=== PATIENT | male | born 1950 | race Caucasian/White ===

== ENCOUNTER 2023-12-04 10:11 | Outpatient (RCR) | payer MEDICARE, SELFPAY | END 2023-12-15 16:46 | disposition home or self-care (01) | LOC: PT 10:11 | DX: M54.9 Dorsalgia, unspecified (principal) | CPT/HCPCS: 97110; 97112; 97163; 97530 ==

== ENCOUNTER 2023-12-08 10:47 | Outpatient (OUT) | payer MEDICARE, SELFPAY ==
--- NOTE | 2023-12-08 11:19 | XR_ITS ---
The [address] [address] Patient Name: LYNN LANE MRN: [id number] date: 1950 Sex: M Assigned Patient Location: RAD Current Patient Location: Accession/Order Number: [id number] Exam Date: 12/08/2023 11:06 Report Date: 12/09/2023 07:10 At the request of: JOZEF EUCEDA Procedure: XR lumbar spine min 4V EXAMINATION: XR lumbar spine min 4V HISTORY: Dorsalgia COMPARISON: No relevant comparison available. FINDINGS: BONES: Mild dextrocurvature centered at L2. Moderate degenerative spondylosis and facet osteoarthropathy DISC SPACES: Multilevel disc space narrowing most significant at L5-S1 PARASPINOUS: Negative. No paraspinous abnormality is seen. OTHER: Negative. XR/XR lumbar spine min 4V IMPRESSION: Moderate degenerative changes Electronically authenticated by: VON NUNEZ Date: 12/09/2023 07:10
== END 2023-12-08 10:48 | disposition home or self-care (01) ==
LOC: RAD 10:52
PROVIDERS: PCP Family Medicine; Visit Provider Family Medicine
DX: M54.9 Dorsalgia, unspecified (principal)
CPT/HCPCS: 72110

== ENCOUNTER 2024-12-12 13:20 | Emergency (ER) | payer MEDICARE, SELFPAY ==
[2024-12-12 13:27] VITALS: BP 179/98; PULSE 85; TEMP 36.8; O2SAT 95; BMI 22.4
[2024-12-12] MEDS: ADACEL DIPH,PERTUSS(ACELL),TET VAC/PF 0.5 ML ADULT SYRINGE IM (14:19)
[2024-12-12] MEDS: LIDOCAINE/EPINEPHRINE/TETRACAINE 3 ML GEL.PF.APP TOPICAL (14:20)
--- NOTE | 2024-12-12 15:38 | ED.GENADUL1 ---
HPI HPI - General Adult General Chief complaint: Trauma Stated complaint: FALL KNEE PAIN Time Seen by Provider: 12/12/24 13:29 Source: patient Mode of arrival: walk-in Limitations: no limitations History of Present Illness HPI narrative: 74-year-old male to the emergency department chief complaint of accidental fall. He reports that he was walking tripped over his foot and fell forwards. He reports he struck his head on the ground. He reports small laceration. He denies any blood thinners. He reports some pain in his left knee however he is able to walk on it. He has no other complaints at this time. He denies any neck or back pain. He is otherwise been at his baseline health. Related Data Allergies Allergy/AdvReac Type Severity Reaction Status Date / Time No Known Drug Allergies Allergy Verified 12/12/24 13:26 Opioid HPI Opioid Management Most Recent Opioid Data: No Data to Display Review of Systems ROS Status of ROS 10 or more systems reviewed and unremarkable except as noted in history and below PFSH PFSH Social History Little interest or pleasure in doing things: not at all Feeling down, depressed, or hopeless: not at all Exam Narrative Exam Narrative: Primary Survey Airway Intact Lung sounds clear and equal bilaterally Pulses full and equal to femoral, radial, and dorsalis pedis bilaterally Heart regular rate and rhythm Skin warm, dry, pink GCS 15 Movement and sensation intact to all extremities Patient Fully Exposed. Nonspecific tenderness about the left knee. 1.7 cm left temporal facial laceration. Secondary Survey General: GCS 15; Alert HEENT: Left temporal facial laceration; Facial bones stable; Eyes normal inspection, Pupils round, 4-2mm blt; No evidence of oropharyngeal trauma; No blood in the nares or septal hematoma; Tympanic Membranes intact, no hemotympanum or drainage Neck: Normal inspection; no midline cervical tenderness; No tracheal deviation; No JVD Resp: Normal breath sounds, no wheeze or crackles; No chest wall tenderness, crepitus, or subcutaneous emphysema; No visible evidence of chest wall trauma; Chest rise symmetric; No respiratory distress Heart: Heart rate and rhythm regular; Carotid, radial, femoral, dorsalis pedis pulses +2 and equal bilaterally; No Murmurs Abdomen: Soft; Non-tender No ecchymosis or visible wounds to abdominal wall; No distention, guarding, rigidity, or rebound; Pelvis stable, no pain on compression MSK: All major joints with normal ROM. No deformities. No bony tenderness. No tenderness or step-offs to palpation of thoracic or lumbar spine; No ecchymosis or wounds to upper or lower back Neuro: Alert and oriented; Sensation intact and symmetric bilaterally; muscle strengths symmetric bilaterally in the upper and lower extremities. Skin: Color normal; No rash; Warm; Dry Constitutional Vital Signs, click to edit/add: Last Vital Signs Temp 98.2 F 12/12/24 13:27 Pulse 85 12/12/24 13:27 Resp 18 12/12/24 13:27 BP 179/98 H 12/12/24 13:27 Pulse Ox 95 12/12/24 13:27 Course Vital Signs Vital signs: Vital Signs Temperature 98.2 F 12/12/24 13:27 Pulse Rate 85 12/12/24 13:27 Respiratory Rate 18 12/12/24 13:27 Blood Pressure 179/98 H 12/12/24 13:27 Pulse Oximetry 95 12/12/24 13:27 Temperature 98.2 F 12/12/24 13:27 Pulse Rate 85 12/12/24 13:27 Respiratory Rate 18 12/12/24 13:27 Blood Pressure 179/98 H 12/12/24 13:27 Pulse Oximetry 95 12/12/24 13:27 Medical Decision Making MDM Narrative Medical decision making narrative: 74-year-old male to the emergency department chief complaint of fall. Vital stable, the patient is afebrile. CT head, cervical spine and maxillofacial ordered. X-ray of the knee ordered as well CT head: No acute findings CT cervical spine: No acute findings CT maxillofacial: No acute findings X-ray L knee: No acute Laceration repaired uneventfully. Patient able to ambulate. He is appropriate for discharge home. Return precautions were discussed. All questions were answered. Suture removal in 5 to 7 days. Patient was discharged home. Laceration Repair Verbal consent was obtained for laceration repair. Lidocaine infiltration for local anesthesia. Wound was cleansed and then irrigated with normal saline under pressure. Wound explored. No foreign bodies were identified. 3x simple interrupted 4-O sutures were used to repair the laceration. Adequate wound approximation was obtained. The patient tolerated the procedure well and there were no complications. Obi Melton DO Medical Records Medical records reviewed: Yes I reviewed the patient's medical records Imaging Data CT scan - head: Attestation: I have reviewed the pertinent imaging results. Radiologist's impression: See separate PACS document Discharge Plan Discharge Chief Complaint: Trauma Clinical Impression: Accidental fall, Closed head injury, Facial laceration, Contusion of knee Patient Disposition: Home, Self-Care Time of Disposition Decision: 15:22 Condition: Good Mode of Transportation: Private Vehicle Print Language: Ukrainian Instructions: Laceration (ED), Head Injury (ED), Contusion in Adults (ED), Fall Prevention (ED) Additional Instructions: Keep original bandage on for 24 hours after which the wound may be open to the air. You may gently clean the site with soap and water twice daily after 24 hours. You can apply anti-bacterial ointment to the wound twice daily after cleaning. Do not go swimming until sutures are removed and wound has healed completely. 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 Seek medical care if your wound develops increasing redness, warmth, swelling, or purulent discharge. Your sutures will need to be removed in 7 days by a healthcare provider so the wound can be re- examined. Referrals: Calvin Oshea DO [Primary Care Provider] - 1 week
== END 2024-12-12 15:43 | disposition home or self-care (01) ==
PROVIDERS: Emergency Provider Student in an Organized Health Care Education/Training Program; PCP Family Medicine
DX: S01.81XA Laceration without foreign body of other part of head, initial encounter (principal); S09.8XXA Other specified injuries of head, initial encounter; S80.02XA Contusion of left knee, initial encounter; W01.0XXA Fall on same level from slipping, tripping and stumbling without subsequent striking against object, initial encounter; Z23 Encounter for immunization
CPT/HCPCS: 12011; 70450; 70486; 72125; 73564; 90471; 90715; 99284

== ENCOUNTER 2024-12-20 10:13 | Emergency (ER) | payer MEDICARE, SELFPAY ==
[2024-12-20] VITALS (11 sets, daily range): BP systolic 141–163; BP diastolic 89–111; PULSE 83–99; TEMP 36.6; O2SAT 89–96; BMI 23.7
--- OUTSIDE RECORDS SUMMARY | 2024-12-20 10:32 | XMS_ITS | CCD ---
Author Organization [facility] Care Team Providers Care Purchasing Department Clerk Name Role Phone VIVI SWATHIOFELIAJohn Unavailable Unavailable RUSSELL TREJO Unavailable Unavailable MARCELLA, DR WELLS Attending Unavailable MARCELLA, DR WELLS Consulting Unavailable MARCELLA, DR WELLS Admitting Unavailable DO Russell Trejo Primary Care Provider DO Kaylyn Dumont Emergency Provider [phone] Russell Trejo Primary Care Unavailable Kaylyn Dumont Attending Unavailable Kaylyn Dumont Admitting Unavailable Russell Trejo DO Unavailable Russell Trejo DO Primary Care Provider [phone] Russell Guerrero Primary Care Physician Unavail able Link, Calvin Cotto Primary Care Physician [phone] Unavailable Primary Care Provider UnavailEUGENIO Wing Attending Unavailable EUGENIO RIVERO Attending Unavailable Link, Calvin Cotto Attending Unavailable Link, Calvin Cotto Attending Unavailable Link, Calvin Cotto Attending Unavailable Link, Calvin Cotto Attending Unavailable Link, Calvin Cotto Attending Unavailable Link, Calvin Cotto Attending Unavailable Unavailable Unavailable Unavailable Allergies Allergy Classification Reported Allergen(s) Allergy Type Date of Onset Reaction(s) Facility (1 source) No Known Medication Allergies; Translations: [No Known Medication Allergies] Propensity to adverse reactions (disorder) [facility] Repository Medications Current Medications Medication Drug Class(es) Dates Sig (Normalized) Sig (Original) acetaminophen 500 mg oral tablet (6 sources) take 1 tablet by mouth every four hours as needed acetaminophen (Tylenol Extra Strength) 500 MG tablet Take 500 mg by mouth every 4 (four) hours if needed. Active aspirin 81 mg delayed release oral tablet (3 sources) Platelet Aggregation Inhibitor, Nonsteroidal Anti-inflammatory Drug Start: 03-18-2020 End: 04-29-2021 take 81 mg by mouth once daily Aspirin Active 81 MG PO Daily April 28, 2021 11:00pm Start: 02-12-2018 End: 10-05-2018 Aspirin (John Low Dose Aspi rin) 81 mg Tablet,Delayed Release (Dr/Ec) Discontinued 81 MG PO Daily February 11, 2018 11:00pm October 05, 2018 7:23am atorvastatin 10 mg oral tablet (16 sources) HMG-CoA Reductase Inhibitor Start: 05-19-2023 take 1 tablet by mouth once daily atorvastatin (Lipitor) 10 MG tablet Indications: Mixed hyperlipidemia (CMS/HCC) TAKE 1 TABLET BY MOUTH EVERY DAY FOR 90 DAYS 90 tablet 3 05/19/2023 Active Start: 02-16-2020 atorvastatin 1 0 mg, Refills(s) 0 Start Date: 02/16/20 Status: Ordered Start: 02-12-2018 take 10 mg by mouth once daily in the morning Atorvastatin Active 10 MG Oral Every morning February 12, 2018 10:22pm citalopram 20 mg oral tablet (5 sources) Serotonin Reuptake Inhibitor Start: 02-12-2018 End: 04-29-2021 take 20 mg by mouth once daily Citalopram Active 20 MG Oral Daily February 12, 2018 10:22pm donepezil hydrochloride 5 mg oral tablet (8 sources) Start: 03-31-2024 take 1 tablet by mouth once daily at bedtime donepezil (Aricept) 5 MG tablet Indications: Other amnesia TAKE 1 TABLET BY MOUTH EVERY DAY AT BEDTIME FOR 90 DAYS 90 tablet 2 03/31/2024 Active Start: 07-28-2020 take 1 tablet by althea th once daily at bedtime donepezil 10 mg Tab 10 mg = 1 tab(s), Oral, Once a day (at bedtime), # 30 tab(s), Refills(s) 0 Start Date: 07/28/20 Status: Ordered ibuprofen 800 mg oral tablet (10 sources) Nonsteroidal Anti-inflammatory Drug Start: 11-09-2023 take 1 tablet by mouth every six hours ibuprofen 800 mg Tab 800 mg = 1 tab(s), Oral, q6hr, # 40 tab(s), Refills(s) 0 Start Date: 11/09/23 Status: Ordered Start: 11-09-2023 take 1 tablet by althea th once daily ibuprofen 800 mg Tab 800 mg = 1 tab(s), Oral, Daily, Refills(s) 0 Start Date: 11/09/23 Status: Ordered Lisinopril (19 sources) Angiotensin Converting Enzyme Inhibitor Start: 02-16-2020 lisinopril 20 mg, Refills(s) 0 Start Date: 02/16/20 Status: Ordered Start: 02-14-2018 End: 11-05-2018 take 40 mg by mouth once daily Lisinopril Active 40 MG PO Daily November 05, 2018 2:27pm Start: 02-12-2018 End: 02-14-2018 take 20 mg by mouth once daily Lisinopril Discontinued 20 MG PO Daily February 11, 2018 11:00pm February 14, 2018 12:55pm Start: 02-12-2018 End: 02-12-2018 Lisinopril Discontinued TABL ET February 11, 2018 11:00pm February 12, 2018 9:27pm loperamide hydrochloride 2 mg oral capsule (1 source) Opioid Agonist Start: 04-29-2021 take 2 mg by mouth every six hours Loperamide Active 2 MG PO Q6H 90 April 28, 2021 11:00pm 24 hr metoprolol succinate 25 mg extended release oral tablet (16 sources) beta-Adrenergic Magda Start: 05-24-2024 take 1 tablet by mouth once daily metoprolol succinate XL (Toprol-XL) 25 MG 24 hr tablet Indications: Benign essential hypertension (CMS/HCC) TAKE 1 TABLET BY MOUTH EVERY DAY 90 tablet 05/24/2024 Active Start: 10-05-2018 End: 04-29-2021 take 1 tablet by mouth once daily metoprolol 25 mg ER Tab 25 mg = 1 tab(s), Oral, Daily, Refills(s) 0 Start Date: 07/28/20 Status: Ordered mirtazapine 7.5 mg oral tablet (8 sources) Start: 08-27-2023 take 1 tablet by mouth at bedtime mirtazapine (Remeron) 7.5 MG tablet Indications: Recurrent major depressive disorder, in partial remission (HCC) (CMS/HCC) Take 1 tablet (7.5 mg) by mouth at bedtime 90 tablet 3 08/27/2023 Active nitroglycerin 0.4 mg sublingual tablet (7 sources) Nitrate Vasodilator Start: 04-29-2021 Nitroglycerin Active 0.4 MG SUBLINGUAL every 5 to 15 minutes April 28, 2021 11:00pm Semaglutide,0.25 or 0.5MG/DOS, (Ozempic, 0.25 or 0.5 MG/DOSE,) 2 MG/3ML solution pen-injector (6 sources) Start: 08-31-2023 Semaglutide,0.25 or 0.5MG/DOS, (Ozempic, 0.25 or 0.5 MG/DOSE,) 2 MG/3ML solution pen-injector Indications: Metabolic syndrome Inject 0.25 mg under the skin 1 (one) time per week 2 mL 08/31/2023 Active Start: 08-31-2023 Semaglutide,0. 25 or 0.5MG/DOS, (Ozempic, 0.25 or 0.5 MG/DOSE,) 2 MG/3ML solution pen-injector Indications: Metabolic syndrome Inject 0.25 mg under the skin 1 (one) time per week 2 mL 0 08/31/2023 Active sertraline 100 mg oral tablet (12 sources) Serotonin Reuptake Inhibitor Start: 11-09-2023 sertraline (Zoloft) 100 MG tablet Indications: Recurrent major depressive disorder, in partial remission (HCC) (CMS/HCC) TAKE 1 AND 1/2 TABLETS BY MOUTH ONCE DAILY 135 tablet 05/24/2024 Active Start: 06-15-2023 sertraline (Zo loft) 100 MG tablet Indications: Recurrent major depressive disorder, in partial remission (HCC) (CMS/HCC) TAKE 1 AND 1/2 TABLETS BY MOUTH ONCE DAILY 135 tablet 3 06/15/2023 Active Start: 04-29-2021 take 25 mg by mouth once daily Sertraline Active 25 MG PO Daily April 28, 2021 11:00pm divalproex sodium 250 mg delayed release oral tablet (12 sources) Mood Stabilizer, Anti-epileptic Agent Start: 11-08-2024 take 2 tablets by mouth once daily in the morning, then take 1 tablet by mouth once daily at bedtime divalproex (Depakote) 250 MG EC tablet Indications: Seizure disorder (CMS/HCC) 2 po qam, 1 po qhs 90 tablet 11/08/2024 Active Start: 04-29-2021 take 1 tablet by althea th in the morning, then take 2 tablets by mouth at bedtime divalproex sodium 250 mg Oral EC Tab TAKE 1 TABLET BY MOUTH IN THE MORNING AND 2 TABLETS AT BEDTIME Start Date: 11/09/23 Status: Ordered Completed/Discontinued Medications Medication Drug Class(es) Dates Sig (Normalized) Sig (Original) levothyroxine sodium 0.1 mg oral tablet (17 sources) l-Thyroxine Start: 05-19-2024 take 1 tablet by mouth once daily in the morning levothyroxine 100 mcg (0.1 mg) Tab 100 mcg = 1 tab(s), Oral, Daily, TAKE 1 TABLET BY MOUTH EVERY DAY IN THE MORNING ON EMPTY STOMACH, # 90 tab(s), Refills(s) 4, Pharmacy: [facility]/pharmacy #[id number], 187, cm, 01/18/24 14:04:00 EDT, Height/Length Dosing, 98, kg, 01/18/24 14:04:00 EDT, Weight Dosing Start Date: 05/19/24 Status: Ordered Start: 11-09-2023 take 1 tablet by althea th once daily in the morning levothyroxine 100 mcg (0.1 mg) Tab TAKE 1 TABLET BY MOUTH EVERY DAY IN THE MORNING ON EMPTY STOMACH Start Date: 11/09/23 Status: Ordered Start: 04-28-2023 take 1 tablet by althea th once daily in the morning levothyroxine (Synthroid, Levoxyl) 100 MCG tablet Indications: Acquired hypothyroidism (CMS/HCC) TAKE 1 TABLET BY MOUTH EVERY DAY IN THE MORNING ON EMPTY STOMACH 90 tablet 3 04/28/2023 Active Start: 02-12-2018 End: 02-12-2018 take 88 ug by mouth once daily Levothyroxine Active 88 MCG Oral Daily February 12, 2018 10:22pm Problems Active Problems Problem Classification Problem Date Documented Da te Episodic/Chronic Abdominal pain (5 sources) Left flank pain 02-17-2020 Episodic Acute cerebrovascular disease (16 sources) Cerebral hemorrhage; Translations: [Nontraumatic intracerebral hemorrhage, unspecified] Onset: 04-20-2023 06-06-2019 Chronic Calculus of urinary tract (10 sources) Kidney stone; Translations: [History of calculus of kidney] 02-17-2020 Episodic Coma; stupor; and brain damage (6 sources) Anoxic encephalopathy; Translations: [Anoxic brain damage, not elsewhere classified] Onset: 04-20-2023 04-20-2023 Chronic Conditions associated with dizziness or vertigo (2 sources) Dizziness; Translations: [Dizziness and giddiness] Onset: 10-13-2022 10-13-2022 Episodic Delirium, dementia, and amnestic and other cognitive disorders (19 sources) 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 behavioral disturbance; Translations: [Apathetic behavior due to dementia] Onset: 05-05-2022 04-20-2023 Chronic Disorders of lipid metabolism (11 sources) Mixed hyperlipidemia; Translations: [Mixed hyperlipidemia] Onset: 04-20-2023 04-20-2023 Chronic Epilepsy; convulsions (20 sources) Epilepsy, unspecified, not intractable, without status epilepticus; Translations: [Absence seizure] Onset: 05-02-2022 Chronic Epilepsy; convulsions (9 sources) Absence seizure; Translations: [Seizure] 06-06-2019 Episodic Essential hypertension (20 sources) Hypertensive disorder; Translations: [Essential (primary) hypertension] Onset: 05-05-2022 06-06-2019 Chronic Fluid and electrolyte disorders (5 sources) Dehydration; Translations: [Dehydration] 02-12-2018 Episodic Genitourinary symptoms and ill-defined conditions (5 sources) Urinary incontinence 02-17-2020 Chronic Genitourinary symptoms and ill-defined conditions (5 sources) Blood in urine 02-16-2020 Episodic Intracranial injury (6 sources) Traumatic brain injury; Translations: [History of traumatic brain injury] Onset: 12-11-2023 07-28-2020 Episodic Comment on above: Added per Dr. Dayo hoffmann response, per outpatient [facility] policy Late effects of cerebrovascular disease (8 sources) Dysarthria following unspecified cerebrovascular disease; Translations: [History of cerebrovascular accident with residual deficit] Onset: 05-05-2022 02-13-2018 Chronic Malaise and fatigue (1 source) Asthenia; Translations: [Weakness] 10-13-2022 Episodic Miscellaneous mental health disorders (5 sources) Chronic insomnia; Translations: [Psychophysiologic insomnia] Onset: 01-18-2024 11-10-2023 Chronic Mood disorders (20 sources) Major depressive disorder, recurrent, moderate; Translations: [Major depression in remission] Onset: 05-05-2022 04-20-2023 Chronic Comment on above: Added per Dr. Dayo hoffmann response, per outpatient [facility] policy. Mycoses (3 sources) Onychomycosis; Translations: [Tinea unguium] 11-04-2023 Episodic Nonspecific chest pain (1 source) Chest pain, unspecified; Translations: [Chest pain, unspecified] Onset: 03-11-2018 Episodic Other aftercare (1 source) Long-term current use of anticoagulant; Translations: [buttermaker continuous churn (current) use of anticoagulants] Onset: 12-14-2023 Episodic Other circulatory disease (4 sources) History of cerebrovascular accident with residual deficit; Translations: [Sequela of cardioembolic stroke] Episodic Other circulatory disease (2 sources) History of transient ischemic attack; Translations: [Personal history of transient ischemic attack (TIA), and cerebral infarction without residual deficits] Onset: 12-14-2023 Episodic Other circulatory disease (4 sources) History of cerebrovascular accident 11-10-2023 Episodic Other connective tissue disease (5 sources) Rhabdomyolysis; Translations: [Rhabdomyolysis] 02-13-2018 Episodic Other connective tissue disease (3 sources) Pain of toe of left foot; Translations: [Pain in left toe(s)] 11-04-2023 Episodic Other connective tissue disease (3 sources) Pain of toe of right foot; Translations: [Pain in right toe(s)] 11-04-2023 Episodic Other diseases of veins and lymphatics (2 sources) Peripheral venous insufficiency; Translations: [Venous insufficiency (chronic) (peripheral)] 11-04-2023 Episodic Other gastrointestinal disorders (5 sources) Mass of colon; Translations: [Other specified diseases of intestine] 04-13-2019 Episodic Other gastrointestinal disorders (1 source) Diarrhea, unspecified; Translations: [DIARRHEA UNSPECIFIED] Onset: 05-05-2022 Episodic Other hematologic conditions (1 source) Raised cardiac enzyme or marker; Translations: [Other specified abnormalities of plasma proteins] 02-12-2018 Episodic Other hereditary and degenerative nervous system conditions (3 sources) Impaired cognition; Translations: [Mild cognitive impairment, so stated] Onset: 06-15-2024 06-15-2024 Chronic Other injuries and conditions due to external causes (2 sources) History of fall; Translations: [History of falling] Onset: 11-09-2023 Episodic Other liver diseases (6 sources) Fatty (change of) liver, not elsewhere classified; Translations: [Other chronic nonalcoholic liver disease] Onset: 08-31-2023 08-31-2023 Chronic Other lower respiratory disease (5 sources) Dyspnea 02-16-2020 Episodic Other nervous system disorders (5 sources) Cognitive deficit in attention; Translations: [Attention and concentration deficit] 06-06-2019 Chronic Other nervous system disorders (5 sources) Impaired cognition; Translations: [Other symptoms and signs involving cognitive functions and awareness] 06-06-2019 Episodic Other nervous system disorders (1 source) Unspecified abnormalities of gait and mobility; Translations: [UNS ABNORMALITIES GAIT AND MOBILITY] Onset: 05-05-2022 Episodic Other nervous system disorders (4 sources) Lack of awareness; Translations: [Cognitive complaints] Other non-traumatic joint disorders (1 source) Pain of right shoulder joint; Translations: [Pain in right shoulder] Onset: 01-18-2024 Episodic Other nutritional; endocrine; and metabolic disorders (3 sources) Overweight in adulthood with body mass index of 25 or more but less than 30; Translations: [Body mass index (BMI) 29.0-29.9, adult] Onset: 11-09-2023 Episodic Peripheral and visceral atherosclerosis (2 sources) Peripheral vascular disease, unspecified; Translations: [Peripheral vascular disease, unspecified] 11-04-2023 Chronic Residual codes; unclassified (8 sources) Amnesia; Translations: [Other amnesia] 06-06-2019 Episodic Residual codes; unclassified (5 sources) History of colectomy; Translations: [Acquired absence of other specified parts of digestive tract] 04-16-2019 Episodic Residual codes; unclassified (1 source) Acquired absence of other specified parts of digestive tract; Translations: [ACQ ABSENCE OTH PART DIGESTV TRACT] Onset: 05-05-2022 Episodic Residual codes; unclassified (1 source) Lack of awareness; Translations: [Unspecified symptoms and signs involving cognitive functions and awareness] 06-06-2019 Episodic Screening and history of mental health and substance abuse codes (3 sources) H/O: Disorder; Translations: [Personal history of nicotine dependence] Onset: 11-09-2023 Episodic Spondylosis; intervertebral disc disorders; other back problems (7 sources) Backache; Translations: [Dorsalgia, unspecified] Onset: 11-09-2023 Episodic Syncope (6 sources) Syncope and collapse; Translations: [Vasovagal syncope] 03-18-2020 Episodic Syncope (1 source) Syncope Onset: 03-11-2018 Thyroid disorders (11 sources) Hypothyroidism, unspecified; Translations: [Hypothyroidism] Onset: 05-05-2022 04-20-2023 Chronic Unclassified (2 sources) Chest pain, unspecified / R07.9(ICD-9) Onset: 03-11-2018 Unclassified (4 sources) Protein level - finding; Translations: [Elevated brain natriuretic peptide (BNP) level] Unclassified (5 sources) Asymptomatic microscopic hematuria 02-17-2020 Unclassified (5 sources) Drug therapy finding 02-17-2020 Past or Other Problems Problem Classification Problem Date Documented Date Episodic/Chronic Administrative/social admission (6 sources) Patient encounter status; Translations: [Other specified counseling] Onset: 3 04-27-2023 Episodic Mood disorders (6 sources) Mood disorders Onset: 3 08-31-2023 Other and unspecified benign neoplasm (6 sources) Tubular adenoma of colon; Translations: [Benign neoplasm of colon, unspecified] Onset: 3 04-20-2023 Episodic Other gastrointestinal disorders (6 sources) Incontinence of feces; Translations: [Full incontinence of feces] Onset: 3 04-20-2023 Episodic Other gastrointestinal disorders (6 sources) Dysphagia; Translations: [Dysphagia, pharyngoesophageal phase] Onset: 3 04-20-2023 Episodic Other nervous system disorders (6 sources) Abnormal gait; Translations: [Unspecified abnormalities of gait and mobility] Onset: 3 04-20-2023 Episodic Other non-epithelial cancer of skin (6 sources) Basal cell carcinoma of forehead; Translations: [Basal cell carcinoma of skin of other parts of face] Onset: 3 04-20-2023 Episodic Residual codes; unclassified (6 sources) History of partial resection of colon; Translations: [Acquired absence of other specified parts of digestive tract] Onset: 3 04-20-2023 Episodic Results Test Name Value Interpretation Reference Range Facility Family Medicine Office/Clini c Noteon 01-21-2024 Family Medicine Office/Clinic Note Chief Complaint Initial AWV History of Present Illness I was in the office and available for consultation and to provide direct supervision at the time of this visit. I have provided supervision of the care team and have reviewed this chart and office note and agree with the plan of care. Review of Systems PHQ Score Initial Depression Screen Score: 1 SCORE Physical Exam Vitals & Measurements HR: 101(Peripheral) RR: 16 BP: 122/90 SpO2: 93% HT: 187 cm HT: 74 in WT: 98 kg WT: 215.6 lb BMI: 28.02 Assessment/Plan 1. Encounter for initial annual wellness visit (AWV) in Medicare patient (Z00.00: Encounter for general adult medical examination without abnormal findings) The patient was given a customized and personalized print out of all the current AHRQ USPSTF?s recommendations for preventative services and all current CDC recommended immunizations, relevant risk recommendations and the following patient brochures were given. Reviewed What can I expect during my Medicare preventative care visit CDC-Falls Prevention and home safety screening reviewed. Patient has had several falls in last 12 months, pt does worry about falling. Pt voices understanding with keeping walk way area free of clutter to prevent tripping and/or falling. [place] Advance Directives reviewed, Pt's family will bring in a copy. Patient denies any problems with ADL?s and Instrumental ADL?s. Cognitive screening completed with memory and clock face drawing. Immunization Record reviewed with the patient. Pt declined any further vaccines. Allergies and medications reviewed and up to date. Patient denies concerns with taking medication as prescribed, reviewed OTC medications with patient with medication list up to date. Blood tests were reviewed: Discussed what tests need to be updated. Colonoscopy was declined. Reviewed concerns with bladder control over past 6 months with no concerns. Reviewed pain symptoms with patient: 0/10 Reviewed all outside providers that patient follows. Last visit summary notes available in chart and/or have been requested. AWV has been scheduled 01/03/2025 AUDIT risk assessment screening completed, risk score (0) with patient denying concerns with use. Completed PHQ-2 risk assessment for depression with risk score (0), negative findings. Patient has been reminded to notify the provider if there would be a change or concerns with symptoms with fear, unable to sleep, worrying too much or feeling down and/or sad with lost of interest with daily activities. Will continue to monitor with screening yearly during Medicare wellness visits. Spent 12 min. reviewing with pt. 2. Absence seizure (G40.A09: Absence epileptic syndrome, not intractable, without status epilepticus) Pt takes Divalproex but is inconsistent with taking it properly despite verbalizing that is aware when he needs to take it. Pt follows with Neurology as directed. Pt was encouraged to start being consistent with medication regimen to avoid having any break-through seizure activity. Pt was able to verbalize understanding. 3. Benign essential hypertension (I10: Essential (primary) hypertension) Patient is taking Lisinopril and Metoprolol but not consistently as directed. Pt was able to verbalize the importance of consistently taking his medication as prescribed. Reviewed with pt BP goal to be <140/90. Reviewed different factors that can alter blood pressure readings. Education handout provided with s/s to monitor for and report to provider. Patient is encouraged to increase portions of fruit, vegetables, fiber and increase exercise as much as tolerable. Reviewed importance with monitoring foods high in salt content and encouraged to limit intake, if unsure encouraged to discuss with their PCP. Encouraged to eat more chicken, fish and lean white meats and limits red meats in diet. Discussed importance with keeping BP under good control to reduce CVA risk factors. Will continue to f/u with PCP during office visits and as needed. 4. Chronic insomnia (F51.04: Psychophysiologic insomnia) Pt stopped taking the Mirtazapine due to it being ineffective. Pt has poor sleep hygiene habits and sleeps off and on throughout the day and night. Pt has days where he never gets out of bed except to use the restroom or eat. Discussed with pt proper sleep habits and how it helps with insomnia. Pt to follow with PCP as directed. 5. Hyperlipemia (E78.5: Hyperlipidemia, unspecified) The role of Statins extends beyond lowering blood levels of cholesterol and LDL and CKD. Statins can also reduce inflammation which increases risk factors for heart disease due to plaque buildup. Reviewed symptoms to monitor for and report to PCP ie: cramping, muscle pain, muscle weakness or diarrhea. Patient currently taking Atorvastatin 10 mg daily, reminded importance for a proper diet. Handout provided for patient to review and if need make changes. 6. History of CVA in adulthood (Z86.73: Personal history of transient ischemic attack (TIA) (more content not included)... Normal [facility] Comment on above: Result Comment: Elec tronically Signed By: Calvin Oshea DO.br\Date and Time Signed: 01/21/24 10:38 EDT\.br\Electronically Co-Signed By: Chun De Luna LPN\.br\Date and Time Co-Signed: 01/20/24 16:00 EDT Patient Educationon 01-20-20 Patient Education Cardiovascular Hypertension, Adult High blood pressure (hypertension) is when the force of blood pumping through the arteries is too strong. The arteries are the blood vessels that carry blood from the heart throughout the body. Hypertension forces the heart to work harder to pump blood and may cause arteries to become narrow or stiff. Untreated or uncontrolled hypertension can lead to a heart attack, heart failure, a stroke, kidney disease, and other problems. A blood pressure reading consists of a higher number over a lower number. Ideally, your blood pressure should be below 120/80. The first ( top ) number is called the systolic pressure. It is a measure of the pressure in your arteries as your heart beats. The second ( bottom ) number is called the diastolic pressure. It is a measure of the pressure in your arteries as the heart relaxes. What are the causes? The exact cause of this condition is not known. There are some conditions that result in high blood pressure. What increases the risk? Certain factors may make you more likely to develop high blood pressure. Some of these risk factors are under your control, including: ? Smoking. ? Not getting enough exercise or physical activity. ? Being overweight. ? Having too much fat, sugar, calories, or salt (sodium) in your diet. ? Drinking too much alcohol. Other risk factors include: ? Having a personal history of heart disease, diabetes, high cholesterol, or kidney disease. ? Stress. ? Having a family history of high blood pressure and high cholesterol. ? Having obstructive sleep apnea. ? Age. The risk increases with age. What are the signs or symptoms? High blood pressure may not cause symptoms. Very high blood pressure (hypertensive crisis) may cause: ? Headache. ? Fast or irregular heartbeats (palpitations). ? Shortness of breath. ? Nosebleed. ? Nausea and vomiting. ? Vision changes. ? Severe chest pain, dizziness, and seizures. How is this diagnosed? This condition is diagnosed by measuring your blood pressure while you are seated, with your arm resting on a flat surface, your legs uncrossed, and your feet flat on the floor. The cuff of the blood pressure monitor will be placed directly against the skin of your upper arm at the level of your heart. Blood pressure should be measured at least twice using the same arm. Certain conditions can cause a difference in blood pressure between your right and left arms. If you have a high blood pressure reading during one visit or you have normal blood pressure with other risk factors, you may be asked to: ? Return on a different day to have your blood pressure checked again. ? Monitor your blood pressure at home for 1 week or longer. If you are diagnosed with hypertension, you may have other blood or imaging tests to help your health care provider understand your overall risk for other conditions. How is this treated? This condition is treated by making healthy lifestyle changes, such as eating healthy foods, exercising more, and reducing your alcohol intake. You may be referred for counseling on a healthy diet and physical activity. Your health care provider may prescribe medicine if lifestyle changes are not enough to get your blood pressure under control and if: ? Your systolic blood pressure is above 130. ? Your diastolic blood pressure is above 80. Your personal target blood pressure may vary depending on your medical conditions, your age, and other factors. Follow these instructions at home: Eating and drinking ? Eat a diet that is high in fiber and potassium, and low in sodium, added sugar, and fat. An example of this eating plan is called the DASH diet. DASH stands for Dietary Approaches to Stop Hypertension. To eat this way: ? Eat plenty of fresh fruits and vegetables. Try to fill one half of your plate at each meal with fruits and vegetables. ? Eat whole grains, such as whole-wheat pasta, brown rice, or whole-grain bread. Fill about one fourth of your plate with whole grains. ? Eat or drink low-fat dairy products, such as skim milk or low-fat yogurt. ? Avoid fatty cuts of meat, processed or cured meats, and poultry with skin. Fill about one fourth of your plate with lean proteins, such as fish, chicken without skin, beans, eggs, or tofu. ? Avoid pre-made and processed foods. These tend to be higher in sodium, added sugar, and fat. ? Reduce your daily sodium intake. Many people with hypertension should eat less than 1,500 mg of sodium a day. ? Do not drink alcohol if: ? Your health care provider tells you not to drink. ? You are , may be , or are planning to become . ? If you drink alcohol: ? Limit how much you have to: ? 0?1 drink a day for women. ? 0?2 drinks a day for men. ? Know how much alcohol is in your drink. In the [place] one drink equals one 12 oz bottle of beer (355 mL), one 5 oz glass of wine (148 mL), or one 1? oz glass (more content not included)... Normal [facility] Ambulatory Visit Summaryon 0 01-18-2024 Ambulatory Visit Summary LYNN JOLLY :1950 Visit Date:01/18/2024 Ambulatory Visit Instructions Your Diagnosis Encounter for initial annual wellness visit (AWV) in Medicare patient Absence seizure Benign essential hypertension Chronic insomnia Hyperlipemia History of CVA in adulthood At risk for falls Hypothyroidism in adult Severe major depression without psychotic features BMI 28.0-28.9,adult Overweight Screening PSA (prostate specific antigen) Screening for diabetes mellitus Your Care Team Attending Physician - Calvin Oshea DO Primary Care Physician - Calvin Oshea DO This Is Your Medications List atorvastatin divalproex sodium (divalproex sodium 250 mg Oral EC Tab) donepezil (donepezil 10 mg Tab) ibuprofen (ibuprofen 800 mg Tab) ibuprofen (ibuprofen 800 mg Tab) levothyroxine (levothyroxine 100 mcg (0.1 mg) Tab) lisinopril metoprolol (metoprolol 25 mg ER Tab) sertraline (sertraline 100 mg Tab) [Image Removed: STOP]Stop taking these medications mirtazapine (mirtazapine 7.5 mg oral tablet) Procedures Performed History of hip surgery (2015), Lithotripsy (02/19/2012), History of shoulder surgery. What to do next Scheduled Follow-Up Appointments Thursday 2:00 PM EDT Where: [facility] [place] Invalid Interpretation Code Benign essential hypertension [facility] Medicine Office/Clini c Noteon 01-18-2024 Family Medicine Office/Clinic Note Chief Complaint 1 month f/u HPI Staff Patient here for 1 month f/u At last visit referral for Psychiatry placed, scheduled: no they haven't yet. Patient notes no issue with shoulder and back, patient notes the reason he doesn't get out of bed is because he's comfortable . [place]: per pt 5 years ago PSA: unsure Flu: declines AMW: today History of Present Illness Patient presents today for followup on back and shoulder pain. Patient was referred to PT at last visit for this complaint. He was seeing PT for his balance, and has continued with them since that time. Today, he reports Patient states that his depression is stable. He has not been getting out of bed, he has not been walking well. He has had more falls since last visit, denies any lasting injuries. Patient's family relates that they keep trying to get him out of bed, keep trying to get him to clean himself up, to shave. He states he is not willing to do these things because he doesn't really care. Family reports that when they try to get him to engage, he gets angry, aggressive, and frustrated. 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 He is frustrated by his condition, and while he does not express SI, he doesn't much care how he does day to day. He denies any medication changes. He has not seen psychiatry since last visit. Review of Systems ROS - Provider Constitutional: no fever, no chills Skin: no rash, no lesions ENMT: no ear pain, no sore throat, no congestion, no hoarseness. Respiratory: no shortness of breath, no cough, no wheezing. Cardiovascular: no chest pain, no palpitations, no edema. Gastrointestinal: no nausea, no vomiting, no diarrhea, Musculoskeletal: yes back pain, no trauma. Neurologic: no headache, no dizziness, no numbness, no weakness, no seizures Psychiatric: yes sleeping problems, yes irritability, yes mood swings/depression. Physical Exam Vitals & Measurements HR: 101(Peripheral) BP: 122/90 SpO2: 93% HT: 74 in HT: 187 cm WT: 98 kg WT: 215.6 lb BMI: 28.02 General: Well developed, well nourished, in no acute distress, slow responses to questions Head: Normocephalic/atraumatic Eyes: Pupils equal, round, and reactive to light. Sclerae normal, and extraocular movements intact Lungs: not assessed Cardio: not assessed Musculoskeletal: No deformity or scoliosis noted. Normal range of motion. Joints normal. No erythema, edema, effusion, or ecchymosis Extremity: No clubbing, cyanosis, edema, or deformity, with normal ROM in both upper and lower bilateral extremities Neurologic: Grossly normal, weak bilateral lower extremities 4/5 in all regions, neurovascularly intact Skin: No rash, petechiae, suspicious lesions Mental Status: Alert and oriented x3. Normal mood and affect, flat affect Assessment/Plan 1. Severe major depression without psychotic features (F32.2: Major depressive disorder, single episode, severe without psychotic features) This is primary factor for patient's health at this time. He is very flat, and his depression screening is very high. He was referred to psychiatry, and he has features of major clinical depression, severe rating. At this time, encouraged them to continue efforts to get him to be active, but this is likely to be stymied until he sees psychiatry. I also encouraged then to keep optimistic and to hold out hope that this will get better with treatment. Family relays understanding. I do not feel family could be exerting more effort to help patient with his recovery or his depression at this time, they are very supportive. 2. Back pain (M54.9: Dorsalgia, unspecified) Stable at this time, no new falls. 3. Right shoulder pain (M25.511: Pain in right shoulder) Stable at this time, no new falls. 4. Former smoker (Z87.891: Personal history of nicotine dependence) Stable in remission. 5. BMI 28.0-28.9,adult (Z68.28: Body mass index [BMI] 28.0-28.9, adult) The standard range for ages 18 and older is >=18.5 and < 25 kg/m2. Your BMI today was above this range, this falls in the overweight to obese category and there are medical benefits to weight loss. We can offer counselling, referral, and/or medical support in addressing this problem. Your BMI and weight management will be followed at subsequent visits. Total time spent TODAY preparing the chart, [id number] interaction with the patient/family and time spent documenting, reviewing, and ordering above care was 40 mins. Patient was counseled on the above diagnosis and treatment, all questions were answered and patient agrees to adhere to the plan above. Risk and benefits of appropriate procedures and medications were reviewed as well with patient, who voiced understanding and agreement with stated management of care. Follow-up With When Contact Information Calvin Oshea DO, FAM Within 4 weeks [address] [place] [address]- Additional Instructions: 4 WEEKS FOLLOWUP Problem List/Past M (more content not included)... Normal [facility] Comment on above: Result Comment: Elec tronically Signed By: Calvin Oshea DO\.br\Date and Time Signed: 01/18/24 14:36 EDT [place] 01-18-2024 Screens [id number] Normal [facility] Albumin [Mass/volume] in Ser um or PlasmaOrdered By: Kaylyn Dumont on 10-13-2022 Albumin [Mass/Vol] 3.9 g/dL 3.2-5.5 [facility] Automated erythrocytes count in urine sediment (number/area)Ordered By: Kaylyn Dumont on 10-13-2022 RBC Auto (Urine sed) [#/Area] 0-1 [HPF] 0-4 [facility] Automated leukocytes count i n urine sediment (number/area)Ordered By: Kaylyn Dumont on 10-13-2022 WBC Auto (Urine sed) [#/Area] 3-4 [HPF] 0-4 [facility] B-Type Natriuretic Peptideon 10-13-2022 Natriuretic peptide B (Bld) [Mass/Vol] 33.0 pg/mL Normal 5-100 [facility] Comment on above: Result Comment: PERF ORMED BY: [place] [address] PATHOLOGIST [employer]RIET[employer] TYLER CASEY M.D. Performed By: #### C BC, PT, BNP, CMP, MG, HS TROP #### [address] Basophils Auto (Bld) [#/Vol] Ordered By: Kaylyn Dumont on 10-13-2022 Basophils (Bld) [#/Vol] 0.0 10*3/uL 0.0-0.2 [facility] Basophils/100 WBC Auto (Bld) Ordered By: Kaylyn Dumont on 10-13-2022 Basophils/100 WBC (Bld) 0.4 % . [facility] Bilirubin Test strip Ql (U)O rdered By: Kaylyn Dumont on 10-13-2022 Bilirubin Ql (U) Negative Negative [facility] COVID CepheidOrdered By: Michelle Dumont on 10-13-2022 SARS-CoV-2 (COVID-19) Ab IA Ql Negative Negative [facility] Comment on above: This is a duplicate Cepheid Xpert Xpress CoV-2/Flu/RSV Plus RNA by RT-PCR result to be used for statistical tracking purpose only. SARS-CoV-2 (COVID-19) RNA JORDAN+probe Ql (Unsp spec) [facility] COVID-19 / Flu A/B / RSV PCR on 10-13-2022 SARS-CoV-2 (COVID-19) RNA JORDAN+probe Ql (Unsp spec) COVID-19 Cepheid Result Negative for SARS-CoV-2 RNA by RT-PCR Flu A Cepheid Result Negative for Flu A RNA by RT-PCR Flu B Cepheid Result Negative for Flu B RNA by RT-PCR RSV Cepheid Result Negative for RSV RNA by RT-PCR COVID19 Blank Space ---- Reference: Negative COVID19 Blank Space ---- Cepheid Disclaimer The Cepheid Xpert Xpress CoV-2/Flu/RSV Plus has Cepheid Disclaimer not been FDA cleared or approved; this test has Cepheid Disclaimer been authorized by FDA under an EUA for use by Cepheid Disclaimer authorized laboratories; this test has been Cepheid Disclaimer authorized only for the simultaneous qualitative Cepheid Disclaimer detection and differentiation of nucleic acids from Cepheid Disclaimer SARS-CoV-2, influenza A, influenza B, and Cepheid Disclaimer respiratory syncytial virus (RSV), and not for any Cepheid Disclaimer other viruses or pathogens; and this test is only Cepheid Disclaimer authorized for the duration of the declaration that Cepheid Disclaimer circumstances exist justifying the authorization of Cepheid Disclaimer emergency use of in vitro diagnostic tests for Cepheid Disclaimer detection and/or diagnosis of COVID-19 under Cepheid Disclaimer Section 564(b)(1) of the Act, 21 U.S.C. 360bbb- Cepheid Disclaimer 3(b)(1), unless the authorization is terminated or Cepheid Disclaimer revoked sooner. PERFORMED BY: [place] [address] PATHOLOGIST [employer]RIET[employer] TYLER CASEY M.D. [facility] Comment on above: Performed By: #### C EPHEID NEG, COVID19 FLU RSV #### [address] angio neckon 10-13-2022 CT angio neck [facility] [place] [address] [place] [address] CT Scan Report Signed Patient: Lynn Jolly JR MR#: [id number] : 1950 Acct:[id number] Age/Sex: 72 / M ADM Date: 10/13/22 Loc: ER Room: Type: [facility] Attending Dr: Copies to: Kaylyn Dumont DO Ordering Provider: Kaylyn Dumont DO Date of Service: 10/13/22 CT/CT angio head: weakness ([id number]) CT/CT angio neck: weakness ([id number]) CT/CT head/brain wo con: weakness CT head/brain wo con, CT angio head, CT angio neck 10/13/2022 10:19 AM SIGNS AND SYMPTOMS: Dizziness, lightheadedness, altered mental status with slurred speech CONTRAST: 80 mL of intravenous [id number] TECHNIQUE: Multi-detector CT angiography axial slices of the head and neck were obtained before and during intravenous administration of IV contrast material. Sagittal, coronal, and 3-D reconstructions were performed and viewed on a separate workstation. CT was performed with one or more of the following dose reduction techniques: Automated exposure control, adjustment of the mA and/or kV according to patient size, or use of iterative reconstruction technique. Stenoses were measured using the NASCET criteria. COMPARISON: None. FINDINGS: Noncontrast head CT: There is no shift of the midline structures, acute intracranial bleeding, mass effects, or evidence of acute ischemia. The ventricular system is normal in size. Atherosclerotic changes are noted in the V4 segment of the vertebral arteries and intracranial segments of the internal carotid arteries. There is diffuse age-related cortical atrophy. There is periventricular and subcortical white matter hypoattenuation suspicious for chronic microvascular ischemic change. The brainstem and the cerebellum are unremarkable. The visualized intraorbital contents, the visualized paranasal sinuses, and the visualized soft tissue in the infratemporal spaces show no abnormality. The osseous structures in the skull base and the calvarium show no acute abnormality. CTA HEAD: Calcified plaque is noted in the V4 segment of the vertebral arteries bilaterally contributing to severe stenosis of the V4 segment on the left with mild stenosis of the V4 segment of the right. The superior cerebellar arteries, posterior inferior cerebellar arteries, and the basilar artery are within normal limits. The posterior cerebral arteries are unremarkable. The intracranial segments of the internal carotid arteries are within normal limits. There are normal anterior and middle cerebral arteries. Anterior communicating artery is patent. Posterior communicating arteries are present. The deep venous system and dural venous systems appear to be patent. No bony abnormalities are appreciated. CTA NECK: There is a common ostium of the brachiocephalic and left internal carotid artery which is a normal variant. The left vertebral artery arises from the arch between the common ostium and the left subclavian is a normal variant. Mild atherosclerotic changes are noted at the aortic arch without significant stenosis. The right vertebral artery arises from the right subclavian artery with calcified plaque at the origin contributing to moderate narrowing. Calcified plaque is noted in the carotid bifurcations contributing to approximately 25% stenosis of the proximal left internal carotid artery without significant stenosis on the right. Visualized lung parenchyma is clear. Degenerative changes are noted cervical spine. No acute bony abnormalities are identified. The paraspinous soft tissues are within normal limits. CT/CT head/brain wo con IMPRESSION: No acute intracranial pathology. Chronic age-related neurodegenerative changes are noted, as above. Calcified plaque is noted at the origin of the right vertebral artery with moderate stenosis. Calcified plaque is noted in the V4 segment of the vertebral arteries causing severe stenosis on the left and mild stenosis on the right. Calcified plaque is noted in the carotid bifurcations with approximately 25% stenosis of the proximal left internal carotid artery without significant stenosis on the right. No evidence of dissection, aneurysmal dilatation, or occlusion. Impression dictated by: Bernardo Gillis M.D.10/13/2022 10:43 AM Dictation Location: [place] [address] Transcribed By: [facility] 10/13/22 1043 Dictated By: Bernardo Gillis II, MD 10/13/22 1030 Signed By: 10/13/22 1043 Normal [facility] Cepheid COVID PCR Negativeon 10-13-2022 SARS-CoV-2 (COVID-19) RNA JORDAN+probe Ql (Unsp spec) Negative Normal Negative [facility] Comment on above: Result Comment: This is a duplicate CepOrca Systemsid Xpert Xpress CoV-2/Flu/RSV Plus RNA by RT-PCR result to be used for statistical tracking purpose only. PERFORMED BY: [place] [address] PATHOLOGIST [employer]RIET[employer] TYLER CASEY M.D. Performed By: #### C BC, PT, BNP, CMP, MG, HS TROP #### [facility] [address] [place], [place] [id number] [facility] Color Auto (U)Ordered By: Drake Dumont on 10-13-2022 Color (U) Yellow Yellow [facility] Complete Blood Count Auto Di ffon 10-13-2022 Basophils (Bld) [#/Vol] 0.0 10*3/uL Normal 0.0-0.2 [facility] Comment on above: Result Comment: PERF ORMED BY: [place] [address] PATHOLOGIST [employer]RIET[employer] TYLER CASEY M.D. Performed By: #### C BC, PT, BNP, CMP, MG, HS TROP #### [facility] [address] [place], [place] [id number] [place] Basophils/100 WBC (Bld) 0.4 % Normal . [facility] Comment on above: Performed By: #### C BC, PT, BNP, CMP, MG, HS TROP #### [address] Eosinophils (Bld) [#/Vol] 0.1 10*3/uL Normal 0.0-0.45 [facility] Comment on above: Performed By: #### C BC, PT, BNP, CMP, MG, HS TROP #### [address] Eosinophils/100 WBC (Bld) 1.0 % Normal . [facility] Comment on above: Performed By: #### C BC, PT, BNP, CMP, MG, HS TROP #### [address] Erythrocyte distribution width (RBC) [Ratio] 14.0 % Normal 12.0-14.8 [facility] Comment on above: Performed By: #### C BC, PT, BNP, CMP, MG, HS TROP #### [address] Hematocrit (Bld) [Volume fraction] 44.3 % Normal 38.8-50.0 [facility] Comment on above: Performed By: #### C BC, PT, BNP, CMP, MG, HS TROP #### [address] Hemoglobin (Bld) [Mass/Vol] 14.5 g/dL Normal 13.0-17.0 [facility] Comment on above: Performed By: #### C BC, PT, BNP, CMP, MG, HS TROP #### [address] Lymphocytes (Bld) [#/Vol] 1.7 10*3/uL Normal 1.00-4.8 [facility] Comment on above: Performed By: #### C BC, PT, BNP, CMP, MG, HS TROP #### [address] Lymphocytes/100 WBC (Bld) 20.9 % Normal . [facility] Comment on above: Performed By: #### C BC, PT, BNP, CMP, MG, HS TROP #### [address] MCH (RBC) [Entitic mass] 30.2 pg Normal 27.5-35.2 [facility] Comment on above: Performed By: #### C BC, PT, BNP, CMP, MG, HS TROP #### [address] MCV (RBC) [Entitic vol] 92.2 fL Normal 83.5-101 [facility] Comment on above: Performed By: #### C BC, PT, BNP, CMP, MG, HS TROP #### [address] Mean Corpuscular HGB Conc 32.8 g/dL Normal 32.5-35.6 [facility] Comment on above: Performed By: #### C BC, PT, BNP, CMP, MG, HS TROP #### [address] Monocytes (Bld) [#/Vol] 0.5 10*3/uL Normal 0.0-0.8 [facility] Comment on above: Performed By: #### C BC, PT, BNP, CMP, MG, HS TROP #### [address] Monocytes/100 WBC (Bld) 16.42 % Normal 0.00-20.00 [facility] Comment on above: Performed By: #### C BC, PT, BNP, CMP, MG, HS TROP #### [address] Monocytes/100 WBC (Bld) 6.0 % Normal . [facility] Comment on above: Performed By: #### C BC, PT, BNP, CMP, MG, HS TROP #### [address] Neutrophils (Bld) [#/Vol] 5.9 10*3/uL Normal 1.8-7.7 [facility] Comment on above: Performed By: #### C BC, PT, BNP, CMP, MG, HS TROP #### [address] Neutrophils/100 WBC (Bld) 71.7 % Normal . [facility] Comment on above: Performed By: #### C BC, PT, BNP, CMP, MG, HS TROP #### [address] NRBC% 0.1 /100{WBC} Normal 0-0.5 [facility] Comment on above: Performed By: #### C BC, PT, BNP, CMP, MG, HS TROP #### [address] Platelet mean volume (Bld) [Entitic vol] 8.3 fL Normal 6.6-10.1 [facility] Comment on above: Performed By: #### C BC, PT, BNP, CMP, MG, HS TROP #### [address] Platelets (Bld) [#/Vol] 223 10*3/uL Normal 150-450 [facility] Comment on above: Performed By: #### C BC, PT, BNP, CMP, MG, HS TROP #### [address] RBC (Bld) [#/Vol] 4.81 10*6/uL Normal 3.90-5.[address] [facility] Comment on above: Performed By: #### C BC, PT, BNP, CMP, MG, HS TROP #### [address] WBC (Bld) [#/Vol] 8.2 10*3/uL Normal 4.1-10.5 [facility] Comment on above: Performed By: #### C BC, PT, BNP, CMP, MG, HS TROP #### [address] Comprehensive Metabolic Pane noman 10-13-2022 Albumin [Mass/Vol] 3.9 g/dL Normal 3.2-5.5 [facility] Comment on above: Performed By: #### C BC, PT, BNP, CMP, MG, HS TROP #### [address] Albumin/Globulin [Mass ratio] 1.2 {ratio} Normal [facility] Comment on above: Performed By: #### C BC, PT, BNP, CMP, MG, HS TROP #### [address] ALP [Catalytic activity/Vol] 64 U/L Normal 32-92 [facility] Comment on above: Performed By: #### C BC, PT, BNP, CMP, MG, HS TROP #### [address] ALT [Catalytic activity/Vol] 27 U/L Normal 10-60 [facility] Comment on above: Performed By: #### C BC, PT, BNP, CMP, MG, HS TROP #### [address] Anion gap [Moles/Vol] 14.1 mmol/L Normal 6.0-15.0 [facility] Comment on above: Performed By: #### C BC, PT, BNP, CMP, MG, HS TROP #### [address] AST [Catalytic activity/Vol] 22 U/L Normal 10-42 [facility] Comment on above: Performed By: #### C BC, PT, BNP, CMP, MG, HS TROP #### [address] Bilirubin [Mass/Vol] 1.2 mg/dL Normal 0.3-1.2 [facility] Comment on above: Performed By: #### C BC, PT, BNP, CMP, MG, HS TROP #### [address] Calcium [Mass/Vol] 9.0 mg/dL Normal 8.2-10.2 [facility] Comment on above: Performed By: #### C BC, PT, BNP, CMP, MG, HS TROP #### [facility] [address] Chloride [Moles/Vol] 105 mmol/L Normal 95-114 [facility] Comment on above: Performed By: #### C BC, PT, BNP, CMP, MG, HS TROP #### [address] CO2 [Moles/Vol] 24.8 mmol/L Normal 22.0-30.0 [facility] Comment on above: Performed By: #### C BC, PT, BNP, CMP, MG, HS TROP #### [address] Creatinine [Mass/Vol] 1.11 mg/dL Normal 0.64-1.27 [facility] Comment on above: Performed By: #### C BC, PT, BNP, CMP, MG, HS TROP #### [address] Creatinine Clr [facility] Pharmacy 72.00 [facility] Comment on above: Performed By: #### C BC, PT, BNP, CMP, MG, HS TROP #### [address] Estimated GFR ( Eve > 60 [facility] Comment on above: Result Comment: GFR estimated reference range: According to KDOQI guidelines, <60 ml/min/1.73m2 is sufficient to diagnose a patient with chronic kidney disease. Performed By: #### C BC, PT, BNP, CMP, MG, HS TROP #### [address] Estimated GFR (Non- Am > 60 [facility] Comment on above: Performed By: #### C BC, PT, BNP, CMP, MG, HS TROP #### [address] Globulin (S) [Mass/Vol] 3.3 g/dL [facility] Comment on above: Performed By: #### C BC, PT, BNP, CMP, MG, HS TROP #### [address] [address] [place] Glucose [Mass/Vol] 132 mg/dL High 70-100 [facility] Comment on above: Result Comment: [facility] Glucose Reference Range is dependent on time and content of last meal. Glucose of more than 200 mg/dL in a nonstressed, ambulatory subject supports the diagnosis of Diabetes Mellitus. ADA recommended reference range Performed By: #### C BC, PT, BNP, CMP, MG, HS TROP #### [facility] [address] Potassium [Moles/Vol] 3.9 mmol/L Normal 3.5-5.1 [facility] Comment on above: Performed By: #### C BC, PT, BNP, CMP, MG, HS TROP #### [address] Protein [Mass/Vol] 7.2 g/dL Normal 6.1-7.9 [facility] Comment on above: Performed By: #### C BC, PT, BNP, CMP, MG, HS TROP #### [address] Sodium [Moles/Vol] 140 mmol/L Normal 136-146 [facility] Comment on above: Performed By: #### C BC, PT, BNP, CMP, MG, HS TROP #### [address] Urea nitrogen [Mass/Vol] 18 mg/dL Normal -23 [facility] Comment on above: Performed By: #### C BC, PT, BNP, CMP, MG, HS TROP #### [place] [address] [place] Creatinine and Glomerular fi ltration rate.predicted panel (S/P/Bld)Ordered By: Kaylyn Dumont on 10-13-2022 Creatinine [Mass/Vol] 1.11 mg/dL 0.64-1.27 [facility] Dipstick and Microscopicon 0 10-13-2022 Appearance (U) Clear Normal Clear [facility] Comment on above: Order Comment: Name Collection Type:: Clean-Voided Midstream Performed By: #### C BC, PT, BNP, CMP, MG, HS TROP #### [facility] [address] [place] [address] Bacteria,Urine None Seen Normal None Seen [facility] Comment on above: Order Comment: Name Collection Type:: Clean-Voided Midstream Performed By: #### C BC, PT, BNP, CMP, MG, HS TROP #### [place] [address] [place] Bilirubin,Urine Negative Normal Negative [facility] Comment on above: Order Comment: Name Collection Type:: Clean-Voided Midstream Performed By: #### C BC, PT, BNP, CMP, MG, HS TROP #### [address] Color (U) Yellow Normal Yellow [facility] Comment on above: Order Comment: Name Collection Type:: Clean-Voided Midstream Performed By: #### C BC, PT, BNP, CMP, MG, HS TROP #### [address] Glucose Ql (U) Normal Normal Normal [facility] Comment on above: Order Comment: Name Collection Type:: Clean-Voided Midstream Performed By: #### C BC, PT, BNP, CMP, MG, HS TROP #### [address] Hyaline Casts,Urine 9-19 High 0-[address] [facility] Comment on above: Order Comment: Name Collection Type:: Clean-Voided Midstream Result Comment: PERF ORMED BY: [place] [address] PATHOLOGIST [employer] TYLER CASEY M.D. Performed By: #### C BC, PT, BNP, CMP, MG, HS TROP #### [address] Ketones Ql (U) 1+ High Negative [facility] Comment on above: Order Comment: Name Collection Type:: Clean-Voided Midstream Performed By: #### C BC, PT, BNP, CMP, MG, HS TROP #### [address] Leukocyte esterase Test strip Ql (U) Negative Normal Negative [facility] Comment on above: Order Comment: Name Collection Type:: Clean-Voided Midstream Performed By: #### C BC, PT, BNP, CMP, MG, HS TROP #### [address] Nitrite,Urine Negative Normal Negative [facility] Comment on above: Order Comment: Name Collection Type:: Clean-Voided Midstream Performed By: #### C BC, PT, BNP, CMP, MG, HS TROP #### [address] Occult Blood,Urine Negative Normal Negative [facility] Comment on above: Order Comment: Name Collection Type:: Clean-Voided Midstream Result Comment: PERF ORMED BY: [place] [address] PATHOLOGIST [employer] TYLER CASEY M.D. Performed By: #### C BC, PT, BNP, CMP, MG, HS TROP #### [address] pH (U) 5.5 [pH] Normal 5.0-9.0 [facility] Comment on above: Order Comment: Name Collection Type:: Clean-Voided Midstream Performed By: #### C BC, PT, BNP, CMP, MG, HS TROP #### [address] Protein,Urine Trace High Negative [facility] Comment on above: Order Comment: Name Collection Type:: Clean-Voided Midstream Performed By: #### C BC, PT, BNP, CMP, MG, HS TROP #### [address] RBC LM.HPF (Urine sed) [#/Area] 0 /[HPF] Normal 0-4 [facility] Comment on above: Order Comment: Name Collection Type:: Clean-Voided Midstream Performed By: #### C BC, PT, BNP, CMP, MG, HS TROP #### [address] Specificy Omega,Urine > 1.050 High 1.001-1.030 [facility] Comment on above: Order Comment: Name Collection Type:: Clean-Voided Midstream Performed By: #### C BC, PT, BNP, CMP, MG, HS TROP #### [address] Squamous Epithelial Cell,Urine 0-1 Normal 0-2 [facility] Comment on above: Order Comment: Name Collection Type:: Clean-Voided Midstream Performed By: #### C BC, PT, BNP, CMP, MG, HS TROP #### [address] Urobilinogen,Urine Normal Normal Normal [facility] Comment on above: Order Comment: Name Collection Type:: Clean-Voided Midstream Performed By: #### C BC, PT, BNP, CMP, MG, HS TROP #### [address] WBC,Urine 3-4 Normal 0-4 [facility] Comment on above: Order Comment: Name Collection Type:: Clean-Voided Midstream Performed By: #### C BC, PT, BNP, CMP, MG, HS TROP #### [address] ECG 12 lead ECGon 10-13-2022 ECG 12 lead ECG [facility] [address] Electrocardiograph Report Signed Patient: Lynn Jolly JR MR#: [id number] : 1950 Acct:[id number] Age/Sex: 72 / M ADM Date: 10/13/22 Loc: ER Room: Type: [facility] ER Attending Dr: Ordering Provider: Kaylyn Dumont DO Date of Service: 10/13/22 ECG/ECG 12 lead ECG: Dizziness Copies to: Test Reason : Blood Pressure : 168/089 mmHG Vent. Rate : 079 BPM Atrial Rate : 079 BPM P-R Int : 160 ms QRS Dur : 092 ms QT Int : 386 ms P-R-T Axes : 065 074 045 degrees QTc Int : 442 ms Normal sinus rhythm Normal ECG When compared with ECG of 18-MAR-2020 14:28, No significant change was found Confirmed by KAYLYN DUMONT DO ([id number]) on 10/13/2022 4:30:22 PM Referred By: Electronically Signed By:KAYLYN DUMONT DO Transcribed By: MUS Signed By Kaylyn Dumont DO 10/13 1630 Normal [facility] Eosinophils Auto (Bld) [#/Vo l]Ordered By: Kaylyn Dumont on 10-13-2022 Eosinophils (Bld) [#/Vol] 0.1 10*3/uL 0.0-0.45 [facility] Eosinophils/100 WBC Auto (Bl d)Ordered By: Kaylyn Dumont on 10-13-2022 Eosinophils/100 WBC (Bld) 1.0 % . [facility] Erythrocyte distribution wid th Auto (RBC) [Ratio]Ordered By: Kaylyn Dumont on 10-13-2022 Erythrocyte distribution width (RBC) [Ratio] 14.0 % 12.0-14.8 [facility] Estimated glomerular filtrat ion rate (GFR) non- AmericanOrdered By: Kaylyn Dumont on 10-13-2022 GFR/1.73 sq M.predicted among non-blacks MDRD (S/P/Bld) [Vol rate/Area] > 60 mL/Min [facility] Globulin Calc (S) [Mass/Vol] Ordered By: Kaylyn Dumont on 10-13-2022 Globulin (S) [Mass/Vol] 3.3 g/dL [facility] Hematocrit Auto (Bld) [Volum e fraction]Ordered By: Kaylyn Dumont on 10-13-2022 Hematocrit (Bld) [Volume fraction] 44.3 % 38.8-50.0 [facility] Hemoglobin [Mass/volume] in BloodOrdered By: Kaylyn Dumont on 10-13-2022 Hemoglobin (Bld) [Mass/Vol] 14.5 g/dL 13.0-17.0 [facility] Ketones Auto test strip (U) [Mass/Vol]Ordered By: Kaylyn Dumont on 10-13-2022 Ketones (U) [Mass/Vol] 1+ Negative [facility] Laboratory - Chemistry and C hemistry - challengeOrdered By: Kaylyn Dumont on 10-13-2022 Magnesium [Mass/Vol] 2.1 mg/dL 1.6-2.6 [facility] Natriuretic peptide B (Bld) [Mass/Vol] 33.0 pg/mL 5-100 [facility] - CoagulationOrde red By: Kaylyn Dumont on 10-13-2022 PT Coag (PPP) [Time] 12.1 s 9.0-12.9 [facility] Laboratory - UrinalysisOrder ed By: Kaylyn Dumont on 10-13-2022 Hyaline casts LM Ql (Urine sed) 9-19 [LPF] 0-8 [facility] Leukocytes [#/volume] correc anastasia for nucleated erythrocytes in Blood by Automated counOrdered By: Kaylyn Dumont on 10-13-2022 WBC corrected for nucl RBC Auto (Bld) [#/Vol] 8.2 10*3/uL 4.1-10.5 [facility] Lymphocytes Auto (Bld) [#/Vo l]Ordered By: Kaylyn Dumont on 10-13-2022 Lymphocytes (Bld) [#/Vol] 1.7 10*3/uL 1.00-4.8 [facility] Lymphocytes/100 WBC Auto (Bl d)Ordered By: Kaylyn Dumont on 10-13-2022 Lymphocytes/100 WBC (Bld) 20.9 % . [facility] MCH Auto (RBC) [Entitic mass ]Ordered By: Kaylyn Dumont on 10-13-2022 MCH (RBC) [Entitic mass] 30.2 pg 27.5-35.2 [facility] MCHC Auto (RBC) [Mass/Vol]Or dered By: Kaylyn Dumont on 10-13-2022 MCHC (RBC) [Mass/Vol] 32.8 g/dL 32.5-35.6 [facility] MCV Auto (RBC) [Entitic vol] Ordered By: Kaylyn Dumont on 10-13-2022 MCV (RBC) [Entitic vol] 92.2 fL 83.5-101 [facility] Magnesiumon 10-13-2022 Magnesium [Mass/Vol] 2.1 mg/dL Normal 1.6-2.6 [facility] Comment on above: Result Comment: PERF ORMED BY: [facility] [address] [place] [address] PATHOLOGIST [employer] TYLER CASEY M.D. Performed By: #### C BC, PT, BNP, CMP, MG, HS TROP #### [facility] [address] Monocyte distribution width [Entitic volume] in Blood by AutomatedOrdered By: Kaylyn Dumont on 10-13-2022 Monocyte distribution width Auto (Bld) [Entitic vol] 16.42 % 0.00-20.00 [facility] Monocytes Auto (Bld) [#/Vol] Ordered By: Kaylyn Dumont on 10-13-2022 Monocytes (Bld) [#/Vol] 0.5 10*3/uL 0.0-0.8 [facility] Monocytes/100 WBC Auto (Bld) Ordered By: Kaylyn Dumont on 10-13-2022 Monocytes/100 WBC (Bld) 6.0 % . [facility] Neutrophils Auto (Bld) [#/Vo l]Ordered By: Kaylyn Dumont on 10-13-2022 Neutrophils (Bld) [#/Vol] 5.9 10*3/uL 1.8-7.7 [facility] Neutrophils/100 WBC Auto (Bl d)Ordered By: Kaylyn Dumont on 10-13-2022 Neutrophils/100 WBC (Bld) 71.7 % . [facility] Nitrite Test strip Ql (U)Ord ered By: Kaylyn Dumont on 10-13-2022 Nitrite Ql (U) Negative Negative [facility] No Panel InformationOrdered By: Kaylyn Dumont on 10-13-2022 Estimated GFR () > 60 mL/Min [facility] Comment on above: GFR estimated refere nce range: According to KDOQI guidelines, <60 ml/min/1.73m2 is sufficient to diagnose a patient with chronic kidney disease. Pharmacy Creatinine Clearance (Chem 72.00 [facility] Nucleated erythrocytes [Pres ence] in Blood by Automated countOrdered By: Kaylyn Dumont on 10-13-2022 Nucleated RBC Auto Ql (Bld) 0.1 /100{WBC} 0-0.5 [facility] Platelet mean volume Auto (B ld) [Entitic vol]Ordered By: Kaylyn Dumont on 10-13-2022 Platelet mean volume (Bld) [Entitic vol] 8.3 fL 6.6-10.1 [facility] Platelet poor plasma interna tional normalized ratio (INR) by coagulation assay (relatOrdered By: Kaylyn Dumont on 10-13-2022 INR Coag (PPP) [Relative time] 1.0 {INR} [facility] Comment on above: INR Therapeutic Rang e A) Pre- and Peroperative OAT started two weeks before surgery. NOT HIP SURGERY: 1.5 - 2.5 HIP SURGERY: 2 - 3B) Primary and secondary prevention of venous THROMBOSIS: 2 - 3C) Active venous thrombosis, pulmonary embolismand prevention of recurrent venous thrombosis: 2 - 3D) Prevention of arterial thromboembolismincluding patients with mechanical heart valves: 3 - 4.5 Platelets Auto (Bld) [#/Vol] Ordered By: Kaylyn Dumont on 10-13-2022 Platelets (Bld) [#/Vol] 223 10*3/uL 150-450 [facility] Protein Auto test strip (U) [Mass/Vol]Ordered By: Kaylyn Dumont on 10-13-2022 Protein (U) [Mass/Vol] Trace mg/dL Negative [facility] Protein [Mass/volume] in Ser um or PlasmaOrdered By: Kaylyn Dumont on 10-13-2022 Protein [Mass/Vol] 7.2 g/dL 6.1-7.9 [facility] Prothrombin Time INRon 10-13 INR Coag (PPP) [Relative time] 1.0 {INR} Normal [facility] Comment on above: Result Comment: INR Therapeutic Range A) Pre- and Peroperative OAT started two weeks before surgery. NOT HIP SURGERY: 1.5 - 2.5 HIP SURGERY: 2 - 3 B) Primary and secondary prevention of venous THROMBOSIS: 2 - 3 C) Active venous thrombosis, pulmonary embolism and prevention of recurrent venous thrombosis: 2 - 3 D) Prevention of arterial thromboembolism including patients with mechanical heart valves: 3 - 4.5 PERFORMED BY: [facility] [place] [address] PATHOLOGIST [employer] TYLER CASEY M.D. Performed By: #### C BC, PT, BNP, CMP, MG, HS TROP #### [facility] [address] PT Coag (PPP) [Time] 12.1 s Normal 9.0-12.9 [facility] Comment on above: Performed By: #### C BC, PT, BNP, CMP, MG, HS TROP #### [facility] [address] RBC Auto (Bld) [#/Vol]Ordere d By: Kaylyn Dumont on 10-13-2022 RBC (Bld) [#/Vol] 4.81 10*6/uL 3.90-5.[address] [facility] Serum or plasma alanine lopez otransferase measurement without P-5'-P (enzymatic activiOrdered By: Kaylyn Dumont on 10-13-2022 ALT No additional P-5'-P [Catalytic activity/Vol] 27 U/L 1060 [facility] Serum or plasma albumin/glob ulin mass ratioOrdered By: Kaylyn Dumont on 10-13-2022 Albumin/Globulin [Mass ratio] 1.2 {ratio} [facility] Serum or plasma alkaline ramos sphatase measurement (enzymatic activity/volume)Ordered By: Kaylyn Dumont on 10-13-2022 ALP [Catalytic activity/Vol] 64 U/L 32-92 [facility] Serum or plasma anion gap de terminationOrdered By: Kaylyn Dumont on 10-13-2022 Anion gap [Moles/Vol] 14.1 mmol/L 6.0-15.0 [facility] Serum or plasma aspartate am inotransferase measurement (enzymatic activity/volume)Ordered By: Kaylyn Dumont on 10-13-2022 AST [Catalytic activity/Vol] 22 U/L 1042 [facility] Serum or plasma calcium moy urement (mass/volume)Ordered By: Kaylyn Dumont on 10-13-2022 Calcium [Mass/Vol] 9.0 mg/dL 8.2-10.2 [facility] Serum or plasma chloride marily surement (moles/volume)Ordered By: Kaylyn Dumont on 10-13-2022 Chloride [Moles/Vol] 105 mmol/L 95-114 [facility] Serum or plasma glucose moy urement (mass/volume)Ordered By: Kaylyn Dumont on 10-13-2022 Glucose [Mass/Vol] 132 mg/dL 70-100 [facility] Comment on above: ADA recommended refe rence rangeRandom Glucose Reference Range is dependent on time and content of last meal. Glucose of more than 200 mg/dL in a nonstressed, ambulatory subject supports the diagnosis of Diabetes Mellitus. Serum or plasma potassium me asurement (moles/volume)Ordered By: Kaylyn Dumont on 10-13-2022 Potassium [Moles/Vol] 3.9 mmol/L 3.5-5.1 [facility] Serum or plasma sodium measu rement (moles/volume)Ordered By: Kaylyn Dumont on 10-13-2022 Sodium [Moles/Vol] 140 mmol/L 136-146 [facility] Serum or plasma total biliru bin measurement (mass/volume)Ordered By: Kaylyn Dumont on 10-13-2022 Bilirubin [Mass/Vol] 1.2 mg/dL 0.3-1.2 [facility] Serum or plasma total carbon dioxide measurement (moles/volume)Ordered By: Kaylyn Dumont on 10-13-2022 CO2 [Moles/Vol] 24.8 mmol/L 22.0-30.0 [facility] Serum or plasma urea nitroge n measurement (mass/volume)Ordered By: Kaylyn Dumont on 10-13-2022 Urea nitrogen [Mass/Vol] 18 mg/dL 06-13 [facility] Specific gravity Auto test s trip (U) [Rel density]Ordered By: Kaylyn Dumont on 10-13-2022 Specific gravity (U) [Rel density] > 1.050 1.001-1.030 [facility] Squamous epithelial cells de tection in urine sediment by light microscopyOrdered By: Kaylyn Dumont on 10-13-2022 Epithelial cells.squamous LM Ql (Urine sed) 0-1 [HPF] 0-2 [facility] Troponin I High Sensitivityo n 10-13-2022 Troponin I High Sensitivity 4 pg/mL Normal 0-20 [facility] Comment on above: Result Comment: PERF ORMED BY: [place] [address] PATHOLOGIST [employer]ET[employer] TYLER CASEY M.D. Performed By: #### C BC, PT, BNP, CMP, MG, HS TROP #### [address] Troponin I.cardiac [Mass/vol ume] in Serum or Plasma by High sensitivity methodOrdered By: Kaylyn Dumont on 10-13-2022 Troponin I.cardiac High sensitivity method [Mass/Vol] 4 pg/mL 0-20 [facility] Urine bacteria detection by automated methodOrdered By: Kaylyn Dumont on 10-13-2022 Bacteria Auto Ql (U) None seen None Seen [facility] Urine clarity by refractomet ry automatedOrdered By: Kaylyn Dumont on 10-13-2022 Clarity Refractometry automated (U) Clear Clear [facility] Urine glucose measurement by automated test strip (mass/volume)Ordered By: Kaylyn Dumont on 10-13-2022 Glucose Auto test strip (U) [Mass/Vol] Normal mg/dL Normal [facility] Urine hemoglobin detection b y automated test stripOrdered By: Kaylyn Dumont on 10-13-2022 Hemoglobin Auto test strip Ql (U) Negative Negative [facility] Urine leukocyte esterase det ection by automated test stripOrdered By: Kaylyn Dumont on 10-13-2022 Leukocyte esterase Auto test strip Ql (U) Negative Negative [facility] Urobilinogen Auto test strip (U) [Mass/Vol]Ordered By: Kaylyn Dumont on 10-13-2022 Urobilinogen (U) [Mass/Vol] Normal mg/dL Normal [facility] WBC Auto (Bld) [#/Vol]Ordere d By: Kaylyn Dumont on 10-13-2022 WBC (Bld) [#/Vol] 8.2 10*3/uL 4.1-10.5 [facility] XR chest 2V*on 10-13-2022 XR chest 2V* [facility] [address] [place] [address] [place] [address] XRay Report Signed Patient: Lynn Jolly JR MR#: [id number] : 1950 Acct:[id number] Age/Sex: 72 / M ADM Date: 10/13/22 Loc: ER Room: Type: [facility] ER Attending Dr: Copies to: Kaylyn Dumont DO Ordering Provider: Kaylyn Dumont DO Date of Service: 10/13/22 XR/XR chest 2V*: Dizziness XR chest 2V* 10/13/2022 8:36 AM SIGNS AND SYMPTOMS: Dizziness, lightheadedness for one week , weakness, fatigue PROTOCOL: Frontal and lateral radiograph of the chest COMPARISON: 03/18/2020 FINDINGS: The trachea is midline. The heart and mediastinal structures are within normal limits. The lung parenchyma is clear. The bony thorax is intact. Postoperative changes are noted in the left clavicle. XR/XR chest 2V* IMPRESSION: No acute cardiopulmonary pathology. Impression dictated by: Bernardo Gillis M.D.10/13/2022 10:46 AM Dictation Location: [place] [address] Transcribed By: [facility] 10/13/22 1046 Dictated By: Bernardo Gillis II, MD 10/13/22 1045 Signed By: 10/13/22 1046 Normal [facility] pH Auto test strip (U)Ordere d By: Kaylyn Dumont on 10-13-2022 pH (U) 5.5 [pH] 5.0-9.0 [facility] CBC AUTO DIFFon 05-02-2022 BASO # 0.0 103/ul Normal 0.0-0.1 [facility] Comment on above: Performed By: #### C BC #### [facility] [address] [place] [address] Dr. Sandhya Glasgow Basophils/100 WBC (Bld) 0.5 % Normal 0.2-2.0 [facility] Comment on above: Performed By: #### C BC #### [facility] [address] [place] [address] Dr. Sandhya Glasgow EO # 0.1 103/ul Normal 0.0-0.7 [facility] Comment on above: Performed By: #### C BC #### [facility] [address] [place] [address] Dr. Sandhya Glasgow Eosinophils/100 WBC (Bld) 1.5 % Normal 0.9-7.0 [facility] Comment on above: Performed By: #### C BC #### [facility] [address] [place] [address] Dr. Sandhya Glasgow Erythrocyte distribution width (RBC) [Ratio] 13.6 % Normal 11.0-15.0 [facility] Comment on above: Performed By: #### C BC #### [facility] [address] [place] [address] Dr. Sandhya Glasgow Hematocrit (Bld) [Volume fraction] 47.2 % Normal 42.0-54.0 [facility] Comment on above: Performed By: #### C BC #### [facility] [address] [place] [address] Dr. Sandhya Glasgow Hemoglobin (Bld) [Mass/Vol] 15.7 g/dL Normal 14.0-18.0 [facility] Comment on above: Performed By: #### C BC #### [facility] [address] [place] [address] Dr. Sandhya Glasgow IG # 0.01 10e3/ul Normal 0.00-0.03 [facility] Comment on above: Performed By: #### C BC #### [facility] [address] [place] [address] Dr. Sandhya Glasgow IG % 0.1 % Normal 0.0-0.5 [facility] Comment on above: Performed By: #### C BC #### [facility] [address] [place] [address] Dr. Sandhya Glasgow LYMPH # 4.3 103/ul Critically high 1.2-3.8 [facility] Comment on above: Performed By: #### C BC #### [facility] [address] [place] [address] Dr. Sandhya Glasgow Lymphocytes/100 WBC (Bld) 48.9 % Normal 20.5-60.0 [facility] Comment on above: Performed By: #### C BC #### [facility] [address] [place] [address] Dr. Sandhya Glasgow MANUAL DIFF REQ NO Normal [facility] Comment on above: Performed By: #### C BC #### [facility] [address] [place] [address] Dr. Sandhya Glasgow MCH (RBC) [Entitic mass] 30.4 pg Normal 25.9-34.0 [facility] Comment on above: Performed By: #### C BC #### [facility] [address] [place] [address] Dr. Sandhya Glasgow MCHC (RBC) [Mass/Vol] 33.3 g/dL Normal 29.9-35.2 [facility] Comment on above: Performed By: #### C BC #### [facility] [address] [place] [address] Dr. Sandhya Glasgow MCV (RBC) [Entitic vol] 91.5 fL Normal 80.0-94.0 [facility] Comment on above: Performed By: #### C BC #### [facility] [address] [place] [address] Dr. Sandhya Glasgow MONO # 0.7 103/ul Normal 0.3-0.8 [facility] Comment on above: Performed By: #### C BC #### [facility] [address] [place] [address] Dr. Sandhya Glasgow Monocytes/100 WBC (Bld) 7.8 % Normal 1.7-12.0 [facility] Comment on above: Performed By: #### C BC #### [facility] [address] [place] [address] Dr. Sandhya Glasgow NEUT # 3.6 103/ul Normal 1.4-6.5 [facility] Comment on above: Performed By: #### C BC #### [facility] [address] [place] [address] Dr. Sandhya Glasgow Neutrophils/100 WBC (Bld) 41.2 % Critically low 43.0-75.0 [facility] Comment on above: Performed By: #### C BC #### [facility] [address] [place] [address] Dr. Sandhya Glasgow Platelet mean volume (Bld) [Entitic vol] 10.1 fL Normal 9.5-13.5 [facility] Comment on above: Performed By: #### C BC #### [facility] [address] [place] [address] Dr. Sandhya Glasgow PLT 243 103/ul Normal 150-450 [facility] Comment on above: Performed By: #### C BC #### [facility] [address] [place] [address] Dr. Sandhya Glasgow RBC 5.16 106/ul Normal 4.70-6.10 [facility] Comment on above: Performed By: #### C BC #### [facility] [address] [place] [address] Dr. Sandhya [place] WBC 8.8 103/ul Normal 4.0-11.0 [facility] Comment on above: Performed By: #### C BC #### [facility] [address] [place] [address] Dr. Sandhya [place] PROF CHEM 8 (BAS METB)on Anion gap [Moles/Vol] 16.2 mmol/L Normal Th [facility] Comment on above: Performed By: #### B MP, TSH #### [facility] [address] [place] [address] Dr. Sandhya [place] Calcium [Mass/Vol] 9.0 mg/dL Normal 8.5-10.1 [facility] Comment on above: Performed By: #### B MP, TSH #### [facility] [address] [place] [address] Dr. Sandhya [place] Chloride [Moles/Vol] 102 mmol/L Normal 98-107 [facility] Comment on above: Performed By: #### B MP, TSH #### [facility] [address] [place] [address] Dr. Sandhya [place] CO2 [Moles/Vol] 26.0 mmol/L Normal 21.0-32.0 [facility] Comment on above: Performed By: #### B MP, TSH #### [facility] [address] [place] [address] Dr. Sandhya [place] Creatinine [Mass/Vol] 1.08 mg/dL Normal 0.70-1.30 [facility] Comment on above: Performed By: #### B MP, TSH #### [facility] [address] [place] [address] Dr. Sandhya [place] EGFR-AF HONDURAN >60 Normal >=60 [facility] Comment on above: Performed By: #### B MP, TSH #### [facility] [address] [address] [address] Sandhya [place] EGFR-NON AF HONDURAN >60 Normal >=60 [facility] Comment on above: Performed By: #### B SHREYAS, TSH #### [facility] [address] [place] [address] Dr. Sandhya [place] Glucose [Mass/Vol] 105 mg/dL Normal 74-106 [facility] Comment on above: Performed By: #### B SHREYAS, TSH #### [facility] [address] [place] [address] Dr. Sandhya [place] Potassium [Moles/Vol] 4.2 mmol/L Normal 3.5-5.1 [facility] Comment on above: Performed By: #### B MP, TSH #### [facility] [address] [place] [address] Dr. Sandhya [place] Sodium [Moles/Vol] 140 mmol/L Normal 136-145 [facility] Comment on above: Performed By: #### B SHREYAS, TSH #### [facility] [address] [place] [address] Dr. Sandhya [place] Urea nitrogen [Mass/Vol] 18.0 mg/dL Normal 7.0-18.0 [facility] Comment on above: Performed By: #### B MP, TSH #### [facility] [address] [place] [address] Dr. Sandhya [place] Urea nitrogen/Creatinine [Mass ratio] 16.7 mg/mg Normal [facility] Comment on above: Performed By: #### B MP, TSH #### [facility] [address] [place] [address] Dr. Sandhya [place] TSHon 05-02-2022 TSH 6.278 uIU/mL Critically high 0.358-3.740 [facility] Comment on above: Performed By: #### B MP, TSH #### [facility] [address] [place], [place] [address] Dr. Sandhya [place] Complete Blood Count with Au to Diffon 01-09-2022 Basophils (Bld) [#/Vol] 0.03 10*3/uL Normal 0.00-0.20 [facility] Comment on above: Performed By: #### C MP, TSH, LIPD, CBCAD #### [facility] [address] [place], [place] [id number] Basophils/100 WBC (Bld) 0.4 % Normal [facility] Comment on above: Performed By: #### C MP, TSH, LIPD, CBCAD #### [facility] [address], [place] [id number] Eosinophils (Bld) [#/Vol] 0.08 10*3/uL Normal 0.02-0.50 [facility] Comment on above: Performed By: #### C MP, TSH, LIPD, CBCAD #### [facility] [address], [place] [id number] Eosinophils/100 WBC (Bld) 1.0 % Normal [facility] Comment on above: Performed By: #### C MP, TSH, LIPD, CBCAD #### [facility] [address], [place] [id number] Erythrocyte distribution width (RBC) [Ratio] 12.4 % Normal 11.0-15.0 [facility] Comment on above: Performed By: #### C MP, TSH, LIPD, CBCAD #### [facility] [address], [place] [id number] Hematocrit (Bld) [Volume fraction] 46.1 % Normal 38.5-50.0 [facility] Comment on above: Performed By: #### C MP, TSH, LIPD, CBCAD #### [facility] [address] [facility] [place] [id number] Hemoglobin (Bld) [Mass/Vol] 15.2 g/dL Normal 13.0-17.1 [facility] Comment on above: Performed By: #### C MP, TSH, LIPD, CBCAD #### [facility] [address], [place] [id number] Lymphocytes (Bld) [#/Vol] 3.6 10*3/uL Normal 0.9-3.9 [facility] Comment on above: Performed By: #### C MP, TSH, LIPD, CBCAD #### [facility] [address], [place] [id number] Lymphocytes/100 WBC (Bld) 46.5 % Normal [facility] Comment on above: Performed By: #### C MP, TSH, LIPD, CBCAD #### [facility] [address], [place] [id number] MCH (RBC) [Entitic mass] 31.1 pg Normal 27.0-33.0 [facility] Comment on above: Performed By: #### C MP, TSH, LIPD, CBCAD #### [facility] [address], [place] [id number] MCHC (RBC) [Mass/Vol] 33.0 g/dL Normal 32.0-36.0 [facility] Comment on above: Performed By: #### C MP, TSH, LIPD, CBCAD #### [facility] [address], [place] [id number] MCV (RBC) [Entitic vol] 94 fL Normal 80-100 [facility] Comment on above: Performed By: #### C MP, TSH, LIPD, CBCAD #### [facility] [address], [place] [id number] Monocytes (Bld) [#/Vol] 0.6 10*3/uL Normal 0.2-0.9 [facility] Comment on above: Performed By: #### C MP, TSH, LIPD, CBCAD #### [facility] [address], [place] [id number] Monocytes/100 WBC (Bld) 7.4 % Normal [facility] Comment on above: Performed By: #### C MP, TSH, LIPD, CBCAD #### [facility] [address], [place] [id number] Neutrophils (Bld) [#/Vol] 3.4 10*3/uL Normal 1.5-7.8 [facility] Comment on above: Performed By: #### C MP, TSH, LIPD, CBCAD #### [facility] [address], [place] [id number] Neutrophils/100 WBC (Bld) 44.6 % Normal [facility] Comment on above: Performed By: #### C MP, TSH, LIPD, CBCAD #### [facility] [address], [place] [id number] Platelet mean volume (Bld) [Entitic vol] 10.80 fL Normal 7.50-12.50 [facility] Comment on above: Performed By: #### C MP, TSH, LIPD, CBCAD #### [facility] [address], [place] [id number] Platelets (Bld) [#/Vol] 263 10*3/uL Normal 140-400 [facility] Comment on above: Performed By: #### C MP, TSH, LIPD, CBCAD #### [facility] [address], [place] [id number] RBC (Bld) [#/Vol] 4.89 10*6/uL Normal 4.20-5.80 [facility] Comment on above: Performed By: #### C MP, TSH, LIPD, CBCAD #### [facility] [address], [place] [id number] RDW-SD 43.2 fL Normal 37.0-50.0 [facility] Comment on above: Performed By: #### C MP, TSH, LIPD, CBCAD #### [facility] [address], [place] [id number] WBC (Bld) [#/Vol] 7.7 10*3/uL Normal 3.8-11.0 [facility] Comment on above: Performed By: #### C MP, TSH, LIPD, CBCAD #### [facility] [address], [place] [id number] Comprehensive Metabolic Pane noman 01-09-2022 Albumin [Mass/Vol] 4.7 g/dL Normal 3.6-5.1 [facility] Comment on above: Performed By: #### C MP, TSH, LIPD, CBCAD #### [facility] [address], [place] [id number] Albumin/Globulin [Mass ratio] 1.7 {ratio} Normal 1.0-2.5 [facility] Comment on above: Performed By: #### C MP, TSH, LIPD, CBCAD #### [facility] [address], [place] [id number] ALP [Catalytic activity/Vol] 69 U/L Normal 40-129 [facility] Comment on above: Performed By: #### C MP, TSH, LIPD, CBCAD #### [facility] [address], [place] [id number] ALT [Catalytic activity/Vol] 34 U/L Normal 9-46 [facility] Comment on above: Result Comment: 08/21 Female reference range changed. Performed By: #### C MP, TSH, LIPD, CBCAD #### [facility] [address], [place] [id number] Anion gap [Moles/Vol] 21 mmol/L High 12-20 [facility] Comment on above: Result Comment: Effe ctive 09/26/2019 reference range changed. Performed By: #### C MP, TSH, LIPD, CBCAD #### [facility] [address], [place] [id number] AST [Catalytic activity/Vol] 33 U/L Normal 10-40 [facility] Comment on above: Performed By: #### C MP, TSH, LIPD, CBCAD #### [facility] [address], [place] [id number] Bilirubin [Mass/Vol] 0.87 mg/dL Normal 0.30-1.20 [facility] Comment on above: Performed By: #### C MP, TSH, LIPD, CBCAD #### [facility] [address], [place] [id number] BUN/CREA 26 Ratio High 6-22 [facility] Comment on above: Performed By: #### C MP, TSH, LIPD, CBCAD #### [facility] [address] [id number] Calcium [Mass/Vol] 9.7 mg/dL Normal 8.6-10.2 [facility] Comment on above: Performed By: #### C MP, TSH, LIPD, CBCAD #### [facility] [address] [place], [place] [id number] Chloride [Moles/Vol] 102 mmol/L Normal 98-107 [facility] Comment on above: Performed By: #### C MP, TSH, LIPD, CBCAD #### [facility] [address] [id number] CO2 [Moles/Vol] 23 mmol/L Normal 20-31 [facility] Comment on above: Performed By: #### C MP, TSH, LIPD, CBCAD #### [facility] [address] [facility] [place] [id number] Creatinine [Mass/Vol] 0.9 mg/dL Normal 0.7-1.4 [facility] Comment on above: Performed By: #### C MP, TSH, LIPD, CBCAD #### [facility] [address] [facility] [place] [id number] eGFRAA 103 mL/min/1.73m2 Normal >60 [facility] Comment on above: Performed By: #### C MP, TSH, LIPD, CBCAD #### [facility] [address] [facility] [place] [id number] eGFRNAA 85 mL/min/1.73m2 Normal >60 [facility] Comment on above: Performed By: #### C MP, TSH, LIPD, CBCAD #### [facility] [address] [id number] Globulin (S) [Mass/Vol] 2.8 g/dL Normal 1.9-3.7 [facility] Comment on above: Performed By: #### C MP, TSH, LIPD, CBCAD #### [facility] [address] [place], [place] [id number] Glucose [Mass/Vol] 90 mg/dL Normal 65-99 [facility] Att[facility] Comment on above: Result Comment: For FASTING Glucose --- ADA reference ranges: Normal 65-99 mg/dl Prediabetes 100-125 Diabetes >/= 126 Performed By: #### C MP, TSH, LIPD, CBCAD #### [facility] [address], [place] [id number] Potassium [Moles/Vol] 4.6 mmol/L Normal 3.5-5.5 [facility] Comment on above: Performed By: #### C MP, TSH, LIPD, CBCAD #### [facility] [address], [place] [id number] Protein [Mass/Vol] 7.5 g/dL Normal 6.1-8.1 [facility] Comment on above: Performed By: #### C MP, TSH, LIPD, CBCAD #### [facility] [address], [place] [id number] Sodium [Moles/Vol] 141 mmol/L Normal 135-146 Yael blue [place] [facility] Att[facility] Comment on above: Performed By: #### C MP, TSH, LIPD, CBCAD #### [facility] [address] [place] [address], [place] [id number] Urea nitrogen [Mass/Vol] 23 mg/dL Normal 7-25 [facility] Comment on above: Performed By: #### C MP, TSH, LIPD, CBCAD #### [facility] [address] [place], [place] [id number] Lipid Panelon 01-09-2022 Cholesterol [Mass/Vol] 181 mg/dL Normal 125-200 [facility] Comment on above: Result Comment: Low risk < 200mg/dL Borderline risk 201-239 mg/dl High risk > or equal to 240 Performed By: #### C MP, TSH, LIPD, CBCAD #### [facility] [address] [place] [address], [place] [id number] Cholesterol in HDL [Mass/Vol] 40 mg/dL Low >40 [facility] Comment on above: Result Comment: High Cardiovascular Risk HDL <40 mg/dL Low Cardiovascular Risk HDL > or equal to 60 mg/dl Performed By: #### C MP, TSH, LIPD, CBCAD #### [facility] [address], [place] [id number] Cholesterol in LDL [Mass/Vol] 101 mg/dL Normal [facility] Attendant Comment on above: Result Comment: LDL ATP III CLASSIFICATION LDL less than 100 mg/dl Optimal LDL 100-129 mg/dl Near or above optimal LDL 130-159 Borderline high LDL 160-189 High LDL greater than 189 mg/dl Very High Performed By: #### C MP, TSH, LIPD, CBCAD #### [facility] [address], [place] [id number] Cholesterol in VLDL [Mass/Vol] 40 mg/dL Normal [facility] Comment on above: Performed By: #### C MP, TSH, LIPD, CBCAD #### [facility] [address], [place] [id number] Cholesterol.total/Cho lesterol in HDL [Mass ratio] 5 {ratio} Normal [facility] Comment on above: Performed By: #### C MP, TSH, LIPD, CBCAD #### [facility] [address] [place], [place] [id number] Triglyceride [Mass/Vol] 198 mg/dL High 30-150 [facility] Attendant Comment on above: Result Comment: TRIG ATPIII CLASSIFICATIONS TRIG less than 150 mg/dl Normal TRIG 150-199 mg/dl Borderline High TRIG 200-500 mg/dl High TRIG greather than 500 mg/dl Very High Performed By: #### C MP, TSH, LIPD, CBCAD #### [facility] [address], [place] [id number] TSHon 01-09-2022 TSH 6.480 uIU/mL High 0.400-4.500 [facility] Att[facility] Comment on above: Performed By: #### C MP, TSH, LIPD, CBCAD #### [facility] [address], [place] [id number] Vital Signs Date Time Vital Sign Value Performing Clinician Facility 08-01-2024 12:59-0500 Body height 190.5 cm Eugenio Rivero DPM FACFAS Work Phone: [facility] 08-01-2024 12:59-0500 Body mass index (BMI) [Ratio] 27.5 kg/m2 Eugenio Dolce DPM FACFAS Work Phone: [facility] 08-01-2024 12:59-0500 Body weight 99.79 kg Eugenio Rivero DPM FACFAS Work Phone: [facility] 08-01-2024 12:59-0500 Diastolic blood pressure 71 mm[Hg] Eugenio Rivero DPM FACFAS Work Phone: [facility] 08-01-2024 12:59-0500 Heart rate 74 /min Eugenio Rivero DPM FACFAS Work Phone: [facility] 08-01-2024 12:59-0500 Systolic blood pressure 118 mm[Hg] Eugenio Rivero DPM FACFAS Work Phone: [facility] 01-18-2024 13:59-0400 Blood Pressure Location [facility] 01-18-2024 13:59-0400 Diastolic blood pressure 90 mm[Hg] Calvin Link [facility] 01-18-2024 13:59-0400 Heart rate 101 /min Calvin Link [facility] 01-18-2024 13:59-0400 SaO2% (BldA) [Mass fraction] 93 % Calvin Link [facility] 01-18-2024 13:59-0400 Systolic blood pressure 122 mm[Hg] Calvin Link [facility] 01-18-2024 13:04-0400 Blood Pressure Location [facility] Link [facility] 01-18-2024 13:04-0400 Diastolic blood pressure 90 mm[Hg] Calvin Link [facility] 01-18-2024 13:04-0400 Heart rate 101 /min [facility] 01-18-2024 13:04-0400 Respiratory rate 16 /min [facility] 01-18-2024 13:04-0400 SaO2% (BldA) [Mass fraction] 93 % Calvin Link [facility] 01-18-2024 13:04-0400 Systolic blood pressure 122 mm[Hg] [facility] 12-14-2023 14:53-0400 Blood Pressure Location [facility] 12-14-2023 14:53-0400 Diastolic blood pressure 86 mm[Hg] [facility] 12-14-2023 14:53-0400 Heart rate 78 /min [facility] 12-14-2023 14:53-0400 SaO2% (BldA) [Mass fraction] 95 % [facility] 12-14-2023 14:53-0400 Systolic blood pressure 132 mm[Hg] Calvin Link [facility] 11-09-2023 16:09-0500 Blood Pressure Location [facility] 11-09-2023 16:09-0500 Diastolic blood pressure 84 mm[Hg] [facility] 11-09-2023 16:09-0500 Heart rate 74 /min [facility] 11-09-2023 16:09-0500 SaO2% (BldA) [Mass fraction] 95 % Calvin Link [facility] 11-09-2023 16:09-0500 Systolic blood pressure 136 mm[Hg] Calvin Link [facility] [place] 11-04-2023 10:12-0500 Body height 190.5 cm Eugenio iRvero DPM FACFAS Work Phone: [facility] 11-04-2023 10:12-0500 Body mass index (BMI) [Ratio] 27.5 kg/m2 Eugenio Rivero DPM FACFAS Work Phone: [facility] 11-04-2023 10:12-0500 Body weight 99.79 kg Eugenio Rivero DPM FACFAS Work Phone: [facility] 11-04-2023 10:12-0500 Diastolic blood pressure 68 mm[Hg] Eugenio Rivero DPM FACFAS Work Phone: [facility] 11-04-2023 10:12-0500 Heart rate 80 /min Eugenio Rivero DPM FACFAS Work Phone: [facility] 11-04-2023 10:12-0500 Systolic blood pressure 112 mm[Hg] Eugenio Rivero DPM FACFAS Work Phone: [facility] 10-13-2022 12:05-0500 Diastolic blood pressure 64 mm[Hg] DO Russell Krisk Work Phone: [facility] 10-13-2022 12:05-0500 Heart rate 76 /min DO Russell Charbelchak Work Phone: [facility] 10-13-2022 12:05-0500 Respiratory rate 18 /min DO Russell Vaschak Work Phone: [facility] 10-13-2022 12:05-0500 SaO2% (BldA) [Mass fraction] 96 % DO Russell Vaschak Work Phone: [facility] 10-13-2022 12:05-0500 Systolic blood pressure 137 mm[Hg] DO Russell Vaschak Work Phone: [facility] 10-13-2022 08:35-0500 Body height 187.96 cm DO Russell Vaschak Work Phone: [facility] 10-13-2022 08:35-0500 Body temperature 98.7 [degF] DO Russell Trejo Work Phone: [facility] 10-13-2022 08:35-0500 Body weight 98.4 kg DO Russell Trejo Work Phone: [facility] Encounters Encounter Date Encounter Type Care Provider Facility Start: 12-27-2024 ambulatory Calvin C Link Facility:[facility] Start: 12-19-2024 ambulatory Calvin C Link Facility:[facility] Start: 12-12-2024 End: 12-12-2024 Bamboo flowsheet Angelia ALICIA Work Phone: [facility] Start: 12-12-2024 End: 12-12-2024 Bamboo flowsheet Angelia ALICIA Work Phone: [facility] Start: 11-21-2024 ambulatory Calvin C Link Facility:[facility] Start: 08-01-2024 End: 08-01-2024 Bamboo flowsheet Eugenio Rivero DPM FACFAS Work Phone: [facility] Start: 08-01-2024 End: 08-01-2024 Bamboo flowsheet Eugenio Mary Ann Rivero DPM FACFAS Work Phone: [facility] Start: 08-01-2024 End: 08-01-2024 Patient encounter procedure Eugenio Rivero DPM FACFAS Work Phone: [facility] Comment on above: Onychomycosis (Prima ry Dx); Pain in left toe(s); Pain in right toe(s) Start: 08-01-2024 End: 08-01-2024 ambulatory EUGENIO RIVERO Not Available Start: 06-27-2024 End: 06-27-2024 ambulatory Calvin C Link Facility:[facility] Start: 06-27-2024 End: 06-27-2024 Patient encounter procedure Calvin C Link [facility] [place] Start: 02-22-2024 End: 02-22-2024 ambulatory EUGENIO RIVERO Not Available Start: 01-18-2024 End: 01-18-2024 ambulatory Calvin Cotto Link Facility:[facility] Start: 01-18-2024 End: 01-18-2024 Patient encounter procedure Calvin C Link [facility] Start: 01-18-2024 End: 01-18-2024 Well adult monitoring check done Calvin C Link [facility] Start: 12-14-2023 End: 12-14-2023 Patient encounter procedure Calvin C Link [facility] Start: 11-09-2023 End: 11-09-2023 Patient encounter procedure Calvin Cotto Link [facility] Start: 11-04-2023 Bamboo flowsheet Eugenio Reese Dolce DPM FACFAS Work Phone: [facility] Start: 11-04-2023 Bamboo flowsheet Eugenio Bridgesce DPM FACFAS Work Phone: [facility] Start: 11-04-2023 End: 11-04-2023 Office outpatient new 30 minutes Eugenio Bridgesce DPM FACFAS Work Phone: [facility] Comment on above: Venous (peripheral) insufficiency (Primary Dx); Onychomycosis; Pain in left toe(s); Pain in right toe(s); Peripheral arterial disease (CMS/HCC) Start: 04-27-2023 Patient encounter procedure Eugenio Rivero DPM FACFAS Work Phone: [facility] Start: 04-27-2023 Patient encounter status Eugenio Rivero DPM FACFAS Work Phone: [facility] Start: 10-13-2022 End: 10-13-2022 Emergency department patient visit Russell Trejo Facility:[facility] Start: 10-13-2022 End: 10-13-2022 Emergency department patient visit DO Russell Trejo Work Phone: [facility] Work Phone: Start: 05-02-2022 End: 05-03-[address] RUSSELL TREJO Facility:[facility] Start: 03-11-2018 Ambulatory CARL Thrasher lity:[id number] Start: 03-11-2018 Ambulatory Facility:[id number] Procedures Date Procedure Procedure Detail Performing Clinician Start: 10-13-2022 SARS-CoV-2, Influenz a & RSV (PCR) DO Russell Charbelaldairmarcia Work Phone: Start: 10-13-2022 CT angiography of head DO Russell Trejo Work Phone: Start: 10-13-2022 CT angiography of ne ck vessels DO Russell Trejo Work Phone: Start: 10-13-2022 CT of head without contrast DO Russell Trejo Work Phone: Start: 10-13-2022 Plain chest X-ray DO Ro juanito Charbeldevon Work Phone: Start: 04-29-2021 Colonoscopy Eugenio NIEVES Work Phone: Start: 09-21-2015 History of operative procedure on hip [facility] Link Comment on above: right Start: 02-19-2012 Lithotripsy [facility] History of operative procedure on shoulder [facility] Link Plan of Treatment Date Care Activity Detail Author Start: 04-29-2031 Screening for malignant neoplasm of colon [facility] Start: 08-15-2025 Pneumococcal Vaccine: 65+ Years (3 of 3 - PPSV23 or PCV20) Pneumococcal Vaccine: 65+ Years (3 of 3 - PPSV23 or PCV20) [facility] Start: 08-31-2024 Medicare Annual Wellness (AWV) Medicare Annual Wellness (AWV) [facility] Start: 07-18-2024 End: 07-18-2024 Patient encounter procedure 07/18/2024 1:00 PM EDT Office Visit [facility] [address] [place] [id number] Chacha Wetzel APRN-WEAVING TEACHER [address] [place] [address] [facility] Start: 05-22-2024 Influenza vaccination Influenza Vaccine (#1) [facility] Start: 01-11-2024 End: 01-11-2024 Patient encounter procedure 01/11/2024 1:20 PM EDT Procedure Visit [facility] [address] [place] [id number] Eugenio Rivero, DPM FACFAS [address] [place] [address] [facility] Start: 08-18-2022 Pneumococcal Vaccine: 65+ Years (3 - PPSV23 or PCV20) Pneumococcal Vaccine: 65+ Years (3 - PPSV23 or PCV20) [facility] Start: 1950 Screening for malignant neoplasm of colon [facility] Patient Education Generalized We akness Dizziness, Adult ED [facility] Work Phone: Patient referral [facility] Work Phone: Immunizations Immunization Date Immunization Notes Care Provider Fa cili 08-31-2023 influenza virus vaccine, unspecified formulation Calvin Link [facility] 08-31-2023 Influenza, Seasonal, Quadrivalent, Adjuvanted Eugenio Rivero DPM FACFAS Work Phone: [facility] 11-26-2020 COVID-19 Ad26.COV2.S (Casye) DO Russell Trejo Work Phone: [facility] Comment on above: Result Comment: 2023: [id number] 08-27-2020 influenza virus vaccine, unspecified formulation [facility] 08-27-2020 Seasonal trivalent influenza vaccine, adjuvanted, preservative free Eugenio Dolce DPM FACFAS Work Phone: [facility] 08-15-2020 pneumococcal conjuga te vaccine, 13 valent [facility] 06-22-2019 influenza virus vaccine, unspecified formulation [facility] 06-22-2019 Seasonal trivalent influenza vaccine, adjuvanted, preservative free Eugenio Dolce DPM FACFAS Work Phone: [facility] 08-04-2018 influenza virus vaccine, unspecified formulation [facility] 08-04-2018 Seasonal trivalent influenza vaccine, adjuvanted, preservative free Eugenio Dolce DPM FACFAS Work Phone: [facility] 08-18-2017 influenza virus vaccine, unspecified formulation [facility] 08-18-2017 influenza, injectabl e, quadrivalent, preservative free Eugenio Dolce DPM FACFAS Work Phone: [facility] 08-18-2017 pneumococcal conjuga te vaccine, 13 valent Eugenio Dolce DPM FACFAS Work Phone: [facility] 08-19-2016 influenza, injectabl e, quadrivalent, preservative free Eugenio Dolce DPM FACFAS Work Phone: [facility] 08-19-2016 pneumococcal polysaccharide vaccine, 23 valent Eugenio Dolce DPM FACFAS Work Phone: [facility] 06-25-2015 influenza, seasonal, injectable, preservative free Eugenio Dolce DPM FACFAS Work Phone: [facility] 06-18-2015 tetanus toxoid, adsorbed Eugenio Dolce DPM FACFAS Work Phone: [facility] 06-03-2015 tetanus and diphther ia toxoids, adsorbed, preservative free, for adult use (2 Lf of tetanus toxoid and 2 Lf of diphtheria toxoid) Eugenio Dolce DPM FACFAS Work Phone: [facility] 10-27-2014 zoster vaccine, live Eugenio Miller DPM FACFAS Work Phone: [facility] 06-21-2014 influenza, injectabl e, quadrivalent, preservative free Eugenio Rivero DPM FACFAS Work Phone: [facility] NEGATED: Highlighted row has not occurred!01-20-2024 pneumococcal polysaccharide vaccine, 23 valent Calvin Link [facility] NEGATED: Highlighted row has not occurred!01-18-2024 influenza virus vaccine, unspecified formulation Calvin Link [facility] NEGATED: Highlighted row has not occurred!12-14-2023 influenza virus vaccine, unspecified formulation Calvin Link [facility] NEGATED: Highlighted row has not occurred!11-09-2023 influenza virus vaccine, unspecified formulation Calvin Link [facility] Payers Date Payer Category Payer Self-pay [id number] 2017 Medicare ANTHEM MEDICARE ADVANTAGE [facility] MEDICARE ADVANTAGE [id number] 2017-Present [address] [place] [address] [id number] 2017 Medicare (Managed Care) [facility] [id number] 1959 Unknown [id number] 1950 Unknown [id number]. 2.593 1950 Unknown [id number] [id number]. 2.1259 1950 Unknown [id number] 2.16.840.1.478670.3.579. 2.1259 1950 Unknown [id number] 2.16.840.1.305995.3.579. 2.727 1950 Unknown [id number] 2.16.840.1.209288.3.579. 2.727 1950 Unknown [id number] 2.16.840.1.159166.3.579. 2.727 1950 Unknown [id number] 2.16.840.1.205706.3.579. 2.727 1950 Unknown [id number] 2.16.840.1.236746.3.579. 2.727 1950 Unknown [id number] [id number]. 2.727 Medicare Self Pay [id number] Medicare Medicare [id number] Unknown HCAP/HFA/FAP Active [id number] Unknown [id number]. 2.531 Social History Date Type Detail Facility Tobacco smoking stat [facility] Unknown if ever smoked [facility] Start: 1950 Sex Assigned At Male F [facility] Start: 10-13-2022 Tobacco smoking stat us NHIS Never smoked tobacco (finding) [facility] Start: 04-16-2023 End: 01-18-2024 Tobacco smoking status NHIS Ex-smoker [facility] Comment on above: Does have family desirae t smokes outside History of tobacco use Current smoker [facility] History of tobacco use Cigarette Smoker [facility] Start: 04-16-2023 Tobacco use and exposure Smoke less tobacco non-user [facility] Start: 08-31-2023 End: 08-01-2024 Alcohol intake Lifetime non-drinker (finding) [facility] Start: 04-20-2023 End: 08-31-2023 [facility] Start: 04-20-2023 End: 08-31-2023 Alcohol Use Disorder Identification Test - Consumption [AUDIT-C] [facility] How often to you hav e a drink containing alcohol? Never [facility] How many standard dr inks containing alcohol do you have on a typical day? Patient does not drink [facility] Comment on above: Does have family desirae t smokes outside Start: 04-16-2023 Alcohol Comment caffeine: soda [facility] Start: 1950 Sex Assigned At Not on file [facility] Goals Date Patient Goal Desired Activity /State Functional Status Date Assessment Result Facility 01-18-2024 Functional Status N/A [facility] 12-14-2023 Functional Status N/A [facility] 11-09-2023 Functional Status N/A [facility] Clinical Notes 09-28-2023 to 08-01-2024 Eugenio Rivero DPM FACFAS - 08/01/2024 1:00 PM Vicki Rivero DPM FACALIZA - 11/04/2023 9:50 AM [facility] Note Date & Type Note Facility 08-01-2024 History of Present illness Narrative Images from the original note were not included. patient: Lynn Jolly : 1950 PCP: No primary care provider on file. SUBJECTIVE This is a 74 y.o. male that presents today with a chief complaint of painful elongated nails digits 1 through 10. They cause marked limitation in ambulation due to pain and pressure from shoe gear. 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 Essential hypertension, benign ([facility]) Gait abnormality History of kidney stones Hyperlipidemia ([facility]) Hypertension ([facility]) Hypertensive heart disease without CHF ([facility]) Intracerebral hemorrhage ([facility]) Memory loss Petit mal seizure status ([facility]) Pharyngoesophageal dysphagia Seizure disorder ([facility]) Vitamin D deficiency Medications: Current Outpatient Medications: acetaminophen (Tylenol Extra Strength) 500 MG tablet, Take 500 mg by mouth every 4 (four) hours if needed., Disp: , Rfl: atorvastatin (Lipitor) 10 MG tablet, TAKE 1 TABLET BY MOUTH EVERY DAY FOR 90 DAYS, Disp: 90 tablet, Rfl: 3 divalproex (Depakote) 250 MG EC tablet, Take 250 mg by mouth in the morning and 250 mg before bedtime., Disp: , Rfl: donepezil (Aricept) 5 MG tablet, TAKE 1 TABLET BY MOUTH EVERY DAY AT BEDTIME FOR 90 DAYS, Disp: 90 tablet, Rfl: 2 levothyroxine (Synthroid, Levoxyl) 100 MCG tablet, TAKE 1 TABLET BY MOUTH EVERY DAY IN THE MORNING ON EMPTY STOMACH, Disp: 90 tablet, Rfl: 3 lisinopril 20 MG tablet, Take 20 mg by mouth in the morning., Disp: , Rfl: metoprolol succinate XL (Toprol-XL) 25 MG 24 hr tablet, TAKE 1 TABLET BY MOUTH EVERY DAY, Disp: 90 tablet, Rfl: 0 mirtazapine (Remeron) 7.5 MG tablet, Take 1 tablet (7.5 mg) by mouth at bedtime, Disp: 90 tablet, Rfl: 3 nitroglycerin (Nitrostat) 0.4 MG SL tablet, Place 0.4 mg under the tongue every 5 (five) minutes if needed., Disp: , Rfl: Semaglutide,0.25 or 0.5MG/DOS, (Ozempic, 0.25 or 0.5 MG/DOSE,) 2 MG/3ML solution pen-injector, Inject 0.25 mg under the skin 1 (one) time per week, Disp: 2 mL, Rfl: 0 sertraline (Zoloft) 100 MG tablet, TAKE 1 AND 1/2 TABLETS BY MOUTH ONCE DAILY, Disp: 135 tablet, Rfl: 0 Review of systems: Constitutional: Denies fever, chills, nausea, vomiting GI: Denies abdominal pain, cramping, loose stool, gastric ulcers Musculoskeletal: Denies low back pain, knee pain, systemic arthritis Neurologic: Denies burning, tingling, transient paralysis OBJECTIVE Physical Examination: DERM: Positive hair growth to b/l feet with good skin turgor noted. Negative openings in skin. No macerations noted interdigitally. Web spaces were clean and dry. No ulcerations were noted. Nails 1 through 10 were thickened elongated yellow and crumbly with subungual debris. They were painful to palpation [id number] on the right [id number] on the left. VASC: DP /PT were nonpalpable bilateral. Capillary refill time < 3 seconds Digits 1-5 bilateral NEURO: [place] [employer]aki[employer] 5.07 monofilament was intact B/L. Vibratory sensation was intact B/L Musculoskeletal: Muscle strength was +5 over 5 all intrinsic and extrinsic muscles tested. Radiographs: AP/MO/LAT: Diagnostic ultrasound: ASSESSMENT 1. Onychomycosis 2. Pain in left toe(s) 3. Pain in right toe(s) PLAN The patient was educated on proper foot care as well as the etiology of onychomycosis. I educated the patient on proper shoe gear as well. Today the nails were debrided both in length and thickness 1 through 10. BRENT Britt documented in this encounter [facility] 12-14-2023 Hospital Discharge instructions Patient Education 12/14/2023 16:10:49 Epilepsy, Slrz-[id number] Epilepsy Epilepsy is when a person keeps having seizures. A seizure is a burst of abnormal activity in the brain. This condition can cause problems such as: A change in how you think or behave. Trouble knowing what is happening. Falls, accidents, and injury. Sadness (depression). Poor memory. In rare cases, this condition can be life-threatening. But most people with epilepsy lead normal lives. What are the causes? A head injury or an injury that happens at . A high fever during childhood. A stroke. Bleeding into or around the brain. Some medicines and drugs. Having too little oxygen for a long time. Abnormal brain development. Conditions such as: ?Brain infection. ?Brain tumors. ?Conditions that are passed from parent to child. Many times, the cause is not known. What are the signs or symptoms? Symptoms of a seizure vary from person to person. They may include: Symptoms during a seizure Shaking with fast, jerky movements of muscles (convulsions). Stiffness of the body. Breathing problems. Being mixed up (confused). Staring or being hard to wake up (being unresponsive). Head nodding, eye blinking, eye twitching, or fast eye movements. Drooling, grunting, or making clicking sounds with your mouth. Not being able to control when you pee or poop. Symptoms before a seizure Feeling afraid, worried, or nervous. Feeling like you may vomit. Vertigo. This feels like: ?You are moving when you are not. ?Things around you are moving when they are not. Mary Ann logan. This is a feeling of having seen or heard something before. Odd tastes or smells. Changes in how you see, such as seeing flashing lights or spots. Symptoms after a seizure Being confused. Being sleepy. A headache. Sore muscles. How is this treated? Treatment can control seizures. It may include: Taking medicines. Having a device put in the chest (vagus nerve stimulator). Brain surgery. Having blood tests often. Eating foods that are low in carbohydrates and high in fat (ketogenic diet). If you are diagnosed with this condition, you should start treatment as soon as you can. Follow these instructions at home: Medicines Take yybm-azb-[id number] and prescription medicines only as told by your doctor. Avoid anything that may keep your medicine from working, such as alcohol. Activity Get enough rest. Follow your doctor's advice about driving, swimming, and doing other things that would be dangerous if you had a seizure. If you live in the [place] ask your local department of [employer] about local driving laws for people with epilepsy. Teaching others Teach friends and family what to do if you have a seizure. Tell them to: ?Help you get down to the ground. ?Put a pillow under your head and body. ?Loosen any clothing around your neck. ?Turn you on your side. ?Stay with you until you are better. ?Know whether or not you need emergency care. Also, tell them what not to do if you have a seizure. Tell them: ?They should not hold you down. ?They should not put anything in your mouth. General instructions Avoid things that cause you to have seizures. Keep a seizure diary. Write down: ?What you remember about each seizure. ?What might have caused the seizure. Keep all follow-up visits. Where to find more information Epilepsy Foundation: epilepsy.com International League Against Epilepsy: ilae.org Contact a doctor if: You have a change in how often or when you have seizures. You get an infection or start to feel sick. You are not able to take your medicine. Get help right away if: A seizure does not stop after 5 minutes. You have more than one seizure in a row, and you do not have enough time between the seizures to feel better. A seizure makes it harder to breathe. A seizure is different from other seizures you have had. A seizure makes you unable to speak or use a part of your body. You did not wake up right away after a seizure. You feel sad, and this does not get better. These symptoms may be an emergency. Get help right away. Call your local emergency services (917 in the [place] Do not wait to see if the symptoms will go away. Do not drive yourself to the hospital. Get help right awayif you feel like you may hurt yourself or others, or have thoughts about taking your own life. Go to your nearest emergency room or: Call your local emergency services (700 in the [place] Call the National Suicide Prevention Lifeline at or 001 in the [place] This is open 24 hours a day. Text the Crisis Text Line at 727093. Summary Epilepsy is when a person keeps having seizures. Seizures can cause many symptoms, such as brief staring and shaking or jerky muscle movements. Treatment can control seizures. Take hwus-ztc-jttotoa and prescription medicines only as told by your doctor. Follow your doctor's advice about driving, swimming, and doing other things that would be dangerous if you had a seizure. Teach friends and family what to do if you have a seizure. This information is not intended to replace advice given to you by your health care provider. Make sure you discuss any questions you have with your health care provider. Document Revised: 04/02/2022 Document Reviewed: 03/11/2021 [employer] Patient Education 2022 [facility]. Follow Up Care 11/09/2023 17:08:21 With:Calvin Oshea DO, FAM Address: [address] [place] [id number]- When:4 weeks Comments:4 WEEKS FOLLOWUP [facility] 12-14-2023 Hospital Discharge instructions Follow Up Care 12/14/2023 15:39:26 With:Calvin Oshea DO, FAM Address: [address] [place] [id number]- When:4 weeks Comments:4 WEEKS FOLLOWUP [facility] 11-04-2023 History of Present illness Narrative Images from the original note were not included. patient: Lynn Jolly : 1950 PCP: Russell Trejo DO SUBJECTIVE This is a 73 y.o. male that presents today with a chief complaint of painful elongated nails digits 1 through 10. They cause marked limitation in ambulation due to pain and pressure from shoe gear. Patient is also dealing with some swelling noted bilaterally. Denies any history of ulcerations. 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 Essential hypertension, benign (CMS/HCC) Gait abnormality History of kidney stones Hyperlipidemia (CMS/HCC) Hypertensive heart disease without CHF (CMS/HCC) Intracerebral hemorrhage (CMS/HCC) Petit mal seizure status (CMS/HCC) Pharyngoesophageal dysphagia Vitamin D deficiency Medications: Current Outpatient Medications: acetaminophen (Tylenol Extra Strength) 500 MG tablet, Take 500 mg by mouth every 4 (four) hours if needed., Disp: , Rfl: atorvastatin (Lipitor) 10 MG tablet, TAKE 1 TABLET BY MOUTH EVERY DAY FOR 90 DAYS, Disp: 90 tablet, Rfl: 3 divalproex (Depakote) 250 MG EC tablet, Take 250 mg by mouth in the morning and 250 mg before bedtime., Disp: , Rfl: levothyroxine (Synthroid, Levoxyl) 100 MCG tablet, TAKE 1 TABLET BY MOUTH EVERY DAY IN THE MORNING ON EMPTY STOMACH, Disp: 90 tablet, Rfl: 3 lisinopril 20 MG tablet, Take 20 mg by mouth in the morning., Disp: , Rfl: metoprolol succinate XL (Toprol-XL) 25 MG 24 hr tablet, TAKE 1 TABLET BY MOUTH EVERY DAY FOR 90 DAYS, Disp: 90 tablet, Rfl: 3 mirtazapine (Remeron) 7.5 MG tablet, Take 1 tablet (7.5 mg) by mouth at bedtime, Disp: 90 tablet, Rfl: 3 nitroglycerin (Nitrostat) 0.4 MG SL tablet, Place 0.4 mg under the tongue every 5 (five) minutes if needed., Disp: , Rfl: Semaglutide,0.25 or 0.5MG/DOS, (Ozempic, 0.25 or 0.5 MG/DOSE,) 2 MG/3ML solution pen-injector, Inject 0.25 mg under the skin 1 (one) time per week, Disp: 2 mL, Rfl: 0 sertraline (Zoloft) 100 MG tablet, TAKE 1 AND 1/2 TABLETS BY MOUTH ONCE DAILY, Disp: 135 tablet, Rfl: 3 Review of systems: Constitutional: Denies fever, chills, nausea, vomiting GI: Denies abdominal pain, cramping, loose stool, gastric ulcers Musculoskeletal: Denies low back pain, knee pain, systemic arthritis Neurologic: Denies burning, tingling, transient paralysis OBJECTIVE Physical Examination: DERM: Positive hair growth to b/l feet with good skin turgor noted. Negative openings in skin. No macerations noted interdigitally. Web spaces were clean and dry. No ulcerations were noted. Edema noted to bilateral lower extremities. Plus one pitting type. No ulcerations fissures or macerations noted. Nails 1 through 10 were thickened elongated yellow and crumbly with subungual debris. They were painful to palpation 06240 on the right 17648 on the left. VASC: DP /PT were nonpalpable bilateral. Capillary refill time < 3 seconds Digits 1-5 bilateral NEURO: [place] [employer] 5.07 monofilament was intact B/L. Vibratory sensation was intact B/L Musculoskeletal: Muscle strength was +5 over 5 all intrinsic and extrinsic muscles tested. ASSESSMENT 1. Onychomycosis 2. Pain in left toe(s) 3. Pain in right toe(s) 4. Peripheral arterial disease (CMS/HCC) 5. Venous (peripheral) insufficiency PLAN The patient was educated on proper foot care as well as the etiology of onychomycosis. I educated the patient on proper shoe gear as well. Today the nails were debrided both in length and thickness 1 through 10. I educated the patient on venous stasis disease I recommended mild compression and elevation. Compression stockings 18 mmHg or higher with elevation when seated. Discussed peripheral arterial disease as well patient may require PVR testing at some point follow-up 2 months Eugenio Rivero DPM FACAILZA documented in this encounter [facility] 09-28-2023 Hospital Discharge instructions Follow Up Care 09/28/2023 16:50:36 With:Calvin Oshea DO, [facility] Address: [address] [place] [address]- When:4 weeks Comments:4 -6 WEEKS FOLLOWUP - 40 minutes - check after PT / check on sleep [facility] Evaluation + Plan note Future Appointments Appointment Date:12/14/2023 02:40:00 PM Scheduled Provider:Calvin Oshea DO Location:[facility] Appointment Type: Open Future Scheduled TestsXR Spine Lumbosacral Minimum 4 Views 11/09/23 [facility] Evaluation + Plan note Future Appointments Appointment Date:01/18/2024 01:00:00 PM Scheduled Provider: Location:[facility] Appointment Type: Medicare Wellness Initial Appointment Date:01/18/2024 01:40:00 PM Scheduled Provider:Calvin Oshea DO Location:[facility] Appointment Type:FM Open Future Scheduled TestsXR Spine Lumbosacral Minimum 4 Views 11/09/23 [facility] Evaluation + Plan note Future Appointments Appointment Date:12/27/2024 02:00:00 PM Scheduled Provider: Location:[facility] Appointment Type: Medicare Wellness Subsequent Future Scheduled TestsXR Spine Lumbosacral Minimum 4 Views 11/09/23 [facility] Evaluation + Plan note Future Appointments Appointment Date:12/27/2024 02:00:00 PM Scheduled Provider: Location:[facility] Appointment Type: Medicare Wellness Subsequent Future Scheduled [id number] 01/20/24PSA Screen, Total 01/20/24TSH With T4fr Reflex 01/20/24CBC w/ Auto Diff 01/20/24Comprehensive Metabolic Panel 01/20/24Lipid Panel 01/20/24XR Spine Lumbosacral Minimum 4 Views 11/09/23 [facility] Evaluation note No assessment inform ation available [facility] Work Phone: Evaluation note Diagnosis Venous (peripheral) insufficiency- Primary Unspecified venous (peripheral) insufficiency Onychomycosis Dermatophytosis of nail Pain in left toe(s) Pain in right toe(s) Peripheral arterial disease (CMS/HCC) Unspecified peripheral vascular disease [facility] Onychomycosis- Primary Dermatophytosis of nail Pain in left toe(s) Pain in right toe(s) [facility] Narrative No data available for this section [facility] Hospital Discharge instructions No data available for this section [facility] Progress note No data available for this section [facility] Summary Purpose Family History No Family History Records Found Relationship Condition Age at Onset Recorded Date/T maurice father Coronary artery disease Unknown Not Specified Malignant neoplasm of throat Unknown Malignant neoplasm of colon Unknown sister Hypertension Unknown Cerebrovascular accident (CVA) Unknown Advance Directives No Advanced Directives Records Found Advance Directive Response Recorded Date/ Time Advance Directives Yes February 12 7:57pm Assessments No Assessments Information AvailableNo Assessments Information AvailableNo Assessments Information AvailableNo Assessments Information Available Chief Complaint and Reason for Visit Chief Complaint Dizzy Reason for Referral Referred by: Calvin Oshea DO Additional Source Comments (unrecognized sect ion and content) No Status Records FoundNo Status Records FoundNo Status Records FoundNo Status Records FoundNo Status Records FoundNo Status Records FoundNo Status Records Found INFORMATION SOURCE (unrecogn ized section and content) DATE CREATED AUTHOR 03/12/2018 [facility] DATE CREATED AUTHOR AUTHOR'S ORGANIZ ATION 03/13/2018 [facility] DATE CREATED AUTHOR AUTHOR'S ORGANIZ ATION 01/11/2022 [facility] dical Specialist DATE CREATED AUTHOR AUTHOR'S ORGANIZ ATION 05/06/2022 [facility] DATE CREATED AUTHOR AUTHOR'S ORGANIZ ATION 10/25/2022 [facility] DATE CREATED AUTHOR AUTHOR'S ORGANIZ ATION 12/13/2024 [facility] Specialists EPIC DATE CREATED AUTHOR AUTHOR'S ORGANIZ ATION 12/18/2024 [facility] Care Teams (unrecognized sec tion and content) Team Status: Inactive Member Role Status Dates Russell Trejo DO Primary Care Provider Active Kaylyn Dumont DO Emergency Provider Active Team Status: Active Member Role Status Dates Russell Trejo DO Primary Care Provider Active Purchasing Department Clerk Relationship Specialty Start Date End Date Russell Trejo DO [address] [place] [address] PCP - Bela WATTS 09/21/21 Russell Trejo DO [address] [place] [address] PCP - General Internal Medicine 04/03/23 Purchasing Department Clerk Relationship Specialty Start Date End Date Russell Trejo DO [address] [place] [address] PCP Flores Cramer MA 09/21/21 Russell Trjeo, DO [address] [place] [address] PCP - General Internal Medicine 04/03/23 Purchasing Department Clerk Relationship Specialty Start Date End Date Russell Trejo, [address] [place] [address] PCP - Bela WATTS 09/21/21 Purchasing Department Clerk Relationship Specialty Start Date End Date Russell Trejo, DO [address] [place] [address] PCP Flores Cramer MA 09/21/21 Goals (unrecognized section and content) Goals may be documented in a n alternate section No data available for this section No data available for this section No data available for this section No data available for this section No data available for this section Reason for Visit (unrecogniz ed section and content) Reason Comments Toenail Care Non dm nail care Reason Comments Toenail Care Non DM nail care FOR RECORDS PERTAINING TO PATIENTS WHO ARE OR HAVE BEEN ENROLLED IN A CHEMICAL DEPENDENCY/SUBSTANCEABUSE PROGRAM, SOME INFORMATION MAY BE OMITTED. This clinical summary was aggregated from multiple sources. Caution should be exercised in using it in the provision of clinical care. This summary normalizes information from multiple sources, and as a consequence, information in this document may materially change the coding, format and clinical context of patient data. In addition, data may be omitted in some cases. CLINICAL DECISIONS SHOULD BE BASED ON THE PRIMARY CLINICAL RECORDS. [employer] provides no warranty or guarantee of the accuracy or completeness of information in this document.
--- NOTE | 2024-12-20 10:33 | ECG_ITS ---
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 Measurements Intervals [place] Rate: 91 P: 33 NH: 136 QRS: 67 QRSD: 92 T: 270 QT: 306 QTc: 354 Interpretive Statements 1100 Sinus rhythm 4664 Twave abnormality, possible inferior ischemia 8305 Short QTc interval 9150 abnormal ECG Compared to ECG 10/05/2018 12:56:48 Possible ischemia now present ST (T wave) deviation no longer present Electronically Signed On 12-20-2024 20:16:25 EDT by HAMIDA BORJAS M.D.
--- NOTE | 2024-12-20 10:34 | ED.GENADUL1 ---
HPI HPI - General Adult General Chief complaint: Syncope Stated complaint: WEAKNESS Time Seen by Provider: 12/20/24 10:33 History of Present Illness HPI narrative: 74-year-old male presents to the emergency department for syncopal episode. He was reportedly sitting on the toilet when this happened. He did not fall or injure himself in any way. He does not complain of any pain. He had also fallen about a week ago and hit the left side of his face and still has some bruising. No chest pain or palpitations. Related Data Home Medications ?Medication ?Instructions ?Recorded ?Confirmed atorvastatin 10 mg tablet 10 mg PO DAILY 12/20/24 12/20/24 divalproex 250 mg tablet,delayed 250 mg PO DAILY 12/20/24 12/20/24 release divalproex 500 mg tablet,delayed 500 mg PO DAILY 12/20/24 12/20/24 release (Depakote) donepezil 5 mg tablet 5 mg PO DAILY 12/20/24 12/20/24 duloxetine 60 mg capsule,delayed 60 mg PO DAILY 12/20/24 12/20/24 release levothyroxine 100 mcg tablet 100 mcg PO DAILY 12/20/24 12/20/24 metoprolol succinate 25 mg 25 mg PO DAILY 12/20/24 12/20/24 tablet,extended release 24 hr mirtazapine 7.5 mg tablet 7.5 mg PO DAILY 12/20/24 12/20/24 sertraline 100 mg tablet 150 mg PO DAILY 12/20/24 12/20/24 Allergies Allergy/AdvReac Type Severity Reaction Status Date / Time No Known Drug Allergies Allergy Verified 12/20/24 10:52 Opioid HPI Opioid Management Most Recent Opioid Data: No Data to Display Review of Systems ROS Narrative A ten point review of systems is negative except as noted above. PFSH PFSH Social History Little interest or pleasure in doing things: not at all Feeling down, depressed, or hopeless: not at all Exam Narrative Exam Narrative: Nurses note and vital signs reviewed and patient is not hypoxic. General: The patient appears no apparent distress. Patient is resting comfortably on cart. Skin: Warm, dry, no pallor noted. There is no rash noted. Head: Normocephalic, old bruising present around the left eye Eye: Normal conjunctiva, no drainage Ears, Nose, Mouth, and Throat: oral mucosa is moist. Nares patent. Cardiovascular: Regular Rate and Rhythm Respiratory: Patient is in no distress, no accessory muscle use, lungs are clear to auscultation, no wheezing, rales or rhonchi Back: non-tender, no CVA tenderness bilaterally to percussion. GI: Soft and nontender Musculoskeletal: The patient has no evidence of calf tenderness, no pitting edema, symmetrical pulses noted bilaterally. He has old bruising on the left anterior lower leg region. Neurological: Awake and alert. Speech is difficult to understand from remote traumatic brain injury. He is oriented to place and reason and name. He does not know the year. He moves all 4 extremities well. Psychiatric: Cooperative Constitutional Vital Signs, click to edit/add: Last Vital Signs Temp 97.8 F 12/20/24 10:40 Pulse 90 12/20/24 13:00 Resp 22 H 12/20/24 13:00 BP 145/89 H 12/20/24 13:00 Pulse Ox 89 L 12/20/24 13:00 O2 Del Method Room Air 12/20/24 10:40 Course Vital Signs Vital signs: Vital Signs Pulse Oximetry 95 12/20/24 10:29 Temperature 97.8 F 12/20/24 10:40 Pulse Rate 90 12/20/24 13:00 Respiratory Rate 22 H 12/20/24 13:00 Blood Pressure 145/89 H 12/20/24 13:00 Pulse Oximetry 89 L 12/20/24 13:00 Oxygen Delivery Method Room Air 12/20/24 10:40 Medical Decision Making [facility] Narrative Medical decision making narrative: His workup is negative and he has no symptoms. He lives at home with his sister and she is inquiring about home health. We are contacting her school social worker to begin that process. Treatment diagnosis and follow-up were discussed thoroughly. Differential Diagnosis Differential Diagnosis: Syncope, dehydration, anemia, cardiac dysrhythmia Lab Data Lab results reviewed: Yes I reviewed the patient's lab results Labs: Lab Results 12/20/24 12/20/24 Range/Units 11:05 12:26 WBC 15.5 H (4.0-11.0) 10^3/uL RBC 4.83 (4.70-6.10) 10^6/uL Hgb 15.0 (14.0-18.0) g/dL Hct 46.2 (42.0-54.0) % MCV 95.7 H (80.0-94.0) fL MCH 31.1 (25.9-34.0) pg MCHC 32.5 (29.9-35.2) g/dL RDW 13.9 (11.0-15.0) % Plt Count 226 (150-450) 10^3/uL MPV 10.1 (9.5-13.5) fL Seg Neuts % (Manual) 54.0 (43.0-75.0) Lymphocytes % (Manual) 34.0 (20.5-60.0) % Monocytes % (Manual) 10.0 (1.7-12.0) % Eosinophils % (Manual) 0.0 L (0.9-7.0) % Basophils % (Manual) 0.0 L (0.2-2.0) % Neutrophils # (Manual) 8.37 H (1.4-6.5) 10^3/uL Lymphocytes # (Manual) 5.27 H (1.20-3.80) 10^3/uL Monocytes # (Manual) 1.55 H (0.30-0.80) 10^3/uL Eosinophils # (Manual) 0.00 (0.00-0.70) 10^3/uL Basophils # (Manual) 0.00 (0.00-0.10) 10^3/uL Sodium 148 H (136-145) mmol/L Potassium 4.1 (3.5-5.1) mmol/L Chloride 112 H (98-107) mmol/L Carbon Dioxide 23.3 (21.0-32.0) mmol/L Anion Gap 16.8 BUN 32.0 H (7.0-18.0) mg/dL Creatinine 1.20 (0.70-1.30) mg/dL Est GFR ( Amer) >60 (>=60 mL/min/1.73m^2) Est GFR (Non-Af Amer) 60 (>=60 mL/min/1.73m^2) BUN/Creatinine Ratio 26.7 Glucose 120 H (74-106) mg/dL Calcium 9.4 (8.5-10.1) mg/dL Troponin I High Sens 58.7 63.3 (4.0-76.1) pg/mL Imaging Data Chest x-ray, CT brain: Radiologist's impression: CT brain: No acute intracranial abnormality Chest x-ray: Negative study for acute process ECG Data Attestation: I personally reviewed and interpreted this ECG as follows: (EKG on my interpretation shows sinus rhythm with a rate of 91 and no acute change) Discharge Plan Discharge Chief Complaint: Syncope Clinical Impression: Syncope Patient Disposition: Home, Self-Care Time of Disposition Decision: 13:56 Condition: Good Mode of Transportation: Private Vehicle Prescriptions / Home Meds: No Action atorvastatin 10 mg tablet 10 mg PO DAILY divalproex 250 mg tablet,delayed release (DR/EC) 250 mg PO DAILY Rx Instructions: at bedtime divalproex [Depakote] 500 mg tablet,delayed release (DR/EC) 500 mg PO DAILY Rx Instructions: in morning donepezil 5 mg tablet 5 mg PO DAILY duloxetine 60 mg capsule,delayed release(DR/EC) 60 mg PO DAILY levothyroxine 100 mcg tablet 100 mcg PO DAILY metoprolol succinate 25 mg tablet extended release 24 hr 25 mg PO DAILY mirtazapine 7.5 mg tablet 7.5 mg PO DAILY sertraline 100 mg tablet 150 mg PO DAILY Print Language: Russian Instructions: Syncope (ED) Referrals: Calvin Oshea DO [Primary Care Provider] - 1 week
[2024-12-20 11:38] LABS: Hematocrit 46.2 % (42.0-54.0); Mean Corpuscular HGB Conc 32.5 g/dL (29.9-35.2); Mean Corpuscular Hemoglobin 31.1 pg (25.9-34.0); Mean Corpuscular Volume 95.7 fL (80.0-94.0); Mean Platelet Volume 10.1 fL (9.5-13.5); Platelet Count 226 10^3/uL (150-450); Red Blood Count 4.83 10^6/uL (4.70-6.10); Red Cell Distribution Width 13.9 % (11.0-15.0); White Blood Count 15.5 10^3/uL (4.0-11.0)
[2024-12-20 11:42] LABS: Anion Gap 16.8; BUN Creatinine Ratio 26.7; Calcium 9.4 mg/dL (8.5-10.1); Carbon Dioxide 23.3 mmol/L (21.0-32.0); Chloride 112 mmol/L (98-107); Estimated GFR (African America >60 (>=60 mL/min/1.73m^2); Estimated GFR (Non-African Ame 60 (>=60 mL/min/1.73m^2); Glucose 120 mg/dL (74-106); Potassium 4.1 mmol/L (3.5-5.1); Sodium 148 mmol/L (136-145); Troponin I High Sensitivity 58.7 pg/mL (4.0-76.1)
[2024-12-20 12:40] LABS: Lymphocytes Absolute Manual 5.27 10^3/uL (1.20-3.80); Monocytes Absolute Manual 1.55 10^3/uL (0.30-0.80); Segmented Neut Absolute Manual 8.37 10^3/uL (1.4-6.5)
[2024-12-20 12:53] LABS: Troponin I High Sensitivity 63.3 pg/mL (4.0-76.1)
--- NOTE | 2024-12-20 14:30 | CM.NOTE ---
Called by ER to discuss HH with pt and family. Pt, and son at bedside when entering room. Discussed HH services and discharge planning. states she needs services to assist with his care throughout the week. This would consist of giving baths, staying with pt while she runs errands. Discussed with pt and that HH services would be for OT, PT and nurse. This would be for strengthening and checking vitals or chronic disease management. states I just need someone to assist with care, I would need to determine dates and times. and pt were provided with care givers list to reach out for home assistance. Explained to family this would be out of pocket expense, they are ok with this option. also provided information regarding meals on wheels if this could also be of assistance.
--- NOTE | 2024-12-20 14:42 | PC.NURSE ---
digital media manager speaking with patient and sister per their request.
== END 2024-12-20 15:00 | disposition home or self-care (01) ==
PROVIDERS: Emergency Provider Emergency Medicine; PCP Family Medicine
DX: R55 Syncope and collapse (principal); Z91.81 History of falling; Z87.820 Personal history of traumatic brain injury
CPT/HCPCS: 36415; 70450; 71045; 80048; 84484; 85007; 85027; 93005; 99285

== ENCOUNTER 2025-02-24 15:04 | Emergency (ER) | payer MEDICARE, SELFPAY ==
[2025-02-24 15:07] VITALS: BP 172/96; PULSE 100; TEMP 36.7; O2SAT 94; BMI 24.4
--- NOTE | 2025-02-24 15:17 | PC.NURSE ---
pt hit top of head on wall and has a non bleeding superficial abrasion to head. Pt alert and C collar in place from EMS
--- NOTE | 2025-02-24 15:38 | ECG_ITS ---
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 Measurements Intervals [place] Rate: 74 P: 43 NC: 146 QRS: 49 QRSD: 90 T: 39 QT: 378 QTc: 405 Interpretive Statements 1100 Sinus rhythm 9110 normal ECG Compared to ECG 12/20/2024 10:35:03 Possible ischemia no longer present Electronically Signed On 02-24-2025 18:27:51 EDT by HAMIDA BORJAS M.D.
--- NOTE | 2025-02-24 15:57 | ED.GENADUL1 ---
HPI HPI - General Adult General Chief complaint: Psychiatric Symptoms Stated complaint: SUICIDAL Time Seen by Provider: 02/24/25 15:17 Source: patient Mode of arrival: ambulance History of Present Illness HPI narrative: Patient is a 75-year-old male who is presenting to the ER for medical clearance/psychiatric evaluation. Patient was brought here by EMS. Patient lives at home with his sister and niece. Patient had a stroke back in 1975. Patient has speech deficit where he talks slower than normal, but he does not have any type of aphasia. Patient states was no changes in his speech today. Patient says he does not take any blood thinners. Patient stated he currently has no headache or neck pain. Patient has no chest pain or shortness of breath. No abdominal pain nausea vomiting. Patient says that he has no deficit to his arms or legs since stroke. Patient only has delayed speech which has been ongoing for the last 20-30 years. Patient told Yancy Lara RN that anytime he gets mad or upset at home, he is very easily angered and frustrated. Patient told Yancy that he hit his head against a plaster wall 1 time. He told me that he hit his head several times. Patient did not pass out, no loss of consciousness. Patient believes that his niece is the one that called 911 because he also made a comment that he was going to get a gun and shoot himself. Patient denied any suicidal homicidal comments to me. He also did not tell me about the comment he made about getting a gun and shooting himself. He is ANO x 3, GCS 15. Patient came in a cervical collar. Patient has no significant neck pain, patient has minimal tenderness to left paracervical soft tissue. No acute complaints. Patient denies any type of alcohol or illicit drug use. Patient had no other type of fall, no other type of injury today. Patient has no recent illness. No fever. No other acute complaints. Patient says he is never been a mental health hospital before. Patient states he has no history of depression, anxiety, bipolar, schizophrenia. Patient is adamantly not suicidal, homicidal. Patient does not want to be here, patient wants to go home. Patient has no recent medication changes. No acute complaints. All systems are negative except as noted/marked. All systems reviewed and otherwise negative. Nurses note and vital signs reviewed and patient is not hypoxic. General: The patient appears well and in no apparent distress. Patient is resting comfortably on cart. Patient is not toxic, lethargic, or listless. Patient is alert and orient x 3, GCS of 15. Skin: Warm, dry, no pallor noted. There is no rash noted. No petechiae, purpura. Patient has minimal abrasions to the top of his forehead, no hematoma. Head: Normocephalic, atraumatic; patient; patient has no midline or paracervical tenderness to palpation. Patient has full range of motion of cervical spine with no difficulty. Patient has minimal abrasion to the top of his scalp. No hematoma. Patient has no midline or paracervical tenderness palpation. Full range of motion of cervical spine. Patient has no pain. Patient then said he had minimal pain to the left lateral aspect of his neck to his soft tissue. Patient was clinically removed from cervical collar. Eye: Normal conjunctiva, no drainage, EOMI. PERRL. Bilateral TM shows no erythema, perforation or bulging. Negative raccoon eyes, scruggs signs, or hemotympanums. Ears, Nose, Mouth, and Throat: oral mucosa is moist. Nares patent. Mouth without vesicles. Cardiovascular: Regular Rate and Rhythm, no murmur, gallop, rub Respiratory: Patient is in no distress, no accessory muscle use, lungs are clear to auscultation, no wheezing, rales or rhonchi Back: non-tender, no CVA tenderness bilaterally to percussion. No CT LS midline pain GI: no tenderness to palpation, no masses appreciated. No rebound, guarding, or rigidity noted. No distention Musculoskeletal: Patient has full range of motion of all of the extremities, no motor, sensory, or focal neurological deficits Neurological: A&O x4, normal speech Psychiatric: Cooperative, not suicidal, not homicidal, not psychotic, no hallucinations or delusions. Related Data Home Medications ?Medication ?Instructions ?Recorded ?Confirmed atorvastatin 10 mg tablet 10 mg PO DAILY 12/20/24 02/24/25 divalproex 250 mg tablet,delayed 250 mg PO .qhs 12/20/24 02/24/25 release donepezil 5 mg tablet 5 mg PO .qhs 12/20/24 02/24/25 duloxetine 60 mg capsule,delayed 60 mg PO DAILY 12/20/24 02/24/25 release levothyroxine 100 mcg tablet 100 mcg PO DAILY 12/20/24 02/24/25 metoprolol succinate 25 mg 25 mg PO DAILY 12/20/24 02/24/25 tablet,extended release 24 hr sertraline 100 mg tablet 150 mg PO DAILY 12/20/24 02/24/25 donepezil 10 mg tablet mg 02/24/25 quetiapine 25 mg tablet mg 02/24/25 Allergies Allergy/AdvReac Type Severity Reaction Status Date / Time No Known Drug Allergies Allergy Verified 12/20/24 10:52 Opioid HPI Opioid Management Most Recent Opioid Data: Ur Phencyclidine Scrn, (NEGATIVE) Negative Today, 16:40 PFSH [facility] Medical History (Updated 02/24/25 @ 17:39 by Mehdi Paris MD) Stroke ?I63.9 - Cerebral infarction, unspecified (ICD-10) Social History Little interest or pleasure in doing things: not at all Feeling down, depressed, or hopeless: not at all Exam Constitutional Vital Signs, click to edit/add: Last Vital Signs Temp 98.0 F 02/24/25 15:07 Pulse 100 H 02/24/25 15:07 Resp 18 02/24/25 15:07 BP 172/96 H 02/24/25 15:07 Pulse Ox 94 L 02/24/25 15:07 O2 Del Method Room Air 02/24/25 15:07 Course Vital Signs Vital signs: Vital Signs Temperature 98.0 F 02/24/25 15:07 Pulse Rate 100 H 02/24/25 15:07 Respiratory Rate 18 02/24/25 15:07 Blood Pressure 172/96 H 02/24/25 15:07 Pulse Oximetry 94 L 02/24/25 15:07 Oxygen Delivery Method Room Air 02/24/25 15:07 Temperature 98.0 F 02/24/25 15:07 Pulse Rate 100 H 02/24/25 15:07 Respiratory Rate 18 02/24/25 15:07 Blood Pressure 172/96 H 02/24/25 15:07 Pulse Oximetry 94 L 02/24/25 15:07 Oxygen Delivery Method Room Air 02/24/25 15:07 Medical Decision Making MDM Narrative Medical decision making narrative: Patient seen and examined: Patient go through psychiatric clearance. Differential diagnosis includes but is not limited to: Situational anxiety, anger episode, reactive episode, suicidal ideation/suicidal,. Electrolyte abnormality. Depression. Diagnostics and management: Lab work, urine sample be done. Relevant laboratory interpretation: No acute findings on lab work or urine sample. Shared decision making: I discussed with the patient the necessary laboratory findings and radiological findings. Social barriers to healthcare: There are no food insecurities, there is no issue with transportation, there are no insurance barriers. Disposition: I discussed with the patient need to go through medical clearance. Patient adamantly states he is not suicidal homicidal. Patient understands he knows that he needs to go through crisis counselor/psychiatric clearance through P. Patient appears to be low risk at this time. Patient appears to have anger management situation, and will have different reactive and anger episodes. However, patient's son is to go through HP evaluation to make sure he does not require inpatient Hospitalization. 1749 I have spoken to patient's niece, Doris. She was asking why the patient was not pink slipped. I did not have an answer why the wick and base assembler did not pink slipped him, but there has been no acute indication to pink slipped him in the ER today. He is not suicidal, not homicidal, he is not hallucinating, not delirious. Patient has been very appropriate. Patient has been evaluated by P and patient has been cleared for discharge. 1754 I spoke to Micheline Greeno, who states that she is the to the who is the power of executive vp of this patient. The power of executive vp is not able to talk right now because he is at work. Micheline was very directive, raising her voice on the phone, and forceful with her statements, continue to interrupt me when trying to explain the care what occurred today. Patient was very adamant to get her point across that she is upset the patient is not pink slipped by the police/Finance Business Manager and wanted to know why the police did not pink slipped this patient. I explained to her that when patient came, he was not suicidal homicidal. He has been extremely pleasant the entire time he has been in the ER, which has been for 3 hours. I talked there is no acute indication to be pink slipped at this time. She did tell me the events today that she went over the house to see him because he refuses to get out of bed. He was upset that a urine spilled in the room, so he was yelling out. Micheline stated that she tried to force getting him out of bed when he is been laying in bed the last few days, pt not wanting to get up, and refusing to perform ADLs. Micheline attempted to get him out of bed, and he became very mad and agitated. There is no guns in the house, they remove the guns over 2 years ago. She stated that he was upset, and had acted like he was going to or try to choke himself, also hit his head against the wall several times and agitation and anger. Police were called. Family was under the impression that the police/Finance Business Manager with pink slipped patient. I tried to explain to Micheline with the patient was pink slipped or not, that patient was still evaluated the same way with medical clearance and evaluation for mental health providers. I cannot get a chance to tell Micheline this because she continued to interrupt me and became louder as the conversation went on. I tried to get information on the of Micheline who is the power of executive vp so that mental health providers could speak to the power of executive vp and get better answers. Micheline told me the patient was in the rehab and that was a waste of time, he came home and was not improved or stronger. There is a lot of behavioral situations going on at home. There is a lot of ongoing chronic conditions. Micheline did not know who his family doctor was. Micheline is uncertain of what type of physicians or plans are in place to help with this patient and his ongoing agitation, possible depression, and other actions that are occurring at home. I try to explain her that we are in the emergency room and there is no acute indication for admission to the hospital. He would need to follow-up with PCP, psychiatry, and help manage mental health, aging, or other etiologies of concerns of patient's actions. She then started raising her voice even louder, telling me that I do not know what I am doing, I can pink slip the patient if I want to, that she is a police manager who works in the hospital, and I have every right to keep the patient. She said a few other choice things, stated that her would be calling the hospital, and then she hung up by me. I did have a conversation with patient at bedside with Christine RAMIREZ as a witness. Patient still wants to go home. Patient is alert and orient x 3. Patient is aware of the phone conversation that I have a Micheline and also stated that I can speak to Bill who is the power of executive vp. Patient admits to hitting his head against the ground, patient states he did not try to choke himself. I did make patient aware of the concerns of Micheline to be reevaluated, and possibly needed to be admitted to [facility] or help with behavioral management concerns at home. Patient understands, and is okay if [facility] speaks to Micheline or Bill. Patient has been very pleasant. Patient still is not suicidal homicidal. Patient does admit to being agitated and throwing temper tantrums at home. 1819 I just had a 5-minute conversation with Bill Garber, who is POA. He states that he is at work currently, and his who has permission to talk on his behalf Micheline witnessed the events that occurred today. He did apologize for his mannerisms on the phone which was appreciated. There is a concern that he had actions of trying to find a gun today so that he could kill himself. Those actions are clearly different than what have occurred in the ER today. I explained to him the reasons why we did not pink slip in the emergency room. I explained to him difficulties with acute versus chronic behavioral concerns at home. We did discuss that we would like to have him reevaluated, and I can have [facility] call him and his Micheline to understand the events that occurred today to see if there needs to be a change. Bill is concerned about the intermittent temper tantrums that patient throws at home. Bill is Also concerned that Bill's mother lives at the home as well with the patient, and patient may have his temper tantrums with Rivera 80-year-old mother at home as well. Sara RAMIREZ is currently speaking to MARTÍNEZ from [facility] at this time, and they are being updated on the phone conversations that I have Micheline and Adarsh. Patient is transition to Dr. Chang at 1910 for reevaluation of the patient once [facility] discusses case with family members and make the final disposition. Critical care time 55 minutes exclusive from separate billable procedures that were performed. The following was considered in the determination of critical care but not limited to the level of medical decision making, intensive cardiac and/or respiratory monitoring, frequent vital sign monitoring, evaluation of laboratory studies, evaluation of radiographic studies, oxygen monitoring, and constant monitoring and speaking to family at bedside. Medical Records Medical records narrative: Patient seen and examined: Patient will have medical clearance with labs, urine. Patient appears to be low risk, however patient did make a comment that I will get a gun and shoot myself Differential diagnosis includes but is not limited to: Psych clearance Diagnostics and management: Patient will have laboratory studies Relevant laboratory interpretation: Radiological studies: Please see the formal radiological report. Reevaluation: Shared decision making: I discussed with the patient the necessary laboratory findings and radiological findings. Social barriers to healthcare: There are no food insecurities, there is no issue with transportation, there are no insurance barriers. Disposition: I discussed with the patient Lab Data Labs: Lab Results 02/24/25 02/24/25 Range/Units 16:12 16:40 WBC 7.0 (4.0-11.0) 10^3/uL RBC 4.83 (4.70-6.10) 10^6/uL Hgb 14.9 (14.0-18.0) g/dL Hct 45.1 (42.0-54.0) % MCV 93.4 (80.0-94.0) fL MCH 30.8 (25.9-34.0) pg MCHC 33.0 (29.9-35.2) g/dL RDW 13.1 (11.0-15.0) % Plt Count 260 (150-450) 10^3/uL MPV 9.7 (9.5-13.5) fL Neut % (Auto) 51.2 (43.0-75.0) % Lymph % (Auto) 39.6 (20.5-60.0) % [place] % (Auto) 6.8 (1.7-12.0) % Eos % (Auto) 1.9 (0.9-7.0) % Baso % (Auto) 0.4 (0.2-2.0) % Neut # (Auto) 3.6 (1.4-6.5) 10^3/uL Lymph # (Auto) 2.8 (1.2-3.8) 10^3/uL [place] # (Auto) 0.5 (0.3-0.8) 10^3/uL Eos # (Auto) 0.1 (0.0-0.7) 10^3/uL Baso # (Auto) 0.0 (0.0-0.1) 10^3/uL Abs Immat Gran (auto) 0.01 (0.00-0.03) 10^3/uL Imm/Tot Granulo (auto) 0.1 (0.0-0.5) % Sodium 144 (136-145) mmol/L Potassium 3.8 (3.5-5.1) mmol/L Chloride 106 (98-107) mmol/L Carbon Dioxide 31.4 (21.0-32.0) mmol/L Anion Gap 10.4 BUN 23.0 H (7.0-18.0) mg/dL Creatinine 0.84 (0.70-1.30) mg/dL Est GFR ( Amer) >60 (>=60 mL/min/1.73m^2) Est GFR (Non-Af Amer) >60 (>=60 mL/min/1.73m^2) BUN/Creatinine Ratio 27.4 Glucose 107 H (74-106) mg/dL Calcium 9.5 (8.5-10.1) mg/dL Magnesium 2.1 (1.8-2.4) mg/dL Total Bilirubin 0.7 (0.2-1.0) mg/dL AST 16 (15-37) U/L ALT 27 (16-63) U/L Alkaline Phosphatase 72 (46-116) U/L Total Protein 7.7 (6.4-8.2) g/dL Albumin 3.6 (3.4-5.0) g/dL Globulin 4.1 g/dL Albumin/Globulin Ratio 0.9 Urine Color Yellow (YELLOW) Urine Clarity Sl cloudy (CLEAR) Urine pH 6.5 (5.0-9.0) Ur Specific [place] 1.020 (1.005-1.025) Urine Protein Negative (NEG/TRACE) mg/dL Urine Glucose (UA) Negative (NEGATIVE) mg/dL Urine Ketones Negative (NEGATIVE) mg/dL Urine Occult Blood Large A (NEGATIVE) Urine Nitrite Negative (NEGATIVE) Urine Bilirubin Negative (NEGATIVE) Urine Urobilinogen 0.2 (0.2-1.0) EU/dL Ur Leukocyte Esterase Negative (NEGATIVE) Urine RBC 20-50 A (0-2) #/HPF Urine WBC 0-2 A (NONE SEEN) #/HPF Ur Squamous Epith Cells Rare (NONE/RARE) #/LPF Urine Crystals None seen (None Seen) #/HPF Urine Bacteria Trace A (NONE SEEN) #/HPF Urine Casts None seen (NONE SEEN) #/LPF Urine Mucus Trace A (NONE SEEN) Ur Culture Indicated? No Salicylates <2.8 (<=19.9) mg/dL Urine Opiates Screen Negative (NEGATIVE) Ur Buprenorphine Scrn Negative (NEGATIVE) Ur Oxycodone Screen Negative (NEGATIVE) Urine Methadone Screen Negative (NEGATIVE) Acetaminophen <2.0 L (10.0-30.0) ug/mL Ur Barbiturates Screen Negative (NEGATIVE) U Tricyclic Antidepress Negative (NEGATIVE) Ur Phencyclidine Scrn Negative (NEGATIVE) Ur Amphetamines Screen Negative (NEGATIVE) U Methamphetamines Scrn Negative (NEGATIVE) U Benzodiazepines Scrn Negative (NEGATIVE) Urine Cocaine Screen Negative (NEGATIVE) U Cannabinoids Screen Negative (NEGATIVE) Ethanol Quant <3 mg/dL ECG Data Attestation: I personally reviewed and interpreted this ECG as follows: (EKG interpretation. Normal sinus rhythm at 74 beats a minute. Normal axis deviation. No acute ST elevation, no acute ectopy. QTc of 405.) Discharge Plan Discharge Chief Complaint: Psychiatric Symptoms Clinical Impression: Anger reaction, Closed head injury, Suicidal ideation Patient Disposition: Home, Self-Care Time of Disposition Decision: 17:38 Condition: Fair Prescriptions / Home Meds: No Action atorvastatin 10 mg tablet 10 mg PO DAILY divalproex 250 mg tablet,delayed release (DR/EC) 250 mg PO .qhs Rx Instructions: at bedtime donepezil 5 mg tablet 5 mg PO .qhs duloxetine 60 mg capsule,delayed release(DR/EC) 60 mg PO DAILY levothyroxine 100 mcg tablet 100 mcg PO DAILY metoprolol succinate 25 mg tablet extended release 24 hr 25 mg PO DAILY sertraline 100 mg tablet 150 mg PO DAILY quetiapine 25 mg tablet donepezil 10 mg tablet Print Language: Martiniquais Instructions: Mood Disorders (ED), Head Injury (ED), Help Prevent Suicide in Older Adults (ED), Anxiety (ED) Additional Instructions: Use topical antibiotic ointment to abrasions to your forehead/scalp 3-4 times a day for the next week. Use ice 20 minutes on, 20 minutes off if needed. Follow-up with your PCP and [facility] as needed for behavioral management. Patient needs to be followed up with psychiatry, therapy, counseling for additional treatment as indicated. Patient has not been suicidal homicidal in the ER today. Patient has been evaluated by [facility] health providers at [facility]. [facility] [Physician, [facility]al [facility]] - 1 week LinkCalvin DO [Primary Care Provider] - 1 week
--- NOTE | 2025-02-24 15:58 | PC.NURSE ---
Pt presents to ER for medical clearance and psych eval Pt had a stroke in 1975 and has chronic aphasia and focal deficits pt lives at home with family Per ems pt brought in due to making suicidal remarks to family and then hitting his head on the wall Pt in c-collar on arrival Pt states he has a hard time with his anger and loses his temper and makes these remarks though he does not mean it Pt denies suicidal or homicidal ideation at this time Pt denies LOC during event of hitting his head on the wall
[2025-02-24 16:34] LABS: Basophils Percent Auto 0.4 % (0.2-2.0); Eosinophils Absolute Auto 0.1 10^3/uL (0.0-0.7); Eosinophils Percent Auto 1.9 % (0.9-7.0); Hematocrit 45.1 % (42.0-54.0); Hemoglobin 14.9 g/dL (14.0-18.0); Immature Granulocytes Abs Auto 0.01 10^3/uL (0.00-0.03); Immature Granulocytes Pct Auto 0.1 % (0.0-0.5); Lymphocytes Absolute Auto 2.8 10^3/uL (1.2-3.8); Lymphocytes Percent Auto 39.6 % (20.5-60.0); Mean Corpuscular Hemoglobin 30.8 pg (25.9-34.0); Mean Corpuscular Volume 93.4 fL (80.0-94.0); Mean Platelet Volume 9.7 fL (9.5-13.5); Monocytes Absolute Auto 0.5 10^3/uL (0.3-0.8); Monocytes Percent Auto 6.8 % (1.7-12.0); Neutrophils Absolute Auto 3.6 10^3/uL (1.4-6.5); Neutrophils Percent Auto 51.2 % (43.0-75.0); Platelet Count 260 10^3/uL (150-450); Red Blood Count 4.83 10^6/uL (4.70-6.10); Red Cell Distribution Width 13.1 % (11.0-15.0)
[2025-02-24 16:44] LABS: Alanine Aminotransferase 27 U/L (16-63); Albumin Globulin Ratio 0.9; Albumin Level 3.6 g/dL (3.4-5.0); Alkaline Phosphatase 72 U/L (46-116); Anion Gap 10.4; Aspartate Amino Transferase 16 U/L (15-37); BUN Creatinine Ratio 27.4; Bilirubin Total 0.7 mg/dL (0.2-1.0); Calcium 9.5 mg/dL (8.5-10.1); Carbon Dioxide 31.4 mmol/L (21.0-32.0); Chloride 106 mmol/L (98-107); Estimated GFR (African America >60 (>=60 mL/min/1.73m^2); Estimated GFR (Non-African Ame >60 (>=60 mL/min/1.73m^2); Globulin 4.1 g/dL; Glucose 107 mg/dL (74-106); Potassium 3.8 mmol/L (3.5-5.1); Sodium 144 mmol/L (136-145); Total Protein 7.7 g/dL (6.4-8.2)
[2025-02-24 16:49] LABS: Magnesium 2.1 mg/dL (1.8-2.4)
[2025-02-24 16:52] LABS: Acetaminophen <2.0 ug/mL (10.0-30.0); Ethanol <3 mg/dL; Salicylate <2.8 mg/dL (<=19.9)
[2025-02-24 17:11] LABS: Bilirubin Urine NEGATIVE (NEGATIVE); Blood Urine LARGE (NEGATIVE); Clarity Urine SL CLOUDY (CLEAR); Color Urine YELLOW (YELLOW); Glucose Urine UA NEGATIVE (NEGATIVE); Ketones Urine NEGATIVE (NEGATIVE); Leukocyte Esterase Urine NEGATIVE (NEGATIVE); Nitrite Urine NEGATIVE (NEGATIVE); Protein Urine NEGATIVE (NEG/TRACE); Urobilinogen Urine 0.2 EU/dL (0.2-1.0); pH Urine 6.5 (5.0-9.0)
[2025-02-24 17:20] LABS: Bacteria Urine TRACE #/HPF (NONE SEEN); RBC Urine 20-50 #/HPF (0-2); WBC Urine 0-2 #/HPF (NONE SEEN)
[2025-02-24 17:21] LABS: Cast Seen? NONE SEEN #/LPF (NONE SEEN); Crystals Seen? None Seen #/HPF (None Seen); Mucus Urine TRACE (NONE SEEN); Squamous Epithelial Cell Urine RARE #/LPF (NONE/RARE); Urine Culture Indicated NO
[2025-02-24 17:22] LABS: Amphetamine Screen Urine NEGATIVE (NEGATIVE); Barbiturates Screen Urine NEGATIVE (NEGATIVE); Benzodiazepines Screen Urine NEGATIVE (NEGATIVE); Buprenorphine Screen Urine NEGATIVE (NEGATIVE); Cannabinoid Screen Urine NEGATIVE (NEGATIVE); Cocaine Screen Urine NEGATIVE (NEGATIVE); Methadone Screen Urine NEGATIVE (NEGATIVE); Methamphetamines Screen Urine NEGATIVE (NEGATIVE); Opiate Screen Urine NEGATIVE (NEGATIVE); Oxycodone Screen Urine NEGATIVE (NEGATIVE); Phencyclidine Screen Urine NEGATIVE (NEGATIVE); Tricyclic Antidepressant Urine NEGATIVE (NEGATIVE)
--- NOTE | 2025-02-24 18:33 | PC.NURSE ---
Mar [facility] cleared patient for return to home Pt discharged Family called, his niece stated she thought he would be pink slipped Niece spoke with Dr. Paris who told her he would not be pink slipped Minutes later another phone call comes through from a family member who states she is his POA's This family members name is Micheline Tobias spoke with Dr. Paris Per Dr. Paris this was an unpleasant conversation and she was very rude and adamant that he needed to be pink slipped to which Dr. Paris replied he did not see reason to pink slip patient nor did P who evaluated him Family member ended up hanging up on Dr. Paris ( see Dr. Lauren note for further details from phone calls) Pts Osman then calls and speaks with Dr. Paris and gives permission for Mar ([facility]) to speak with his about the details that occurred earlier today Pt is updated on this situation and his family members concerns
--- NOTE | 2025-02-24 19:11 | PC.NURSE ---
Mar called back and spoke with this nurse After speaking with family she has decided to have patient fully evaluated by therapist We patito be hearing from Katrina shortly
[2025-02-24 20:20] VITALS: BP 172/94; PULSE 72; O2SAT 95
[2025-02-24 23:53] VITALS: BP 160/86; PULSE 84; O2SAT 96
== END 2025-02-25 03:38 ==
PROVIDERS: Emergency Medicine; Emergency Provider Emergency Medicine; PCP Family Medicine
DX: F32.A Depression, unspecified (principal); Z86.73 Personal history of transient ischemic attack (TIA), and cerebral infarction without residual deficits; R45.851 Suicidal ideations; R45.4 Irritability and anger; S09.8XXA Other specified injuries of head, initial encounter; W22.09XA Striking against other stationary object, initial encounter; Z79.899 Other long term (current) drug therapy
CPT/HCPCS: 36415; 80053; 80179; 80307; 80320; 80329; 81001; 83735; 85025; 93005; 99285

== ENCOUNTER 2025-03-16 10:04 | Emergency (ER) | payer MEDICARE, SELFPAY ==
--- OUTSIDE RECORDS SUMMARY | 2025-03-06 23:59 | XMS_ITS | Continuity of Care Document ---
Author Organization [facility] Address [address] [place] [address] Care Team Providers Care Ceramic Restorer Name Role Phone Calvin Oshea Primary Care Physician Encounter FT_AMBFIN [id number] Date(s): 03/06/25 - 03/06/25 [facility] [address] [place], [place] [address] Discharge Disposition: Home (Routine DC) Attending Physician: Calvin Oshea DO Encounter Type: Clinic Allergies, Adverse Reactions, Alerts No Known Allergies Immunizations Given and Recorded Vaccine Date Status Refusal Reason influenza virus vaccine, inactivated 08/31/23 Michael rded influenza virus vaccine, inactivated 08/27/20 Michael rded influenza virus vaccine, inactivated 06/22/19 Michael rded influenza virus vaccine, inactivated 08/04/18 Michael rded influenza virus vaccine, inactivated 08/18/17 Michael rded SARS-CoV-2 (COVID-19) Ad26 vaccine 1 11/26/20 Michael rded pneumococcal 13-valent vaccine 08/15/20 Recorded pneumococcal 13-valent vaccine 08/18/17 Recorded Not Given Vaccine Date Status Refusal Reason influenza virus vaccine, inactivated 01/18/24 Not Given Refused by parent, g uardian, or patient - reschedule influenza virus vaccine, inactivated 12/14/23 Not Given Refused by parent, g uardian, or patient - reschedule influenza virus vaccine, inactivated 11/09/23 Not Given Refused by parent, g uardian, or patient - reschedule pneumococcal 23-valent vaccine 01/20/24 Not Given Refused by parent, guardian, or patient - reschedule 1Result Comment: 2023-11-06: [id number] Medications atorvastatin 10 mg Tab 10 mg, Oral, Daily, # 90 EA, Refills(s) 4, [id number], 187, cm, 01/18/24 14:04:00EDT, Height/Length Dosing, 98, kg, 01/18/24 14:04:00 EDT, Weight Dosing Start Date: 05/19/24 Status: Ordered Quantity: 90.0 Unit: EA Repeat number: 5 divalproex sodium 250 mg Oral EC Tab See Instructions, 2 tab(s) qAM 1 tab qPM Start Date: 11/09/23 Status: Ordered Repeat number: 1 donepezil 10 mg Tab 10 mg = 1 tab(s), Oral, Once a day (at bedtime), Dose increase. May take 2 tabs of 5 mg to use up current supply., # 30 tab(s), Refills(s) 0, [id number], 185.4, cm, 12/22/24 13:27:00 EDT, Height/Length Dosing, 88.1, kg, 12/22/24 13:27:00 EDT, Weight Dosing Start Date: 01/11/25 Status: Ordered Quantity: 30.0 Unit: tab(s) Repeat number: 1 duloxetine 60 mg oral delayed release capsule See Instructions, TAKE 1 CAPSULE BY MOUTH EVERY DAY, # 30 cap(s), Refills(s) 1, Pharmacy: [id number], 185.4, cm, 12/22/24 13:27:00 EDT, Height/Length Dosing, 88.1, kg, 12/22/24 13:27:00 EDT, Weight Dosing Start Date: 01/30/25 Status: Ordered Quantity: 30.0 Unit: cap(s) Repeat number: 1 Ensure 237 mL, Oral, BIDWM, Refill(s) 0 Start Date: 12/27/24 Status: Ordered Repeat number: 1 levothyroxine 100 mcg (0.1 mg) Tab 100 mcg = 1 tab(s), Oral, Daily, # 90 tab(s), Refills(s) 4, [id number], 187, cm, 01/18/24 14:04:00 EDT, Height/Length Dosing, 98, kg, 01/18/24 14:04:00 EDT, Weight Dosing Start Date: 05/19/24 Status: Ordered Quantity: 90.0 Unit: tab(s) Repeat number: 5 metoprolol succinate 25 mg ER Tab 25 mg = 1 tab(s), Oral, Daily, # 30 tab(s), Refills(s) 0, [id number], 187, cm, 01/18/24 14:04:00 EDT, Height/Length Dosing, 98, kg, 01/18/24 14:04:00 EDT, Weight Dosing Start Date: 11/07/24 Status: Ordered Quantity: 30.0 Unit: tab(s) Repeat number: 1 sertraline 100 mg Tab See Instructions, 1 and a half pills daily, # 30 tab(s), Refills(s) 0, [id number], 187, cm, 01/18/24 14:04:00 EDT, Height/Length Dosing, 98, kg, 01/18/24 14:04:00 EDT, Weight Dosing Start Date: 11/07/24 Status: Ordered Quantity: 30.0 Unit: tab(s) Repeat number: 1 Problem List Condition Confirmation Course Effective Dates Status Health Status Informant Absence seizure Confirmed Active Weakness Confirmed Active Asymptomatic microscopic hematuria Confirmed Active Back pain Confirmed Active Benign essential hypertension Confirmed Active Chronic insomnia Confirmed Active Anticoagulated Confirmed Active Epilepsy Confirmed Resolved Fall Confirmed Active Hematuria Confirmed Resolved History of nephrolithiasis Confirmed Active History of CVA in adulthood Confirmed Active History of traumatic brain injury 1 Confirmed Active Hyperlipemia Confirmed Active Hypothyroidism in adult Confirmed Active Left flank pain Confirmed Active Nephrolithiasis Confirmed Resolved Major depressive disorder, recurrent, in full remission 2 Confirmed Active Seizure disorder Confirmed Active Severe major depression without psychotic features Confirmed Active Shortness of breath Confirmed Resolved Stroke Confirmed Resolved Leaking of urine Confirmed Active 1Added per Dr. Oshea query response, per outpatient CDI policy 2Added per Dr. Oshea query response, per outpatient CDI policy. Procedures Procedure Date Related Diagnosis Body Site Status History of hip surgery 2015 Completed Lithotripsy 02/19/12 Completed History of shoulder surgery Completed 1right Social History Social History Type Response Smoking Status Former smoker, quit more than 30 days ago;Never; Type: Cigarettes; Concerns about tobacco use in household: No; Started at age: 23.0; Stopped at age: 26; 1 entered on: 12/19/24 Sex Male Sex Representation Male (finding) 1Does have family that smokes outside Patient Care team information Care Team Personnel Name: Jeyson Kelly Position: FT Assistant County Attorney - Self Assign Member Role: Vision Mixer Name: Calvin Oshea DO Position: FT Ambulatory - Primary Care Provider? Member Role: Primary Care Physician Address: [address] Telecom: Care Team Related Persons Name: DOM GASCA Name: JANINE GASCA Insurance Providers Guarantor name: LYNN Reyes [facility] [employer] Plan Information #: 1 Payer: NA Payer Identifier: [id number] Member Number: [id number] Group Number: [id number] Subscriber Identifier: [id number] Relationship to Subscriber: Self Coverage Type: MEDICARE Coverage Verification Date: 25 Telecom: NA Address:
[2025-03-16 10:05] VITALS: BP 160/98; PULSE 80; TEMP 37.1; O2SAT 95; BMI 23.1
--- NOTE | 2025-03-16 10:06 | CT_ITS ---
The [address] [address] Patient Name: LYNN LANE MRN: [id number] date: 1950 Sex: M Assigned Patient Location: ED.MAIN Current Patient Location: ED.MAIN Accession/Order Number: [id number] Exam Date: 03/16/2025 10:40 Report Date: 03/16/2025 10:57 At the request of: MARISSA BERNAL MD Procedure: CT cervical spine wo con CT BRAIN WITHOUT CONTRAST: CLINICAL HISTORY: Patient loss of balance and fell hitting head on nightstand. Headache. COMPARISON: 12/20/2024 TECHNIQUE: Contiguous axial unenhanced images were obtained through the brain. This CT exam was performed using one or more following dose reduction techniques: Automated exposure control, adjustment of the mA and/or kV according to patient size, or use of iterative reconstruction technique. FINDINGS: There is generalized atrophy. The ventricles are within normal limits for size and position. Chronic microvascular changes are again noted. There are no additional areas of abnormal attenuation. There is no hemorrhage, mass effect or extra-axial collections. The calvarium is intact. The imaged paranasal sinuses and mastoid air cells are clear. There is vertebral artery and carotid siphon plaque. CT/CT head/brain wo con IMPRESSION: ATROPHY AND SMALL VESSEL ISCHEMIC CHANGES. NO ACUTE INTRACRANIAL TRAUMA. CT CERVICAL SPINE WITHOUT CONTRAST WITH 3D RECONSTRUCTIONS: COMPARISON: 12/12/2024 TECHNIQUE: Spiral axial unenhanced images were obtained through the cervical spine. Sagittal, coronal and 3D volume-rendered reconstructions were also reviewed. This CT exam was performed using one or more following dose reduction techniques: Automated exposure control, adjustment of the mA and/or kV according to patient size, or use of iterative reconstruction technique. FINDINGS: Slight reversal of the normal cervical lordosis is again visualized. Alignment is stable in the sagittal plane. No developing compression fractures are seen. There is mild disc space narrowing at C4-5 and moderate at C5-6. There is endplate spurring, greatest at those levels. Bilateral facet hypertrophy is present. There is associated foraminal encroachment at C5-6 and minimal at C4-5. The atlantoaxial relationship is maintained and there is additional degenerative change. No prevertebral soft tissue swelling is seen. Carotid artery plaque is noted. There are tiny shotty cervical lymph nodes. The upper imaged lungs show no contributory findings. IMPRESSION: LOSS OF NORMAL CERVICAL LORDOSIS AND SIMILAR DEGENERATIVE CHANGES. NO ACUTE BONY INJURY. Impression dictated by: Veronika Laurent M.D. 03/16/2025 10:57 AM Dictation Location: [place] [address] Electronically authenticated by: [id number] Y Date: 03/16/2025 10:57
--- NOTE | 2025-03-16 10:06 | CT_ITS ---
The [address] [address] Patient Name: LYNN LANE MRN: [id number] date: 1950 Sex: M Assigned Patient Location: ED.MAIN Current Patient Location: ED.MAIN Accession/Order Number: [id number] Exam Date: 03/16/2025 10:40 Report Date: 03/16/2025 10:57 At the request of: MARISSA BERNAL MD Procedure: CT cervical spine wo con CT BRAIN WITHOUT CONTRAST: CLINICAL HISTORY: Patient loss of balance and fell hitting head on nightstand. Headache. COMPARISON: 12/20/2024 TECHNIQUE: Contiguous axial unenhanced images were obtained through the brain. This CT exam was performed using one or more following dose reduction techniques: Automated exposure control, adjustment of the mA and/or kV according to patient size, or use of iterative reconstruction technique. FINDINGS: There is generalized atrophy. The ventricles are within normal limits for size and position. Chronic microvascular changes are again noted. There are no additional areas of abnormal attenuation. There is no hemorrhage, mass effect or extra-axial collections. The calvarium is intact. The imaged paranasal sinuses and mastoid air cells are clear. There is vertebral artery and carotid siphon plaque. CT/CT cervical spine wo con IMPRESSION: ATROPHY AND SMALL VESSEL ISCHEMIC CHANGES. NO ACUTE INTRACRANIAL TRAUMA. CT CERVICAL SPINE WITHOUT CONTRAST WITH 3D RECONSTRUCTIONS: COMPARISON: 12/12/2024 TECHNIQUE: Spiral axial unenhanced images were obtained through the cervical spine. Sagittal, coronal and 3D volume-rendered reconstructions were also reviewed. This CT exam was performed using one or more following dose reduction techniques: Automated exposure control, adjustment of the mA and/or kV according to patient size, or use of iterative reconstruction technique. FINDINGS: Slight reversal of the normal cervical lordosis is again visualized. Alignment is stable in the sagittal plane. No developing compression fractures are seen. There is mild disc space narrowing at C4-5 and moderate at C5-6. There is endplate spurring, greatest at those levels. Bilateral facet hypertrophy is present. There is associated foraminal encroachment at C5-6 and minimal at C4-5. The atlantoaxial relationship is maintained and there is additional degenerative change. No prevertebral soft tissue swelling is seen. Carotid artery plaque is noted. There are tiny shotty cervical lymph nodes. The upper imaged lungs show no contributory findings. IMPRESSION: LOSS OF NORMAL CERVICAL LORDOSIS AND SIMILAR DEGENERATIVE CHANGES. NO ACUTE BONY INJURY. Impression dictated by: Veronika Laurent M.D. 03/16/2025 10:57 AM Dictation Location: [place] [address] Electronically authenticated by: [id number] Y Date: 03/16/2025 10:57
--- NOTE | 2025-03-16 10:07 | ED.GENADUL1 ---
HPI HPI - General Adult General Chief complaint: Fall Stated complaint: HEAD INJURY FALL Time Seen by Provider: 03/16/25 10:06 History of Present Illness HPI narrative: 75-year-old male presents to the emergency department for a head injury. He tripped and fell in his home and hit the back of his head apparently on a closet door. There was a laceration described by the paramedics and they wrapped his head and they stated the bleeding was controlled. He did not lose consciousness and does not complain of neck pain. No other injury was sustained. He does not know when his last tetanus shot was. Related Data Home Medications ?Medication ?Instructions ?Recorded ?Confirmed atorvastatin 10 mg tablet 10 mg PO DAILY 12/20/24 03/16/25 divalproex 250 mg tablet,delayed 250 mg PO .qhs 12/20/24 03/16/25 release duloxetine 60 mg capsule,delayed 60 mg PO DAILY 12/20/24 03/16/25 release levothyroxine 100 mcg tablet 100 mcg PO DAILY 12/20/24 03/16/25 metoprolol succinate 25 mg 25 mg PO DAILY 12/20/24 03/16/25 tablet,extended release 24 hr quetiapine 25 mg tablet 25 mg PO BID 02/24/25 03/16/25 sertraline 50 mg tablet 200 mg PO QPM 03/16/25 03/16/25 Allergies Allergy/AdvReac Type Severity Reaction Status Date / Time No Known Drug Allergies Allergy Verified 12/20/24 10:52 Opioid HPI Opioid Management Most Recent Opioid Data: Ur Phencyclidine Scrn, (NEGATIVE) Negative 02/24/25, 16:40 Review of Systems ROS Narrative A ten point review of systems is negative except as noted above. [facility] Medical History (Updated 03/16/25 @ 11:40 by Ezekiel Martinez MD) Stroke ?I63.9 - Cerebral infarction, unspecified (ICD-10) Social History Little interest or pleasure in doing things: not at all Feeling down, depressed, or hopeless: not at all Exam Narrative Exam Narrative: Nurses note and vital signs reviewed and patient is not hypoxic. General: The patient appears in no apparent distress. Skin: Warm, dry, no pallor noted. There is no rash noted. Head: Normocephalic, head has circumferential dressing around the scalp area. Upon removal he has a 3 cm linear laceration on the posterior scalp, just to the left of midline. No active bleeding. Eye: Normal conjunctiva, no drainage Ears, Nose, Mouth, and Throat: oral mucosa is moist. Nares patent. Cardiovascular: Regular Rate and Rhythm Respiratory: Patient is in no distress, no accessory muscle use, lungs are clear to auscultation, no wheezing, rales or rhonchi GI: Soft and nontender Musculoskeletal: No palpable tenderness to his extremities. All joints have full range of motion Neurological: Awake and alert. Speech is somewhat thick. He knows his name and where he is but did not know the year, he believed it was 2022. Psychiatric: Cooperative Constitutional Vital Signs, click to edit/add: Last Vital Signs Temp 98.8 F 03/16/25 10:05 Pulse 80 03/16/25 10:05 Resp 18 03/16/25 10:05 BP 160/98 H 03/16/25 10:05 Pulse Ox 95 03/16/25 10:05 O2 Del Method Room Air 03/16/25 10:05 Course Vital Signs Vital signs: Vital Signs Temperature 98.8 F 03/16/25 10:05 Pulse Rate 80 03/16/25 10:05 Respiratory Rate 18 03/16/25 10:05 Blood Pressure 160/98 H 03/16/25 10:05 Pulse Oximetry 95 03/16/25 10:05 Oxygen Delivery Method Room Air 03/16/25 10:05 Temperature 98.8 F 03/16/25 10:05 Pulse Rate 80 03/16/25 10:05 Respiratory Rate 18 03/16/25 10:05 Blood Pressure 160/98 H 03/16/25 10:05 Pulse Oximetry 95 03/16/25 10:05 Oxygen Delivery Method Room Air 03/16/25 10:05 Medical Decision Making MDM Narrative Medical decision making narrative: The following procedure was performed by me after topical anesthetic had been applied. The area was prepped with Betadine x 3 and 3 dao were placed resulting in good skin reapproximation and no complications. [place] to be removed in 10 days. Findings were discussed with the patient and his family. Differential Diagnosis Differential Diagnosis: Scalp laceration, intracranial hemorrhage, C-spine fracture Imaging Data CT scan - head: Radiologist's impression: ITS Impressions Cervical Spine CT 03/16/25 10:06 IMPRESSION: ATROPHY AND SMALL VESSEL ISCHEMIC CHANGES. NO ACUTE INTRACRANIAL TRAUMA. CT CERVICAL SPINE WITHOUT CONTRAST WITH 3D RECONSTRUCTIONS: COMPARISON: 12/12/2024 TECHNIQUE: Spiral axial unenhanced images were obtained through the cervical spine. Sagittal, coronal and 3D volume-rendered reconstructions were also reviewed. This CT exam was performed using one or more following dose reduction techniques: Automated exposure control, adjustment of the mA and/or kV according to patient size, or use of iterative reconstruction technique. FINDINGS: Slight reversal of the normal cervical lordosis is again visualized. Alignment is stable in the sagittal plane. No developing compression fractures are seen. There is mild disc space narrowing at C4-5 and moderate at C5-6. There is endplate spurring, greatest at those levels. Bilateral facet hypertrophy is present. There is associated foraminal encroachment at C5-6 and minimal at C4-5. The atlantoaxial relationship is maintained and there is additional degenerative change. No prevertebral soft tissue swelling is seen. Carotid artery plaque is noted. There are tiny shotty cervical lymph nodes. The upper imaged lungs show no contributory findings. IMPRESSION: LOSS OF NORMAL CERVICAL LORDOSIS AND SIMILAR DEGENERATIVE CHANGES. NO ACUTE BONY INJURY. Impression dictated by: Veronika Laurent M.D. 03/16/2025 10:57 AM Dictation Location: [place] [address] Electronically authenticated by: [id number] Y Date: 03/16/2025 10:[address] 03/16/25 10:06 IMPRESSION: ATROPHY AND SMALL VESSEL ISCHEMIC CHANGES. NO ACUTE INTRACRANIAL TRAUMA. CT CERVICAL SPINE WITHOUT CONTRAST WITH 3D RECONSTRUCTIONS: COMPARISON: 12/12/2024 TECHNIQUE: Spiral axial unenhanced images were obtained through the cervical spine. Sagittal, coronal and 3D volume-rendered reconstructions were also reviewed. This CT exam was performed using one or more following dose reduction techniques: Automated exposure control, adjustment of the mA and/or kV according to patient size, or use of iterative reconstruction technique. FINDINGS: Slight reversal of the normal cervical lordosis is again visualized. Alignment is stable in the sagittal plane. No developing compression fractures are seen. There is mild disc space narrowing at C4-5 and moderate at C5-6. There is endplate spurring, greatest at those levels. Bilateral facet hypertrophy is present. There is associated foraminal encroachment at C5-6 and minimal at C4-5. The atlantoaxial relationship is maintained and there is additional degenerative change. No prevertebral soft tissue swelling is seen. Carotid artery plaque is noted. There are tiny shotty cervical lymph nodes. The upper imaged lungs show no contributory findings. IMPRESSION: LOSS OF NORMAL CERVICAL LORDOSIS AND SIMILAR DEGENERATIVE CHANGES. NO ACUTE BONY INJURY. Impression dictated by: Veronika Laurent M.D. 03/16/2025 10:57 AM Dictation Location: [place] [address] Electronically authenticated by: [id number] Y Date: 03/16/2025 10:57 Discharge Plan Discharge Chief Complaint: Fall Clinical Impression: Laceration of scalp, Accidental fall Patient Disposition: Home, Self-Care Time of Disposition Decision: 11:39 Condition: Good Mode of Transportation: Private Vehicle Prescriptions / Home Meds: No Action atorvastatin 10 mg tablet 10 mg PO DAILY divalproex 250 mg tablet,delayed release (DR/EC) 250 mg PO .qhs Rx Instructions: at bedtime duloxetine 60 mg capsule,delayed release(DR/EC) 60 mg PO DAILY levothyroxine 100 mcg tablet 100 mcg PO DAILY metoprolol succinate 25 mg tablet extended release 24 hr 25 mg PO DAILY quetiapine 25 mg tablet 25 mg PO BID sertraline 50 mg tablet 200 mg PO QPM Print Language: Uzbek Instructions: Laceration (ED), Fall Prevention for Older Adults (ED), Staple Care (ED) Additional Instructions: [place] to be removed in 10 days. Referrals: Calvin Oshea DO [Primary Care Provider] - 1 week
--- NOTE | 2025-03-16 10:15 | PC.NURSE ---
pt placed in C collar and dressing to head remains until head and neck cleared
--- OUTSIDE RECORDS SUMMARY | 2025-03-16 10:16 | XMS_ITS | Encounter Summary ---
Author Organization [facility] Address [address] [place] [address] Care Team Providers Care Can Patcher Name Role Phone Mikael Trejo DO Unavailable [phone] Mikael Trejo DO Primary Care Provider [phone] Calvin Oshea MD Primary Care Provider [phone] Encounter Details Date Type Department Care Team (Late st Contact Info) Description 07/07/2023 Abstract [facility] [address] [facility] [address] [place] [id number] Chacha Wetzel, LINUX ADMIN ENGINEER-DRAMA DIRECTOR [address] [place] [address] Social History Tobacco Use Types Packs/Day Years Used Date Smoking Tobacco: Former Cigarettes Smokeless Tobacco: Never Alcohol Use Standard Drinks/Week Comments Never 0 (1 standard drink = 0.6 oz pur e alcohol) caffeine: soda PHQ-2 Answer Date Recorded Patient Health Questionnaire-2 Score 4 04/20/2023 Sex and Gender Information Value Date Recorded Sex Assigned at Not on file Legal Sex Male 6:41 PM EDT Gender Identity Not on file Sexual Orientation Not on file documented as of this encounter Plan of Treatment Upcoming Encounters Date Type Department Care Team (Late Contact Info) Description 04/24/2025 2:30 PM EDT Procedure Visit [facility] [address] [place] [address] Eugenio Castro, DPM FACFAS [address] [place] [address] [place] [address] documented as of this encounter Visit Diagnoses Not on filedocumented in this encounter Additional Health Concerns Assessment Noted Time PHQ-9 Depression Total Score: 11 04/20/ 023 3:09 PM EDT documented as of this encounter Care Teams Can Patcher Relationship Specialty Start Date End Date Mikael Trejo DO [address] [facility] [address] [place] [address] PCP - Bela WATTS 09/21/21 09/20/24 Mikael Trejo DO [address] [facility] [address] [place] [address] PCP - General Internal Medicine 04/03/23 12/29/23 Calvin Oshea MD [address] [place] [address] PCP - General Family Medicine 01/23/25 documented as of this encounter
--- OUTSIDE RECORDS SUMMARY | 2025-03-16 10:16 | XMS_ITS | Encounter Summary ---
Author Organization [facility] Address [address] [place] [address] Care Team Providers Care Shipping Supervisor Name Role Phone Link, Calvin HERNANDEZ Primary Care Provider [phone] Encounter Details Date Type Department Care Team ([facility] Contact Info) Description 03/15/2025 Abstract [facility] [address] [place] [id number] Unallocated, Noms Provider, [address] [place], [place] [id number] Social History Tobacco Use Types Packs/Day Years Used Date Smoking Tobacco: Former Cigarettes Smokeless Tobacco: Never Alcohol Use Standard Drinks/Week Comments Never 0 (1 standard drink = 0.6 oz pur e alcohol) caffeine: soda AUDIT-C Answer Date Recorded Q1: How often do you have a drink containing alcohol? Never 08/31/2023 Q2: How many drinks containi ng alcohol do you have on a typical day when you are drinking? Patient does not drink Q3: How often do you have si x or more drinks on one occasion? Never 08/31/2023 PHQ-2 Answer Date Recorded Patient Health Questionnaire-2 Score 4 04/20/2023 Sex and Gender Information Value Date Recorded Sex Assigned at Not on file Legal Sex Male 6:41 PM EDT Gender Identity Not on file Sexual Orientation Not on file documented as of this encounter Plan of Treatment Upcoming Encounters Date Type Department Care Team ([facility] Contact Info) Description 04/24/2025 2:30 PM EDT Procedure Visit [facility] [address] [address] Eugenio Castro, DPM FACFAS [address] [place] [address] documented as of this encounter Visit Diagnoses Not on filedocumented in this encounter Additional Health Concerns Assessment Noted Time PHQ-9 Depression Total Score: 6 08/31/20 23 1:00 PM EST documented as of this encounter Care Teams Shipping Supervisor Relationship Specialty Start Date End Date Calvin Oshea MD [address] [place] [address] PCP - General Family Medicine 01/23/25 documented as of this encounter
--- OUTSIDE RECORDS SUMMARY | 2025-03-16 10:16 | XMS_ITS | Encounter Summary ---
Author Organization [facility] Address [address] [place] [address] Phone Care Team Providers Care Director Fixed Income Name Role Phone Unavailable Primary Care Provider Unavailabl e Encounter Details Date Type Department Care Team (Late st Contact Info) Description 12/31/2021 Orders Only [facility] [address] [place] [address] Conversion, Onbase Social History Tobacco Use Types Packs/Day Years Used Date Smoking Tobacco: Never Assessed Sex and Gender Information Value Date Recorded Sex Assigned at Not on file Legal Sex Male 5:52 AM EST Gender Identity Not on file Sexual Orientation Not on file documented as of this encounter Plan of Treatment Scheduled Orders Name Type Priority Associated Diagnoses Orde r Schedule OUTSIDE LAB SCAN Lab Ordered: 12/31/2021 documented as of this encounter Visit Diagnoses Not on filedocumented in this encounter
--- OUTSIDE RECORDS SUMMARY | 2025-03-16 10:16 | XMS_ITS | Encounter Summary ---
Author Organization [facility] Address [address] [place] [address] Care Team Providers Care Avionics Systems Repairer Name Role Phone Link, Calvin HERNANDEZ Primary Care Provider [phone] Reason for Visit * Reason Comments Med Refill Encounter Details Date Type Department Care Team ([facility] Contact Info) Description 11/07/2024 Refill [facility] [address] [facility] [address] [place] [address] Mikael Trejo, DO [address] [facility] [address] [place] [address] Benign essential hypertension ; Recurrent major depressive disorder, in partial remission Social History Tobacco Use Types Packs/Day Years [...] Encounters Date Type Department Care Team (Late st Contact Info) Description 04/24/2025 2:30 PM EDT Procedure Visit [facility] [address] [place] [address] Eugenio Castro, DPM FACFAS [address] [facility] [place] [address] documented as of this encounter Visit Diagnoses Diagnosis Benign essential hypertension Essential hypertension, benign Recurrent major depressive disorder, in partial remission documented in this encounter Additional Health Concerns Assessment Noted Time PHQ-9 Depression Total Score: 6 08/31/20 23 1:00 PM EST documented as of this encounter Care Teams Avionics Systems Repairer Relationship Specialty Start Date End Date Calvin Oshea MD [address] [place] [id number] PCP - General Family Medicine 01/23/25 documented as of this encounter
--- OUTSIDE RECORDS SUMMARY | 2025-03-16 10:16 | XMS_ITS | Encounter Summary ---
Author Organization [facility] Address [address] [place] [address] Care Team Providers Care Ferry Terminal Agent Name Role Phone Link, Calvin HERNANDEZ Primary Care Provider [phone] Reason for Visit * Reason Comments Med Refill Encounter Details Date Type Department Care Team ([facility] Contact Info) Description 12/28/2024 Refill [facility] [address] [facility] [address] [place] [address] Mikael Trejo, DO [address] [facility] [address] [place] [address] Recurrent major depressive disorder, in partial remission [...] Procedure Visit [facility] [address] [place] [address] Eugenio Castro, DPM FACFAS [address] [place] [address] documented as of this encounter Visit Diagnoses Diagnosis Recurrent major depressive disorder, in partial remission documented in this encounter Additional Health Concerns Assessment Noted Time PHQ-9 Depression Total Score: 6 08/31/20 23 1:00 PM EST documented as of this encounter Care Teams Ferry Terminal Agent Relationship Specialty Start Date End Date Calvin Oshea MD [address] [place] [address] PCP - General Family Medicine 01/23/25 documented as of this encounter
--- OUTSIDE RECORDS SUMMARY | 2025-03-16 10:16 | XMS_ITS | Encounter Summary ---
Author Organization [facility] Address [address] [place] [address] Care Team Providers Care Digital Media Buyer Name Role Phone Link, Calvin HERNANDEZ Primary Care Provider [phone] Reason for Visit * Reason Comments Med Refill Encounter Details Date Type Department Care Team ([facility] Contact Info) Description 10/21/2024 Refill [facility] [address] [facility] [address] [place] [address] Mikael Trejo, DO [address] [facility] [address] [place] [address] Recurrent major depressive disorder, in partial remission [...] Procedure Visit [facility] [address] [place] [address] Eugenio Castro, DPM FACFAS [address] [facility] [place] [address] documented as of this encounter Visit Diagnoses Diagnosis Recurrent major depressive disorder, in partial remission documented in this encounter Additional Health Concerns Assessment Noted Time PHQ-9 Depression Total Score: 6 08/31/20 23 1:00 PM EST documented as of this encounter Care Teams Digital Media Buyer Relationship Specialty Start Date End Date Calvin Oshea MD [address] [place] [address] PCP - General Family Medicine 01/23/25 documented as of this encounter
--- OUTSIDE RECORDS SUMMARY | 2025-03-16 10:16 | XMS_ITS ---
Author Organization [facility] Care Team Providers Care Commutator Assembler Name Role Phone ABDULLAHI KEY Unavailable Unavailable Allergies and adverse reactions No Known Allergies Care Team Name Role Address Phone Organization Dates ABDULLAHI KEY PCP [address] [place], [address], [place] (Office): : [facility] 10/04/2015 - 01/04/2016 Mental Status Section Date Assessment Total Score Description 01/04/2016 [facility] 14 cognitively int act PHQ-9 02 minimal depress ion 11/16/2015 [facility] 13 cognitively int act PHQ-9 00 Problems Problem # Description Date of onset Resolved Date Code CodeSystem Concern Status 1 DIFFICULTY IN WALKING, NOT ELSEWHERE CLASSIFIED 12/07/[address] active 2 MUSCLE WEAKNESS (GENERALIZED) 10/04/[address] active 3 OTHER SYMBOLIC DYSFUNCTIONS 10/04/[address] active 4 UNSPECIFIED LACK OF COORDINATION 10/04/[address] active Reason for Referral No Reasons for Referral Entered Social History Social History Observation Description Start Date End Date Code Code System Current Smoking Status Tobacco smoking consumption unknown 321558249 SNOMED CT Sex Assigned At Male 1950 [address]2367-9 [facility] Gender Identity Vital Signs Code Code System Vitals Name Values and Units Timing Information 8462-4 [facility] Blood Pressure-Diastolic Value=65 Un its=mmHg 12/22/2015 8480-6 [facility] Blood Pressure-Systolic Ngwal=044 Un its=mmHg 12/22/2015 98775-4 [facility] Weight Glcaa=793.3 Units=Lbs 10/2015 90713-8 [facility] Pain Level Value=0.0 12/21/2015 9279-1 [facility] Respiratory Rate Value=18.0 Units=/m in 12/21/2015 8310-5 [facility] Body Temperature Value=97.9 Units= F 12/21/2015 8867-4 [facility] Heart rate Value=81.0 Units=/min 09/2015 93259-6 [facility] O2 % dC Oximetry Value=96.0 Units= % 12/21/2015 8302-2 [facility] Height Value=73.0 Units=Inches 10/08/2015
--- OUTSIDE RECORDS SUMMARY | 2025-03-16 10:16 | XMS_ITS | Encounter Summary ---
Author Organization [facility] Address [address] [place] [address] Phone Care Team Providers Care Clipper And Turner Name Role Phone Unavailable Primary Care Provider Unavailabl e Encounter Details Date Type Department Care Team (Late st Contact Info) Description 06/22/2019 Orders Only [facility] [address] [place] [address] Conversion, Onbase Social History Tobacco Use Types [...] r Schedule OUTSIDE LAB SCAN Lab Ordered: 06/22/2019 documented as of this encounter Visit Diagnoses Not on filedocumented in this encounter
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
--- OUTSIDE RECORDS SUMMARY | 2025-03-16 10:16 | XMS_ITS | Clinical Summary ---
Author Organization [facility] Address [address] [place] [address] Phone Care Team Providers Care Integrity Analyst Name Role Phone Unavailable Primary Care Provider Unavailabl e Social History Tobacco Use Types Packs/Day Years Used Date Smoking Tobacco: Never Assessed Sex and Gender Information Value Date Recorded Sex Assigned at Not on file Legal Sex Male 5:52 AM EST Gender Identity Not on file Sexual Orientation Not on file Plan of Treatment Not on file
[2025-03-16] MEDS: ADACEL DIPH,PERTUSS(ACELL),TET VAC/PF 0.5 ML ADULT SYRINGE IM (10:37)
[2025-03-16] MEDS: LIDOCAINE/EPINEPHRINE/TETRACAINE 3 ML GEL.PF.APP TOPICAL (11:15)
[2025-03-16] MEDS: BACITRACIN 0.9 GM PACKET 1 PACKET TOPICAL (11:39)
== END 2025-03-16 12:06 | disposition home or self-care (01) ==
PROVIDERS: Emergency Provider Emergency Medicine; PCP Family Medicine
DX: S01.01XA Laceration without foreign body of scalp, initial encounter (principal); W01.198A Fall on same level from slipping, tripping and stumbling with subsequent striking against other object, initial encounter; Z23 Encounter for immunization
CPT/HCPCS: 12002; 70450; 72125; 90471; 90715; 99284

== ENCOUNTER 2025-08-19 23:28 | Emergency (ER) | payer MEDICARE, SELFPAY ==
--- OUTSIDE RECORDS SUMMARY | 2025-08-14 15:00 | XMS_ITS | Encounter Summary ---
Author Organization [facility] Address [address] [place] [address] Care Team Providers Care Subscription Crew Leader Name Role Phone Link, Calvin HERNANDEZ Primary Care Provider [phone] Reason for Visit * ReasonCommentsToenail CareNon DM nail care Encounter Details DateTypeDepartmentCare Team (Latest Contact Info)Fmhbgcsysyl73/24/2025 3:00 PM ESTProcedure Visit [facility] [address] [place] [id number] Eugenio Castro, DPM FACFAS [address] [place] [address] Onychomycosis (Primary Dx); Pain in left toe(s); Pain in right toe(s) Social History Tobacco UseTypesPacks/DayYears UsedDateSmoking Tobacco: FormerCigarettes Smokeless Tobacco: Never Tobacco Cessation:Counseling Given: Yes Alcohol UseStandard Drinks/WeekCommentsNever0 (1 standard drink = 0.6 oz pure alcohol)caffeine: sodaAUDIT-CAnswerDate RecordedQ1: How often do you have a drink containing alcohol?Never08/31/2023Q2: How many drinks containing alcohol do you have on a typical day when you are drinking?Patient does not drink 08/31/2023Q3: How often do you have six or more drinks on one occasion?Never 08/31/2023HQ-2AnswerDate RecordedPatient Health Questionnaire-2 Score4 07/31/2023Sex and Gender InformationValueDate RecordedSex Assigned at BirthNot on fileLegal YjkDpbc6512/03/2022 6:41 PM EDTGender IdentityNot on fileSexual OrientationNot on filedocumented as of this encounter Last Filed Vital Signs Vital SignReadingTime TakenCommentsBlood Wbrvrjee785/8711 3:16 PM EST Tjmqq197808/14/2025 3:16 PM ESTTemperature--Respiratory Rate--Oxygen Saturation-- Inhaled Oxygen Concentration--Nrbuew30.8 kg (220 lb)08/14/2025 3:16 PM ESTHeight 188 cm (6' 2 )08/14/2025 3:16 PM ESTBody Mass Index28.25110/14/2024 3:16 PM EST documented in this encounter Progress Notes * Eugenio Castro DPM FACFAS - 08/14/2025 3:00 PM EST Images from the original note were not included. patient: David Amy Jolly : 1950 PCP: Calvin Oshea MD SUBJECTIVE This is a 75 y.o. male that presents today with a chief complaint of painful elongated nails digits1 through 10. They cause marked limitation in ambulation due to pain and pressure from shoe gear. 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 04/20/2023 Epilepsy (HCC) 04/20/2023 Frailty 04/20/2023 Gait abnormality 04/20/2023 History of hemicolectomy 04/20/2023 Hypothyroidism 04/20/2023 Intracerebral hemorrhage (HCC) 04/20/2023 Mixed hyperlipidemia 04/20/2023 Pharyngoesophageal dysphagia 04/20/2023 Recurrent major depressive disorder, in partial remission 04/20/2023 Tubular adenoma of colon 04/20/2023 Dementia in other diseases classified elsewhere, unspecified severity, without behavioral disturbance, psychotic disturbance, mood disturbance, and anxiety (HCC) 04/27/2023 Wellness examination 04/27/2023 Medicare annual wellness visit, subsequent 04/27/2023 ACP (advance care planning) 04/27/2023 NAFLD (nonalcoholic fatty liver disease) 08/31/2023 Hypertension Memory loss Cognitive impairment, mild, so stated 06/15/2024 Seizure disorder (HCC) 06/15/2024 Resolved Ambulatory Problems Diagnosis Date Noted No Resolved Ambulatory Problems Past Medical History: Diagnosis Date Anemia Ataxia due to cerebrovascular disease Essential hypertension, benign History of kidney stones Hyperlipidemia Hypertensive heart disease without CHF Petit mal seizure status (HCC) Vitamin D deficiency Medications: Current Medications[2] Review of systems: Constitutional: Denies fever, chills, [...] subungual debris. They were painful to palpation 77296 on the right 38292 on the left. VASC: DP /PT were nonpalpable bilateral. Capillary refill time < 3 seconds Digits 1-5 bilateral NEURO: Kechi Zakiya 5.07 monofilament was intact B/L. Vibratory [...] were debrided both in length and thickness 1through 10. Eugenio Castro DPM FACFAS [1] No Known Allergies [2] Current Outpatient Medications: acetaminophen (Tylenol Extra Strength) 500 MG tablet, Take 500 mg by mouth every 4 (four) hours if needed., Disp: , Rfl: atorvastatin (Lipitor) 10 MG tablet, TAKE 1 TABLET BY MOUTH EVERY DAY FOR 90 DAYS, Disp: 90 tablet,Rfl: 3 divalproex (Depakote) 250 MG EC tablet, TAKE 2 TABLETS EACH MORNING AND 1 TABLET AT BEDTIME, Disp: 90 tablet, Rfl: 0 donepezil (Aricept) 5 MG tablet, TAKE 1 TABLET BY MOUTH EVERY DAY AT BEDTIME, Disp: 90 tablet, Rfl:2 DULoxetine HCl 60 MG Capsule Delayed Release Sprinkle, Take 60 mg by mouth Daily, Disp: , Rfl: levothyroxine (Synthroid, Levoxyl) 100 [...] under the tongue every 5 (five) minutes ifneeded., Disp: , Rfl: QUEtiapine (SEROquel) 25 MG tablet, 1/2 - 1 tab PO QHS, Disp: 30 tablet, Rfl: 2 Semaglutide,0.25 or 0.5MG/DOS, (Ozempic, 0.25 or 0.5 MG/DOSE,) 2 MG/3ML solution pen-injector, Inject 0.25 mg under the skin 1 (one) time per week, Disp: 2 mL, Rfl: 0 sertraline (Zoloft) 100 MG tablet, TAKE 1 AND 1/2 TABLETS BY MOUTH ONCE DAILY, Disp: 135 tablet, Rfl: 0 documented in this encounter Plan of Treatment DateTypeDepartmentCare Team (Latest Contact Info)Fqjtpkgltiz83/16/2026 3:00 PM ESTProcedure Visit [facility] [address] [place] [address] Eugenio Castro, DPM FACF[facility] [address] [place] [address] documented as of this encounter Visit Diagnoses Diagnosis Onychomycosis- Primary Dermatophytosis of nail Pain in left toe(s) Pain in right toe(s) documented in this encounter Additional Health Concerns AssessmentNoted TimePHQ-9 Depression Total Score: 1:00 PM EST documented as of this encounter Care Teams Team MemberRelationshipSpecialtyStart DateEnd Date Link, MD Calvin [address] [place] [address] PCP - GeneralFamily Medicine01/23/25documented as of this encounter
[2025-08-19 23:37] VITALS: BP 144/81; PULSE 70; TEMP 36.4; O2SAT 99; BMI 21.8
[2025-08-19 23:38] VITALS: PULSE 78
[2025-08-19 23:40] VITALS: PULSE 79
--- NOTE | 2025-08-19 23:42 | XR_ITS ---
The [address] [address] Patient Name: LYNN LANE MRN: [id number] date: 1950 Sex: M Assigned Patient Location: ED.MAIN Current Patient Location: Accession/Order Number: [id number] Exam Date: 08/19/2025 23:59 Report Date: 08/20/2025 08:24 At the request of: CHARLETTE TREVIZO DO Procedure: XR chest 1V XR chest 1V 08/20/2025 12:15 AM SIGNS AND SYMPTOMS: ^AMS, r/o PNA PROTOCOL: Frontal radiograph of the chest COMPARISON: 12/20/2024 FINDINGS: The trachea is midline. The heart and mediastinal structures are within normal limits. There is chronic elevation of the right hemidiaphragm. The lung parenchyma is clear. The bony thorax is intact. There is a levoconvex curvature of the thoracic spine. Postoperative changes are noted in the left shoulder. XR/XR chest 1V IMPRESSION: No acute cardiopulmonary pathology. Impression dictated by: Bernardo Gillis M.D. 08/20/2025 8:24 AM Dictation Location: [place] [address] Electronically authenticated by: [id number] Y Date: 08/20/2025 08:24
--- NOTE | 2025-08-19 23:42 | ECG_ITS ---
The [facility] Test Date: 2025-08-19 Pat Name: LYNN LANE Department: Room: - Gender: Male Reservation Agent: : [id number] Requested By: [id number] Order Number: [id number] Reading MD: HAMIDA BORJAS M.D. Measurements Intervals [place] Rate: 72 P: 61 MA: 160 QRS: 68 QRSD: 90 T: 82 QT: 396 QTc: 420 Interpretive Statements 1100 Sinus rhythm 38858 Early repolarization 9110 normal ECG Compared to ECG 02/24/2025 15:41:42 Early repolarization now present Electronically Signed On 08-20-2025 6:48:39 EST by HAMIDA BORJAS M.D.
[2025-08-19 23:50] VITALS: PULSE 68
[2025-08-20] VITALS (10 sets, daily range): BP systolic 125–130; BP diastolic 79–84; PULSE 56–68; O2SAT 95–97
[2025-08-20 00:02] LABS: Hematocrit 43.0 % (42.0-54.0); Hemoglobin 14.5 g/dL (14.0-18.0); Immature Granulocytes Abs Auto 0.02 10^3/uL (0.00-0.03); Immature Granulocytes Pct Auto 0.2 % (0.0-0.5); Lymphocytes Absolute Auto 2.2 10^3/uL (1.2-3.8); Mean Corpuscular HGB Conc 33.7 g/dL (29.9-35.2); Mean Corpuscular Hemoglobin 31.5 pg (25.9-34.0); Mean Corpuscular Volume 93.5 fL (80.0-94.0); Platelet Count 239 10^3/uL (150-450); Red Blood Count 4.60 10^6/uL (4.70-6.10); White Blood Count 9.0 10^3/uL (4.0-11.0)
--- NOTE | 2025-08-20 00:06 | PC.NURSE ---
HX of traumatic brain injury
--- OUTSIDE RECORDS SUMMARY | 2025-08-20 00:12 | XMS_ITS | CCD ---
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 substance abuse codes (5 sources)H/O: Disorder; Translations: [Personal history of nicotine dependence]Onset: 39-34-5698EsoxrwjeQibgpimyjfv; intervertebral disc disorders; other back problems (17 sources)Backache; Translations: [Dorsalgia, unspecified]Onset: 11-09-2023 EpisodicSubstance-related disorders (5 sources)Nondependent cocaine abuse in remission; Translations: [Cocaine abuse, in remission]Onset: 25-09-2788KzlyrlfArlgsvj on above:Added per outpatient CDI policy based on Document Contains Addenda Addendum by Saadia ASHER on December 28, 2024 14:45:39 EDT (Verified) From: Saadia ASHER To: Payton Eaton RN; Sent: 12/28/2024 14:45:39 EDT Subject: RE: Coding Query Caller Name: DAVID LANE; Caller Number: Tavares , M past cocaine abuse in remission.Syncope (10 sources)Syncope and collapse; Translations: [Vasovagal syncope]03-18-2020 EpisodicSyncope (1 source)SyncopeOnset: 48-60-5603[place] disorders (20 sources)Hypothyroidism, unspecified; Translations: [Hypothyroidism]Onset: [id number]hrfhjyc (2 sources)Chest pain, unspecified / R07.9(ICD-9)Onset: 02-14-2093Ozdmashjzmei (4 sources)Protein level - finding; Translations: [Elevated brain natriuretic peptide (BNP) level]Unclassified (12 sources)Asymptomatic microscopic -40-0550Rdnvqynyycki (12 sources)Drug therapy obromny17-02-3343 Past or Other Problems Problem ClassificationProblemDateDocumented DateEpisodic/Chronic Administrative/social admission (13 sources)Patient encounter status; Translations: [Other specified counseling] Onset: 603982-63-6764PanxwkorBuyft and electrolyte disorders (10 sources)Dehydration; Translations: [Dehydration]Onset: EpisodicMood disorders (13 sources)Mood disordersOnset: 435811-50-9814Nunzb and unspecified benign neoplasm (13 sources)Tubular adenoma of colon; Translations: [Benign neoplasm of colon, unspecified]Onset: 008860-34-6492PxlryjkeSbiov gastrointestinal disorders (13 sources)Incontinence of feces; Translations: [Full incontinence of feces] Onset: 729635-61-9862JwhqjxmvYkhlm gastrointestinal disorders (13 sources)Dysphagia; Translations: [Dysphagia, pharyngoesophageal phase]Onset: 999227-21-3036SjrsijzlKpnsc nervous system disorders (13 sources)Abnormal gait; Translations: [Unspecified abnormalities of gait and mobility]Onset: 858471-28-2729MhoxnocvIalho non-epithelial cancer of skin (13 sources)Basal cell carcinoma of forehead; Translations: [Basal cell carcinoma of skin of other parts of face]Onset: 791952-65-0905Uxsoyuek Residual codes; unclassified (13 sources)History of partial resection of colon; Translations: [Acquired absence of other specified parts of digestive tract]Onset: Episodic Results Test NameValueInterpretationReference RangeFacilityAmbulatory Visit Summaryon [id number] Visit SummaryAmbulatory Visit Summary ORVILLEDAVID VELASQUEZ :1950 Visit Date:06/05/2025 Ambulatory Visit Instructions Your Diagnosis Encounter for annual wellness visit (AWV) in Medicare patient Absence seizure Cocaine abuse in remission Dementia Seizure disorder Severe major depression without psychotic features Hyperlipemia Chronic insomnia Hypothyroidism in adult Chronic back pain Screen for colon cancer Your Care Team Attending Physician - Calvin Oshea DO Primary Care Physician - Calvin Oshea DO This Is Your Medications List Ensure acetaminophen-hydrocodone (acetaminophen-hydrocodone 325 mg-5 mg oral tablet) atorvastatin (atorvastatin 10 mg Tab) divalproex sodium (divalproex sodium 250 mg Oral EC Tab) donepezil (donepezil 10 mg Tab) escitalopram (escitalopram 20 mg Tab) levothyroxine (levothyroxine 100 mcg (0.1 mg) Tab) metoprolol (metoprolol succinate 25 mg ER Tab) [Image Removed: STOP]Stop taking these medications tramadol (traMADOL 50 mg Tab) Procedures Performed History of hip surgery (2015), Lithotripsy (02/19/2012), History of shoulder surgery. What to do next Scheduled Follow-Up Appointments Thursday2025 11:00 AM EDT Where: [facility] [address] [place] [address]- Medications What How Much When Instructions Changed donepezil (donepezil 10 mg Tab) 1 Tablets By Mouth Once a day (at bedtime) Unchanged acetaminophen-hydrocodone (acetaminophen-hydrocodone 325 mg-5 mg oral tablet) 1 Tablets By Mouth 3 times a day as needed for for pain Unchanged atorvastatin (atorvastatin 10 mg Tab) See instructions TAKE 1 TABLET BY MOUTH EVERY DAY Unchanged divalproex sodium (divalproex sodium 250 mg Oral EC Tab) See instructions 2 tab(s) qAM 1 tab qPM Unchanged Ensure 237 Milliliter By Mouth Twice a day (with meals) Unchanged escitalopram (escitalopram 20 mg Tab) 1 Tablets By Mouth Every day Unchanged levothyroxine (levothyroxine 100 mcg (0.1 mg) Tab) See instructions TAKE 1 TABLET BY MOUTH EVERY DAY IN THE MORNING ON EMPTY STOMACH Unchanged metoprolol (metoprolol succinate 25 mg ER Tab) 1 Tablets By Mouth Every day What How Much When Comments Stop Taking tramadol (traMADOL 50 mg Tab) 2 Tablets By Mouth Every 8 hours as needed for for pain Allergies No Known Allergies No Known Medication Allergies Problems Ongoing - Any problem that you are currently receiving treatment for. Absence seizure Anticoagulated Asymptomatic microscopic hematuria At risk for falls Back pain Benign essential hypertension Chronic back pain Chronic insomnia Cocaine abuse in remission Dementia Fall History of CVA in adulthood History of nephrolithiasis History of traumatic brain injury Hyperlipemia Hypothyroidism in adult Leaking of urine Left flank pain Major depressive disorder, recurrent, in full remission Seizure disorder Severe major depression without psychotic features Weakness Historical - Any problem that you are no longer receiving treatment for. Epilepsy Hematuria Nephrolithiasis Shortness of breath Stroke Patient Survey You may receive a survey via text or e-mail asking about your office visit. Please share your experience with us by completing your survey. We appreciate your feedback and thank you for choosing us for your care. Education Materials Chronic Back Pain Chronic back pain is back pain that lasts longer than 3 months. The pain may get worse at certain times (flare-ups). There are things you can do at home to manage your pain. Follow these instructions at home: Watch for any changes in your symptoms. Take these actions to help with your pain: Managing pain and stiffness ??? If told, put ice on the painful area. You may be told to use ice for 24???48 hours after a flare-upstarts. ? Put ice in a plastic bag. ? Place a towel between your skin and the bag. ? Leave the ice on for 20 minutes, 2???3 times a day. ??? If told, put heat on the painful area. Do this as often as told by your doctor. Use the heat sourcethat your doctor recommends, such as a moist heat pack or a heating pad. ? Place a towel between your skin and the heat source. ? Leave the heat on for 20???30 minutes. ??? If your skin turns bright red, take off the ice or heat right away to prevent skin damage. The riskof damage is higher if you cannot feel pain, heat, or cold. ??? Soak in a warm bath. This can help with pain. Activity ??? Avoid bending and other activities that make the pain worse. ??? When you stand: ? Keep your upper back and neck straight. ? Keep your shoulders pulled back. ? Avoid slouching. ??? When you sit: ? Keep your back straight. ? Relax your shoulders. Do not round your shoulders or pull them backward. ??? Do no (more content not included)...[facility] Medicine Office/Clinic Noteon [phone] Office/Clinic NoteSaint [facility] Office/Clinic Note Chief Complaint Medicare Wellness Visit Review of Systems PHQ Score Initial Depression Screen Score: 4 SCORE Assessment/Plan 1. Encounter for annual wellness visit (AWV) in Medicare patient (Z00.00: Encounter for general adult medical examination without abnormal findings) This visit was conducted via two way, real-time interactive video communication from my office, [facility] video visit. No physical exam was conducted other than those areas of the body visible thru telecommunications with the patient located in his home. Niece present with patient in room, visual ofher. If it is determined that the patient should be evaluated in the clinic, the patient will be directed to the appropriate venue. The patient verbally consented to this visit. Reviewed What can I expect during my Medicare preventative care visit [facility]-F[facility] Prevention and home safety screening reviewed. Patient and caregiver state patient experienced frequent falls in last 12 months, voices no worry about falling, exhibits no problems with sitting and standing. Pt voices understanding with keeping walk way area free of clutter to prevent tripping and/or falling. [place] Advance Directives reviewed. Patient/caregiver encouraged to bring copy to office at next visit to scan to chart. Patient denies any problems with ADL???s and Instrumental ADL???s. Cognitive screening and clock face drawing not completed due to video visit. Immunization Record reviewed with the patient. COVID vaccine has been administered, immunization record is up to date. Allergies and medications reviewed and up to date. Patient denies concerns with taking medication as prescribed, reviewed OTC medications with patient with medication list up to date. Blood tests were reviewed: Discussed what tests need to be updated. Labs were ordered, will have completed prior to next PCP visit. Will have labs completed with [facility]. Reviewed concerns with bladder control over past 6 months with no concerns. Reviewed pain symptoms with patient: Reviewed all outside providers that patient follows. Last visit summary notes available in chart and/or have been requested. Follow up scheduled for today AWV has been scheduled, 05/2026 Abnormal findings with fall risk. Abnormal findings with positive depression screening. Medicare provides yearly screening for alcohol and depression concerns. This is completed during our Medicare wellness visit for those who do not have a current diagnosis of depression or concerns with alcohol use. I spent a total of 15 minutes on this date of service which included preparing to see the patient, face to face patient care, completing clinical documentation, obtaining and/or reviewing separately obtained history, counseling and educating the patient with handouts. Explanations were provided with reviewing questionnaires. AUDIT risk assessment screening completed, risk score (0). 2. Absence seizure (G40.A09: Absence epileptic syndrome, not intractable, without status epilepticus) Patient follows with [facility] every 6 months and takes divalproex sodium as directed. Caregiver/patient states effective when patient is compliant with taking medications. Continue to follow with neurology as directed. 3. Cocaine abuse in remission (F14.11: Cocaine abuse, in remission) Patient denies any cocaine use. 4. Dementia (F03.90: Unspecified dementia, unspecified severity, without behavioral disturbance, psychotic disturbance, mood disturbance, and anxiety) Patient is taking donepezil as directed. He follows with neurology every 6 months. 5. Seizure disorder (G40.909: Epilepsy, unspecified, not intractable, without status epilepticus) See #2. 6. Severe major depression without psychotic features (F32.2: Major depressive disorder, single episode, severe without psychotic features) Patient taking escitalopram as directed. Follows up with PCP with medication management and symptomcontrol. PHQ-9 risk assessment completed with negative findings. Total risk score(7). Patient/caregiver state patient has spoke of harming self to sister. Patient states he made these statements out of feelings of frustration and chronic pain. Caregiver states patient was hospitalized for psychiatric evaluation after making these statements. Patient denies having a plan and states he no longer feels this way. Reviewed additional signs/symptoms to monitor for and report to provider. Patient declines counseling referral. 7. Hyperlipemia (E78.5: Hyperlipidemia, unspecified) Patient encouraged to eat a diet that is low in saturated fats. Monitor alcohol intake and avoid smoking. Risks may also increase with a family history of hyperlipidemia. Patient voices understandingwith healthy dietary choices to reduce risk factors associated with CVA. Taking statin medication daily. Will continue to follow up with labs as directed. 8. Chronic insomnia (F51.04: Psychophysiologic insomnia) Patient follows (more content not included)...[facility] Comment on above:Result Comment: Electronically Signed By: Calvin Oshea DO\.br\Date and Time Signed: 06/05/25 15:06 EDT\.br\Electronically Co-Signed By: Shanna Esparza RN\.br\Date and Time Co-Signed: 06/05/25 13:05EDTFamily Medicine Phone Visit - Telehealthon [phone] Phone Visit - TelehealthFamily Medicine Phone Visit - Telehealth Chief Complaint 1 month follow up HPI Staff This visit was conducted via two-way, real-time interactive video communications by Calvin Oshea DO my office using [employer]. The patient was located at their home, located at [address] [place] [phone], with Doris dye in attendance. A signed authorization for treatmenthas been obtained via our standard authorization packet or by verbal consent by the patient or their legal customer loyalty representative. The patient's identity and location in [place] has been verified by our office staff. If it is determined that the patient should be evaluated in the clinic, the patient will be directed to the appropriate clinic or venue. A limited physical exam will be conducted reviewing those areas of the body visible via telecommunications. Total time spent preparing the chart, conductingthe encounter with the patient and family, and time spent documenting, reviewing, and ordering tests was 15 minutes. All records and visits comply with HIPAA standards. Patient here for 1 month f/u Follow up for Mental Status: - Seroquel taper began at last visit and Lexapro prescribed. Patient is taking as directed, declining any side effects. Unsure if any improvement. Medication adherence- Yes, takes medication as prescribed Medication refill needed: yes Suicidal thoughts-Not at this time Most recent ARPAN: 4 Most recent PHQ9: 7 Chronic Back Pain: - Prescribed Tramadol at last visit. Patient is taking as directed and declines any side effects. Declines improvement. Med Ag: Video Visit, Due UDS: Video Visit, Due AMW: Today [place]: per patient 5 years ago PSA Scrn Tot.: 2.7 ng/mL (12/19/24 14:33:00) History of Present Illness Patient presents today for 1 month followup on medications. - History of CVA, on chronic anticoagulation - Severe depression, addressed at prior visit with medication - History of cocaine abuse, in remission - Due for annual labs today - Changed from Cymbalta to Seroquel, produced anhedonia - Changed to Lexapro at last visit at 20mg to start - Started tramadol 50mg TID last visit for pain control related to chronic back pain - Due for labs for check on thyroid today, due for annual labs as well Today, patient states that his back is still painful. He states that the Tramadol was not helpful for pain. He states that if he does not get out of bed he doesn't take his pills. He is very difficult with his daughter who lives with him. She feels she is open to home health as he is not doing well. Review of Systems ROS - Provider Constitutional: [...] yes irritability, yes mood swings/depression. Physical Exam General: Well developed, well nourished, in no [...] and affect, flat affect Assessment/Plan 1. Severe recurrent major depression (F33.2: Major depressive disorder, recurrent severe without psychotic features) Findings as per the HPI. 2. Chronic back pain (M54.9: Dorsalgia, unspecified) Not improved on tramadol, no improvement in QOL. OARRS reviewed, no conflicts noted. Discussed change at this time. We will change of address clerk to [place] 5-325mg TID PRN. Recheck at followup in 2 weeks. 3. Hypothyroidism in adult (E03.9: Hypothyroidism, unspecified) Due for labs today. 4. Hyperlipemia (E78.5: Hyperlipidemia, unspecified) Due for labs today. 5. Dementia (F03.90: Unspecified dementia, unspecified severity, without behavioral disturbance, psychotic disturbance, mood disturbance, and anxiety) Longstanding, related to a prior stroke. Stable findings on last check. 6. Former smoker (Z87.891: Personal history of nicotine dependence) Stable in remission. Orders: acetaminophen-hydrocodone, 1 tab(s), Oral, TID for pain, 42 tab(s), Refill(s) 0, [id number], 187, cm, 05/01/25 14:36:00 EDT, Height/Length Dosing, 90.4, kg, 05/01/25 14:36 (more content not included)...[facility]:Result Comment: Electronically Signed By: Calvin Oshea DO\.br\Date and Time Signed: 06/05/25 12:35 EDTAmbulatory Visit Summaryon [id number] Visit SummaryAmbulatory Visit Summary DAVID LANE :1950 Visit Date:05/01/2025 Ambulatory Visit Instructions Your Diagnosis History of CVA in adulthood Anticoagulated Dementia Severe major depression without psychotic features Hyperlipemia Hypothyroidism in adult Cocaine abuse in remission Chronic back pain BMI 25.0-25.9,adult Former smoker Risk for falls Your Care Team Attending Physician - Calvin Oshea DO Primary Care Physician - Calvin Oshea DO This Is Your Medications List Ensure atorvastatin (atorvastatin 10 mg Tab) divalproex sodium (divalproex sodium 250 mg Oral EC Tab) donepezil (donepezil 10 mg Tab) escitalopram (escitalopram 20 mg Tab) levothyroxine (levothyroxine 100 mcg (0.1 mg) Tab) metoprolol (metoprolol succinate 25 mg ER Tab) quetiapine (quetiapine 25 mg Tab) tramadol (traMADOL 50 mg Tab) [Image Removed: STOP]Stop taking these medications sertraline (sertraline 100 mg Tab) Procedures Performed History of hip surgery (2015), Lithotripsy (02/19/2012), History of shoulder surgery. Discharge Vitals Heart Rate (Peripheral) 108 Respiratory Rate 18 Blood Pressure 102/66 Height 187 cm Height 74 in Weight 90.4 kg Weight 199.298 lb BMI 25.85 What to do next Scheduled Follow-Up Appointments Thursday 11:20 AM EDT With: Calvin Oshea DO Where: [facility] [place] [address] [place] [address]- You Need to Schedule the Following Appointments Follow Up with Calvin Oshea DO, [facility] When: Within 4 weeks Comments: 4 WEEKS FOLLOWUP Where: [address] [place] [address]- Medications What How Much When Instructions New escitalopram (escitalopram 20 mg Tab) 1 Tablets By Mouth Every day Pickup at [id number] New tramadol (traMADOL 50 mg Tab) 2 Tablets By Mouth Every 8 hours as needed for for pain [id number] Unchanged atorvastatin (atorvastatin 10 mg Tab) 10 Milligram By Mouth Every day Unchanged divalproex sodium (divalproex sodium 250 mg Oral EC Tab) See instructions 2 tab(s) qAM 1 tab qPM Unchanged donepezil (donepezil 10 mg Tab) 1 Tablets By Mouth Once a day (at bedtime) Dose increase.May take 2 tabs of 5 mg to use up current supply. Unchanged Ensure 237 Milliliter By Mouth Twice a day (with meals) Unchanged levothyroxine (levothyroxine 100 mcg (0.1 mg) Tab) 1 Tablets By Mouth Every day Unchanged metoprolol (metoprolol succinate 25 mg ER Tab) 1 Tablets By Mouth Every day Unchanged quetiapine (quetiapine 25 mg Tab) 2 Tablets By Mouth 2 times a day Pharmacy Information [id number]: [address], [place] [phone] What How Much When Comments Stop Taking sertraline (sertraline 100 mg Tab) See instructions 1 and a half pills daily Allergies No Known Allergies No Known Medication Allergies Problems Ongoing - Any problem that you are currently receiving treatment for. Absence seizure Anticoagulated Asymptomatic microscopic hematuria At risk for falls Back pain Benign essential hypertension Chronic back pain Chronic insomnia Cocaine abuse in remission Dementia Fall History of CVA in adulthood History of nephrolithiasis History of traumatic brain injury Hyperlipemia Hypothyroidism in adult Leaking of urine Left flank pain Major depressive disorder, recurrent, in full remission Seizure disorder Severe major depression without psychotic features Weakness Historical - Any problem that you are no longer receiving treatment for. Epilepsy Hematuria Nephrolithiasis Shortness of breath Stroke Patient Survey You may receive a survey via text or e-mail asking about your office visit. Please share your experience with us by completing your survey. We appreciate your feedback and thank you for choosing us for your care. Patient Portal You may access all of your results and other medical record information on our secure patient portal. If you are not signed up for this yet, please contact Health Information Management at [phone] to get signed up today. Language Information Language assistance services are available as needed. [facility] Office/Clinic Noteon [phone] Office/Clinic NoteSaint [facility] Office/Clinic Note Chief Complaint Chronic Condition follow up HPI Staff Patient here for Chronic Condition f/u (Sister, ) Patient is here for follow up on hypertension. How often are you checking your blood pressure? Doesn't check BP at home Do you have any of the following symptoms? Chest Pain? no Palpitations? no AC/SOB? no Headache? no Peripheral Edema? no Light Headiness? yes intermittent BUN: 20 mg/dL (12/24/24 06:01:00) Calcium Lvl: 8.6 mg/dL Low (12/24/24 06:01:00) Chloride: 104 mmol/L (12/26/24 06:06:00) CO2: 29 mmol/L (12/26/24 06:06:00) Creatinine: 0.6 mg/dL (12/24/24 06:01:00) eGFR: 102 mL/min/1.73 m2 (12/24/24 06:01:00) Glucose Lvl: 107 mg/dL (12/24/24 06:01:00) Potassium Lvl: 3.6 mmol/L (12/26/24 06:06:00) Sodium Lvl: 139 mmol/L (12/26/24 06:06:00) Lipid Panel: due Patient is here for follow up on Thyroid Disease. TSH: 2.87 mcIU/mL (12/19/24 14:33:00) Follow up for Mental Status: - Cymbalta prescribed at last visit to assist with pain control that worsens depression. Patient isn't taking as directed, was discontinued by [facility] prescribed. Medication adherence- Yes, takes medication as prescribed Medication refill needed: yes Suicidal thoughts-Not at this time Most recent ARPAN: 5 Most recent PHQ9: 10 - Patient was in [facility] 12/22-12/28 for generalized weakness, then transferred to TCU. Patient completed rehab and discharged 01/12 with [facility] HH/PT/OT. - Patient sent to [facility] shortly TCU discharge. after an incident at the house regardingpatient harming himself. Patient sent to [facility] for a week for mental health hold. Patient is still struggling with after being home with depression and pain. PSA Scrn Tot.: 2.7 ng/mL (12/19/24 14:33:00) [place]: per patient 5 years ago AMW: Needs to Schedule History of Present Illness Patient presents today for followup on chronic conditions. - History of CVA, on chronic anticoagulation - Severe depression, addressed at prior visit with medication - History of cocaine abuse, in remission - Due for annual labs today. Patient had inpatient stay for psychiatric visit. He was changed from Cymbalta to Seroquel. Daughter states that he has days he does not take medicine, and she notes he is not much improved at this time. He is frustrated with his management overall. His back continues to be painful, and this is limiting his function. He missed a family reunion last week due to not wanting to get out of bed. He cla ims this is from back pain, but he is able to sit unassisted in the room without complaining of back pain today. Review of Systems PHQ Score Initial Depression Screen Score: 4 SCORE ROS - Provider Constitutional: no fever, no [...] swings/depression. Physical Exam Vitals & Measurements HR: 108(Peripheral) RR: 18 BP: 102/66 SpO2: 95% HT: 187 cm HT: 74 in WT: 90.4 kg WT: 199.298 lb BMI: 25.85 General: Well developed, well nourished, in no [...] mood and affect, flat affect Assessment/Plan 1. History of CVA in adulthood (Z86.73: Personal history of transient ischemic attack (TIA), and cerebral infarction without residual deficits) Stable at this time. 2. Anticoagulated (Z79.01: long term (current) use of anticoagulants) Stable on medication at this time. Taking ASA instead of other anticoagulant. 3. Dementia (F03.90: Unspecified dementia, unspecified severity, without behavioral disturbance, psychotic disturbance, mood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 2:Dehydration; 3:Hypernatremia; 4:Hyperchloremia; 5:Generalized weakness; 6:Total self-care deficit; 7:HTN (hypertension); 8:HLD (hyperlipidemia); 9:Seizure disorder; 10:Hypothyroidism inadult; 11:Dementia; 12:History of CVA in adulthood; 13:History of traumatic brain injury; 14:On deep vein thrombosis (DVT) prophylaxis; Severe major depression without psychotic features Problems Active Severe major depression without psychotic features Major depressive disorder, recurrent, in full remission History of traumatic brain injury Chronic insomnia History of nephrolithiasis Hypothyroidism in adult Benign essential hypertension Hyperlipemia History of CVA in adulthood Absence seizure At risk for falls Back pain Asymptomatic microscopic hematuria Anticoagulated Left flank pain Leaking of urine Smoking Status: Former Smoker Functional Status: Sensory Deficits: History of Falls: Immediately prior to hospitalization Mobility Assistance Prior to Admission: Independent ADLs: Moderate assistance Current Level of Assistance for Self-Care/Mobility: Cognitive Status: Oriented x 3 Allergies No Known Medication Allergies No Known Allergies Measurements: Height: 185.42 cm Weight: 88 kg Blood Pressure: 122 mmHg / 77 mmHg BMI: 25.62 kg/m2 Procedures No Procedures Documented Immunizations No Immunizations Documented This Visit Final Med List: atorvastatin (atorvastatin 10 mg Tab) 10 Milligram By Mouth every day. Refills: 4. divalproex sodium (divalproex sodium 250 mg Oral EC Tab) 2 Tablets By Mouth every day. donepezil (donepezil 10 mg Tab) 1 Tablets By Mouth once a day (at bedtime). duloxetine (duloxetine 60 mg oral delayed release capsule) 1 Capsules By Mouth every day. Refills: 1. Ensure 237 Milliliter By Mouth twice a day (with meals). ibuprofen (ibuprofen 800 mg Tab) 1 Tablets By Mouth every 6 hours. levothyroxine (levothyroxine 100 mcg (0.1 mg) Tab) 1 Tablets By Mouth every day. TAKE 1 TABLET BY MOUTH EVERY DAY IN THE MORNING ON EMPTY STOMACH. Refills: 4. lisinopril 20 Milligram. metoprolol (metoprolol succinate 25 mg ER Tab) 1 Tablets By Mouth every day. Refills: 0. sertraline (sertraline 100 mg Tab) 1 and a half pills daily. Refills: 0. Care Team Members: Attending Physician: Dave Maynard III, DO Consulting Physician: Referring Physician: Follow up: With: Address: When: Calvin Oshea [address] [place] [address] Business (1) Type Location Start [facility] 01/02/2025 11:40 AM 01/02/2025 12:00 PM Confirmed Patient Education Information:[facility] HospitalInpatient Patient Summaryon [id number] Patient SummaryInpatient Patient Summary [address] [address] Patient Discharge Instructions PERSON INFORMATION Name: DAVID LANE Date of : 1950 Current Date: 12/27/2024 12:25:18 PHYSICIANS Admitting Physician: Dave Maynard III, DO Primary Care Physician: Calvin Oshea DO PCP Comment: Discharge Diagnosis: 1:Diarrhea; 2:Dehydration; 3:Hypernatremia; 4:Hyperchloremia; 5:Generalized weakness; 6:Total self-care deficit; 7:HTN (hypertension); 8:HLD (hyperlipidemia); 9:Seizure disorder;10:Hypothyroidism in adult; 11:Dementia; 12:History of CVA in adulthood; 13:History of traumatic bra in injury; 14:On deep vein thrombosis (DVT) prophylaxis; Severe major depression without psychotic features Condition at Discharge: Stable DOMINGO DAVID Amy has been given the following list of follow-up instructions, prescriptions, and patient education materials: PATIENT FOLLOW-UP INFORMATION Diet: Discharge Activity: Discharge Restrictions: Wound Care Instructions: Remove Your Dressing In Days Call Your Doctor For: IF UNABLE TO CONTACT YOUR PHYSICIAN AND YOU FEEL IT IS AN EMERGENCY, GO TO THE NEAREST EMERGENCY ROOM OR CALL 911 Home Treatment: Devices/Equipment: Cane, Walker Special Services: Additional Instructions: Primary Care Physician to provide the following pending test results: None Follow up: With: Address: When: Calvin Oshea [address] [facility] [place] [address] Business (1) In the event that this physician does not participate in your insurance network, please consult with your insurance company to find a nearby participating provider. Type Location Start [employer] Open [facility] 01/02/2025 11:40 AM 01/02/2025 12:00 PM Confirmed Comment: DOMINGO Garcia WILLIAM L, have received the attached patient education materials/instructions and have verbalized understanding: Patient Signature Date Clinican/Nurse Signature Date HERE ARE THE MEDICATION CHANGES THAT OCCURRED DURING YOUR HOSPITAL STAY New Medications Other Medications Ensure 237 Milliliter By Mouth twice a day (with meals). Last Dose: Next Dose: Medications to Continue with No Changes Other Medications atorvastatin (atorvastatin 10 mg Tab) 10 Milligram By Mouth every day. Refills: 4. Last Dose: Next Dose: divalproex sodium (divalproex sodium 250 mg Oral EC Tab) 2 Tablets By Mouth every day. Last Dose: Next Dose: donepezil (donepezil 10 mg Tab) 1 Tablets By Mouth once a day (at bedtime). Last Dose: Next Dose: duloxetine (duloxetine 60 mg oral delayed release capsule) 1 Capsules By Mouth every day. Refills: 1. Last Dose: Next Dose: ibuprofen (ibuprofen 800 mg Tab) 1 Tablets By Mouth every 6 hours. Last Dose: Next Dose: levothyroxine (levothyroxine 100 mcg (0.1 mg) Tab) 1 Tablets By Mouth every day. TAKE 1 TABLET BY MOUTH EVERY DAY IN THE MORNING ON EMPTY STOMACH. Refills: 4. Last Dose: Next Dose: lisinopril 20 Milligram. Last Dose: Next Dose: metoprolol (metoprolol succinate 25 mg ER Tab) 1 Tablets By Mouth every day. Refills: 0. Last Dose: Next Dose: sertraline (sertraline 100 mg Tab) 1 and a half pills daily. Refills: 0. Last Dose: Next Dose: Comment: MEDICATION LIST PROVIDED FOR YOU IS A LIST OF YOUR CURRENT MEDICATIONS. PLEASE CARRY THIS WITH YOU AT ALL TIMES. atorvastatin (atorvastatin 10 mg Tab) 10 Milligram By Mouth every day. Refills: 4. divalproex sodium (divalproex sodium 250 mg Oral EC Tab) 2 Tablets By Mouth every day. donepezil (donepezil 10 mg Tab) 1 Tablets By Mouth once a day (at bedtime). duloxetine (duloxetine 60 mg oral delayed release capsule) 1 Capsules By Mouth every day. Refills: 1. Ensure 237 Milliliter By Mouth twice a day (with meals). ibuprofen (ibuprofen 800 mg Tab) 1 Tablets By Mouth every 6 hours. levothyroxine (levothyroxine 100 mcg (0.1 mg) Tab) 1 Tablets By Mouth every day. TAKE 1 TABLET BY MOUTH EVERY DAY IN THE MORNING ON EMPTY STOMACH. Refills: 4. lisinopril 20 Milligram. metoprolol (metoprolol succinate 25 mg ER Tab) 1 Tablets By Mouth every day. Refills: 0. sertraline (sertraline 100 mg Tab) 1 and a half pills daily. Refills: 0. Pharmacy Information: [facility]- Comment: PATIENT EDUCATION INFORMATION Instructions: Medication Leaflets: You may receive a survey from Juanjo Roy asking (more content not included)... Samaritan HospitalCHEMISTRYOrdered By: SYSTEM SYSTEM on 65-71-7818Ubdgm gap [Moles/Vol]10 mmol/LNormal6 - 16 mEq/LRemisol ChemChloride [Moles/Vol]104 mmol/ICvqbfk567 - 111 mmol/LRemisol ChemCO2 [Moles/Vol]29 mmol/L Icbngf97 - 31 mmol/LRemisol ChemPotassium [Moles/Vol]3.6 mmol/LNormal3.5 - 5.3 mmol/LRemisol ChemSodium [Moles/Vol]139 mmol/EQtkcin569 - 145 mmol/LRemisol Chem Extra Carlitos 38-70-1934HN Tube CollectedYesInvalid Interpretation [facility]Comment on above:Performed By: #### [id number] #### [facility] [address] [place] [address]Zxgzupxkubnukqkcn Note - Case Manageron 12-26-2024 Interdisciplinary Note - Case ManagerInterdisciplinary Note - Optical Glass Etcher Followed up with patient at bedside. TCU able to accept patient for SNF and request for pre-cert has been initiated. CM notified patient at bedside and also called family, Doris niece and updated on plan of care. All in agreement with DC plan.NormalCincinnati Shriners HospitalComment on above:Result Comment: Electronically Signed By: Kaci Forrest\Date and Time Signed: 12/26/24 09:26 EDTLyteson 14-81-3176Omhbj gap [Moles/Vol]10 mmol/LNormal6-16C[facility]riners HospitalComment on above:Performed By: #### [id number] #### [facility] [address] [place], [place] [address]Nsejmekx [Moles/Vol]104 mmol/KZykvpn325-702IyitwcCincinnati Shriners HospitalComment on above:Performed By: #### [id number] #### [facility] [address] [place], [place] [address]SJ9 [Moles/Vol]29 mmol/WQrqdsj12-87HodbyiCincinnati Shriners Hospital Comment on above:Performed By: #### [id number] #### [facility] [address] [place], [place] [address]Xjylgpnkt [Moles/Vol]3.6 mmol/LNormal3.5-5.3FLicking Memorial HospitalComment on above:Performed By: #### [id number] #### [facility] [address] [place], [place] [address]Votkax [Moles/Vol]139 mmol/BHjnjak732-153XfoetgCincinnati Shriners HospitalComment on above:Performed By: #### [id number] #### [facility] [address] [place], [place] [address]ZIEgt 49-59-8146Qnwso gap [Moles/Vol]8 mmol/LNormal6-16C[facility] Shriners HospitalComment on above:Performed By: #### [id number] #### [facility] [address] [place], [place] [address]Jtvpmep [Mass/Vol]8.6 mg/dLLow8.9-11.1[facility] CenterComment on above:Performed By: #### [id number] #### [facility] [address] [place], [place] [address]Rfcrgtuo [Moles/Vol]108 mmol/UIlxuba370-169UepledCincinnati Shriners HospitalComment on above:Performed By: #### [id number] #### [facility] [address] [place], [place] [address]KP0 [Moles/Vol]26 mmol/HChaqoz83-85TerpiyCincinnati Shriners Hospital Comment on above:Performed By: #### [id number] #### [facility] [address] [place], [place] [address]Nguhrcrxoq [Mass/Vol]0.6 mg/dLNormal0.5-1.3FLicking Memorial HospitalComment on above:Performed By: #### [id number] #### [facility] [address] [place], [place] [address]Mfjkwii [Mass/Vol]107 mg/bLFvfwwj89-087RhxxtcCincinnati Shriners HospitalComment on above:Performed By: #### [id number] #### [facility] [address] [place], [place] [address]Vrmgmvxnk [Moles/Vol]3.5 mmol/LNormal3.5-5.3FLicking Memorial HospitalComment on above:Performed By: #### [id number] #### [facility] [address] [place], [place] [address]Vhknzc [Moles/Vol]138 mmol/YEgdgsi421-586MszdliCincinnati Shriners HospitalComment on above:Performed By: #### [id number] #### [facility] [address] [place], [place] [address]Wymm nitrogen [Mass/Vol]20 mg/dLNormal5-21Cinc[facility] Shriners HospitalComment on above:Performed By: #### [id number] #### [facility] [address] [place], [place] [address]Aykd nitrogen/Creatinine [Mass ratio]33 No CvqflPsab53-21YidfxrCincinnati Shriners HospitalComment on above:Performed By: #### [id number] #### [facility] [address] [place], [place] [address]USHETDXEPEqhiont By: SYSTEM SYSTEM on 98-19-3531Nsccp gap [Moles/Vol]8 mmol/LNormal6 - 16 mEq/LRemisol ChemCalcium [Mass/Vol]8.6 mg/dLLow 8.9 - 11.1 mg/dLRemisol ChemChloride [Moles/Vol]108 mmol/ZVyytil424 - 111 mmol/L Remisol ChemCO2 [Moles/Vol]26 mmol/OUqfxad80 - 31 mmol/LRemisol ChemCreatinine [Mass/Vol]0.6 mg/dLNormal0.5 - 1.3 mg/dLRemisol BljhpMLI853 mL/min/1.73 z8Jujxqv >=59mL/min/1.73 c7Vxjzqoc ChemGlucose [Mass/Vol]107 mg/zRGxiydk02 - 199 mg/dL Remisol ChemPotassium [Moles/Vol]3.5 mmol/LNormal3.5 - 5.3 mmol/LRemisol Chem Sodium [Moles/Vol]138 mmol/MHdzslf869 - 145 mmol/LRemisol ChemUrea nitrogen [Mass/Vol]20 mg/dLNormal5 - 21 mg/dLRemisol ChemUrea nitrogen/Creatinine [Mass ratio]33 mg/sxAupd11 - 20Remisol ChemExtra Carlitos 24-55-4152PT Tube CollectedYes Invalid Interpretation CodeCincinnati Shriners HospitalComment on above:Performed By: #### [id number] #### [facility] [address] [place], [place] [address]xLRKmx 32-14-2771pCJE970 mL/min/1.73 v1Fulcqt>=59Cincinnati Shriners HospitalComment on above:Performed By: #### [id number] #### [facility] [address] [place], [place] [address]YXGhh 44-69-7479Leguo gap [Moles/Vol]10 mmol/LNormal6-16C[facility]riners HospitalComment on above:Performed By: #### [id number] #### [facility] [address] [place], [place] [address]Rigdocr [Mass/Vol]8.7 mg/dLLow8.9-11.1FLicking Memorial HospitalComment on above:Performed By: #### [id number] #### [facility] [address] [place], [place] [address]Eghnuvnm [Moles/Vol]113 mmol/BWmor858-960RdfelqCincinnati Shriners HospitalComment on above:Performed By: #### [id number] #### [facility] [address] [place], [place] [address]TS6 [Moles/Vol]22 mmol/ISouekv41-44TiedqnCincinnati Shriners Hospital Comment on above:Performed By: #### [id number] #### [facility] [address] [place], [place] [address]Cjhcpzysxt [Mass/Vol]0.6 mg/dLNormal0.5-1.3FLicking Memorial HospitalComment on above:Performed By: #### [id number] #### [facility] [address] [place], [place] [address]Rprnlon [Mass/Vol]87 mg/sTIcigpt82-872FbsgouCincinnati Shriners HospitalComment on above:Performed By: #### [id number] #### [facility] [address] [place], [place] [address]Ubzztqivx [Moles/Vol]3.6 mmol/LNormal3.5-5.3FLicking Memorial HospitalComment on above:Performed By: #### [id number] #### [facility] [address] [place], [place] [address]Allsrf [Moles/Vol]141 mmol/XDiohrq521-593DlvrmsCincinnati Shriners HospitalComment on above:Performed By: #### [id number] #### [facility] [address] [place], [place] [address]Yrjo nitrogen [Mass/Vol]24 mg/dLHigh5-21C[facility] Shriners HospitalComment on above:Performed By: #### [id number] #### [facility] [address] [place], [place] [address]Shcs nitrogen/Creatinine [Mass ratio]40 No GmimtDhsh20-27YijiugCincinnati Shriners HospitalComment on above:Performed By: #### [id number] #### [facility] [address] [place], [place] [address]ARAKAFIOPWlgbpog By: SYSTEM SYSTEM on 24-24-2684Ynxqvu Acid Lvl 38 microgram/mLLow50 - 99 mcg/mLRemisol ChemAnion gap [Moles/Vol]10 mmol/LNormal 6 - 16 mEq/LRemisol ChemCalcium [Mass/Vol]8.7 mg/dLLow8.9 - 11.1 mg/dLRemisol ChemChloride [Moles/Vol]113 mmol/ZLlkk005 - 111 mmol/LRemisol ChemCO2 [Moles/Vol]22 mmol/IUotpbv57 - 31 mmol/LRemisol ChemCreatinine [Mass/Vol]0.6 mg/dLNormal0.5 - 1.3 mg/dLRemisol FqwdiPEO307 mL/min/1.73 j8Upvpof >=59mL/min/1.73 e2Pfnutah ChemGlucose [Mass/Vol]87 mg/kOMmrsxp38 - 199 mg/dL Remisol ChemMagnesium [Mass/Vol]1.9 mg/dLNormal1.3 - 2.4 mg/dLRemisol Chem Potassium [Moles/Vol]3.6 mmol/LNormal3.5 - 5.3 mmol/LRemisol ChemSodium [Moles/Vol]141 mmol/KLunyel369 - 145 mmol/LRemisol ChemUrea nitrogen [Mass/Vol] 24 mg/dLHigh5 - 21 mg/dLRemisol ChemUrea nitrogen/Creatinine [Mass ratio]40 mg/daStpi32 - 20Remisol ChemCoding Queryon 78-43-9737Hdvcxk QueryCoding Query From: Payton Eaton RN To: Cassandra RUSSELL; Sent: 12/23/2024 08:53:14 EDT ! Subject: Coding Query Due Date/Time: 12/24/2024 08:49:00 EDT Caller Name: DAVID LANE; Caller Number: Tavares Porfirio Clinical evidence indicators for this patient . Menu-> Histories-> Social history->Substance Abuse-> Past Cocaine Please clarify further. Please select at least one item from each category. Use: [___]Abuse [___]Unspecified use Complication: [___]In remission [___]Other: In responding to this request, please exercise your independent professional judgement. The fact that a question is asked does not imply that any particular answer is desired or expected. Thank you!payton [id number] Memorial HospitalExtra Allons 25-07-4180MW Tube CollectedYesInvalid Interpretation Code [facility]riners HospitalComment on above:Performed By: #### [id number] #### [facility] [address] [place], [place] [address]Yismcwvaxjsbuipxq Note - Case Manageron 12-23-2024 Interdisciplinary Note - Case ManagerInterdisciplinary Note - Optical Glass Etcher Met with patient at bedside. Patient A & O. Patient states he is from home and lives with his sister and niece in a single level home with 0 REYMUNDO. Sister and niece provide needed care at home for patient including transportation, medication set up and meals. Patient usually ambulates with a walker and able to complete ADLS and family completed IADLs. Patient HPAO is Adarsh [phone]. Patient provides verbal consent for CM to call sister and/or niece. CM spoke to Doris dye [phone]. CM reviewed home set up and family states patient has been weak at home. CM reviewed PT OT recs for SNF and patient and family agreeable to SNF at [place]. Patient and family would like to stay in [facility] and [facility]. Patient will requirea pre-cert when medically stable. CM to follow. [facility] and [facility] unable to accept patient at this time. CM spoke to family and 1st choice is TCU, [facility] and [facility]. CM made SNF referrals.[facility] HospitalComment on above:Result Comment: Electronically Signed By: Kaci Forrest\Date and Time Signed: 12/23/24 14:09 EDTInterdisciplinary Note - OTon 53-72-0470Zpzchpfwjfevilxwx Note - OTInterdisciplinary Note - OT OT AM-PAC six clicks score: 1624=SNF. Main barriers towards Pt's safe and functional performance are generalized weakness and poor safety awareness. Pt requires min A with ADL transfers and mod A for ADL tasks at time of eval. OT to follow daily, progressing as tolerates. SNF recommended at this time to maximize Pt's safety and independence with self care tasks and transfers.Normal [facility]riners HospitalMagnesiumon 89-54-6186Dqlmifakb [Mass/Vol]1.9 mg/dL Normal1.3-2.4FLicking Memorial HospitalComment on above:Performed By: #### [id number] #### [facility] [address] [place], [place] [address]AL with Cult Rflxon 76-96-6635Bsidipppb Ql (U)NegativeNormal NegativeCincinnati Shriners HospitalComment on above:Performed By: #### [id number] #### [facility] [address] [place], [place] [address]Lsnwkng (U)ClearNormalClearCincinnati Shriners HospitalComment on above:Performed By: #### [id number] #### [facility] [address] [place], [place] [address]Qnxnd (U)YellowNormalYellowCincinnati Shriners HospitalComment on above:Result Comment: Microscopic readings are only performed on those samples that meet specific criteria set forth by [facility].Performed By: #### [id number] #### [facility] [address] [place], [place] [address]Tfaevkf Ql (U)NegativeNormalNegativeCincinnati Shriners Hospital Comment on above:Performed By: #### [id number] #### [facility] [address] [place], [place] [address]Mtxrpseugw Auto test strip (U) [Mass/Vol]NegativeNormalNegative [facility] HospitalComment on above:Performed By: #### [id number] #### [facility] [address] [place] [address]Xxnymcn Auto test strip Ql (U)NegativeNormalNegativeCincinnati Shriners HospitalComment on above:Performed By: #### [id number] #### [facility] [address] [place] [address]Uyzgsxaof esterase Auto test strip Ql (U)NegativeNormalNegative [facility] HospitalComment on above:Performed By: #### [id number] #### [facility] [address] [place] [address]Ahabnrn Auto test strip Ql (U)NegativeNormalNegativeCincinnati Shriners HospitalComment on above:Performed By: #### [id number] #### [facility] [address] [place] [address]fR (U)6.0 [pH]Invalid Interpretation Code5.0-9.0Cincinnati Shriners HospitalComment on above:Performed By: #### [id number] #### [facility] [address] [place] [address]Bhbbwsx Ql (U)TraceAbnormalNegativeCincinnati Shriners Hospital Comment on above:Performed By: #### [id number] #### [facility] [address] [place] [address]Nlphbgoa gravity (U) [Rel density]1.018Invalid Interpretation Code1.005-1.030C[facility] Shriners HospitalComment on above:Performed By: #### [id number] #### [facility] [address] [place] [address]Yweedqlxeaoc (U) [Mass/Vol]NegativeNormalNegativeCincinnati Shriners HospitalComment on above:Performed By: #### [id number] #### [facility] [address] [place] [address]WQCVFMTJSBIvdvssz By: SYSTEM SYSTEM on 88-67-2569Adgorwdxd Ql (U)NegativeNormalNegativemg/dLFTMC UA Auto SSClarity (U)Clear (12/23/24 2:36 PM)NormalClearFTMC UA Auto SSColor (U)Yellow 1 (12/23/24 2:36 PM)NormalYellowFT UA Auto SSComment on above:Interpretive Data: Microscopic readings are only performed on those samples that meet specific criteria set forth by [facility].Glucose Ql (U) NegativeNormalNegativemg/dLGREAT PLAINS [facility] [place] [facility] Auto SSHemoglobin Auto test strip (U) [Mass/Vol]NegativeNormalNegativemg/dLGREAT PLAINS [facility] [place] [facility] Auto SSKetones Auto test strip Ql (U)NegativeNormalNegativemg/dLGREAT PLAINS [facility] [place] [facility] Auto SSLeukocyte esterase Auto test strip Ql (U)NegativeNormalNegativeLeu/uLGREAT PLAINS [facility] [place] [facility] Auto SSNitrite Auto test strip Ql (U) NegativeNormalNegativemg/dLGREAT PLAINS [facility] [place] [facility] Auto SSpH (U)6.0 *NA* (12/23/24 2:36 PM)Invalid Interpretation Code5.0 - 9.0[facility] [place] [facility] Auto SSProtein Ql (U)Trace mg/dLInvalid Interpretation CodeNegativemg/dLGREAT PLAINS [facility] [place] [facility] Auto SSSpecific gravity (U) [Rel density]1.018 *NA* (12/23/24 2:36 PM)Invalid Interpretation Code1.005 - 1.030[facility] Auto SS Urobilinogen (U) [Mass/Vol]NegativeNormalNegativemg/dLGREAT PLAINS [facility] [place] [facility] Auto SSURINALYSIS Ordered By: Cassandra SOUZA on 60-65-9447SJ Spec DescClean Catch (12/23/24 2:36 PM)NormalGREAT PLAINS [facility] [place] UA Auto SSValproic Acidon 19-61-9942Wmlori Acid Lvl38 microgram/oRYrl42-03TcdxthCincinnati Shriners HospitalComment on above:Performed By: #### [id number] #### [facility] [address] [place], [place] [address]tKKCwr 04-01-1701dOLV717 mL/min/1.73 l5Rbewvk>=59C[facility] Shriners HospitalComment on above:Performed By: #### [id number] #### [facility] [address] [place], [place] [address]LPHzm 85-46-4810Hndhq gap [Moles/Vol]16 mmol/LNormal6-16[facility]riners HospitalComment on above:Performed By: #### [id number] #### [facility] [address] [place], [place] [address]Sxtbaqv [Mass/Vol]9.9 mg/dLNormal8.9-11.1FLicking Memorial HospitalComment on above:Performed By: #### [id number] #### [facility] [address], [place] [address]Ramnufjl [Moles/Vol]112 mmol/VLidz509-983NihcgiCincinnati Shriners HospitalComment on above:Performed By: #### [id number] #### [facility] [address], [place] [address]ON2 [Moles/Vol]22 mmol/FYmpehc81-55HqizlbCincinnati Shriners Hospital Comment on above:Performed By: #### [id number] #### [facility] [address], [place] [address]Wmxlxrxksz [Mass/Vol]0.9 mg/dLNormal0.5-1.3FLicking Memorial HospitalComment on above:Performed By: #### [id number] #### [facility] [address], [place] [address]Jmflejj [Mass/Vol]94 mg/cQIrqadf55-370OcgvqrCincinnati Shriners HospitalComment on above:Performed By: #### [id number] #### [facility] [address], [place] [address]Mqaabodyc [Moles/Vol]3.7 mmol/LNormal3.5-5.3FLicking Memorial HospitalComment on above:Performed By: #### [id number] #### [facility] [address], [place] [address]Warlhn [Moles/Vol]146 mmol/JZlmm899-921OtfyfyCincinnati Shriners HospitalComment on above:Performed By: #### [id number] #### [facility] [address], [place] [address]Skch nitrogen [Mass/Vol]34 mg/dLHigh5-21C[facility]innati Shriners HospitalComment on above:Performed By: #### [id number] #### [facility] [address] [place] [address]Expu nitrogen/Creatinine [Mass ratio]38 No FcubkUjrs30-31ZavtmsCincinnati Shriners HospitalComment on above:Performed By: #### [id number] #### [facility] [address] [place] [address]IBL w/ Auto Diffon 76-04-5782Yrcysglsi/100 WBC (Bld)0.8 %Normal 0.0-2.0C[facility] Shriners HospitalComment on above:Performed By: #### [id number] #### [facility] [address] [place] [address]Farywggto/Leukocytes Auto (Bld) [Pure # fraction]0.1 E9/LNormal 0.0-0.2FLicking Memorial HospitalComment on above:Performed By: #### [id number] #### [facility] [address] [place] [address]Hslntbwbuvl (Bld) [#/Vol]0.0 E9/LNormal0.0-0.5FLicking Memorial HospitalComment on above:Performed By: #### [id number] #### [facility] [address] [place] [address]Brnkdibhyxc/100 WBC (Bld)0.3 %Normal0.0-8.0C[facility] Shriners HospitalComment on above:Performed By: #### [id number] #### [facility] [address] [place] [address]Fwebnhjjnmt distribution width (RBC) [Ratio]14.0 %Normal 10.9-14.2FLicking Memorial HospitalComment on above:Performed By: #### [id number] #### [facility] [address] [place] [address]Rqwsuwqbox (Bld) [Volume fraction]49.1 %High37.7-49.0C[facility] Shriners HospitalComment on above:Performed By: #### [id number] #### [facility] [address] [place] [address]Olrrglpadq (Bld) [Mass/Vol]17.0 g/lEUnyplb61.5-17.5FLicking Memorial HospitalComment on above:Performed By: #### [id number] #### [facility] [address] [place] [address]Pralnwekxgn (Bld) [#/Vol]3.4 E9/LNormal1.0-4.0C[facility] Shriners HospitalComment on above:Performed By: #### [id number] #### [facility] [address] [place] [address]Yroeeewuvha/100 WBC (Bld)32.9 %Berwyt94.0-50.0C[facility] Shriners HospitalComment on above:Performed By: #### [id number] #### [facility] [address] [place] [address]WAA (RBC) [Entitic mass]32.4 zdXkknbv15.0-34.0C[facility] Shriners HospitalComment on above:Performed By: #### [id number] #### [facility] [address] [place] [address]TLWY (RBC) [Mass/Vol]34.6 g/kKNmkkct65.4-36.0C[facility] Shriners HospitalComment on above:Performed By: #### [id number] #### [facility] [address] [place] [address]NIA (RBC) [Entitic vol]93.6 tXJnlfoa27.0-100.0C[facility] Shriners HospitalComment on above:Performed By: #### [id number] #### [facility] [address] [place] [address]Kbdphonba (Bld) [#/Vol]0.9 E9/LNormal0.2-1.0C[facility] Shriners HospitalComment on above:Performed By: #### [id number] #### [facility] [address] [place] [address]Zwxawhpvphc (Bld) [#/Vol]6.0 E9/LNormal2.0-7.5FLicking Memorial HospitalComment on above:Performed By: #### [id number] #### [facility] [address] [place] [address]Slsmqwisfzo/100 WBC (Bld)57.5 %Qavkmd39.0-75.0C[facility] Shriners HospitalComment on above:Performed By: #### [id number] #### [facility] [address] [place] [address]Phcvjvir mean volume (Bld) [Entitic vol]9.3 fLNormal6.4-10.8 [facility]riners HospitalComment on above:Performed By: #### [id number] #### [facility] [address] [place] [address]Daulysllh (Bld) [#/Vol]284.0 E9/AAxnfai047.0-500.0C[facility] Shriners HospitalComment on above:Performed By: #### [id number] #### [facility] [address] [place] [address]SMX (Bld) [#/Vol]5.2 E12/LNormal4.3-5.9C[facility] Shriners HospitalComment on above:Performed By: #### [id number] #### [facility] [address] [place] [address]JDH corrected for nucl RBC Auto (Bld) [#/Vol]10.5 E9/LNormal 4.0-11.0C[facility] Shriners HospitalComment on above:Performed By: #### [id number] #### [facility] [address] [place] [address]UZZIMTYLTOchcwqc By: Aleena Roger on 61-50-9610Ualwkjw [Mass/Vol]92 mg/nDXiurkh43 - 99 mg/dLGRE[facility] PLAINS [facility] [place] POC SubsectionPOC UsernameSTORY, CASSIDYInvalid Interpretation CodeGREAT [facility]INS [facility] [place] POC SubsectionSodium [Moles/Vol] [id number] mmol/LInvalid Interpretation CodeGRE[facility]INS [facility] [place] POC SubsectionSodium [Moles/Vol][id number] mmol/LInvalid Interpretation CodeGRE[facility]INS [facility] [place] POC Subsection CHEMISTRYOrdered By: SYSTEM SYSTEM on [id number] [Mass/Vol]4.7 g/dLNormal 3.3 - 5.0 gm/dLRemisol ChemAlbumin/Globulin [Mass ratio]1.1 {ratio}Normal1.1 - 2.2Remisol ChemALP [Catalytic activity/Vol]62 [iU]/qRyvkha54 - 98 Int._Unit/L Remisol ChemALT No additional P-5'-P [Catalytic activity/Vol]34 [iU]/dNormal6 - 46 Int._Unit/LRemisol ChemAST [Catalytic activity/Vol]37 [iU]/dNormal5 - 43 Int._Unit/LRemisol ChemBilirubin [Mass/Vol]1.0 mg/dLNormal0.0 - 1.1 mg/dLRemisol ChemBilirubin.direct [Mass/Vol]0.2 mg/dLNormal0.0 - 0.4 mg/dLRemisol Chem Bilirubin.indirect [Mass or moles/Vol]0.8 mg/dLNormal0.1 - 0.9 mg/dLRemisol Chem Calcium [Mass/Vol]9.9 mg/dLNormal8.9 - 11.1 mg/dLRemisol ChemCreatinine [Mass/Vol]0.9 mg/dLNormal0.5 - 1.3 mg/dLRemisol VoiwiUSV06 mL/min/1.73 l4Bqoeka >=59mL/min/1.73 k3Cgoxqlq ChemGlobulin (S) [Mass/Vol]4.2 g/dLHigh1.4 - 4.0 gm/dL Remisol ChemGlucose [Mass/Vol]94 mg/dQKsxwet39 - 199 mg/dLRemisol ChemProtein [Mass/Vol]8.9 g/dLHigh6.0 - 7.8 gm/dLRemisol ChemTroponin HS13.10 pg/mLLow15.90 - 38.40 pg/mLRemisol ChemComment on above:Interpretive Data: The 95% CI (Confidence Interval) PPV (Positive Predictive Value) for myocardial infarction in females is 38 pg/mL, in males 51 pg/mL. The results should be used in conjunction withclinical conditions of myocardial infarction. (Access High Sensitivity Troponin I Instructions For Use, [facility], April 2018)Urea nitrogen [Mass/Vol]34 mg/dLHigh5 - 21 mg/dLRemisol ChemUrea nitrogen/Creatinine [Mass ratio]38 mg/ufKapu75 - 20Remisol ChemCOAGULATION Ordered By: Yoon Lazaro on [id number] Coag (PPP) [Time]29.5 sNormal 25.1 - 36.5 second(s)[facility] Auto CoagComment on above:Interpretive Data: Parameter 15 days - 4 weeks 1 - 5 months 6 - 11 months 1 - 5 years 6 - 10 years 11 - 17 years PTT Mean: 35.4 (27.6-45.6) Mean: 33.5 (24.8-40.7) Mean: 32.4 (25.1-40.7) Mean: 31.6 (24.0-39.2) Mean: 31.6 (26.9-38.7) Mean: 31.0 (24.6-38.4) Pediatric Reference ranges were obtained from a study by Heriberto Clifton et al. prepared from 1437 samples obtained at 7 different centers using the same coagulation reagent and instrumentation as [facility]. Currently there are no coagulation studies available worldwide for children to 14 days, andno normal ranges. Heparin therapeutic range (represented by Anti-Factor Xa activity of 0.2 - 0.4 U/mL) corresponds to PTT of 56.6 - 109.0 sec.INR Coag (PPP) [Relative time]0.98 {INR}Invalid Interpretation CodeGREAT PLAINS [facility] [place] Auto CoagComment on above:Interpretive Data: INR results are specifically intended to assess patients stabilized on long-term Anticoagulation therapy suggested INR s Less Intensive Anticoagulation 2.0 3.0 Conventional Range 3.0 4.5PT Coag (PPP) [Time]11.0 sNormal9.4 - 12.5 second(s) [facility] Auto CoagComment on above:Interpretive Data: 15 days - 4 weeks 1 - 5 months 6 -11 months 1-5 years 6-10 years 11 -17 years Mean: 11.2 (9.5-12.6) Mean: 11.0 (9.7-12.8) Mean: 11.0 (9.8-13.0) Mean: 11.3 (9.9-13.4) Mean: 11.7 (10.0-14.6) Mean: 11.8 (10.0 - 14.1) Pediatric Reference ranges were obtained from a study by Heriberto Clifton et al. prepared from 1437 samples obtained at 7 different centers using the same coagulation reagent and instrumentation as [facility]. Currently there are no coagulation studies available worldwide for children to 14 days, andno normal ranges.CT Head or Brain w/o Contraston [id number] Head or Brain w/o ContrastExam Date/Time: 12/22/2024 14:22 EDT Reason for Exam: Mental status change, unknown cause;Altered mental status Report IMPRESSION: NO ACUTE INTRACRANIAL PROCESS. EXAMINATION: CT of the brain without contrast HISTORY: Altered mental status COMPARISON: CT brain 07/27/2020 TECHNIQUE: Multiple axial images were obtained of the brain from the skull base through the vertex. Multiplanar reformats were obtained. FINDINGS: Prominence of the sulci and ventricles compatible with mild generalized parenchymal volume loss. Wilkerson-white matter differentiation is preserved. Areas of bilateral supratentorial white matter hypoattenuation are nonspecific but most likely due to chronic small vessel ischemic changes in a patient of this age. No acute hemorrhage or abnormal extra-axial fluid collection. Basal cisterns are patent. No mass effect or midline shift. The visualized paranasal sinuses and mastoid air cells are clear. Calvarium is intact. All CT scans at this facility use dose modulation, iterative reconstruction, and/or weight based dosing when appropriate to reduce radiation dose to as low as reasonably achievable. Ordering Provider: Rory Shen FINAL REPORT Dictated: 12/22/2024 2:33 pm Russell Post DO Signed (Electronic Signature): 12/22/2024 2:33 pm Signed by: Russell Post DO Transcribed by: GABI Technologist: Manuela Brand[facility] CenterCapillary Glucose POCon [id number] [Mass/Vol]92 mg/lQOpqoqi33-57IjgtonCincinnati Shriners HospitalComment on above:Performed By: #### [id number] #### [facility] [address], [place] [address]XS Clinical Summaryon [id number] Clinical SummaryED Clinical Summary [address] [address] ED Clinical Summary Person Information Name: [address] Eve/[facility] Age: 74 Years : 1950 Sex: Male Language: Mohawk PCP: Calvin Oshea DO Marital Status: Single Visit Id: Visit Reason: Medical problem - minor; Diarrhea; Weakness or fatigue; WEAKNESS Speciality: Acuity: 3 Enc Type: Inpatient Med Service: Medical Arrival: 12/22/2024 13:20:46 Discharge: LOS: 000 05:00 Checkin: 12/22/2024 13:20:46 Checkout: 12/22/2024 18:20:56 Dispo Type: Admitted as IP to this [facility] EVENTS: Event Name Event Status Request Date/Time Start Date/Time Complete Date/Time Arrive Complete 12/22/2024 13:20:46 12/22/2024 13:20:46 12/22/2024 13:20:46 Document Home Meds Request 12/22/2024 13:20:46 Triage Complete 12/22/2024 13:20:46 12/22/2024 13:27:14 12/22/2024 13:27:14 Bed Assign Complete 12/22/2024 13:21:41 12/22/2024 13:21:41 12/22/2024 13:21:41 Dr Exam Complete 12/22/2024 13:21:41 12/22/2024 13:22:45 12/22/2024 13:22:45 RN Exam Complete 12/22/2024 13:21:41 12/22/2024 13:38:26 12/22/2024 13:38:26 Registration Complete 12/22/2024 13:22:45 12/22/2024 14:16:23 12/22/2024 14:16:23 EKG Complete 12/22/2024 13:25:52 12/22/2024 13:32:56 Fall Risk Request 12/22/2024 13:38:26 CT Complete 12/22/2024 13:45:04 12/22/2024 14:08:32 12/22/2024 14:22:01 X-Ray Complete 12/22/2024 13:45:04 12/22/2024 14:09:23 12/22/2024 14:26:35 Meds Admin Complete 12/22/2024 13:45:04 12/22/2024 13:59:57 Pending Labs Collected 12/22/2024 13:45:04 Lab Complete 12/22/2024 13:45:04 12/22/2024 15:51:00 RT Request 12/22/2024 13:45:04 Pending Labs Request 12/22/2024 13:45:21 Meds Admin Complete 12/22/2024 13:45:37 12/22/2024 13:57:06 Pending Labs Cancel 12/22/2024 13:45:50 12/22/2024 13:59:47 Lab Cancel 12/22/2024 13:45:50 12/22/2024 13:59:47 Dr Exam Complete 12/22/2024 13:51:15 12/22/2024 13:51:15 12/22/2024 13:51:15 Pending Labs Complete 12/22/2024 13:57:36 12/22/2024 13:57:36 12/22/2024 15:18:44 Lab Complete 12/22/2024 13:57:36 12/22/2024 13:57:36 12/22/2024 15:18:44 Pending Labs Complete 12/22/2024 14:06:02 12/22/2024 14:06:02 12/22/2024 14:06:02 Reg Complete Request 12/22/2024 14:16:23 Reg Bed Request Complete 12/22/2024 14:16:23 12/22/2024 14:16:23 12/22/2024 14:16:23 Wet Read Request 12/22/2024 14:26:35 Pending Labs Complete 12/22/2024 14:29:06 12/22/2024 14:29:06 12/22/2024 14:29:07 Meds Admin Request 12/22/2024 15:59:35 Consult Request 12/22/2024 15:59:53 Hospitalist Consult Request 12/22/2024 15:59:53 Patient Care Request 12/22/2024 17:05:50 Pending Labs Request 12/22/2024 17:05:50 Lab Request 12/22/2024 17:05:50 Meds Admin Request 12/22/2024 17:05:50 RT Request 12/22/2024 17:05:50 RT Tx/ABG Request 12/22/2024 17:05:50 Meds Admin Request 12/22/2024 17:15:20 Patient Care Request 12/22/2024 17:15:20 Meds Admin Request 12/22/2024 17:25:02 Admit Request 12/22/2024 17:26:00 Patient Care Request 12/22/2024 17:26:02 Patient Care Request 12/22/2024 17:26:02 Patient Care Request 12/22/2024 17:26:03 Patient Care Request 12/22/2024 17:26:03 Medicare Form Complete 12/22/2024 17:26:04 12/22/2024 18:01:58 Patient Care Request 12/22/2024 17:26:04 Patient Care Request 12/22/2024 17:26:04 ADDRESS: [address] [place] [id number] PHYS DOC NOTES: MEDICAL INFORMATION: Prescriptions Given: Medications to Continue with No Changes Other Medications atorvastatin (atorvastatin 10 mg Tab) 10 Milligram By Mouth every day. Refills: 4. divalproex sodium (divalproex sodium 250 mg Oral EC Tab) 2 Tablets By Mouth every day. donepezil (donepezil 10 mg Tab) 1 Tablets By Mouth once a day (at bedtime). duloxetine (duloxetine 60 mg oral delayed release capsule) 1 Capsules By Mouth every day. Refills: 1. ibuprofen (ibuprofen 800 mg Tab) 1 Tablets By Mouth every 6 hours. levothyroxine (levothyroxine 100 mcg (0.1 mg) Tab) 1 Tablets By Mouth every day. TAKE 1 TABLET BY MOUTH EVERY DAY IN THE MORNING ON EMPTY STOMACH. Refills: 4. lisinopril 20 Milligram. metoprolol (metoprolol succinate 25 mg ER Tab) 1 Tablets By Mouth every day. Refills: 0. sertraline (sertraline 100 mg Tab) 1 and a half pills daily. Refills: 0. PATIENT EDUCATION INFORMATION: Instructions: Follow up: DIAGNOSIS: 1:Diarrhea; 2:Dehydration; 3:Hypernatremia; 4:Hyperchloremia; 5:Generalized weakness; 6:Total self-care deficit; 7:HTN (hypertension); 8:HLD (hyperlipidemia); 9:Seizure disorder; 10:Hypothyroidism inadult; 11:Dementia; 12:History of CVA in adulthood; 13:History of traumatic brain injury; 14:On deep vein thrombosis (DVT) prophylaxisJoint Township District Memorial Hospital CenterED Note-Physicianon [id number] Note-PhysicianED Note-Physician Basic Information Time Seen: Rory Shen PA-C 12/22/2024 13:22 Chief Complaint Per EMS patient had a fall last week with multiple episodes of diarrhea, pt was admitted to a different hospital two days ago. Per daughter patient has experienced increased weakness. PEr daughter, family concern for C. Diff. History of Present Illness Patient is a 74-year-old male with PMH of absence seizure's, history of CVA in adulthood, history of traumatic brain injury, hyperlipidemia that presents via EMS for evaluation of generalized weakness and diarrhea. Per patient and his daughter and patient has been to the [place] ER at 2 separate times over the last week. He has had generalized weakness at this time. Had negative workups. His first presentation he did have a fall while at his neurology appointment and sustained a laceration just above the left eyebrow. He is having progressive worsening diarrhea and generalized weakness.He is short of breath especially when he is walking. He lives with his who is unable to care for him. His family is concerned that they are unable to take care of him at this time given of how sick he is. He does not have any abdominal pain. He is not been vomiting but he does have nausea. Denies any chest pain. Denies any neurologic symptoms. No recent antibiotic use or travel. Family is concerned about C. difficile. They do note that he has had multiple falls over this week as well. Review of Systems No other aggravating or relieving factors no other associated symptoms no other prior treatments orcomplaints. Family: Reviewed and noncontributory Social: lives at home Review of systems negative unless otherwise specified in the HPI. Physical Exam Vitals & Measurements T: 36.6 ???C(Oral) HR: 93(Peripheral) RR: 19 BP: 141/104 SpO2: 97% HT: 185.42 cm WT: 88.1 kg BMI: 25.62 General: The patient appears tired and weak but in no acute apparent distress. Skin: Warm, dry, no pallor noted. Head: Normocephalic, atraumatic Neck: No JVD Eye: PERRLA, EOMI ENT: Moist mucus membranes Cardiovascular: Regular rate and rhythm. Normal peripheral perfusion Respiratory: CTA bilaterally. No respiratory distress no accessory muscle use no obvious audible wheezing Chest Wall: no deformity Musculoskeletal: normal ROM, no deformity, no swelling GI: Soft no obvious distention. No rebound or rigidity. No guarding. No tenderness. Neurological: A&O moves all extremities equal strength and symmetry Psychiatric: Cooperative and appropriate Procedure [] Patient has one or more of the following conditions that are excluded from the measure (select all that apply): [] Patient has ventricular shunt [] Patient has brain tumor [] Patient is [] Patient has multi-system trauma [] Patient taking an antiplatelet medication (excluding aspirin) [] Head CT not ordered by emergency child care counselor [] Head CT ordered for reasons other than trauma [] Patient is 18 or older, presenting with minor blunt head trauma. Head CT (including cosigned orders) was ordered by an emergency child care counselor for trauma because (select one or more):[SATISFIES MIPS PERFORMANCE]Reasons: [x] Patient is 65 or older [] Patient GCS < 15 [] Patient has focal neurologic deficit [] Patient has severe headache [] Patient is vomiting [] Severe/dangerousmechanism of injury was identified(select one or more): []MVA with: patient ejection, of another passenger, rollover, speed > 40mph, airbag deployment, roll off driver or passenger on ATV or motorcycle [] pedestrian or bicyclist without helmet: struck my motorized vehicle, in bicycle crash [] fall > 3 feet or 5 stairs [] head struck by high-impact object (hammer, baseball, baseball bat, heavy object such as falling brick) [] Other: [] (ie. assault description) [] Patient has physical signs of basilar skull fracture present (including hemotympanum, raccoon eyes, CSF leakage from ear or nose, Puri's sign) [x] Patient suspected of taking anticoagulant medication [] Patient has thrombocytopenia [] Patient has coagulopathy [] Patient has loss of consciousness and (must select one of the following): []Headache []Short term memory deficit []Alcohol/drug intoxication []Evidence of trauma above the clavicles []Age 60 or older [] Post-traumatic seizure [] Patient has post-traumatic amnesia and (must select one of the following): []Headache []Short term memory deficit []Alcohol/drug intoxication []Evidence of trauma above the clavicles []Age 60 or older [] Post-traumatic seizure [] Patient is 18 or older, presenting with minor blunt head trauma. Head CT (including cosigned orders) was ordered by an emergency child care counselor for trauma, no indication specified.[DOES NOT SATISFY MIPS PERFORMANCE] Medical Decision Making Patient is a 74-year-old male with PMH of absence seizure's, history of CVA in adulthood, history of traumatic brain injury, hyperlipi (more content not included)...[facility] HospitalComment on above:Result Comment: Electronically Signed By: Rory Shen PA-C\.br\Date and Time Signed: 12/23/2515:42 EDT\.br\Electronically Co-Signed By: Geni Jones M.D.\.br\Date and Time Co-Signed: 12/22/24 17:02 EDTED Patient Education Noteon [id number] Patient Education NoteED Patient Education NoteNoC[facility] Clinic [facility] Patient Summaryon [id number] Patient SummaryED Patient Summary [address] [address] Patient Discharge Instructions Person Information Name: DAVID L[address] Age: 74 Years Arrival Date: 12/22/2024 13:20:46 Discharge Diagnosis: 1:Diarrhea; 2:Dehydration; 3:Hypernatremia; 4:Hyperchloremia; 5:Generalized weakness; 6:Total self-care deficit; 7:HTN (hypertension); 8:HLD (hyperlipidemia); 9:Seizure disorder;10:Hypothyroidism in adult; 11:Dementia; 12:History of CVA in adulthood; 13:History of traumatic bra in injury; 14:On deep vein thrombosis (DVT) prophylaxis Primary Care Physician: Calvin Oshea DO Provider Information Primary Provider: Geni Jones M.D. Advanced Mine Geologist:Rory Shen PA-C The exam and treatment you received in the Emergency Department were for an urgent problem and are not intended as complete care. It is important that you follow up with a doctor, nurse practitioner,or physician???s educational program assistant for ongoing care. If your symptoms become worse or you do not improve asexpected and you are unable to reach your usual health care provider, you should return to the Emergency Department. We are available 24 hours a day. [address] has been given the following list of patient education materials, prescriptions and follow-up instructions: Follow-up Instructions: In the event that this physician does not participate in your insurance network, please consult with your insurance company to find a nearby participating provider. Patient Education Materials: A MESSAGE TO ALL PATIENTS REGARDING OPIOIDS PRESCRIPTION OPIOIDS: WHAT YOU NEED TO KNOW Prescription opioids can be used to help relieve mvdgdqfu-py-caydlk pain and are often prescribed following a surgery or injury, or for certain health conditions. These medications can be an important part of the treatment but also come with serious risks. It is important to work with your healthcare provider to make sure you are getting the safest, most effective care. WHAT ARE THE RISKS AND SIDE EFFECTS OF OPIOID USE? Prescription opioids carry serious risks of addiction and overdose, especially with prolonged use. An opioid overdose, often marked by slowed breathing, can cause sudden . The use of prescription opioids can have a number of side effects as well, even when taken as directed: ??? Tolerance???meaning you might need to take more of the medication for the same pain relief ??? Physical dependence???meaning you have symptoms of withdrawal when a medication is stopped ??? Increased sensitivity to pain ??? Constipation ??? Nausea, vomiting, and dry mouth ??? Sleepiness and dizziness ??? Confusion ??? Depression ??? Low levels of testosterone that can result in lower sex drive, energy, and strength ??? Itching and sweating RISKS ARE GREATER WITH: ??? History of drug misuse, substance use disorder, or overdose ??? Mental health conditions (such as depression or anxiety) ??? Sleep apnea ??? Older age (65 years and older) ??? Avoid alcohol while taking prescription opioids. Also, unless specifically advised by your health care provider, medications to avoid include: ??? Benzodiazepines (such as Xanax or Valium) ??? Muscle relaxants (such as Soma or Flexeril) ??? Hypnotics (such as Ambien or Lunesta) ??? Other prescription opioids KNOW YOUR OPTIONS Talk to your health care provider about ways to manage your pain that don???t involve prescription opioids. Some of these options may actually work better and have fewer risks and side effects. Options may include: ??? Pain relievers such as acetaminophen, ibuprofen, and naproxen ??? Some medication that are also used for depression or seizures ??? Physical therapy and exercise ??? Cognitive behavioral therapy, a psychological, goal-directed approach, in which patients learn how to modify physical, behavioral, and emotional triggers of pain and stress. IF YOU ARE PRESCRIBED OPIOIDS FOR PAIN: ??? Never take opioids in greater amounts or more often than prescribed. ??? Follow up with your primary health care provider. o Work together to create a plan on how to manage your pain. o Talk about ways to help manage your pain that don???t involve prescription opioids. o Talk about any and all concerns and side effects. ??? Help prevent misuse and abuse o Never sell or share prescription opioids. o Never use another person???s prescription opioids. ??? Store prescription opioids in a secure place and out of reach of others (this may include visitors, children, friends, and family). ??? Safely dispose of unused prescription opioids: Find your community drug take-back program or your pharmacy mail-back program, or flush them down the toilet, following guidance from the Food and Drug Administration (www.fda.gov/Drugs/ResourcesForYou). ??? Visit www.cdc (more content not included)...[facility] HospitalHEMATOLOGYOrdered By: SYSTEM SYSTEM on [id number]/100 WBC (Bld) 0.8 %Normal0.0 - 2.0 %Remisol HemeBasophils/Leukocytes Auto (Bld) [Pure # fraction]0.1 E9/LNormal0.0 - 0.2 E9/LRemisol HemeEosinophils (Bld) [#/Vol]0.0 E9/LNormal0.0 - 0.5 E9/LRemisol HemeEosinophils/100 WBC (Bld)0.3 %Normal0.0 - 8.0 %Remisol HemeErythrocyte distribution width (RBC) [Ratio]14.0 %Uxbmtv68.9 - 14.2 %Remisol HemeHematocrit (Bld) [Volume fraction]49.1 %High37.7 - 49.0 % Remisol HemeHemoglobin (Bld) [Mass/Vol]17.0 g/aVOtlcef52.5 - 17.5 gm/dLRemisol HemeLymphocytes (Bld) [#/Vol]3.4 E9/LNormal1.0 - 4.0 E9/LRemisol Heme Lymphocytes/100 WBC (Bld)32.9 %Nosbpk56.0 - 50.0 %Remisol HemeMCH (RBC) [Entitic mass]32.4 epZlptma66.0 - 34.0 pgRemisol HemeMCHC (RBC) [Mass/Vol]34.6 g/dL Itwaji01.4 - 36.0 gm/dLRemisol HemeMCV (RBC) [Entitic vol]93.6 dEPeeapo01.0 - 100.0 fLRemisol HemeMonocytes (Bld) [#/Vol]0.9 E9/LNormal0.2 - 1.0 E9/LRemisol HemeMonocytes/100 WBC (Bld)8.5 %Normal4.0 - 14.0 %Remisol HemeNeutrophils (Bld) [#/Vol]6.0 E9/LNormal2.0 - 7.5 E9/LRemisol HemeNeutrophils/100 WBC (Bld)57.5 % Daiarq12.0 - 75.0 %Remisol HemePlatelet mean volume (Bld) [Entitic vol]9.3 fL Normal6.4 - 10.8 fLRemisol HemePlatelets (Bld) [#/Vol]284.0 E9/ZEthnwx664.0 - 500.0 E9/LRemisol HemeRBC (Bld) [#/Vol]5.2 E12/LNormal4.3 - 5.9 E12/LRemisol HemeWBC corrected for nucl RBC Auto (Bld) [#/Vol]10.5 E9/LNormal4.0 - 11.0 E9/L Remisol HemeHep Func Panelon 65-12-3452Xgernjw [Mass/Vol]4.7 g/dLNormal3.3-5.0 [facility] HospitalComment on above:Performed By: #### [id number] #### [facility] [address], [place] [address]Zxjklzk/Globulin (S) [Mass conc ratio]1.0Uszayh1.1-2.2FLicking Memorial HospitalComment on above:Performed By: #### [id number] #### [facility] [address], [place] [address]MAR [Catalytic activity/Vol]62 Int._Unit/PWqfgxs37-08LowevjCincinnati Shriners HospitalComment on above:Performed By: #### [id number] #### [facility] [address], [place] [address]CKT No additional P-5'-P [Catalytic activity/Vol]34 Int._Unit/L Normal6-46[facility]ers HospitalComment on above:Performed By: #### [id number] #### [facility] [address], [place] [address]ZXB [Catalytic activity/Vol]37 Int._Unit/LNormal5-43[facility]ers HospitalComment on above:Performed By: #### [id number] #### [facility] [address], [place] [address]Scaazcovh [Mass/Vol]1.0 mg/dLNormal0.0-1.1FLicking Memorial HospitalComment on above:Performed By: #### [id number] #### [facility] [address], [place] [address]Ngnxtwrhr.direct [Mass/Vol]0.2 mg/dLNormal0.0-0.4FLicking Memorial HospitalComment on above:Performed By: #### [id number] #### [facility] [address], [place] [address]Tdovkykpu.indirect [Mass or moles/Vol]0.8 mg/dLNormal0.1-0.9 [facility] HospitalComment on above:Performed By: #### [id number] #### [facility] [address], [place] [address]Zccdknoo (S) [Mass/Vol]4.2 g/dLHigh1.4-4.0[facility]ers HospitalComment on above:Performed By: #### [id number] #### [facility] [address] [place] [address]Extbncq [Mass/Vol]8.9 g/dLHigh6.0-7.8[facility]ers HospitalComment on above:Performed By: #### [id number] #### [facility] [address], [place] [address]IL & PTTon 48-58-4544aDFA Coag (PPP) [Time]29.5 second(s)Normal 25.1-36.5FLicking Memorial HospitalComment on above:Result Comment: Parameter 15 days - 4 weeks 1 - 5 months 6 - 11 months 1 - 5 years 6 - 10 years 11 - 17 years PTT Mean: 35.4 (27.6-45.6) Mean: 33.5 (24.8-40.7) Mean: 32.4 (25.1-40.7) Mean: 31.6 (24.0-39.2) Mean: 31.6 (26.9-38.7) Mean: 31.0 (24.6-38.4) Pediatric Reference ranges were obtained from a study by Heriberto Clifton et al. prepared from 1437 samples obtained at 7 different centers using the same coagulation reagent and instrumentation as [facility]. Currently there are no coagulation studies available worldwide for children to 14 days, andno normal ranges. Heparin therapeutic range (represented by Anti-Factor Xa activity of 0.2 - 0.4 U/mL) corresponds to PTT of 56.6 - 109.0 sec.Performed By: #### [id number] #### [facility] [address], [place] [address]ZAM Coag (PPP) [Relative time]0.98 {INR}Invalid Interpretation CodeFisher Brandenburg CenterComment on above:Result Comment: INR results are specifically intended to assess patients stabilized on long-term Anticoagulation therapy suggested INR???s ???Less Intensive Anticoagulation??? 2.0 ??? 3.0 Conventional Range 3.0 ??? 4.5Performed By: #### [id number] #### [facility] [address], [place] [address]KG Coag (PPP) [Time]11.0 second(s)Normal9.4-12.5Fisher Brandenburg CenterComment on above:Result Comment: 15 days - 4 weeks 1 - 5 months 6 -11 months 1-5 years 6-10 years 11 -17 years Mean: 11.2 (9.5-12.6) Mean: 11.0 (9.7-12.8) Mean: 11.0 (9.8-13.0) Mean: 11.3 (9.9-13.4) Mean: 11.7 (10.0-14.6) Mean: 11.8 (10.0 - 14.1) Pediatric Reference ranges were obtained from a study by Heriberto Clifton et al. prepared from 1437 samples obtained at 7 different centers using the same coagulation reagent and instrumentation as [facility]. Currently there are no coagulation studies available worldwide for children to 14 days, andno normal ranges.Performed By: #### [id number] #### [facility] [address], [place] [address]Ghq-Dyygext Noteon 18-70-3399Nnn-Arrival NotePre-Arrival Note Pre-Arrival Summary Name: [facility] Current Date: 12/22/2024 13:22:53 EDT Gender: Male Date of : Age: 74 Pre-Arrival Type: EMS ETA: 12/22/2024 13:28:00 EDT Primary Care Physician: Presenting Problem: weakness Pre-Arrival User: Dulce Gupta RN Referring Source: Location: [place] Completion Date/Time: 12/22/2024 12:59:00 [facility] Emergency Department Pre-Hospital Report Form Vital Signs: 148/95 85 18 95 RA Pre-Hospital Report: weakness with possible CDIFF Treatment in Route: FSBS 139 Response to Treatment: Misc. Issues:NormalCincinnati Shriners HospitalTroponin 0 Hr.on 12-22-2024 Troponin HS13.10 pg/mLLow15.90-38.40C[facility]ers HospitalComment on above: Result Comment: The 95% CI (Confidence Interval) PPV (Positive Predictive Value) for myocardial infarction in females is 38 pg/mL, in males 51 pg/mL. The results should be used in conjunction with clinical conditions of myocardial infarction. (Access High Sensitivity Troponin I Instructions For Use, [facility], April 2018)Performed By: #### [id number] #### [facility] [address], [place] [address]RZ with Cult Rflxon 03-62-0944Whxrerlql Ql (U)NegativeNormal NegativeCincinnati Shriners HospitalComment on above:Performed By: #### [id number] #### [facility] [address], [place] [address]Tsutqug (U)ClearNormalClearCincinnati Shriners HospitalComment on above:Performed By: #### [id number] #### [facility] [address], [place] [address]Ehftn (U)YellowNormalYellowCincinnati Shriners HospitalComment on above:Result Comment: Microscopic readings are only performed on those samples that meet specific criteria set forth by [facility].Performed By: #### [id number] #### [facility] [address], [place] [address]Blrsvcm Ql (U)NegativeNormalNegSelect Medical TriHealth Rehabilitation Hospital Comment on above:Performed By: #### [id number] #### [facility] [address], [place] [address]Vyvwgvzohv Auto test strip (U) [Mass/Vol]1+ mg/dLAbnormal NegativeCincinnati Shriners HospitalComment on above:Performed By: #### [id number] #### [facility] [address], [place] [address]Qvoiyke Auto test strip Ql (U)NegativeNormalNegativeCincinnati Shriners HospitalComment on above:Performed By: #### [id number] #### [facility] [address], [place] [address]Hkedvxyqw esterase Auto test strip Ql (U)NegativeNormalNegative [facility] HospitalComment on above:Performed By: #### [id number] #### [facility] [address], [place] [address]Ectsc Auto Ql (U)TraceNormalNegSelect Medical TriHealth Rehabilitation Hospital Comment on above:Performed By: #### [id number] #### [facility] [address], [place] [address]Fzrfrqz Auto test strip Ql (U)NegativeNormalNegativeCincinnati Shriners HospitalComment on above:Performed By: #### [id number] #### [facility] [address], [place] [address]zO (U)6.0 [pH]Invalid Interpretation Code5.0-9.0C[facility]ers HospitalComment on above:Performed By: #### [id number] #### [facility] [address], [place] [address]Ktnmrpj Ql (U)1+ mg/dLAbnormalNegSelect Medical TriHealth Rehabilitation HospitalComment on above:Performed By: #### [id number] #### [facility] [address] [place] [address]ODN Ql (U)47-45Hkjnqwpb3-3DptpdnLicking Memorial HospitalComment on above:Performed By: #### [id number] #### [facility] [address] [place] [address]Iwvyxoei gravity (U) [Rel density]1.030Invalid Interpretation Code1.005-1.030C[facility]ers HospitalComment on above:Performed By: #### [id number] #### [facility] [address] [place] [address]Gofkdxnopuql (U) [Mass/Vol]NegativeNormalNegativeCincinnati Shriners HospitalComment on above:Performed By: #### [id number] #### [facility] [address] [place] [address]VDI Auto (Urine sed) [#/Area]1-4Lqbpcm7-8DjvglkLicking Memorial HospitalComment on above:Performed By: #### [id number] #### [facility] [address] [place] [address]Chjk of Urine collection methodChillicothe VA Medical CenterComment on above:Performed By: #### [id number] #### [facility] [address] [place] [address]Ybip of Urine collection methodKettering Health Springfieldan [facility] Hospital Medical CenterComment on above:Performed By: #### [id number] #### [facility] [address] [place] [address]UBBBWWNHCSBpvcxnr By: SYSTEM SYSTEM on 78-77-5184Zjaiavdxv Ql (U)NegativeNormalNegativemg/dLFT UA Auto SSClarity (U)Clear (12/22/24 6:19 PM)NormalClearFTM UA Auto SSColor (U)Yellow 2 (12/22/24 6:19 PM)NormalYellowGREAT PLAINS [facility] [place] UA Auto SSComment on above:Interpretive Data: Microscopic readings are only performed on those samples that meet specific criteria set forth by [facility].Glucose Ql (U) NegativeNormalNegativemg/dLGRE[facility] PLAINS [facility] UA Auto SSHemoglobin Auto test strip (U) [Mass/Vol]1+ mg/dLInvalid Interpretation CodeNegativemg/dLGREAT PLAINS [facility] [place] UA Auto SSKetones Auto test strip Ql (U)NegativeNormalNegativemg/dLGREAT [facility]INS [facility] [place] UA Auto SSLeukocyte esterase Auto test strip Ql (U)NegativeNormalNegativeLeu/uLGREAT PLAINS [facility] [place] [facility] UA Auto SSMucus Auto Ql (U)Trace graded/LPFNormalNegativegraded/LPFFTMC UA Auto SSNitrite Auto test strip Ql (U)NegativeNormalNegativemg/dLGREAT PLAINS [facility] [place] [facility] UA Auto SSpH (U)6.0 *NA* (12/22/24 6:19 PM)Invalid Interpretation Code5.0 - 9.0[facility] UA Auto SSProtein Ql (U)1+ mg/dLInvalid Interpretation CodeNegativemg/dLGREAT PLAINS [facility] [place] UA Auto SSRBC Ql (U)31- 75 graded/HPFInvalid Interpretation Code0-3graded/HPFGREAT PLAINS [facility] [place] UA Auto SSSpecific gravity (U) [Rel density]1.030 *NA* (12/22/24 6:19 PM)Invalid Interpretation Code1.005 - 1.030[facility] UA Auto SS Urobilinogen (U) [Mass/Vol]NegativeNormalNegativemg/dLGREAT PLAINS [facility] [place] UA Auto SSWBC Auto (Urine sed) [#/Area]0-5 graded/HPFNormal0-5graded/HPFGREAT PLAINS [facility] [place] UA Auto SSURINALYSIS Ordered By: Rory Shen on [id number] Spec DescClean Catch (12/22/24 6:19 PM)NormalGREAT PLAINS [facility] [place] UA Auto SSXR Chest Single Viewon [id number] Chest Single ViewExam Date/Time: 12/22/2024 14:26 EDT Reason for Exam: Altered Mental Status;Other (please specify) Report IMPRESSION: NO RADIOGRAPHIC EVIDENCE OF ACUTE INTRATHORACIC PROCESS. EXAM: XR Chest Single View History: Altered mental status Technique: Portable AP view of the chest. Comparison: 07/27/2020 Findings: Chronic elevation of the right hemidiaphragm. The cardiomediastinal silhouette is within normal limits. No pneumothorax, pleural effusion, or consolidation. Chronic deformity and postsurgical changes of the left clavicle. No acute osseous abnormality. Ordering Provider: Rory Shen FINAL REPORT Dictated: 12/22/2024 2:38 pm Russell Post DO Signed (Electronic Signature): 12/22/2024 2:38 pm Signed by: Russell Post DO Transcribed by: GABI Technologist: NBA,OscarCincinnati Shriners HospitaleGFRon 83-79-7244pMHY67 mL/min/1.73 x5Ujbfvp>=59C[facility]ers HospitalComment on above:Performed By: #### [id number] #### [facility] [address] [place] [address]CLB w/ Auto Diffon 01-03-6711Ccektwauf/100 WBC (Bld)0.3 %Normal 0.0-2.0[facility]ers HospitalComment on above:Performed By: #### [id number] #### [facility] [address] [place] [address]Vmfuttoim/Leukocytes Auto (Bld) [Pure # fraction]0.0 E9/LNormal 0.0-0.2FLicking Memorial HospitalComment on above:Performed By: #### [id number] #### [facility] [address] [place] [address]Jxjmfpsquzz (Bld) [#/Vol]0.0 E9/LNormal0.0-0.5FLicking Memorial HospitalComment on above:Performed By: #### [id number] #### [facility] [address] [place] [address]Yqmfallntii/100 WBC (Bld)0.2 %Normal0.0-8.0[facility]ers HospitalComment on above:Performed By: #### [id number] #### [facility] [address] [place] [address]Qfukssknzfh distribution width (RBC) [Ratio]15.6 %High10.9-14.2 [facility] HospitalComment on above:Performed By: #### [id number] #### [facility] [address] [place] [address]Gxtbkilkto (Bld) [Volume fraction]46.0 %Yllgrb89.7-49.0[facility] HospitalComment on above:Performed By: #### [id number] #### [facility] [address] [place] [address]Qkcrratgns (Bld) [Mass/Vol]15.2 g/sRObjtdk09.5-17.5FLicking Memorial HospitalComment on above:Performed By: #### [id number] #### [facility] [address] [place] [address]Cuekdkhfmph (Bld) [#/Vol]2.2 E9/LNormal1.0-4.0[facility] HospitalComment on above:Performed By: #### [id number] #### [facility] [address] [place] [address]Artcbxlorjo/100 WBC (Bld)24.0 %Fmklqn83.0-50.0[facility] HospitalComment on above:Performed By: #### [id number] #### [facility] [address] [place] [address]LLX (RBC) [Entitic mass]32.1 hfCmyrzq75.0-34.0[facility]ers HospitalComment on above:Performed By: #### [id number] #### [facility] [address] [place] [address]YDYH (RBC) [Mass/Vol]33.1 g/kXMxywpu69.4-36.0[facility] HospitalComment on above:Performed By: #### [id number] #### [facility] [address] [place] [address]RUK (RBC) [Entitic vol]97.1 jDRinbmi44.0-100.0[facility] HospitalComment on above:Performed By: #### [id number] #### [facility] [address], [place] [address]Siokmvidc (Bld) [#/Vol]0.9 E9/LNormal0.2-1.0[facility] HospitalComment on above:Performed By: #### [id number] #### [facility] [address] [place] [address]Vjrqdrzvtel (Bld) [#/Vol]5.9 E9/LNormal2.0-7.5FLicking Memorial HospitalComment on above:Performed By: #### [id number] #### [facility] [address] [place] [address]Beyphnhvoee/100 WBC (Bld)65.1 %Ffrztl76.0-75.0[facility] HospitalComment on above:Performed By: #### [id number] #### [facility] [address] [place] [address]Etwkvtff795.0 E9/SMrplbn826.0-500.0[facility] Comment on above:Performed By: #### [id number] #### [facility] [address] [place] [address]Uqdydxjx mean volume (Bld) [Entitic vol]8.9 fLNormal6.4-10.8 [facility] HospitalComment on above:Performed By: #### [id number] #### [facility] [address] [place] [address]NAC (Bld) [#/Vol]4.7 E12/LNormal4.3-5.9[facility] HospitalComment on above:Performed By: #### [id number] #### [facility] [address] [place] [address]OXW corrected for nucl RBC Auto (Bld) [#/Vol]9.0 E9/LNormal 4.0-11.0[facility] HospitalComment on above:Result Comment: Peripheral smear review performed.Performed By: #### [id number] #### [facility] [address] [place] [address]ULDfs 85-94-4154Xtsqlic [Mass/Vol]4.6 g/dLNormal3.3-5.0[facility] HospitalComment on above:Performed By: #### [id number] #### [facility] [address], [place] [address]Ppergws/Globulin (S) [Mass conc ratio]1.6Xnwwta1.1-2.2FLicking Memorial HospitalComment on above:Performed By: #### [id number] #### [facility] [address], [place] [address]DMB [Catalytic activity/Vol]60 Int._Unit/HKdgamf62-07GryipgCincinnati Shriners HospitalComment on above:Performed By: #### [id number] #### [facility] [address], [place] [address]CSV No additional P-5'-P [Catalytic activity/Vol]26 Int._Unit/L Normal6-46[facility]ers HospitalComment on above:Performed By: #### [id number] #### [facility] [address], [place] [address]Xvrdq gap [Moles/Vol]13 mmol/LNormal6-16[facility] HospitalComment on above:Performed By: #### [id number] #### [facility] [address], [place] [address]PYJ [Catalytic activity/Vol]29 Int._Unit/LNormal5-43[facility] HospitalComment on above:Performed By: #### [id number] #### [facility] [address], [place] [address]Pdwfartte [Mass/Vol]0.6 mg/dLNormal0.0-1.1FLicking Memorial HospitalComment on above:Performed By: #### [id number] #### [facility] [address], [place] [address]Fvlokuc [Mass/Vol]9.5 mg/dLNormal8.9-11.1FLicking Memorial HospitalComment on above:Performed By: #### [id number] #### [facility] [address], [place] [address]Gdmcyxkr [Moles/Vol]108 mmol/GHpsycp530-173BzgdygCincinnati Shriners HospitalComment on above:Performed By: #### [id number] #### [facility] [address], [place] [address]CU4 [Moles/Vol]27 mmol/XTxhfqq14-87OfxxnbCincinnati Shriners Hospital Comment on above:Performed By: #### [id number] #### [facility] [address], [place] [address]Xjeledielh [Mass/Vol]1.1 mg/dLNormal0.5-1.3FLicking Memorial HospitalComment on above:Performed By: #### [id number] #### [facility] [address], [place] [address]Xntkgtcq (S) [Mass/Vol]3.5 g/dLNormal1.4-4.0[facility] HospitalComment on above:Performed By: #### [id number] #### [facility] [address], [place] [address]Fllrjrm [Mass/Vol]109 mg/xJLerzqr64-984UvqqmkCincinnati Shriners HospitalComment on above:Performed By: #### [id number] #### [facility] [address], [place] [address]Tnqljfcit [Moles/Vol]4.7 mmol/LNormal3.5-5.3FLicking Memorial HospitalComment on above:Performed By: #### [id number] #### [facility] [address], [place] [address]Blufjgw [Mass/Vol]8.1 g/dLHigh6.0-7.8[facility] HospitalComment on above:Performed By: #### [id number] #### [facility] [address], [place] [address]Byxzez [Moles/Vol]143 mmol/AXxmgwx224-943ElecbrCincinnati Shriners HospitalComment on above:Performed By: #### [id number] #### [facility] [address], [place] [address]Qlha nitrogen [Mass/Vol]27 mg/dLHigh5-21C[facility] HospitalComment on above:Performed By: #### [id number] #### [facility] [address], [place] [address]Mgsh nitrogen/Creatinine [Mass ratio]24 No VwcwnBpoi36-03VmcmpkCincinnati Shriners HospitalComment on above:Performed By: #### [id number] #### [facility] [address] [place] [address]BaqN0bny 35-74-5808KzL9k (Bld) [Mass fraction]5.2 %Normal<=5.9 [facility] HospitalComment on above:Performed By: #### [id number] #### [facility] [address] [place] [address]AYP Screen, Totalon [id number] specific Ag [Mass/Vol] 2.7 ng/mLNormal0.1-3.5FLicking Memorial HospitalComment on above:Result Comment: The concentration of PSA determined by different manufacturers can vary due to differences in assay methods and reagent specificity. Values obtained from different assay methods cannot be used interchangeably. The methodology used for this result was chemiluminescence using [employer]'s Access [employer] PSA reagent.Performed By: #### [id number] #### [facility] [address] [place] [address]VFD With T4fr Reflexon [id number] Qn2.87 m[IU]/LNormal 0.34-5.60[facility] HospitalComment on above:Performed By: #### [id number] #### [facility] [address] [place] [address]lJNWmw 35-51-8801jFSQ35 mL/min/1.73 h4Faqdws>=59C[facility]ers HospitalComment on above:Performed By: #### [id number] #### [facility] [address] [facility] [place], [place] [address]Pvvpytcbby Visit Summaryon 04-89-7387Mehcfgyzwy Visit Summary Ambulatory Visit Summary [address] :1950 Visit Date:12/19/2024 Ambulatory Visit Instructions Your Diagnosis BMI 26.0-26.9,adult Former smoker At risk for falls Severe major depression without psychotic features Hypothyroid Your Care Team Attending Physician - Calvin Oshea DO Primary Care Physician - Calvin Oshea DO This Is Your Medications List atorvastatin (atorvastatin 10 mg Tab) divalproex sodium (divalproex sodium 250 mg Oral EC Tab) donepezil (donepezil 10 mg Tab) duloxetine (duloxetine 60 mg oral delayed release capsule) ibuprofen (ibuprofen 800 mg Tab) levothyroxine (levothyroxine 100 mcg (0.1 mg) Tab) lisinopril metoprolol (metoprolol succinate 25 mg ER Tab) sertraline (sertraline 100 mg Tab) Procedures Performed History of hip surgery (2015), Lithotripsy (02/19/2012), History of shoulder surgery. Discharge Vitals Heart Rate (Peripheral) 88 Respiratory Rate 20 Blood Pressure 112/64 Height 187 cm Height 74 in Weight 91.3 kg Weight 201.282 lb BMI 26.11 What to do next Scheduled Follow-Up Appointments Thursday 11:40 AM EDT With: Calvin Oshea DO Where: [facility] [place] [address] [place] [address]- You Need to Schedule the Following Appointments Follow Up with Calvin Oshea DO, [facility] When: Within 4 weeks Comments: 4 WEEKS FOLLOWUP Where: [address] [place] [address]- Medications What How Much When Why Instructions New duloxetine (duloxetine 60 mg oral delayed release capsule) 1 Capsules By Mouth Every day Severemajor depression without psychotic features Refills: 1 Pickup at [facility]/pharmacy #[id number] Changed ibuprofen (ibuprofen 800 mg Tab) 1 Tablets By Mouth Every 6 hours Unchanged atorvastatin (atorvastatin 10 mg Tab) 10 Milligram By Mouth Every day Unchanged divalproex sodium (divalproex sodium 250 mg Oral EC Tab) 2 Tablets By Mouth Every day Unchanged donepezil (donepezil 10 mg Tab) 1 Tablets By Mouth Once a day (at bedtime) Unchanged levothyroxine (levothyroxine 100 mcg (0.1 mg) Tab) 1 Tablets By Mouth Every day TAKE 1 TABLET BY MOUTH EVERY DAY IN THE MORNING ON EMPTY STOMACH Unchanged lisinopril 20 Milligram Unchanged metoprolol (metoprolol succinate 25 mg ER Tab) 1 Tablets By Mouth Every day Unchanged sertraline (sertraline 100 mg Tab) See instructions 1 and a half pills daily Pharmacy Information [facility]/pharmacy #[id number]: [address], [place] [phone] Allergies No Known Allergies No Known Medication Allergies Problems Ongoing - Any problem that you are currently receiving treatment for. Absence seizure Anticoagulated Asymptomatic microscopic hematuria At risk for falls Back pain Benign essential hypertension Chronic insomnia History of CVA in adulthood History of nephrolithiasis History of traumatic brain injury Hyperlipemia Hypothyroidism in adult Leaking of urine Left flank pain Major depressive disorder, recurrent, in full remission Severe major depression without psychotic features Historical - Any problem that you are no longer receiving treatment for. Epilepsy Hematuria Nephrolithiasis Shortness of breath Stroke Patient Survey You may receive a survey via text or e-mail asking about your office visit. Please share your experience with us by completing your survey. We appreciate your feedback and thank you for choosing us for your care. [facility]itan HospitalCHEMISTRYOrdered By: SYSTEM SYSTEM on 37-84-5782Hsbduit [Mass/Vol]4.6 g/dLNormal3.3 - 5.0 gm/dLRemisol Chem Albumin/Globulin [Mass ratio]1.3 {ratio}Normal1.1 - 2.2Remisol ChemALP [Catalytic activity/Vol]60 [iU]/eXqiryh20 - 98 Int._Unit/LRemisol ChemALT No additional P-5'-P [Catalytic activity/Vol]26 [iU]/dNormal6 - 46 Int._Unit/L Remisol ChemAnion gap [Moles/Vol]13 mmol/LNormal6 - 16 mEq/LRemisol ChemAST [Catalytic activity/Vol]29 [iU]/dNormal5 - 43 Int._Unit/LRemisol ChemBilirubin [Mass/Vol]0.6 mg/dLNormal0.0 - 1.1 mg/dLRemisol ChemCalcium [Mass/Vol]9.5 mg/dL Normal8.9 - 11.1 mg/dLRemisol ChemChloride [Moles/Vol]108 mmol/PSkvvcz885 - 111 mmol/LRemisol ChemCO2 [Moles/Vol]27 mmol/RSilyug42 - 31 mmol/LRemisol Chem Creatinine [Mass/Vol]1.1 mg/dLNormal0.5 - 1.3 mg/dLRemisol LjilgXGE79 mL/min/1.73 z1Kwslio>=59mL/min/1.73 m8Hiskcfv ChemGlobulin (S) [Mass/Vol]3.5 g/dLNormal1.4 - 4.0 gm/dLRemisol ChemGlucose [Mass/Vol]109 mg/xLMibvzn22 - 199 mg/dLRemisol ChemPotassium [Moles/Vol]4.7 mmol/LNormal3.5 - 5.3 mmol/LRemisol ChemProstate specific Ag [Mass/Vol]2.7 ng/mLNormal0.1 - 3.5 ng/mLRemisol Chem Comment on above:Interpretive Data: The concentration of PSA determined by different manufacturers can vary due to differences in assay methods and reagent specificity. Values obtained from different assay methods cannot be used interchangeably. The methodology used for this result was chemiluminescence using [employer] PSA reagent.Protein [Mass/Vol]8.1 g/dL High6.0 - 7.8 gm/dLRemisol ChemSodium [Moles/Vol]143 mmol/VOsgvvk173 - 145 mmol/LRemisol ChemTSH Qn2.87 m[IU]/LNormal0.34 - 5.60 mcIU/mLRemisol ChemUrea nitrogen [Mass/Vol]27 mg/dLHigh5 - 21 mg/dLRemisol ChemUrea nitrogen/Creatinine [Mass ratio]24 mg/bgTfju64 - 20Remisol ChemCHEMISTRYOrdered By: Myra Bullock on 51-36-6156QyU0s (Bld) [Mass fraction]5.2 %Normal<=5.9%[facility] ChemAutoSSFaamesbury health center Medicine Office/Clinic Noteon [phone] Medicine Office/Clinic NoteFami Medicine Office/Clinic Note Chief Complaint Chronic Condition follow up HPI Staff Patient here for Chronic Condition f/u (Niece, Doris and Sister, ) Patient is here for follow up on Thyroid Disease. Labs: DUE Patient is here for follow up on hypertension. How often are you checking your blood pressure? Doesn't check BP at home Do you have any of the following symptoms? Chest Pain? no Palpitations? no AC/SOB? yes nothing abnormal Headache? no Peripheral Edema? no Light Headiness? no Labs: Due Follow up for Mental Status: Medication adherence- Yes, takes medication as prescribed Medication refill needed: yes would like to discuss an increase in medication, patient is struggling wanting to get out of bed and even eating. He notes a lot of it is because of his lower back pain.Currently medicating with 400mg of Ibuprofen every morning. Declining relief with movement. Suicidal thoughts-Not at this time Most recent ARPAN: 7 Most recent PHQ9: 18, please note question # 9 - Patient did have an ER visit, 12/12/24, at [place] for accidental fall. Laceration to left temporal facial area, 4 sutures placed. Requesting to have removed. He notes he is having some left knee pain since the fall. [place]: per patient 5 years ago PSA: due Flu: declines AMW: Scheduled for 12/27/24 History of Present Illness Patient presents today to discuss depression. - Patient on sertraline 150mg once a day - He is having reports of increased lethargy, making statements that he wishes he was - Last seen 12/2023, depression was controlled at that time Today, patient states that he fell and had a laceration to his temporal facial area. He needs sutures removed, they have been in 7 days. He would like these removed today. He Patient's PHQ is high today, we did get calls on this. He feels his symptoms are worsening. He is stating that this is due to his back pain. He is getting ibuprofen. Pain does worsen when patient is sleeping more, he is not getting out of bed. He states that pain is a limiting factor for his activity. He is not active, does not want to more, states that he is comfortable and doesn't want to move. He admits he is not getting around well. Wishes to discuss interventions. Review of Systems PHQ Score Initial Depression Screen Score: 6 SCORE ROS - Provider Constitutional: no fever, no [...] swings/depression. Physical Exam Vitals & Measurements HR: 88(Peripheral) RR: 20 BP: 112/64 SpO2: 94% HT: 74 in HT: 187 cm WT: 201.282 lb WT: 91.3 kg BMI: 26.11 General: Well developed, well nourished, in no [...] mood and affect, flat affect Assessment/Plan 1. BMI 26.0-26.9,adult (Z68.26: Body mass index [BMI] 26.0-26.9, adult) The standard range for ages 18 and older is >=18.5 and < 25 kg/m2. Your BMI today was above this range, this falls in the overweight to obese category and there are medical benefits to weight loss. We can offer counselling, referral, and/or medical support in addressing this problem. Your BMIand weight management will be followed at subsequent visits. Ordered: Current tobacco non-user 1036F 2. Former smoker (Z87.891: Personal history of nicotine dependence) Stable in remission. Ordered: Body Mass Index (BMI) documented 3008F Depression Screening Negative 3352F Fall Risk Screen 2 or more w/injury 1100F Falls plan of care documented 0518F Influenza immunization status assessed 1030F Most recent diastolic blood pressure <80 mm Hg 3078F Systolic BP <130 mm Hg (Most Recent) 3074F 3. At risk for falls (Z91.81: History of falling) Maintain home fall precautions today. 4. 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 Recommended for pain control to get (more content not included)...[facility] HospitalComment on above:Result Comment: Electronically Signed By: Calvin Oshea DO.br\Date and Time Signed: 12/19/24 14:24 EDTHEMATOLOGYOrdered By: SYSTEM SYSTEM on 71-80-2251Cjeenslqh/100 WBC (Bld)0.3 %Normal0.0 - 2.0 %Remisol HemeBasophils/Leukocytes Auto (Bld) [Pure # fraction]0.0 E9/LNormal0.0 - 0.2 E9/LRemisol HemeEosinophils (Bld) [#/Vol]0.0 E9/LNormal0.0 - 0.5 E9/LRemisol HemeEosinophils/100 WBC (Bld)0.2 %Normal0.0 - 8.0 %Remisol HemeErythrocyte distribution width (RBC) [Ratio]15.6 %High10.9 - 14.2 %Remisol HemeHematocrit (Bld) [Volume fraction]46.0 %Hzmfxn45.7 - 49.0 % Remisol HemeHemoglobin (Bld) [Mass/Vol]15.2 g/cZCzdrwy57.5 - 17.5 gm/dLRemisol HemeLymphocytes (Bld) [#/Vol]2.2 E9/LNormal1.0 - 4.0 E9/LRemisol Heme Lymphocytes/100 WBC (Bld)24.0 %Ecwito88.0 - 50.0 %Remisol HemeMCH (RBC) [Entitic mass]32.1 vjVfibwa52.0 - 34.0 pgRemisol HemeMCHC (RBC) [Mass/Vol]33.1 g/dL Vianqo78.4 - 36.0 gm/dLRemisol HemeMCV (RBC) [Entitic vol]97.1 mKDhgwww82.0 - 100.0 fLRemisol HemeMonocytes (Bld) [#/Vol]0.9 E9/LNormal0.2 - 1.0 E9/LRemisol HemeMonocytes/100 WBC (Bld)10.4 %Normal4.0 - 14.0 %Remisol HemeNeutrophils (Bld) [#/Vol]5.9 E9/LNormal2.0 - 7.5 E9/LRemisol HemeNeutrophils/100 WBC (Bld)65.1 % Nkzpxd95.0 - 75.0 %Remisol VbohUopctmkv760.0 E9/XZstvkk675.0 - 500.0 E9/LRemisol HemePlatelet mean volume (Bld) [Entitic vol]8.9 fLNormal6.4 - 10.8 fLRemisol HemeRBC (Bld) [#/Vol]4.7 E12/LNormal4.3 - 5.9 E12/LRemisol HemeWBC corrected for nucl RBC Auto (Bld) [#/Vol]9.0 E9/LNormal4.0 - 11.0 E9/LRemisol HemeComment on above:Result Comment: Peripheral smear review performed.Family Medicine Office/Clinic Noteon 10-13-9497Tlejiw Medicine Office/Clinic NoteChief Complaint Initial AWV History of Present Illness I was in the office and available for consultation and to provide direct supervision at the time ofthis visit. I have provided supervision of the [...] of clutter to prevent tripping and/or falling. [place] Advance Directives reviewed, Pt's family will bring [...] provider. Patient is encouraged to increase portions o f fruit, vegetables, fiber and increase exercise as much as tolerable. Reviewed importance with monitoring foods high in salt content and encouraged to limit intake, if unsure encouraged to discuss with their PCP. Encouraged to eat more chicken, fish and lean white meats and limits red meats in diet. Discussed importance with keeping BP under good control to reduce CVA risk factors. Will continueto f/u with PCP during office visits and as needed. 4. Chronic insomnia (F51.04: Psychophysiologic insomnia) Pt stopped taking the Mirtazapine due to it being ineffective. Pt has poor sleep hygiene habits andsleeps off and on throughout the day and [...] transient ischemic attack (TIA) (more content not included)...[facility] Comment on above:Result Comment: Electronically Signed By: Calvin Oshea DO\.br\Date and Time Signed: 01/21/24 10:38 EDT\.br\Electronically Co-Signed By: Chun De Luna LPN\.br\Date and Time Co-Signed: 01/20/24 16:00 EDTPatient Educationon 86-64-6178Gulqjav EducationCardiovascular Hypertension, Adult High blood pressure (hypertension) is [...] are some conditions that result in high bloodpressure. What increases the risk? Certain factors may make you more likely to develop high blood pressure. Some of these risk factorsare under your control, including: ? Smoking. ? [...] on the floor. The cuff of the bloodpressure monitor will be placed directly against the [...] one 1? oz glass (more content not included)...[facility] HospitalAmbulatory Visit Summaryon 12-57-9809Vqfbaotuxm Visit Summary [address] :1950 Visit Date:01/18/2024 Ambulatory Visit Instructions Your [...] Follow-Up Appointments Thursday 2:00 PM EDT Where: [facility] MilanInvalid Interpretation CodeBenign essential hypertensionWake Forest Baptist Health Dav[facility] Hospitaler [facility] Medicine Office/Clinic Noteon [phone] Medicine Office/Clinic NoteChief Complaint 1 month f/u HPI Staff Patient here for 1 month f/u At last visit referral for Psychiatry placed, scheduled: no they haven't yet. Patient notes no issue with shoulder and back, patient notes the reason he doesn't get out of bed is because he's comfortable . [place]: per pt 5 years ago PSA: unsure [...] angry, aggressive, and frustrated. 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 He is frustrated byhis condition, and while he does not express [...] medical support in addressing this problem. Your BMIand weight management will be followed at subsequent visits. Total time spent TODAY preparing the chart, nbti-zj-qyxj interaction with the patient/family and time spent documenting, reviewing, and ordering above care was 40 mins. Patient was counseled on the above diagnosis and treatment, all questions were answered and patientagrees to adhere to the plan above. Risk and benefits of appropriate procedures and medications were reviewed as well with patient, whovoiced understanding and agreement with stated management of care. Follow-up With When Contact Information Link Calvin ULLOA FAM Within 4 weeks [address] [place] [address]- Additional Instructions: 4 WEEKS FOLLOWUP Problem List/Past M (more content not included)...[facility]itan HospitalComment on above:Result Comment: Electronically Signed By: Link Calvin ULLOA\.br\Date and Time Signed: 01/18/24 14:36 EDTScreenson 67-41-1889Ldxtktg [id number]#1.00TIFFNoDetwiler Memorial HospitalAlbumin [Mass/volume] in Serum or PlasmaOrdered By: Jason Dumont on 63-28-6658Opqrsne [Mass/Vol]3.9 g/dL3.2-5.5FJ.W. [facility] Automated erythrocytes count in urine sediment (number/area)Ordered By: Jason Dumont on 13-63-8336UJP Auto (Urine sed) [#/Area]0-1 [HPF]0-4FJ.W. Ruby Memorial HospitalAutomated leukocytes count in urine sediment (number/area)Ordered By: Jason Dumont on 50-01-3442MUS Auto (Urine sed) [#/Area]3-4 [HPF]0-4FJ.W. Ruby Memorial HospitalBasophils Auto (Bld) [#/Vol]Ordered By: Jason Dumont on 70-67-8261Wvmxmvtgm (Bld) [#/Vol]0.0 10*3/uL 0.0-0.2FJ.W. Ruby Memorial HospitalBasophils/100 WBC Auto (Bld)Ordered By: Jason Dumont on 53-54-9543Krmypbdje/100 WBC (Bld)0.4 %.Memorial HospitalBilirubin Test strip Ql (U)Ordered By: Jason Dumont on 10-13-2022 Bilirubin Ql (U)NegativeNegativeMemorial HospitalCOVID Cepheid Ordered By: Jason Dumont on 73-74-5373JRFW-CoV-2 (COVID-19) Ab IA QlNegative NegativeMemorial HospitalComment on above:This is a duplicate Cepheid Xpert Xpress CoV-2/Flu/RSV Plus RNA by RT-PCR result to be used for stat istical tracking purpose only.SARS-CoV-2 (COVID-19) RNA JORDAN+probe Ql (Unsp spec) Memorial HospitalColor Auto (U)Ordered By: Jason Dumont on 56-08-5244Xzkgm (U)YellowYellowMemorial HospitalCreatinine and Glomerular filtration rate.predicted panel (S/P/Bld)Ordered By: Jason Dumont on 35-64-9494Dpkhjwqiju [Mass/Vol]1.11 mg/dL0.64-1.27Memorial HospitalEosinophils Auto (Bld) [#/Vol]Ordered By: Jason Dumont on 10-13-2022 Eosinophils (Bld) [#/Vol]0.1 10*3/uL0.0-0.45[facility] Eosinophils/100 WBC Auto (Bld)Ordered By: Jason Dumont on 10-13-2022 Eosinophils/100 WBC (Bld)1.0 %.[facility]orial HospitalErythrocyte distribution width Auto (RBC) [Ratio]Ordered By: Jason Dumont on 10-13-2022 Erythrocyte distribution width (RBC) [Ratio]14.0 %12.0-14.8Memorial HospitalEstimated glomerular filtration rate (GFR) non- Ordered By: Jason Dumont on 13-73-9364AOB/1.73 sq M.predicted among non-blacks MDRD (S/P/Bld) [Vol rate/Area]> 60 mL/MinMemorial Hospital Globulin Calc (S) [Mass/Vol]Ordered By: Jason Dumont on 63-32-5534Qmunbgue (S) [Mass/Vol]3.3 g/dLMemorial HospitalHematocrit Auto (Bld) [Volume fraction]Ordered By: Jason Dumont on 01-86-4511Bxoqsrxlyg (Bld) [Volume fraction]44.3 %38.8-50.0Memorial HospitalHemoglobin [Mass/volume] in BloodOrdered By: Jason Dumont on 80-35-4797Kmjkefpzlr (Bld) [Mass/Vol]14.5 g/dL13.0-17.0Memorial HospitalKetones Auto test strip (U) [Mass/Vol]Ordered By: Jason Dumont on 99-16-4271Dcgxloq (U) [Mass/Vol]1+NegativeMemorial HospitalLaboratory - Chemistry and Chemistry - challengeOrdered By: Jason Dumont on 02-29-3023Jovbykoxe [Mass/Vol] 2.1 mg/dL1.6-2.6FJ.W. Ruby Memorial HospitalNatriuretic peptide B (Bld) [Mass/Vol]33.0 pg/mL5-100Memorial HospitalLaboratory - CoagulationOrdered By: Jason Dumont on 50-44-0107ZN Coag (PPP) [Time]12.1 s 9.0-12.9Mem[facility] HospitalLaboratory - UrinalysisOrdered By: Jason Dumont on 63-64-1678Ujyacgz casts LM Ql (Urine sed)9-19 [LPF]0-8Memorial HospitalLeukocytes [#/volume] corrected for nucleated erythrocytes in Blood by Automated counOrdered By: Jason Dumont on 10-13-2022 WBC corrected for nucl RBC Auto (Bld) [#/Vol]8.2 10*3/uL4.1-10.5FJ.W. Ruby Memorial HospitalLymphocytes Auto (Bld) [#/Vol]Ordered By: Jason Dumont on 43-52-8268Yqekmixyana (Bld) [#/Vol]1.7 10*3/uL1.00-4.8Memorial HospitalLymphocytes/100 WBC Auto (Bld)Ordered By: Jason Dumont on 54-47-5655Rmtsfffktdz/100 WBC (Bld)20.9 %.[facility] HospitalH Auto (RBC) [Entitic mass]Ordered By: Jason Dumont on 43-18-8545FSJ (RBC) [Entitic mass]30.2 pg27.5-35.2FMercy Health Anderson HospitalHC Auto (RBC) [Mass/Vol]Ordered By: Jason Dumont on 05-10-4044LNDP (RBC) [Mass/Vol]32.8 g/dL 32.5-35.6FJ.W. Ruby Memorial HospitalMCV Auto (RBC) [Entitic vol]Ordered By: Jason Dumont on 44-20-0277IPE (RBC) [Entitic vol]92.2 fL83.5-101Memorial HospitalMonocyte distribution width [Entitic volume] in Blood by AutomatedOrdered By: Jason Dumont on 34-13-3258Smjqfmcr distribution width Auto (Bld) [Entitic vol]16.42 %0.00-20.00Memorial HospitalMonocytes Auto (Bld) [#/Vol]Ordered By: Jason Dumont on 57-73-9384Ggpnuwcom (Bld) [#/Vol] 0.5 10*3/uL0.0-0.8Memorial HospitalMonocytes/100 WBC Auto (Bld) Ordered By: Jason Dumont on 88-65-8602Mjthsbhim/100 WBC (Bld)6.0 %.[facility]orial HospitalNeutrophils Auto (Bld) [#/Vol]Ordered By: Jason Dumont on 13-03-9482Tuclxdkfnns (Bld) [#/Vol]5.9 10*3/uL1.8-7.7FJ.W. Ruby Memorial HospitalNeutrophils/100 WBC Auto (Bld)Ordered By: Jason Dumont on 33-13-4438Kaqokniopok/100 WBC (Bld)71.7 %.[facility] Nitrite Test strip Ql (U)Ordered By: Jason Dumont on 13-36-1207Rwgdwnx Ql (U) NegativeNegativeMemorial HospitalNo Panel InformationOrdered By: Jason Dumont on 16-33-5228Wudcsftai GFR ()> 60 mL/MinMemorial HospitalComment on above:GFR estimated reference range: According to KDOQI guidelines, <60 ml/min/1.73m2 is sufficient todiagnose a patient with chronic kidney disease.Pharmacy Creatinine Clearance (Chem72.00 Memorial HospitalNucleated erythrocytes [Presence] in Blood by Automated countOrdered By: Jason Dumont on 17-46-5474Chvyiwcjr RBC Auto Ql (Bld)0.1 /100{WBC}0-0.5FJ.W. Ruby Memorial HospitalPlatelet mean volume Auto (Bld) [Entitic vol]Ordered By: Jason Dumont on 84-49-2039Bmamnuzs mean volume (Bld) [Entitic vol]8.3 fL6.6-10.1FJ.[facility]. [facility] Platelet poor plasma international normalized ratio (INR) by coagulation assay (relatOrdered By: Jason Dumont on 38-53-8007NWX Coag (PPP) [Relative time]1.0 {INR}Memorial HospitalComment on above:INR Therapeutic Range A) Pre- and Peroperative OAT started two weeks before surgery. NOT HIP SURGERY: 1.5 - 2.5 HIP SURGERY: 2 - 3B) Primary and secondary prevention of venous THROMBOSIS: 2 - 3C) Active venous thrombosis, pulmonary embolismand prevention of recurrent venous thrombosis: 2 - 3D) Prevention of arterial thromboembolismincluding patients with mechanical heart valves: 3 - 4.5Platelets Auto (Bld) [#/Vol]Ordered By: Jason Dumont on 83-50-9967Vosenwkut (Bld) [#/Vol] 223 10*3/gY489-028LpfuxmiezMemorial HospitalProtein Auto test strip (U) [Mass/Vol]Ordered By: Jason Dumont on 36-74-1046Aeabwff (U) [Mass/Vol]Trace mg/dLNegativeMemorial HospitalProtein [Mass/volume] in Serum or PlasmaOrdered By: Jason Dumont on 01-48-4190Dnukfbz [Mass/Vol]7.2 g/dL6.1-7.9 Memorial HospitalRBC Auto (Bld) [#/Vol]Ordered By: Jason Dumont on 62-41-1627INB (Bld) [#/Vol]4.81 10*6/uL3.90-5.60[facility] Westerum or plasma alanine aminotransferase measurement without P-5'-P (enzymatic activiOrdered By: Jason Dumont on 05-88-5121LBJ No additional P-5'-P [Catalytic activity/Vol]27 U/B64-77ChawytpefLake County Memorial Hospital - Westerum or plasma albumin/globulin mass ratioOrdered By: Jason Dumont on 10-13-2022 Albumin/Globulin [Mass ratio]1.2 {ratio}[facility] or plasma alkaline phosphatase measurement (enzymatic activity/volume)Ordered By: Jason Dumont on 15-62-7636GDY [Catalytic activity/Vol]64 U/H31-17JtckbimkwLake County Memorial Hospital - Westerum or plasma anion gap determinationOrdered By: Jason Dumont on 83-98-5783Sgnxn gap [Moles/Vol]14.1 mmol/L6.0-15.0[facility]um or plasma aspartate aminotransferase measurement (enzymatic activity/volume)Ordered By: Jason Dumont on 01-92-6174ZBA [Catalytic activity/Vol]22 U/T46-39OdaqfcxwfLake County Memorial Hospital - Westerum or plasma calcium measurement (mass/volume)Ordered By: Jason Dumont on 36-69-8611Blkydpu [Mass/Vol]9.0 mg/dL8.2-10.2FParkview Health Bryan Hospitalerum or plasma chloride measurement (moles/volume)Ordered By: Jason Dumont on 10-13-2022 Chloride [Moles/Vol]105 mmol/C13-971RqssxuhvvLake County Memorial Hospital - Westerum or plasma glucose measurement (mass/volume)Ordered By: Jason Dumont on 10-13-2022 Glucose [Mass/Vol]132 mg/tP28-182XeeamvzwqMemorial HospitalComment on above:ADA recommended reference rangeRandom Glucose Reference Range is dependent on time and content of last meal. Glucose of more than 200 mg/dL in a nonstressed, ambulatory subject supports the diagnosisof Diabetes Mellitus.Serum or plasma potassium measurement (moles/volume)Ordered By: Jason Dumont on 98-21-8229Ovdwjxfao [Moles/Vol]3.9 mmol/L3.5-5.1FParkview Health Bryan Hospitalerum or plasma sodium measurement (moles/volume)Ordered By: Jason Dumont on 86-74-0180Cisvzf [Moles/Vol]140 mmol/E676-487PsyavtufoLake County Memorial Hospital - Westerum or plasma total bilirubin measurement (mass/volume)Ordered By: Jason Dumont on 88-26-3254Ubvkufilw [Mass/Vol]1.2 mg/dL0.3-1.2FParkview Health Bryan Hospitalerum or plasma total carbon dioxide measurement (moles/volume) Ordered By: Jason Dumont on 04-23-7933TI2 [Moles/Vol]24.8 mmol/L22.0-30.0 [facility] or plasma urea nitrogen measurement (mass/volume)Ordered By: Jason Dumont on 74-30-0121Mgsg nitrogen [Mass/Vol]18 mg/dL9-23[facility] - Westpecific gravity Auto test strip (U) [Rel density]Ordered By: Jason Dumont on 70-94-4870Gwbnhnlw gravity (U) [Rel density]> 1.0501.001-1.030[facility] - Westquamous epithelial cells detection in urine sediment by light microscopyOrdered By: Jason Dumont on 72-61-4783Bbbgpzdbyr cells.squamous LM Ql (Urine sed)0-1 [HPF]0-2FJ.W. Ruby Memorial HospitalTroponin I.cardiac [Mass/volume] in Serum or Plasma by High sensitivity methodOrdered By: Jason Dumont on 31-02-3162Tlbpkdfz I.cardiac High sensitivity method [Mass/Vol]4 pg/mL0-20[facility] Urine bacteria detection by automated methodOrdered By: Jason Dumont on 75-39-9202Zwnpuqdf Auto Ql (U)None seenNone SeenMemorial HospitalUrine clarity by refractometry automatedOrdered By: Jason Dumont on 20-12-5580Ozqbqay Refractometry automated (U)ClearClearFJ.W. Ruby Memorial HospitalUrine glucose measurement by automated test strip (mass/volume) Ordered By: Jason Dumont on 02-09-8095Dlkktne Auto test strip (U) [Mass/Vol] Normal mg/dLNoThe MetroHealth SystemUrine hemoglobin detection by automated test stripOrdered By: Jason Dumont on 20-65-6659Bpjcefcmvq Auto test strip Ql (U)NegativeNegSt. Mary's Medical Center, Ironton CampusUrine leukocyte esterase detection by automated test stripOrdered By: Jason Dumont on 11-47-1053Psstvvytn esterase Auto test strip Ql (U)NegativeNegSt. Mary's Medical Center, Ironton CampusUrobilinogen Auto test strip (U) [Mass/Vol]Ordered By: Jason Dumont on 55-78-9591Fmvrstqibuww (U) [Mass/Vol]Normal mg/dLNoal Memorial HospitalWBC Auto (Bld) [#/Vol]Ordered By: Jason Dumont on 45-50-5196MKZ (Bld) [#/Vol]8.2 10*3/uL4.1-10.5FJ.W. Ruby Memorial HospitalpH Auto test strip (U)Ordered By: Jason Dumont on 32-89-6433lR (U)5.5 [pH]5.0-9.0Memorial HospitalCBC AUTO DIFFon 92-17-7784QFXO #0.0 103/ulNormal0.0-0.1The [facility] HospitalComment on above:Performed By: #### CBC #### [facility] [address] [place] [address] Dr. Yilan ChangBasophils/100 WBC (Bld)0.5 %Normal0.2-2.0[facility] Comment on above:Performed By: #### CBC #### [facility] [address] [place] [address] Dr. Sandhya Echevarria #0.1 103/ulNormal0.0-0.7The [facility] HospitalComment on above: Performed By: #### CBC #### [facility] [address] [place] [address] Dr. Sandhya Esparzaosinophils/100 WBC (Bld)1.5 %Normal0.9-7.0[facility] Comment on above:Performed By: #### CBC #### [facility] [address] [place] [address] Dr. Sandhya Esparzarythrocyte distribution width (RBC) [Ratio]13.6 %Bttegk57.0-15.0 The [facility] HospitalComment on above:Performed By: #### CBC #### [facility] [address] [place] [address] Dr. Sandhya GlasgowHematocrit (Bld) [Volume fraction]47.2 %Fnqktd81.0-54.0The [facility] HospitalComment on above:Performed By: #### CBC #### [facility] [address] [place] [address] Dr. Sandhya GlasgowHemoglobin (Bld) [Mass/Vol]15.7 g/sBRpwqkx52.0-18.0The [facility] HospitalComment on above:Performed By: #### CBC #### [facility] [address] [place] [address] Dr. Sandhya Baeza #0.01 10e3/ulNormal0.00-0.03The [facility] HospitalComment on above:Performed By: #### CBC #### [facility] [address] [place] [address] Dr. Sandhya Baeza %0.1 %Normal0.0-0.5The [facility] HospitalComment on above: Performed By: #### CBC #### [facility] [address] [address] [address] Sandhya Damian #4.3 103/ulCritically high1.2-3.8[facility] Comment on above:Performed By: #### CBC #### [facility] [address] [place] [address] Dr. Sandhya Lopezmphocytes/100 WBC (Bld)48.9 %Nzvjzp64.5-60.0The [facility] HospitalComment on above:Performed By: #### CBC #### [facility] [address] [place] [address] Dr. Sandhya Page DIFF REQNONormalThe [facility] Community HospitalComment on above: Performed By: #### CBC #### [facility] [address] [place] [address] Dr. Sandhya Linares (RBC) [Entitic mass]30.4 orSeartt62.9-34.0The [facility] HospitalComment on above:Performed By: #### CBC #### [facility] [address] [place] [address] Dr. Sandhya Linares (RBC) [Mass/Vol]33.3 g/uTBraavz25.9-35.2The [facility] HospitalComment on above:Performed By: #### CBC #### [facility] [address] [place] [address] Dr. Sandhya Linares (RBC) [Entitic vol]91.5 gXQcanto84.0-94.0The [facility] HospitalComment on above:Performed By: #### CBC #### [facility] [address] [place] [address] Dr. Sandhya Wood #0.7 103/ulNormal0.3-0.8The [facility] HospitalComment on above:Performed By: #### CBC #### [facility] [address] [place] [address] Dr. Sandhya Monsivaisocytes/100 WBC (Bld)7.8 %Normal1.7-12.0[facility] Comment on above:Performed By: #### CBC #### [facility] [address] [address] [address] Sandhya DomingoUT #3.6 103/ulNormal1.4-6.5The [facility] HospitalComment on above:Performed By: #### CBC #### [facility] [address] [place] [address] Dr. Sandhya Domingoutrophils/100 WBC (Bld)41.2 %Critically low43.0-75.0The [facility] HospitalComment on above:Performed By: #### CBC #### [facility] [address] [place] [address] Dr. Sandhya GlasgowPlatelet mean volume (Bld) [Entitic vol]10.1 fLNormal9.5-13.5The [facility] Community HospitalComment on above:Performed By: #### CBC #### [facility] [address] [place] [address] Dr. Sandhya GlasgowPLT243 103/ueJhdobr431-912Fzt [facility] HospitalComment on above: Performed By: #### CBC #### [facility] [address] [place] [address] Dr. Sandhya GlasgowRBC5.16 106/ulNormal4.70-6.10The [facility] HospitalComment on above:Performed By: #### CBC #### [facility] [address] [place] [address] Dr. Sandhya GlasgowWBC8.8 103/ulNormal4.0-11.0The [facility] HospitalComment on above: Performed By: #### CBC #### [facility] [address] [place] [address] Dr. Sandhya GlasgowPROF CHEM 8 (BAS METB)on 19-53-5394Wxtva gap [Moles/Vol]16.2 mmol/LNormalThe [facility] Hospitalment on above:Performed By: #### BMP, TSH #### [facility] [address] [place] [address] Dr. Sandhya GlasgowCalcium [Mass/Vol]9.0 mg/dLNormal8.5-10.1[facility] Comment on above:Performed By: #### BMP, TSH #### [facility] [address] [address] [address] Sandhya GlasgowChloride [Moles/Vol]102 mmol/HZftvpa59-239Oto [facility] Comment on above:Performed By: #### BMP, TSH #### [facility] [address] [address] [address] Sandhya GlasgowCO2 [Moles/Vol]26.0 mmol/VLuiqem21.0-32.0[facility] Comment on above:Performed By: #### BMP, TSH #### [facility] [address] [address] [address] Sandhya GlasgowCreatinine [Mass/Vol]1.08 mg/dLNormal0.70-1.30The [facility] HospitalComment on above:Performed By: #### BMP, TSH #### [facility] [address] [address] [address] Sandhya EsparzaGFR-AF NORTHERN [place]ISH>60Normal>=60The [facility] Community HospitalComment on above:Performed By: #### BMP, TSH #### [facility] [address] [address] [address] Sandhya EsparzaGFR-NON AF [place]THER[place]>60Normal>=60The [facility] HospitalComment on above:Performed By: #### BMP, TSH #### [facility] [address] [address] [address] Sandhya GlasgowGlucose [Mass/Vol]105 mg/oGIllhah57-993Mah [facility] Comment on above:Performed By: #### BMP, TSH #### [facility] [address] [address] [address] Sandhya GlasgowPotassium [Moles/Vol]4.2 mmol/LNormal3.5-5.1[facility] Comment on above:Performed By: #### BMP, TSH #### [facility] [address] [address] [address] Sandhya GlasgowSodium [Moles/Vol]140 mmol/CSuleth879-615Gyd [facility] Comment on above:Performed By: #### BMP, TSH #### [facility] [address] [place] [address] Dr. Sandhya Stern nitrogen [Mass/Vol]18.0 mg/dLNormal7.0-18.0The [facility] HospitalComment on above:Performed By: #### BMP, TSH #### [facility] [address] [place] [address] Dr. Sandhya GlasgowUrea nitrogen/Creatinine [Mass ratio]16.7 mg/mgNormalThe [facility] Community HospitalComment on above:Performed By: #### BMP, TSH #### [facility] [address] [place] [address] Dr. Sandhya Morales 29-58-8387FSZ1.278 uIU/mLCritically high0.358-3.740The [facility] HospitalComment on above:Performed By: #### BMP, TSH #### [facility] [address] [place] [address] Dr. Sandhya GlasgowCompletquirino Blood Count with Auto Diffon 67-58-3192Hkmqluncg (Bld) [#/Vol]0.03 10*3/uLNormal0.00-0.20NortCentervilleComment on above:Performed By: #### CMP, TSH, LIPD, CBCAD #### [facility] [address], [place] [id number]/100 WBC (Bld)0.4 %NormalNortdignity health arizona general hospitaln [facility] SpecialistComment on above:Performed By: #### CMP, TSH, LIPD, CBCAD #### [facility] [address], [place] [id number] (Bld) [#/Vol]0.08 10*3/uLNormal0.02-0.50Nortdignity health arizona general hospitaln [facility]Communising [facility] on above:Performed By: #### CMP, TSH, LIPD, CBCAD #### [facility] [address], [place] [id number]/100 WBC (Bld)1.0 %NormalNortdignity health arizona general hospitaln [facility] SpecialistComment on above:Performed By: #### CMP, TSH, LIPD, CBCAD #### [facility] [address], [place] [id number] distribution width (RBC) [Ratio]12.4 %Normal 11.0-15.0[facility] SpecialistComment on above:Performed By: #### CMP, TSH, LIPD, CBCAD #### [facility] [address], [place] [id number] (Bld) [Volume fraction]46.1 %Efynom01.5-50.0 [facility] SpecialistComment on above:Performed By: #### CMP, TSH, LIPD, CBCAD #### [facility] [address], [place] [id number] (Bld) [Mass/Vol]15.2 g/nCLbkdob85.0-17.1[facility] SpecialistComment on above:Performed By: #### CMP, TSH, LIPD, CBCAD #### [facility] [address], [place] [id number] (Bld) [#/Vol]3.6 10*3/uLNormal0.9-3.9[facility] SpecialistComment on above:Performed By: #### CMP, TSH, LIPD, CBCAD #### [facility] [address], [place] [id number]/100 WBC (Bld)46.5 %NormalNoSelect Medical [facility] SpecialistComment on above:Performed By: #### CMP, TSH, LIPD, CBCAD #### [facility] [address], [place] [id number] (RBC) [Entitic mass]31.1 suPgwgwa12.0-33.0NoSelect Medical [facility] SpecialistComment on above:Performed By: #### CMP, TSH, LIPD, CBCAD #### [facility] [address], [place] [id number] (RBC) [Mass/Vol]33.0 g/nXZrkioa09.0-36.0NortOhio [facility]ing [facility] SpecialistComment on above:Performed By: #### CMP, TSH, LIPD, CBCAD #### [facility] [address], [place] [id number] (RBC) [Entitic vol]94 kDPozofk46-389Osngmotb [facility] SpecialistComment on above:Performed By: #### CMP, TSH, LIPD, CBCAD #### [facility] [address], [place] [id number] (Bld) [#/Vol]0.6 10*3/uLNormal0.2-0.9NortOhio State Harding Hospital SpecialistComment on above:Performed By: #### CMP, TSH, LIPD, CBCAD #### [facility] [address], [place] [id number]/100 WBC (Bld)7.4 %NormalNoSelect Medical [facility] SpecialistComment on above:Performed By: #### CMP, TSH, LIPD, CBCAD #### [facility] [address], [place] [id number] (Bld) [#/Vol]3.4 10*3/uLNormal1.5-7.8NoSelect Medical [facility] SpecialistComment on above:Performed By: #### CMP, TSH, LIPD, CBCAD #### [facility] [address], [place] [id number]/100 WBC (Bld)44.6 %NormalNoSelect Medical [facility] SpecialistComment on above:Performed By: #### CMP, TSH, LIPD, CBCAD #### [facility] [address], [place] [id number] mean volume (Bld) [Entitic vol]10.80 fLNormal 7.50-12.50NoSelect Medical [facility] SpecialistComment on above:Performed By: #### CMP, TSH, LIPD, CBCAD #### [facility] [address], [place] [id number] (Bld) [#/Vol]263 10*3/gNKgregh620-879Dfwzvllo [facility] SpecialistComment on above:Performed By: #### CMP, TSH, LIPD, CBCAD #### [facility] [address], [place] [id number] (Bld) [#/Vol]4.89 10*6/uLNormal4.20-5.80NoSelect [facility] SpecialistComment on above:Performed By: #### CMP, TSH, LIPD, CBCAD #### [facility] [address], [place] [id number]-BF64.2 rUTgqpvb23.0-50.0NoSelect [facility] Specialist Comment on above:Performed By: #### CMP, TSH, LIPD, CBCAD #### [facility] [address], [place] [id number] (Bld) [#/Vol]7.7 10*3/uLNormal3.8-11.0NoSelect [facility] SpecialistComment on above:Performed By: #### CMP, TSH, LIPD, CBCAD #### [facility] [address], [place] [id number] Metabolic Panelon 55-90-5148Aonkmxp [Mass/Vol] 4.7 g/dLNormal3.6-5.1NortherOhioHealth Grove [facility] SpecialistComment on above:Performed By: #### CMP, TSH, LIPD, CBCAD #### [facility] [address], [place] [id number]/Globulin [Mass ratio]1.7 {ratio}Normal1.0-2.5NoSelect [facility] SpecialistComment on above:Performed By: #### CMP, TSH, LIPD, CBCAD #### [facility] [address], [place] [id number] [Catalytic activity/Vol]69 U/VZgjtcf71-441Jgvuodfl [facility] SpecialistComment on above:Performed By: #### CMP, TSH, LIPD, CBCAD #### [facility] [address], [place] [id number] [Catalytic activity/Vol]34 U/LNormal9-46NortOhio State Harding Hospital SpecialistComment on above:Result Comment: 08/21/2021 Female reference range changed.Performed By: #### CMP, TSH, LIPD, CBCAD #### [facility] [address], [place] [id number] gap [Moles/Vol]21 mmol/IGvin94-54Krpiaiaa [facility] SpecialistComment on above:Result Comment: Effective 09/26/2019 reference range changed.Performed By: #### CMP, TSH, LIPD, CBCAD #### [facility] [address] [place], [place] [id number] [Catalytic activity/Vol]33 U/TCipzsq20-91Rqlgmccc [facility] SpecialistComment on above:Performed By: #### CMP, TSH, LIPD, CBCAD #### [facility] [address], [place] [id number] [Mass/Vol]0.87 mg/dLNormal0.30-1.20NortOhio State Harding Hospital SpecialistComment on above:Performed By: #### CMP, TSH, LIPD, CBCAD #### [facility] [address], [place] [id number]/CREA26 RatioHigh6-22NortOhio State Harding HospitalPublications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 Comment on above:Performed By: #### CMP, TSH, LIPD, CBCAD #### [facility] [address], [place] [id number] [Mass/Vol]9.7 mg/dLNormal8.6-10.2[facility] SpecialistComment on above:Performed By: #### CMP, TSH, LIPD, CBCAD #### [facility] [address] [id number] [Moles/Vol]102 mmol/ELcfyzz13-750Hxqnheyh [facility] SpecialistComment on above:Performed By: #### CMP, TSH, LIPD, CBCAD #### [facility] [address] [place], [place] [id number] [Moles/Vol]23 mmol/ATtnqkm08-02Cervrkck [facility] SpecialistComment on above:Performed By: #### CMP, TSH, LIPD, CBCAD #### [facility] [address], [place] [id number] [Mass/Vol]0.9 mg/dLNormal0.7-1.4NortOhio State Harding Hospital SpecialistComment on above:Performed By: #### CMP, TSH, LIPD, CBCAD #### [facility] [address], [place] [id number] mL/min/1.00p6Oievxb>60NoSelect [facility] SpecialistComment on above:Performed By: #### CMP, TSH, LIPD, CBCAD #### [facility] [address], [place] [id number] mL/min/1.81i4Brqrem>60NoSelect [facility] SpecialistComment on above:Performed By: #### CMP, TSH, LIPD, CBCAD #### [facility] [address], [place] [id number] (S) [Mass/Vol]2.8 g/dLNormal1.9-3.7NoSelect [facility] SpecialistComment on above:Performed By: #### CMP, TSH, LIPD, CBCAD #### [facility] [address], [place] [id number] [Mass/Vol]90 mg/fFNyrxao00-68Fidlucbf [facility] SpecialistComment on above:Result Comment: For FASTING Glucose --- ADA reference ranges: Normal 65-99 mg/dl Prediabetes 100-125 Diabetes >/= 126Performed By: #### CMP, TSH, LIPD, CBCAD #### [facility] [address], [place] [id number] [Moles/Vol]4.6 mmol/LNormal3.5-5.5NoSelect [facility] SpecialistComment on above:Performed By: #### CMP, TSH, LIPD, CBCAD #### [facility] [address], [place] [id number] [Mass/Vol]7.5 g/dLNormal6.1-8.1[facility] SpecialistComment on above:Performed By: #### CMP, TSH, LIPD, CBCAD #### [facility] [address], [place] [id number] [Moles/Vol]141 mmol/HTywsfj782-889Swnkfgni [facility] SpecialistComment on above:Performed By: #### CMP, TSH, LIPD, CBCAD #### [facility] [address], [place] [id number] nitrogen [Mass/Vol]23 mg/dLNormal7-25NortOhio State Harding Hospital SpecialistComment on above:Performed By: #### CMP, TSH, LIPD, CBCAD #### [facility] [address], [place] [id number] Panelon 83-77-0500Ironszxcxrx [Mass/Vol]181 mg/dLNormal 125-200NoSelect [facility] SpecialistComment on above:Result Comment: Low risk < 200mg/dL Borderline risk 201-239 mg/dl High risk > or equal to 240Performed By: #### CMP, TSH, LIPD, CBCAD #### [facility] [address], [place] [id number] in HDL [Mass/Vol]40 mg/dLLow>40NoSelect [facility] SpecialistComment on above:Result Comment: High Cardiovascular Risk HDL <40 mg/dL Low Cardiovascular Risk HDL > or equal to 60 mg/dlPerformed By: #### CMP, TSH, LIPD, CBCAD #### [facility] [address], [place] [id number] in LDL [Mass/Vol]101 mg/dLNormalNortOhio State Harding Hospital SpecialistComment on above:Result Comment: LDL ATP III CLASSIFICATION LDL less than 100 mg/dl Optimal LDL 100-129 mg/dl Near or above optimal LDL 130-159 Borderline high LDL 160-189 High LDL greater than 189 mg/dl Very HighPerformed By: #### CMP, TSH, LIPD, CBCAD #### [facility] [address], [place] [id number] in VLDL [Mass/Vol]40 mg/dLNormalNorthern [facility] SpecialistComment on above:Performed By: #### CMP, TSH, LIPD, CBCAD #### [facility] [address], [place] [id number].total/Cholesterol in HDL [Mass ratio]5 {ratio} NormalNorthern [facility] SpecialistComment on above:Performed By: #### CMP, TSH, LIPD, CBCAD #### [facility] [address], [place] [id number] [Mass/Vol]198 mg/yNGnou22-313Lpoktgtg [facility] SpecialistComment on above:Result Comment: TRIG ATPIII CLASSIFICATIONS TRIG less than 150 mg/dl Normal TRIG 150-199 mg/dl Borderline High TRIG 200-500 mg/dl High TRIG greather than 500 mg/dl Very HighPerformed By: #### CMP, TSH, LIPD, CBCAD #### [facility] [address], [place] [id number] 19-56-8900PQP5.480 uIU/mLHigh0.400-4.500[facility] SpecialistComment on above:Performed By: #### CMP, TSH, LIPD, CBCAD #### [facility] [address], [place] [id number] Vital Signs Date TimeVital SignValuePerforming CnnhkqrjuWejaanhz84-60-5254 14:48-0400Body hjezcy139 cmMarc Dolce DPM FACFAS Work Phone: [facility] HospitalDuiefuqeny80-49-4176 14:48-0400Body mass index (BMI) [Ratio]28.25 kg/m2Marc Dolce DPM FACFAS Work Phone: [facility] HospitalAgrblvsjcz80-78-7774 14:48-0400Body nfjwym77.79 kgMarc Dolce DPM FACFAS Work Phone: [facility] HospitalPvvuadapkd89-01-6074 13:01-0400Body zlykxi313.96 cmRobert Krisk DO Work Phone: [address] [place], [place] 7125307-20-2025 13:01-0400 Body mass index (BMI) [Ratio]24.4 kg/x2Zxukmd Vaschak DO Work Phone: [phone] [place], [place] 3512507-20-2025 13:01-0400 Body uehmgzwrswo98.6 [degF]Russell Poncek DO Work Phone: [phone] [place], [place] 3512507-20-2025 13:01-0400 Body gawlro51.23 kgRobert Vaschak DO Work Phone: [phone] [place], [place] 3512507-20-2025 13:01-0400 Diastolic blood zqosikvf83 mm[Hg]Russell Trejo DO Work Phone: [phone])449-[address] [place], [place] 3512507-20-2025 13:01-0400 Heart rate83 /minRobert Vaschak DO Work Phone: [phone] [place], [place] 3512507-20-2025 13:01-0400 Respiratory rate19 /minRobert Vasaldairk DO Work Phone: [phone] [place], [place] 3512507-20-2025 13:01-0400 SaO2% (BldA) [Mass fraction]98 %Russell Trejo DO Work Phone: [phone])220-[address] [place], [place] 3512507-20-2025 13:01-0400 Systolic blood yovmwlaj363 mm[Hg]Russell Trejo DO Work Phone: [phone])796-[address] [place], [place] 3512505-19-2025 10:06-0400 Body biwyhw964 cmAngela Lowe PA Work Phone: noSaint [facility] HospitalWpaasollfx61-41-7679 10:06-0400Diastolic blood jgvaevso61 mm[Hg]Abbie Lowe PA Work Phone: noSaint [facility] HospitalFhbllriikc77-21-3555 10:06-0400Heart vfmo787 /min Abbie Lowe PA Work Phone: noSaint [facility] HospitalHafrwklgac27-98-5128 10:06-2931YrO1% (BldA) [Mass fraction]95 %Abbie Lowe PA Work Phone: noSaint [facility] HospitalCrqoubkkph72-39-1351 10:06-0400Systolic blood hqvceupt741 mm[Hg]Abbie Rodriguez PA Work Phone: noSaint [facility] HospitalSazvupbnft88-70-5097 15:05-0400Body kgfgyo027.5 cmMarc Dolce DPM FACFAS Work Phone: [facility] HospitalIyeuufexop43-35-0984 15:05-0400Body mass index (BMI) [Ratio]27.5 kg/m2Marc Dolce DPM FACFAS Work Phone: [facility] HospitalLugmcloarp78-58-7638 15:05-0400Body tuyicn30.79 kgMarc Dolce DPM FACFAS Work Phone: [facility] HospitalRnhdhpcgzj75-59-9387 15:05-0400Diastolic blood jdypeobw76 mm[Hg]Eugenio Gloria DPM FACFAS Work Phone: [facility] HospitalBwkjlzzyzk52-09-3845 15:05-0400Heart rate75 /min Eugenio Rivero DPM FACFAS Work Phone: [facility] HospitalKlwpmcqrta34-81-6254 15:05-0400Systolic blood dxhpamju884 mm[Hg]Eugenio Rivero DPM FACFAS Work Phone: [facility] HospitalWixcoicjsc81-26-3949 14:00-0400Blood Pressure LocationLaMer[facility]04-09-2025 14:00-0400 Diastolic blood qlpzxzzy67 mm[Hg][facility]04-09-2025 14:00-0400Heart rate74 /minLaMercy Health [facility]04-09-2025 14:00-0400Mean blood mm[Hg][facility]04-09-2025 14:00-0400Respiratory rate16 /min [facility]04-09-2025 14:00-5110HxF8% (BldA) [Mass fraction]99 %[facility] 12-28-2024 14:00-0400Systolic blood ygdsswoo022 mm[Hg][facility]04-09-2025 12:00-0400Hourly RoundingLawrence Cathryngiovanna [facility]04-09-2025 12:00-0400Promise to ReturnLawrence [facility]04-09-2025 11:20-0400Hourly Rounding [facility]04-09-2025 11:20-0400Promise to ReturnLawrence [facility]04-09-2025 10:15-0400 Hourly RoundingLawrV[facility]04-09-2025 10:15-0400Promise to ReturnLawrVeterans Health [facility] 12-28-2024 07:48-0400Heart rate59 /minLawrVeterans Health Administration04-09-2025 07:48-0965YfT7% (BldA) [Mass fraction]92 %[facility]04-09-2025 07:48-0400Body vinvzbhkuxz73.88 [degF] [facility]04-09-2025 07:48-0400Diastolic blood poylxinf18 mm[Hg][facility] 12-28-2024 07:48-0400Mean blood nuosxyye54 mm[Hg][facility]04-09-2025 07:48-0400Systolic blood qanemdlt678 mm[Hg] [facility]04-08-2025 19:00-0400Blood Pressure LocationLaMer[facility] Health [facility]04-08-2025 19:00-0400Body fapxccgncui84.24 [degF][facility]04-08-2025 19:00-0400Diastolic blood mm[Hg][facility]04-08-2025 19:00-0400Heart rate70 /minLawrVeterans Health Administration04-08-2025 19:00-0400Mean blood pressure 108 mm[Hg][facility]04-08-2025 19:00-0400 SaO2% (BldA) [Mass fraction]100 %[facility]04-08-2025 19:00-0400Systolic blood vmsuxjjl063 mm[Hg][facility]04-08-2025 15:27-0400Mean blood mm[Hg] [facility]04-08-2025 15:26-0400Body .52 [degF][facility] 12-27-2024 10:54-0400Mean blood oyfhyfbt67 mm[Hg][facility]04-08-2025 10:54-0400Body jbrftkxsmsa31.7 [degF][facility]04-08-2025 09:01-0400Heart rate63 /min [facility]04-08-2025 07:35-0400 Respiratory rate16 /minLawrVeterans Health Administration 12-26-2024 14:35-0400Heart rate75 /minLawrVeterans Health Administration04-07-2025 08:20-0400Heart rate75 /minLawrVeterans Health Administration04-07-2025 03:00-0400Body vqydzajdqby05.88 [degF][facility]04-07-2025 03:00-0400Mean blood ititgido762 mm[Hg][facility]04-03-2025 18:00-0400 Heart rate85 /minLawrence Anderle [facility]04-03-2025 14:06-0400Respiratory rate21 /minLawrence Anderle [facility]04-03-2025 14:05-0400Respiratory rate18 /minLawrence Anderle [facility]04-03-2025 14:00-0400Respiratory rate12 /minLawrence Andle [facility]04-03-2025 13:24-0400Heart rate93 /minLawrence Anderle [facility]11-11-2024 12:59-0500Body dwigph512.5 cm Eugenio Rivero DPM FACFAS Work Phone: [phone] [place], [place] 2389411-11-2024 12:59-0500Body mass index (BMI) [Ratio]27.5 kg/m2Marc Dolce DPM FACFAS Work Phone: [phone] [place], [place] 2389411-11-2024 12:59-0500Body wletle03.79 kgMarc Dolce DPM FACFAS Work Phone: [phone] [place] [address]-11-2024 12:59-0500Diastolic blood meqdthaw93 mm[Hg]Eugenio Rivero DPM FACFAS Work Phone: [phone] [place], [place] 2389411-11-2024 12:59-0500Heart rate74 /min Eugenio Rivero DPM FACFAS Work Phone: [phone])[address]11-11-2024 12:59-0500Systolic blood inwsgfem138 mm[Hg]Eugenio Rivero DPM FACFAS Work Phone: [phone] HospitalAeveyezkpz32-61-6031 13:59-0400Blood Pressure LocationAdam Link 657-0909Pxjmjq-VtibmDetwiler [facility] 01-18-2024 13:59-0400Diastolic blood ezmmemaa60 mm[Hg]Calvin Link 617-1968Ykrlbr-CjjyaDetwiler Memorial Hospital 01-18-2024 13:59-0400Heart fohs621 /minAdam Link 321-9110Glcicl-MxwwkDetwiler Memorial Hospital 01-18-2024 13:59-5861HrH2% (BldA) [Mass fraction]93 %Calvin Link 544-1168Uoxqxm-PbvjcDetwiler Memorial Hospital 01-18-2024 13:59-0400Systolic blood wveiqthd807 mm[Hg]Calvin Link 788-0166Oqydrc-BhhslDetwiler Memorial Hospital 01-18-2024 13:04-0400Blood Pressure LocationAdam Link 396-3943Uwqneu-TrkreDetwiler Memorial Hospital 01-18-2024 13:04-0400Diastolic blood aklhoflb74 mm[Hg]Calvin Link 283-1900Jtzhqn-DdhdeDetwiler Memorial Hospital 01-18-2024 13:04-0400Heart gduk086 /minAdam Link 083-6136Vazynl-GmcgfDetwiler Memorial Hospital 01-18-2024 13:04-0400Respiratory rate16 /minAdam Link 004-4843Vgpvdj-EbarmDetwiler Memorial Hospital 01-18-2024 13:04-8625VbM6% (BldA) [Mass fraction]93 %Calvin Link 583-2162Htuhll-MtthhDetwiler Memorial Hospital 01-18-2024 13:04-0400Systolic blood zismiglr893 mm[Hg]Calvin Link 702-6196Tnjsre-UlblqDetwiler Memorial Hospital 12-14-2023 14:53-0400Blood Pressure LocationAdam Link 978-1149Qxtwpi-FvjchDetwiler Memorial Hospital 12-14-2023 14:53-0400Diastolic blood nhrsdmex29 mm[Hg]Calvin Link 300-5291Mloaxt-EmwpwDetwiler Memorial Hospital 12-14-2023 14:53-0400Heart rate78 /minAdam Link 337-7259Hklsqa-WwfxuDetwiler Memorial Hospital 12-14-2023 14:53-1654EjS7% (BldA) [Mass fraction]95 %Calvin Link 917-4631Kyqlel-VfzueDetwiler Memorial Hospital 12-14-2023 14:53-0400Systolic blood owupqbkw294 mm[Hg]Calvin Link 281-8478Tbuern-NtwhhDetwiler Memorial Hospital 11-09-2023 16:09-0500Blood Pressure LocationAdam Link 545-4679Hbhmiw-AogsnDetwiler Memorial Hospital 11-09-2023 16:09-0500Diastolic blood ocltguer85 mm[Hg]Calvin Link 575-9868Fesiqs-YoyacDetwiler Memorial Hospital 11-09-2023 16:09-0500Heart rate74 /minAdam Link 495-2585Eggvvk-FnncdDetwiler Memorial Hospital 11-09-2023 16:09-4971OlO8% (BldA) [Mass fraction]95 %Calvin Link 154-9731Fhbwkj-AjwhfDetwiler Memorial Hospital 11-09-2023 16:09-0500Systolic blood bepwpvok864 mm[Hg]Calvin Link 748-7952Yqbbgz-RgaeaDetwiler Memorial Hospital 11-04-2023 10:12-0500Body xnbojy422.5 cmMarc Dolce DPM FACFAS Work Phone: [phone]-[facility]0Kindred HospitalGrmmcwlgzl22-32-4207 10:12-0500Body mass index (BMI) [Ratio]27.5 kg/m2Marc Dolce DPM FACFAS Work Phone: [phone] HospitalArnszmlhfp24-11-2426 10:12-0500Body dbgdaf91.79 kgMarc Dolce DPM FACFAS Work Phone: [phone]red HospitalRmvkdnscit39-12-0236 10:12-0500Diastolic blood aeuubyjy23 mm[Hg]Eugenio Rivero DPM FACFAS Work Phone: [facility] HospitalWkxdywvuka43-23-4721 10:12-0500Heart rate80 /min Eugenio Rivero DPM FACFAS Work Phone: [place] [address]Cgullymhoi96-39-6172 10:12-0500Systolic blood uyyontdv050 mm[Hg]Eugenio Rivero DPM FACALIZA Work Phone: [facility]red HospitalVtdufvfgwr90-90-9386 12:05-0500Diastolic blood pgnaejjw76 mm[Hg]DO Russell Trejo Work Phone: [address] [place], [place] 7125301-23-2023 12:05-0500 Heart rate76 /Connie Trejo Work Phone: [phone] [place], [place] 35[address]01-23-2023 12:05-0500 Respiratory rate18 /Connie Trejo Work Phone: [phone]01-23-2023 12:05-0500 SaO2% (BldA) [Mass fraction]96 %DO Russell Trejo Work Phone: [address] [place], [place] [address]12[address]01-23-2023 12:05-0500 Systolic blood vtponnul743 mm[Hg]DO Russell Trejo Work Phone: [phone]01-23-2023 08:35-0500 Body anbidr933.96 cmDO Russell Trejo Work Phone: [phone] [place], [place] 3512501-23-2023 08:35-0500 Body .7 [degF]DO Russell Trejo Work Phone: [address] [place], [place] 7[address]01-23-2023 08:35-0500 Body zagtmn26.4 kgDO Russell Trejo Work Phone: [phone] [place] [address] Encounters Encounter DateEncounter TypeCare ProviderFacilityStart: 53-60-6857qohuzukjqvVdjg C LinkFacility:[facility]art: 06-05-2025 End: 50-39-4797ykojjcvgmnJpjl C LinkFacility:[facility]art: 06-05-2025 End: 84-11-0789Wlipqtk encounter procedureAdam C Link [phone]-BhmpjDetwiler Memorial Hospital Start: 06-05-2025 End: 45-98-4132Utgj adult monitoring check doneAdam C Link 480-1661Rktmzj-GrzgyDetwiler Memorial Hospital Start: 05-01-2025 End: 16-55-9427xneakzwvetGjqv C LinkFacility: Start: 05-01-2025 End: 81-71-5408Xkceorr encounter procedureAdam C Link 489-9218Xedfgb-EijqmDetwiler Memorial Hospital Start: 04-24-2025 End: 63-29-8553Gtefcak encounter procedureMarc D Dolce DPM FACFAS Work Phone: noms NMA PODComment on above:Onychomycosis (Primary Dx); Pain in left toe(s); Pain in right toe(s)Start: 04-24-2025 End: 68-48-9227vbkinrrzdlEZXF D DOLCENot AvailableStart: 04-24-2025 End: 20-41-3824Onjmxu flowsheetMarc D Dolce DPM FACFAS Work Phone: noms [facility] AustinwnStart: 04-24-2025 End: 08-51-5228Qljbcj flowsheetMarc D Dolce DPM FACFAS Work Phone: noms [facility] PlanownStart: 04-09-2025 End: 18-17-1848zjqifgcxtzZomoze Vaschak DO Work Phone: [facility] Work Phone: Start: 04-09-2025 End: 62-38-3197Hxcaowt encounter procedureZenobia Monroy APRN-[facility]is Work Phone: Start: 03-06-2025 End: 54-88-6657inyslrpbvxMliw C LinkFacility: Start: 03-06-2025 End: 83-27-9843Tqwejwz encounter procedureAdam C Link [phone]-AvgneSouthern [facility] [place] Start: 02-28-2025 End: 92-20-3190elwtncmsupEQLQE AHMEDRegency Hospital Cleveland Westtart: 02-28-2025 End: 81-96-1810Dleqqnackp hospital visit by physicianEva Henriquez MD Work Phone: [facility] LABStart: 13-63-7595hffmdfvinu Rodger Waggonercility:[facility] Westtart: 02-06-2025 End: 32-39-8248Ittkwu flowsheetAngela Lowe PA Work Phone: ana BELLEVUEStart: 02-06-2025 End: 62-19-6596Jkmftn flowsheetAngela Lowe PA Work Phone: ana BELLEVUEStart: 02-06-2025 End: 94-95-2768Vtgfql outpatient visit 25 minutesAngela Lowe PA Work Phone: aNA BELLEVUEComment on above:Delirium (Primary Dx); Memory loss; Seizure disorder (CMS/HCC); 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, unspecified laterality, sequela (CMS/HCC); Near syncopeStart: 02-06-2025 End: 48-36-8495dpuplxlxgjRBREOD LOWENot AvailableStart: 01-23-2025 End: 47-85-0525bxsddunffvRAZA D DOLCENot AvailableStart: 01-23-2025 End: 33-18-2582Mjsazfo encounter procedureMarc D Dolce DPM FACFAS Work Phone: NOLT NMA PODComment on above:Onychomycosis (Primary Dx); Pain in left toe(s); Pain in right toe(s)Start: 01-23-2025 End: 40-80-1318Dwysri flowsheetMarc D Dolce DPM FACFAS Work Phone: NOI[facility] PODStart: 01-23-2025 End: 08-09-0511Dazsth flowsheetMarc D Dolce DPM FACFAS Work Phone: NOK[facility] PODStart: 01-20-2025 End: 89-86-7151uqwlcigxgsXebi C LinkFacility:[facility]: 01-13-2025 End: 42-43-0278hwqqbijijzEits C LinkFacility:CD:[id number]: 01-11-2025 End: 21-72-9135dfiiqrrgkhBuvikxe K ClingmanFacility:FT Extended CareStart: 01-02-2025 End: 20-02-7234fltodgggbcQU Adam C LinkFacility:[facility]: 12-30-2024 End: 55-37-3989qibyqupeiqEdpchoo JOLENEWOODFacility: Extended CareStart: 12-28-2024 End: 27-66-2239oempbzfwbbKxoriim JOLENEWOODFacility:[place]MISS[place] CAMPUStart: 12-28-2024 End: 48-69-4259Eeascylebo and management of inpatientJeffrey CRIS [facility] Start: 06-61-0248dhprcjbccfHK Adam C LinkFacility:[facility]: 12-22-2024 End: 57-95-9215Ipyzvfthgd and management of inpatientLawrence J. Anderle Facility:[facility]ERTtart: 72-60-8856Balkqvsll department patient visitAstrit Tavares Velazquezpanchito Facility:[place]MISS[facility] [place] CAMPUStart: 12-22-2024 End: 80-69-7043Joukmhbaoz and management of inpatientLawrence J. Anderle III [facility] Start: 12-19-2024 End: 41-04-8268sndpjuhfwrAA Adam C LinkFacility:FTMISS[facility] [place] CAMPUStart: 12-19-2024 End: 76-52-3864Fpi Drop offAdam C Link [facility] Start: 12-19-2024 End: 00-41-1202cdqfgrjimdYS Adam C LinkFacility:[facility]: 12-12-2024 End: 11-01-4942Izrhhu Ankur Marin PA Work Phone: ana [place]UEStart: 12-12-2024 End: 21-58-7328Pfctbo Ankur Marin PA Work Phone: ana BELLEVUEStart: 89-14-2544kgkzyppuyrRZ Adam C Link Facility: art: 08-01-2024 End: 06-44-0303Atmyqt flowsheetMarc D Dolce DPM FACFAS Work Phone: [facility] PODStart: 08-01-2024 End: 89-63-9939Kfrwqr flowsheetMarc D Dolce DPM FACFAS Work Phone: [facility] PODStart: 08-01-2024 End: 17-68-0234Wjwijlt encounter procedureMarc D Dolce DPM FACFAS Work Phone: noMS NMA PODComment on above:Onychomycosis (Primary Dx); Pain in left toe(s); Pain in right toe(s)Start: 08-01-2024 End: 56-29-7659qihsjpfvmwVLJS D DOLCENot AvailableStart: 06-27-2024 End: 42-91-9143jfyavlyybcHV Adam C LinkFacility:[facility]: 06-27-2024 End: 81-88-7078Vgnpnbu encounter procedureAdam C Link [phone]-VzoekDetwiler Memorial Hospital Start: 01-18-2024 End: 97-54-7658nxemgomsypSC Adam C LinkFacility:[facility]: 01-18-2024 End: 89-07-8161Wghivtu encounter procedureAdam C Link [phone]-VswfkDetwiler Memorial Hospital Start: 01-18-2024 End: 50-31-6222Rheb adult monitoring check doneAdam C Link [phone]-MurvuDetwiler Memorial Hospital Start: 12-14-2023 End: 12-24-2964Qqrtpje encounter procedureAdam C Link [phone]-PpqhgDetwiler Memorial Hospital Start: 11-09-2023 End: 88-24-1044Ldxjqxo encounter procedureAdam C Link [phone]-IcgkoDetwiler Memorial Hospital Start: 23-69-2414Cybcqd flowsheetMarc D Dolce DPM FACFAS Work Phone: noms ASC PODStart: 07-14-7195Yqyxqf flowsheetMarc D Dolce DPM FACFAS Work Phone: noms ASC PODStart: 11-04-2023 End: 85-24-7599Qadwzk outpatient new 30 minutesMarc D Dolce DPM FACFAS Work Phone: noms NMA PODComment on above:Venous (peripheral) insufficiency (Primary Dx); Onychomycosis; Pain in left toe(s); Pain in right toe(s); Peripheral arterial disease (CMS/HCC)Start: 91-95-0821Fjfxxvd encounter procedureMarc Dolce DPM FACFAS Work Phone: noms HealthcareStart: 70-62-0776Wfluhvo encounter statusMarc Dolce DPM FACFAS Work Phone: noms HealthcareStart: 10-13-2022 End: 90-83-6710Gjppltmwv department patient visitDO Russell Trejo Work Phone: [facility] Work Phone: Start: 05-02-2022 End: 67-48-3984fgskazipucPK RUSSELL CAVAZOSREGISFacility:N9Pmvsk: 81-56-0509Rdroxafatg MOURHAF TRABOULSSIFacility:1532Start: 22-49-0087XxwlgzylwiWfcbbrnv:9507 Procedures DateProcedureProcedure DetailPerforming ClinicianStart: 25-45-8567Qxtar panel Eva Henriquez MD Work Phone: Start: 50-16-4595GHTP-CoV-2, Influenza & RSV (PCR)DO Russell Trejo Work Phone: Start: 80-47-9670TQ angiography of headDO Russell Trejo Work Phone: Start: 45-85-0464GD angiography of neck vesselsDO Russell Trejo Work Phone: Start: 56-84-8601OM of head without contrastDO Russell Trejo Work Phone: Start: 38-16-9351Sbxon chest X-rayDO Russell Trejo Work Phone: Start: 37-19-4594OxwmjezmvabHnhb Dolce DPM FACFAS Work Phone: Start: 58-96-4184Efwncgn of operative procedure on hip Calvin Link Comment on above:rightStart: 86-10-8847WarnrpkcwvxOdbx Link History of operative procedure on shoulderAdam Link Plan of Treatment DateCare ActivityDetailAuthorStart: 59-20-0592Sanrmrpgs for malignant neoplasm of colonNOMS HealthcareStart: 98-29-8782Zgnhzlxuehpo Vaccine: 65+ Years (3 of 3 - PCV20 or PCV21)Pneumococcal Vaccine: 65+ Years (3 of 3 - PCV20 or PCV21)[facility] HealthcareStart: 39-62-2756Sqmmuufsdaxt Vaccine: 65+ Years (3 of 3 - PPSV23 or PCV20)Pneumococcal Vaccine: 65+ Years (3 of 3 - PPSV23 or PCV20)[facility] Start: 30-29-0321Hglnzlldv vaccinationNOMS HealthcareStart: 05-15-2025 End: 60-62-8514Rfcgxcy encounter sfvmejkze59/25/2025 11:20 AM EDT Office Visit DANIAL DUTTA [address] [phone] Sarah Mason, FLORINA [address] [place] [address] DANIAL YOELBREANNYStart: 04-24-2025 End: 90-34-0781Nyfwgaf encounter procedureNortberna [facility] Comment on above:ArrivedStart: 02-06-2025 End: 83-79-7462Jkhwhvs encounter procedureANA LEONARDONADINEComment on above:Arrived Start: 12-11-2024Medicare Annual Wellness (AWV)Medicare Annual Wellness (AWV) [facility] HealthcareStart: 07-18-2024 End: 31-60-8181Mdwsuoh encounter sakgikctp32/28/2024 1:00 PM EDT Office Visit [facility] [address] [place] [address] Chacah Wetzel, TAG WRITER-PRINT CUTTER [address] [place] [address] [facility] DERMStart: 40-90-0398Nudzpqisx vaccinationInfluenza Vaccine (#1)[facility] HealthcareStart: 01-11-2024 End: 71-10-9472Inoiidf encounter uceirwpea71/22/2024 1:20 PM EDT Procedure Visit [facility] [address] [place] [phone] Eugenio Rivero, DPM FACFAS [address] [place] [address] [facility] NMA PODStart: 96-58-6978Vbmrkvykbiek Vaccine: 65+ Years (3 - PPSV23 or PCV20)Pneumococcal Vaccine: 65+ Years (3 - PPSV23 or PCV20)[facility] HealthcareStart: 83-55-4133Qvqygnuph for malignant neoplasm of colonNOMS HealthcarePatient EducationGeneralized Weakness Dizziness, Adult EDTr[facility] Work Phone: Patient referralTrinity Health System [facility] Work Phone: Immunizations Immunization DateImmunizationNotesCare JtwpwdvuYntwkvux65-07-3602cjzkeew toxoid, reduced diphtheria toxoid, and acellular pertussis vaccine, adsorbedAdam Link [phone]-GshhdDetwiler Memorial Hospital 96-96-1175tgqxmaa toxoid, reduced diphtheria toxoid, and acellular pertussis vaccine, adsorbedAdam Link [phone]-MorjfDetwiler Memorial Hospital 28-16-2931eokrkuatf virus vaccine, unspecified formulationAdam Link [phone]-EzkshDetwiler Memorial Hospital 89-84-0851Sgavbenxo, Seasonal, Quadrivalent, AdjuvantedMarkirti Rivero DPM FACFAS Work Phone: [facility]red HospitalTeiddjqdsx10-62-0638DQOCA-61 Ad26.COV2.S (Usabilla)DO Russell Trejo Work Phone: Memorial HospitalComment on above: Result Comment: 2023-11-06: LHU1960-41-2930sekimisal virus vaccine, unspecified formulationAdam Link 161-7267Wxyazn-HxhooDetwiler Memorial Hospital 61-73-1330Lshzispu trivalent influenza vaccine, adjuvanted, preservative free Eugenio Rivero DPM FACFAS Work Phone: [facility]red HospitalYgzghyrahx00-21-3619jjovcqlxuuzp conjugate vaccine, 13 valentAdam Link [phone]-KncfmDetwiler Memorial Hospital 13-77-6625qmaopkqob virus vaccine, unspecified formulationAdam Link 301-5276Wwwgny-AadukDetwiler Memorial Hospital 58-54-5379Bpoadwcb trivalent influenza vaccine, adjuvanted, preservative free Eugenio Rivero DPM FACFAS Work Phone: [facility]red HospitalSzhpnijqle08-96-9127mkojaijqm virus vaccine, unspecified formulationAdam Link 177-9473Wxaqvz-MpysgDetwiler Memorial Hospital 57-56-0592Gdzdfohv trivalent influenza vaccine, adjuvanted, preservative free Eugenio Rivero DPM FACFAS Work Phone: [phone] [place], [place] [address]Ktesomirzh05-50-3548ziexcqnfd virus vaccine, unspecified formulationAdam Link 367-9893Veoxas-FstjfDetwiler Memorial Hospital 11-22-2539phuwtznvr, injectable, quadrivalent, preservative freeMarc Dolce DPM FACFAS Work Phone: [phone] [place], [place] [address]Iplxagagbk60-19-8876dhedzhbeqxjp conjugate vaccine, 13 valentMarc Dolce DPM FACFAS Work Phone: [phone] [place], [place] [address]Libnkxowvc44-23-3370mlbuydhgh, injectable, quadrivalent, preservative freeMarc Dolce DPM FACFAS Work Phone: [phone] [place], [place] [address]Ukkhabfbir49-13-0699lihfhclrcflt polysaccharide vaccine, 23 valentMarc Dolce DPM FACFAS Work Phone: [phone] [place], [place] [address]Zvgxoyfflf10-53-3470ytsvrnozs, seasonal, injectable, preservative freeMarc Dolce DPM FACFAS Work Phone: [phone] [place], [place] [address]Ghaxmvlmtw66-65-5685lqfbmbc toxoid, adsorbedMarc Dolce DPM FACFAS Work Phone: [phone] [place], [place] [address]Dbsvyidffh54-05-2015ecwfykk and diphtheria toxoids, adsorbed, preservative free, for adult use (2 Lf of tetanus toxoid and 2 Lf of diphtheria toxoid)Eugenio Rivero DPM FACFAS Work Phone: [phone] [place], [place] [address]Biyephzvtq09-67-1910arleeu vaccine, liveMarc Dolce DPM FACFAS Work Phone: [phone] [place], [place] [address]Tcukerlnsd33-96-8792xoklxvuoi, injectable, quadrivalent, preservative freeMarc Dolce DPM FACFAS Work Phone: [phone] [place], [place] [address]NEGATED: Highlighted row has not occurred!16-04-0507srnnnwhshfrq polysaccharide vaccine, 23 valentAdam Link 663-2400Yayioa-IzpndDetwiler Memorial Hospital NEGATED: Highlighted row has not occurred!83-95-6877sdinwspzl virus vaccine, unspecified formulationAdam Link 418-9610Oqunpk-UhbzyDetwiler Memorial Hospital NEGATED: Highlighted row has not occurred!34-67-4201uczybztoc virus vaccine, unspecified formulationAdam Link 151-2517Gsxxla-FnplrDetwiler Memorial Hospital NEGATED: Highlighted row has not occurred!53-05-5902ymulepqfs virus vaccine, unspecified formulationAdam Link [phone]-QhofmDetwiler Memorial Hospital Payers DatePayer CategoryPayerPolicy [id number]-[id number] [id number] 2018Medicare [id number] 2018Medicare (Managed Care)[employer] Member Subscriber Plan / Payer (Effective 2017-Present) Name: David Lane Relation to Subscriber: Self Name: David Lane Payer ID: Not on file Group ID: [id number] Type: Not on file Address: [facility] [address] [place] [id number] 1978Medicare [id number] [id number] 840.1.175915.3.579.[id number] .1.883840.3.579.[id number] 2.16.840.1.966303.3.579.[id number] 2.16.840.1.166072.3.579.2.02201-56-8333Ceqhevh76598536 2.16.840.1.061638.3.57[id number] 2.16.840.1.983582.3.579.2.[id number] 2.16.840.1.811213.3.579.2.57103-97-1994Xnboptf79783750 2.16.840.1.792463.3.579.2.40510-12-8457Mcekssd18544747 2.16.840.1.179144.3.579.2.45077-32-5769Eshzylv38446230 2.16.840.1.867579.3.579.2.56944-04-5086Czosmus02324485 2.16.840.1.333726.3.579.2.16269-33-4998Zgsltjy38014656 2.16.840.1.276389.3.579.2.52360-14-6355Azfjuso70110905 2.16.840.1.286992.3.579.2.99858-93-6450Bofddlz94072692 2.16.840.1.254060.3.579.2.28781-09-1574Arngwkz28114861 2.16.840.1.680018.3.579.2.314222-69-0924Vtkrwcr1793090 2.16.840.1.458092.3.579.2.505845-65-5012Doagemg2867037 2.16.840.1.225089.3.579.2.173413-40-6926Ecxxryq6705062 2.16.840.1.844239.3.579.2.030786-83-8069Hkovpnj48727942 2.16.840.1.959527.3.579.2.64457-90-1727Xtboilw15823327 2.16.840.1.645044.3.579.2.24402-18-3858Dmygckj22737968 2.16.840.1.041397.3.579.2.17665-05-2185Nzsgpdw60969952 2.16.840.1.187558.3.579.[id number] 2.16.840.1.361488.3.579.[id number] 2.16.840.1.530122.3.579.2.87164-07-2572Kmedzum33315040 2.16.840.1.131110.3.579.2.52948-26-5541Ecayfet50280655 2.16.840.1.863099.3.579.2.89802-38-8276Umdpxzr06566828 2.16.840.1.664891.3.579.2.35592-28-7864Ovbxtnc58837599 2.16.840.1.998499.3.579.2.36782-67-1058Fnsjjog20613628 2.16.840.1.210980.3.579.2.727MedicareSelf Emf517002395N 61xd8892-6f25-1794-5zvh-10m766cqv5reLrmpevxADRX/HFA/FAP [id number] 3u7fs5zg-9p56-9ct2-92[id number] 2.16.840.1.123795.3.579.2.531 Social History DateTypeDetailFacilityTobacco smoking status NHISUnknown if ever smokedTrinity Health System [facility] CtrStart: 73-89-3770Piy Assigned At BirthUniversity Hospitals TriPoint Medical Centertart: 10-13-2022 End: 52-77-5317Vmgwoau smoking status NHISNever smoked tobacco (finding) [facility]: [facility]23 End: 03-64-9112[place] smoking status NHISEx-smokerNOOR HealthcareComment on above:Does have family that smokes outsideHistory of tobacco useCurrent smoker [facility] HealthcareHistory of tobacco useCigarette SmokerNOMS HealthcareStart: 38-56-7650Ioqaitl use and exposureSmokeless tobacco non-userNOMS Healthcare Start: 08-31-2023 End: 48-68-6804Nnlrwju intakeLifetime non-drinker (finding)[facility] HealthcareStart: 04-20-2023 End: 68-02-5671Qlslfby of Social functionNOMS HealthcareStart: 04-20-2023 End: 16-37-0693Uwjjrfb Use Disorder Identification Test - Consumption [AUDIT-C] [facility] HealthcareHow often to you have a drink containing alcohol?NeverNOMS HealthcareHow many standard drinks containing alcohol do you have on a typical day?Patient does not drinkNOMS HealthcareComment on above:Does have family that smokes outsideStart: 83-69-2779Kpnggyy Commentcaffeine: sodaNOMS Healthcare Start: 58-89-9651Mli Assigned At BirthNot on fileNOMS HealthcareSexual OrientationWood County Hospital Start: 06-29-2019 End: 98-89-1889UadDskc (finding)[facility] HospitalTobacco smoking status NHISTobacco smoking consumption unknownBon [facility] Goals DatePatient GoalDesired Activity/State Functional Status GuzzAhapxaymevSpyrocDekkwjss61-06-1705Gszqqatauu StatusNoWood County Hospital04-03-2025Functional StatusWood [facility] Hospital04-29-2024 Functional StatusN/DEMETRIShel[facility]03-25-2024 Functional StatusN/[facility]02-19-2024 Functional StatusN/[facility] Clinical Notes 09-28-2023 to 06-05-2025 Note Date & DldmOqskHeskfjij26-45-5572 Hospital Discharge instructions Patient Education 06/05/2025 13:02:26 Chronic Back Pain, Amcq-bk-Cnqk Chronic Back Pain Chronic back pain is back pain that lasts longer than 3 months. The pain may get worse at certain times (flare-ups). There are things you can do at home to manage your pain. Follow these instructions at home: Watch for any changes in your symptoms. Take these actions to help with your pain: Managing pain and stiffness If told, put ice on the painful area. You may be told to use ice for 24 48 hours after a flare-up starts. ?Put ice in a plastic bag. ?Place a towel between your skin and the bag. ?Leave the ice on for 20 minutes, 2 3 times a day. If told, put heat on the painful area. Do this as often as told by your doctor. Use the heat sourcethat your doctor recommends, such as a moist heat pack or a heating pad. ?Place a towel between your skin and the heat source. ?Leave the heat on for 20 30 minutes. If your skin turns bright red, take off the ice or heat right away to prevent skin damage. The riskof damage is higher if you cannot feel pain, heat, or cold. Soak in a warm bath. This can help with pain. Activity Avoid bending and other activities that make the pain worse. When you stand: ?Keep your upper back and neck straight. ?Keep your shoulders pulled back. ?Avoid slouching. When you sit: ?Keep your back straight. ?Relax your shoulders. Do not round your shoulders or pull them backward. Do not sit or finance administrator one place for too long. Take short rest breaks during the day. Lying down or standing is often better than sitting. Restingcan help relieve pain. When sitting or lying down for a long time, do some mild activity or stretching. This will help to prevent stiffness and pain. Get regular exercise. Ask your doctor what activities are safe for you. You may have to avoid lifting. Ask your provider how much you can safely lift. If you lift things: ?Bend your knees. ?Keep the weight close to your body. ?Avoid twisting. Medicines Take nxcl-mmv-kqgtvpx and prescription medicines only as told by your doctor. ?You may need to take medicines for pain and swelling. These may be taken by mouth or put on the skin. You may also be given muscle relaxants. Ask your doctor if the medicine prescribed to you: ?Requires you to avoid driving or using machinery. ?Can cause trouble pooping (constipation). You may need to take these actions to prevent or treat trouble pooping: ?Drink enough fluid to keep your pee (urine) pale yellow. ?Take ztkn-wqf-pvaeznh or prescription medicines. ?Eat foods that are high in fiber. These include beans, whole grains, and fresh fruits and vegetables. ?Limit foods that are high in fat and sugars. These include fried or sweet foods. General instructions Sleep on a firm mattress. Try lying on your side with your knees slightly bent. If you lie on your back, put a pillow under your knees. Do not smoke or use any products that contain nicotine or tobacco. If you need help quitting, ask your doctor. Contact a doctor if: Your pain does not get better with rest or medicine. You have new pain. You have a fever. You lose weight quickly. You have trouble doing your normal activities. One or both of your legs or feet feel weak. One or both of your legs or feet lose feeling (have numbness). Get help right away if: You are not able to control when you pee or poop. You have bad back pain and: ?You feel like you may vomit (nauseous). ?You vomit. ?You have pain in your chest or your belly (abdomen). ?You have shortness of breath. ?You faint. These symptoms may be an emergency. Get help right away. Call 911. Do not wait to see if the symptoms will go away. Do not drive yourself to the hospital. This information is not intended to replace advice given to you by your health care provider. Make sure you discuss any questions you have with your health care provider. Document Revised: 04/27/2023 Document Reviewed: 04/27/2023 [employer] Patient Education 2023 [employer]. 06/05/2025 13:02:20 Hypothyroidism Hypothyroidism Hypothyroidism is when the thyroid gland does not make enough of certain hormones. This is called an underactive thyroid. The thyroid gland is a small gland located in the lower front part of the neck, just in front of the windpipe (trachea). This gland makes hormones that help control how the bodyuses food for energy (metabolism) as well as how the heart and brain function. These hormones also play a role in keeping your bones strong. When the thyroid is underactive, it produces too little ofthe hormones thyroxine (T4) and triiodothyronine (T3). What are the causes? This condition may be caused by: Mireille's disease. This is a disease in which the body's disease-fighting system (immune system) attacks the thyroid gland. This is the most common cause. Viral infections. . Certain medicines. defects. Problems with a gland in the center of the brain (pituitary gland). Lack of enough iodine in the diet. Other causes may include: Past radiation treatments to the head or neck for cancer. Past treatment with radioactive iodine. Past exposure to radiation in the environment. Past surgical removal of part or all of the thyroid. What increases the risk? You are more likely to develop this condition if: You are female. You have a family history of thyroid conditions. You use a medicine called lithium. You take medicines that affect the immune system (immunosuppressants). What are the signs or symptoms? Common symptoms of this condition include: Not being able to tolerate cold. Feeling as though you have no energy (lethargy). Lack of appetite. Constipation. Sadness or depression. Weight gain that is not explained by a change in diet or exercise habits. Menstrual irregularity. Dry skin, coarse hair, or brittle nails. Other symptoms may include: Muscle pain. Slowing of thought processes. Poor memory. How is this diagnosed? This condition may be diagnosed based on: Your symptoms, your medical history, and a physical exam. Blood tests. You may also have imaging tests, such as an ultrasound or MRI. How is this treated? This condition is treated with medicine that replaces the thyroid hormones that your body does not make. After you begin treatment, it may take several weeks for symptoms to go away. Follow these instructions at home: Take tivn-ywr-wnkksfy and prescription medicines only as told by your health care provider. If you start taking any new medicines, tell your health care provider. Keep all follow-up visits as told by your health care provider. This is important. ?As your condition improves, your dosage of thyroid hormone medicine may change. ?You will need to have blood tests regularly so that your health care provider can monitor your condition. Contact a health care provider if: Your symptoms do not get better with treatment. You are taking thyroid hormone replacement medicine and you: ?Sweat a lot. ?Have tremors. ?Feel anxious. ?Lose weight rapidly. ?Cannot tolerate heat. ?Have emotional swings. ?Have diarrhea. ?Feel weak. Get help right away if: You have chest pain. You have an irregular heartbeat. You have a rapid heartbeat. You have difficulty breathing. These symptoms may be an emergency. Get help right away. Call 911. Do not wait to see if the symptoms will go away. Do not drive yourself to the hospital. Summary Hypothyroidism is when the thyroid gland does not make enough of certain hormones (it is underactive). When the thyroid is underactive, it produces too little of the hormones thyroxine (T4) and triiodothyronine (T3). The most common cause is Mireille's disease, a disease in which the body's disease-fighting system(immune system) attacks the thyroid gland. The condition can also be caused by viral infections, medicine, , or past radiation treatment to the head or neck. Symptoms may include weight gain, dry skin, constipation, feeling as though you do not have energy,and not being able to tolerate cold. This condition is treated with medicine to replace the thyroid hormones that your body does not make. This information is not intended to replace advice given to you by your health care provider. Make sure you discuss any questions you have with your health care provider. Document Revised: 09/09/2022 Document Reviewed: 09/09/2022 [employer] Patient Education 2023 [employer]. 06/05/2025 13:02:14 Major Depressive Disorder, Adult Major Depressive Disorder, Adult Major depressive disorder (MDD) is a mental health condition. It may also be called clinical depression or unipolar depression. MDD causes symptoms of sadness, hopelessness, and loss of interest in things. These symptoms last most of the day, almost every day, for 2 weeks. MDD can also cause physical symptoms. It can interfere with relationships and activities, such as work, school, and activities that are usually pleasant. MDD may be mild, moderate, or severe. It may be single-episode MDD, which happens once, or recurrent MDD, which may occur many times. What are the causes? The exact cause of this condition is not known. What increases the risk? The following factors may make someone more likely to develop MDD: A family history of depression. Being female. Long-term (chronic) stress, physical illness, other mental health disorders, or substance misuse. Trauma, including: ?Family problems. ?Violence or abuse. ?Loss of a parent or close family member. ?Experiencing discrimination. What are the signs or symptoms? The main symptoms of MDD usually include: Constant depressed or irritable mood. A loss of interest in activities. Sleeping or eating too much or too little. Tiredness or low energy. Other symptoms include: Unexplained weight gain or weight loss. Being agitated, restless, or weak. Feeling hopeless, worthless, or guilty. Trouble thinking clearly or making decisions. Thoughts of suicide or harming others. Spending a lot of time alone. Not being able to complete daily tasks or work. Severe symptoms of this condition may include: Psychotic depression.This may include false beliefs or delusions. It may also include seeing, hearing, tasting, smelling, or feeling things that are not real (hallucinations). Chronic depression or persistent depressive disorder. This is low-level depression that lasts for at least 2 years. Melancholic depression, or feeling extremely sad and hopeless. Catatonic depression, which includes trouble speaking and trouble moving. Seasonal depression, which is caused by changes in the seasons. How is this diagnosed? This condition may be diagnosed based on: Your symptoms. Your medical and mental health history. A physical exam. Blood tests to rule out other conditions. MDD is confirmed if you have either a depressed mood or loss of interest and at least four other MDD symptoms, most of the day, nearly every day, in a 2-week period. How is this treated? This condition is usually treated by mental health professionals, such as psychologists, psychiatrists, and clinical social workers. You may need more than one type of treatment. Treatment may include: Psychotherapy, also called talk therapy or counseling. Types of psychotherapy include: ?Cognitive behavioral therapy (CBT). This teaches you to recognize unhealthy feelings, thoughts, and behaviors, and replace them with positive thoughts and actions. ?Interpersonal therapy (IPT). This helps you to improve the way you communicate with others or relate to them. ?Family therapy. This treatment includes members of your family. Medicines to treat anxiety and depression. These medicines help to balance the brain chemicals thataffect your emotions. Lifestyle changes. You may be asked to: ?Limit alcohol use and avoid drug use. ?Get regular exercise. ?Get plenty of sleep. ?Make healthy eating choices. ?Spend more time outdoors. Brain stimulation. This may be done if symptoms are very severe and other treatments have not worked. Examples of this treatment are electroconvulsive therapy and transcranial magnetic stimulation. Follow these instructions at home: Alcohol use Do not drink alcohol if: ?Your health care provider tells you not to drink. ?You are , may be , or are planning to become . If you drink alcohol: ?Limit how much you have to: ?0 1 drink a day for women ?0 2 drinks a day for men. ?Know how much alcohol is in your drink. In the [place] one drink equals one 12 oz bottle of beer (355 mL), one 5 oz glass of wine (148 mL), or one 1 oz glass of hard liquor (44 mL). Activity Exercise regularly and spend time outdoors. Find activities that you enjoy and make time to do them. Find healthy ways to manage stress, such as: ?Meditation or deep breathing. ?Spending time in nature. ?Journaling. Return to your normal activities as told by your health care provider. Ask your health care provider what activities are safe for you. General instructions Take lwkd-yyf-qlznmdm and prescription medicines only as told by your health care provider. Discuss alcohol use with your health care provider. Alcohol can affect any antidepressant medicinesyou are taking. Discuss any drug use with your health care provider. Eat a healthy diet and get enough sleep. Consider joining a support group. Your health care provider may be able to recommend one. Keep all follow-up visits. It is important for your health care provider to check on your mood, behavior, and medicines. Your health care provider will make changes to your treatment as needed. Where to find more information National [place] on Mental Illness: [place].org National [place] of Mental Health: [facility].gov [place] [employer] Association: psychiatry.org Contact a health care provider if: Your symptoms get worse. You develop new symptoms. Get help right away if: You hurt yourself on purpose (self-harm). You have thoughts about hurting yourself or others. You have hallucinations. Get help right away if you feel like you may hurt yourself or others, or have thoughts about takingyour own life. Go to your nearest emergency room or: Call 911. Call the [place] Suicide Prevention Lifeline at or 861. This is open 24 hours a day. Text the Crisis Text Line at 017860. This information is not intended to replace advice given to you by your health care provider. Make sure you discuss any questions you have with your health care provider. Document Revised: 01/13/2023 Document Reviewed: 01/13/2023 [employer] Patient Education 2023 [employer]. 06/05/2025 13:02:05 Dementia Dementia Dementia is a condition that affects the way the brain functions. It often affects memory and thinking. Usually, dementia gets worse with time and cannot be reversed (progressive dementia). There aremany types of dementia, including: Alzheimer's disease. This type is the most common. Vascular dementia. This type may happen as the result of a stroke. Lewy body dementia. This type may happen to people who have Parkinson's disease. Frontotemporal dementia. This type is caused by damage to nerve cells (neurons) in certain parts ofthe brain. Some people may be affected by more than one type of dementia. This is called mixed dementia. What are the causes? Dementia is caused by damage to cells in the brain. The area of the brain and the types of cells damaged determine the type of dementia. Usually, this damage is irreversible or cannot be undone. Someexamples of irreversible causes include: Conditions that affect the blood vessels of the brain, such as diabetes, heart disease, or blood vessel disease. Genetic mutations. In some cases, changes in the brain may be caused by another condition and can be reversed or slowed. Some examples of reversible causes include: Injury to the brain. Certain medicines. Infection, such as meningitis. Metabolic problems, such as vitamin B12 deficiency or thyroid disease. Pressure on the brain, such as from a tumor, blood clot, or too much fluid in the brain (hydrocephalus). Autoimmune diseases that affect the brain or arteries, such as limbic encephalitis or vasculitis. What are the signs or symptoms? Symptoms of dementia depend on the type of dementia. Common signs of dementia include problems withremembering, thinking, problem solving, decision making, and communicating. These signs develop slowly or get worse with time. This may include: Problems remembering events or people. Having trouble taking a bath or putting clothes on. Forgetting appointments or forgetting to pay bills. Difficulty planning and preparing meals. Having trouble speaking. Getting lost easily. Changes in behavior or mood. How is this diagnosed? This condition is diagnosed by a specialist (neurologist). It is diagnosed based on the history of your symptoms, your medical history, a physical exam, and tests. Tests may include: Tests to evaluate brain function, such as memory tests, cognitive tests, and other tests. Lab tests, such as blood or urine tests. Imaging tests, such as a CT scan, a PET scan, or an MRI. Genetic testing. This may be done if other family members have a diagnosis of certain types of dementia. Your health care provider will talk with you and your family, friends, or caregivers about your history and symptoms. How is this treated? Treatment for this condition depends on the cause of the dementia. Progressive dementias, such as Alzheimer's disease, cannot be cured, but there may be treatments that help to manage symptoms. Treatment might involve taking medicines that may help to: Control the dementia. Slow down the progression of the dementia. Manage symptoms. In some cases, treating the cause of your dementia can improve symptoms, reverse symptoms, or slow down how quickly your dementia becomes worse. Your health care provider can direct you to support groups, organizations, and other health care providers who can help with decisions about your care. Follow these instructions at home: Medicines Take qxaa-iap-ytgzuqq and prescription medicines only as told by your health care provider. Use a pill organizer or pill reminder to help you manage your medicines. Avoid taking medicines that can affect thinking, such as pain medicines or sleeping medicines. Lifestyle Make healthy lifestyle choices. ?Be physically active as told by your health care provider. ?Do not use any products that contain nicotine or tobacco, such as cigarettes, e-cigarettes, and chewing tobacco. If you need help quitting, ask your health care provider. ?Do not drink alcohol. ?Practice stress-management techniques when you get stressed. ?Spend time with other people. Make sure to get quality sleep. These tips can help you get a good night's rest: ?Avoid napping during the day. ?Keep your sleeping area dark and cool. ?Avoid exercising during the few hours before you go to bed. ?Avoid caffeine products in the evening. Eating and drinking Drink enough fluid to keep your urine pale yellow. Eat a healthy diet. General instructions Work with your health care provider to determine what you need help with and what your safety needsare. Talk with your health care provider about whether it is safe for you to drive. If you were given a bracelet that identifies you as a person with memory loss or tracks your location, make sure to wear it at all times. Work with your family to make important decisions, such as advance directives, medical power of insurance attorney, or a living will. Keep all follow-up visits. This is important. Where to find more information Alzheimer's Association: www.alz.org National [place] on Aging: www.gee.nih.gov/alzheimers World Health Organization: www.who.int Contact a health care provider if: You have any new or worsening symptoms. You have problems with choking or swallowing. Get help right away if: You feel depressed or sad, or feel that you want to harm yourself. Your family members become concerned for your safety. If you ever feel like you may hurt yourself or others, or have thoughts about taking your own life,get help right away. Go to your nearest emergency department or: Call your local emergency services (239 in the [place] Call a suicide crisis helpline, such as the National Suicide Prevention Lifeline at or 410 in the [place] This is open 24 hours a day in the [place] Text the Crisis Text Line at 391151 (in the [place] Summary Dementia is a condition that affects the way the brain functions. Dementia often affects memory andthinking. Usually, dementia gets worse with time and cannot be reversed (progressive dementia). Treatment for this condition depends on the cause of the dementia. Work with your health care provider to determine what you need help with and what your safety needsare. Your health care provider can direct you to support groups, organizations, and other health care providers who can help with decisions about your care. This information is not intended to replace advice given to you by your health care provider. Make sure you discuss any questions you have with your health care provider. Document Revised: 04/02/2022 Document Reviewed: 01/21/2021 [employer] Patient Education 2023 [employer]. 06/05/2025 13:01:58 Seizure, Adult, Eakx-rs-Owrh Seizure, Adult A seizure is a sudden burst of abnormal electrical and chemical activity in the brain. Seizures usually last from 30 seconds to 2 minutes. What are the causes? Common causes of this condition include: Fever or infection. Problems that affect the brain. These may include: ?A brain or head injury. ?Bleeding in the brain. ?A brain tumor. Low levels of blood sugar or salt. Kidney problems or liver problems. Conditions that are passed from parent to child (are inherited). Problems with a substance, such as: ?Having a reaction to a drug or a medicine. ?Stopping the use of a substance all of a sudden (withdrawal). A stroke. Disorders that affect how you develop. Sometimes, the cause may not be known. What increases the risk? Having someone in your family who has epilepsy. In this condition, seizures happen again and again over time. They have no clear cause. Having had a tonic clonic seizure before. This type of seizure causes you to: ?Tighten the muscles of the whole body. ?Lose consciousness. Having had a head injury or strokes before. Having had a lack of oxygen at . What are the signs or symptoms? There are many types of seizures. The symptoms vary depending on the type of seizure you have. Symptoms during a seizure Shaking that you cannot control (convulsions) with fast, jerky movements of muscles. Stiffness of the body. Breathing problems. Feeling mixed up (confused). Staring or not responding to sound or touch. Head nodding. Eyes that blink, flutter, or move fast. Drooling, grunting, or making clicking sounds with your mouth Losing control of when you pee or poop. Symptoms before a seizure Feeling afraid, nervous, or worried. Feeling like you may vomit. Feeling like: ?You are moving when you are not. ?Things around you are moving when they are not. Feeling like you saw or heard something before (mary ann logan). Odd tastes or smells. Changes in how you see. You may see flashing lights or spots. Symptoms after a seizure Feeling confused. Feeling sleepy. Headache. Sore muscles. How is this treated? If your seizure stops on its own, you will not need treatment. If your seizure lasts longer than 5 minutes, you will normally need treatment. Treatment may include: Medicines given through an IV tube. Avoiding things, such as medicines, that are known to cause your seizures. Medicines to prevent seizures. A device to prevent or control seizures. Surgery. A diet low in carbohydrates and high in fat (ketogenic diet). Follow these instructions at home: Medicines Take crzq-buo-fcotylx and prescription medicines only as told by your doctor. Avoid foods or drinks that may keep your medicine from working, such as alcohol. Activity Follow instructions about driving, swimming, or doing things that would be dangerous if you had another seizure. Wait until your doctor says it is safe for you to do these things. If you live in the [place] ask your local department of [employer] when you can drive. Get a lot of rest. Teaching others Teach friends and family what to do when you have a seizure. They should: ?Help you get down to the ground. ?Protect your head and body. ?Loosen any clothing around your neck. ?Turn you on your side. ?Know whether or not you need emergency care. ?Stay with you until you are better. Also, tell them what not to do if you have a seizure. Tell them: ?They should not hold you down. ?They should not put anything in your mouth. General instructions Avoid anything that gives you seizures. Keep a seizure diary. Write down: ?What you remember about each seizure. ?What you think caused each seizure. Keep all follow-up visits. Contact a doctor if: You have another seizure or seizures. Call the doctor each time you have a seizure. The pattern of your seizures changes. You keep having seizures with treatment. You have symptoms of being sick or having an infection. You are not able to take your medicine. Get help right away if: You have any of these problems: ?A seizure that lasts longer than 5 minutes. ?Many seizures in a row and you do not feel better between seizures. ?A seizure that makes it harder to breathe. ?A seizure and you can no longer speak or use part of your body. You do not wake up right after a seizure. You get hurt during a seizure. You feel confused or have pain right after a seizure. These symptoms may be an emergency. Get help right away. Call your local emergency services (911 inthe [place] Do not wait to see if the symptoms will go away. Do not drive yourself to the hospital. Summary A seizure is a sudden burst of abnormal electrical and chemical activity in the brain. Seizures normally last from 30 seconds to 2 minutes. Causes of seizures include illness, injury to the head, low levels of blood sugar or salt, and certain conditions. Most seizures will stop on their own in less than 5 minutes. Seizures that last longer than 5 minutes are a medical emergency and need treatment right away. Many medicines are used to treat seizures. Take [id number] and prescription medicines only astold by your doctor. This information is not intended to replace advice given to you by your health care provider. Make sure you discuss any questions you have with your health care provider. Document Revised: 03/13/2021 Document Reviewed: 03/15/2021 [employer] Patient Education 2023 [employer]. [facility] 09-15-2025 NotePatient Education Endocrinology Hypothyroidism Hypothyroidism is when the thyroid gland does not make enough of certain hormones. This is called an underactive thyroid. The thyroid gland is a small gland located in the lower front part of the neck, just in front of the windpipe (trachea). This gland makes hormones that help control how the bodyuses food for energy (metabolism) as well as how the heart and brain function. These hormones also play a role in keeping your bones strong. When the thyroid is underactive, it produces too little ofthe hormones thyroxine (T4) and triiodothyronine (T3). What are the causes? This condition may be caused by: ??? Mireille's disease. This is a disease in which the body's disease-fighting system (immune system) attacks the thyroid gland. This is the most common cause. ??? Viral infections. ??? . ??? Certain medicines. ??? defects. ??? Problems with a gland in the center of the brain (pituitary gland). ??? Lack of enough iodine in the diet. Other causes may include: ??? Past radiation treatments to the head or neck for cancer. ??? Past treatment with radioactive iodine. ??? Past exposure to radiation in the environment. ??? Past surgical removal of part or all of the thyroid. What increases the risk? You are more likely to develop this condition if: ??? You are female. ??? You have a family history of thyroid conditions. ??? You use a medicine called lithium. ??? You take medicines that affect the immune system (immunosuppressants). What are the signs or symptoms? Common symptoms of this condition include: ??? Not being able to tolerate cold. ??? Feeling as though you have no energy (lethargy). ??? Lack of appetite. ??? Constipation. ??? Sadness or depression. ??? Weight gain that is not explained by a change in diet or exercise habits. ??? Menstrual irregularity. ??? Dry skin, coarse hair, or brittle nails. Other symptoms may include: ??? Muscle pain. ??? Slowing of thought processes. ??? Poor memory. How is this diagnosed? This condition may be diagnosed based on: ??? Your symptoms, your medical history, and a physical exam. ??? Blood tests. You may also have imaging tests, such as an ultrasound or MRI. How is this treated? This condition is treated with medicine that replaces the thyroid hormones that your body does not make. After you begin treatment, it may take several weeks for symptoms to go away. Follow these instructions at home: ??? Take [id number]-[id number] and prescription medicines only as told by your health care provider. ??? If you start taking any new medicines, tell your health care provider. ??? Keep all follow-up visits as told by your health care provider. This is important. ? As your condition improves, your dosage of thyroid hormone medicine may change. ? You will need to have blood tests regularly so that your health care provider can monitor your condition. Contact a health care provider if: ??? Your symptoms do not get better with treatment. ??? You are taking thyroid hormone replacement medicine and you: ? Sweat a lot. ? Have tremors. ? Feel anxious. ? Lose weight rapidly. ? Cannot tolerate heat. ? Have emotional swings. ? Have diarrhea. ? Feel weak. Get help right away if: ??? You have chest pain. ??? You have an irregular heartbeat. ??? You have a rapid heartbeat. ??? You have difficulty breathing. These symptoms may be an emergency. Get help right away. Call 911. ??? Do not wait to see if the symptoms will go away. ??? Do not drive yourself to the hospital. Summary ??? Hypothyroidism is when the thyroid gland does not make enough of certain hormones (it is underactive). ??? When the thyroid is underactive, it produces too little of the hormones thyroxine (T4) and triiodothyronine (T3). ??? The most common cause is Mireille's disease, a disease in which the body's disease-fighting system (immune system) attacks the thyroid gland. The condition can also be caused by viral infections, medicine, , or past radiation treatment to the head or neck. ??? Symptoms may include weight gain, dry skin, constipation, feeling as though you do not have energy, and not being able to tolerate cold. ??? This condition is treated with medicine to replace the thyroid hormones that your body does notmake. This information is not intended to replace advice given to you by your health care provider. Make sure you discuss any questions you have with your health care provider. Document Revised: 09/09/2022 Document Reviewed: 09/09/2022 [employer] Patient Education ? 2023 [employer]. Mental and Behavioral Health Major Depressive Disorder, Adult Major depressive disorder (MDD) is a mental health condition. It may also be called clinical depression or unipolar depression. MDD causes symptoms of sadness, hopelessness, and loss of interest in things. These (more content not included)...[facility]08-11-2025 Hospital Discharge instructions Follow Up Care 05/01/2025 15:12:24 With:Link Calvin ULLOA FAM Address: [address] [place] [address]- When:2 weeks Comments:2 WEEKS [facility] 08-04-2025 History of Present illness Narrative* Eugenio Rivero DPM FACFAS - 04/24/2025 2:30 PM EDT Images from the original note were not included. patient: David Lane : 1950 PCP: Calvin Oshea MD SUBJECTIVE This is a 75 y.o. male that presents today with a chief complaint of painful elongated nails digits1 through 10. They cause marked limitation in ambulation due to pain and pressure from shoe gear. 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 04/20/2023 Epilepsy ([facility]) 04/20/2023 Frailty 04/20/2023 Gait abnormality 04/20/2023 History of hemicolectomy 04/20/2023 Hypothyroidism 04/20/2023 Intracerebral hemorrhage ([facility]) 04/20/2023 Mixed hyperlipidemia 04/20/2023 Pharyngoesophageal dysphagia 04/20/2023 Recurrent major depressive disorder, in partial remission 04/20/2023 Tubular adenoma of colon 04/20/2023 Dementia in other diseases classified elsewhere, unspecified severity, without behavioral disturbance, psychotic disturbance, mood disturbance, and anxiety ([facility]) 04/27/2023 Wellness examination 04/27/2023 Medicare annual wellness visit, subsequent 04/27/2023 ACP (advance care planning) 04/27/2023 NAFLD (nonalcoholic fatty liver disease) 08/31/2023 Hypertension Memory loss Cognitive impairment, mild, so stated 06/15/2024 Seizure disorder ([facility]) 06/15/2024 Resolved Ambulatory Problems Diagnosis Date Noted No Resolved Ambulatory Problems Past Medical History: Diagnosis Date Anemia Ataxia due to cerebrovascular disease Essential hypertension, benign History of kidney stones Hyperlipidemia Hypertensive heart disease without CHF Petit mal seizure status ([facility]) Vitamin D deficiency Medications: Current Outpatient Medications: [...] subungual debris. They were painful to palpation [id number] on the right [id number] on the left. VASC: DP /PT were nonpalpable bilateral. Capillary refill time < 3 seconds Digits 1-5 bilateral NEURO: [place] [employer] 5.07 monofilament was intact B/L. Vibratory [...] both in length and thickness 1through 10. BRENT Britt documented in this encounterKindred [id number] Hospital Discharge instructions Follow Up Care 04/13/2025 12:12:08 With:Calvin Oshea DO, FAM Address: [address] [place] [address]- When:4 weeks Comments:4 WEEKS FOLLOWUP [facility] 05-19-2025 History of Present illness Narrative* RAVIN Christopher - 02/06/2025 10:00 AM EDT Images from the original note were not included. No chief complaint on file. Subjective David Lane, 75 y.o., male here in hospital follow up for weakness and dizziness. HPI The patient is here today with his niece. The patient has not been getting out of bed for a year and a half. She thinks that he is suffering from depression. He had an appt here and fell and hit his head while he was here checking in and had a laceration and needed stitches. He has had dizziness after falling and hitting his head. He was inpatient at [facility] for inpatient rehab for a month. He had acouple of home visits after but he is back to the same as before he went into the hospital. She could not get him out of bed yesterday until 9 pm to eat his breakfast. He states that he lays in bed due to back pain. He denies any further dizziness. He denies any falls since coming home from the hospital. She wants him switched to a regular walker. He denies weakness in his arms or legs. She states that he is weaker than in the past. She denies that he has had any seizures. He is only taking 2 depakote in am and none at night. She is having a hard time getting him to take his medication. 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 Lan RAI ORIF HIP FRACTURE Left 09/2015 Left hip surgery: [facility] Dr. Calderon SHOULDER SURGERY Left ORIF Family History Problem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 himself and she cannot do it -CRM to follow up with pt. and [facility]PO[facility] for possible placement 7. HTN (hypertension) (I10: Essential (primary) hypertension) -Lisinopril, metoprolol 8. HLD (hyperlipidemia) (E78.5: Hyperlipidemia, unspecified) -Atorvastatin 9. Seizure disorder (G40.909: Epilepsy, unspecified, not intractable, without status epilepticus) Seizure precautions -Valproic acid level - 38 low -> sister is unsure if pt. was taking medications -> recommend repeat level in 1-2 wks -Valproic acid 10. Hypothyroidism in adult (E03.9: Hypothyroidism, unspecified) TSH - wnl -Levothyroxine 11. Dementia (F03.90: Unspecified dementia, unspecified severity, without behavioral disturbance, psychotic disturbance, mood disturbance, and anxiety) W/ depression -Baseline mentation: Alert to person, , family, year -CT head: no acute process -Sertraline, donepezil, duloxetine -Promote sleep-wake cycle -Fall precautions 12. History of CVA in adulthood (Z86.73: Personal history of transient ischemic attack (TIA), and cerebral infarction without residual deficits) 2020: MRI: Small focal area of signal intensity change within the right basal ganglia that could due to old hemorrhage. -Unclear why pt. is not on asa, awaiting sister to arrive to review med list -Atorvastatin 13. History of traumatic brain injury (Z87.820: Personal history of traumatic brain injury) -Supportive care 14. On deep vein thrombosis (DVT) prophylaxis (Z79.899: Other halfway (current) drug therapy) -Lovenox, early ambulation -Plan discussed w/ patient, nursing staff and CRM. -Disposition: Awaiting SNF placement once medically stable. This report was transcribed using voice recognition software. Every effort was made to ensure accuracy, however, inadvertently computerized tree marker mistakes may be present. Extracted from:Title:APSO NoteAuthor:LIBBY RAM-JEANNIE, ReneeDate:12/23/24 Please communicate all care needs and decisions directly w/ [facility]PO[facility] Adarsh Garber nephew: [phone] 1. Diarrhea (R19.7: Diarrhea, unspecified) Ongoing x 1 week -Enteric panel, Cdiff - pending -Imodium if stool studies are neg -Stool count Ordered: Initial Hospital Care/Day High 75 Minutes [id number] 2. Dehydration (E86.0: Dehydration) 2/2 ongoing diarrhea -IVF 3L to date - off at present -Trend labs 3. Hypernatremia (E87.0: Hyperosmolality and hypernatremia) 2/2 GI loss -Free water deficit: 1L -IVF as above -Trend labs 4. Hyperchloremia (E87.8: Other disorders of electrolyte and fluid balance, not elsewhere classified) Tx. as above 5. Generalized weakness (R53.1: Weakness) 2/2 chronic physical conditioning, debility, diarrhea, dehydration -CXR: no acute process -UA: no infectious process -PT/OT -> FWW use and SNF placement -Fall precautions 6. Total self-care deficit (R68.89: Other general symptoms and signs) Per pt. and sister pt. is unable to care for himself and she cannot do it -CRM to follow up with pt. and [facility]PO[facility] for possible placement 7. HTN (hypertension) (I10: Essential (primary) hypertension) -Lisinopril, metoprolol 8. HLD (hyperlipidemia) (E78.5: Hyperlipidemia, unspecified) -Atorvastatin 9. Seizure disorder (G40.909: Epilepsy, unspecified, not intractable, without status epilepticus) Seizure precautions -Valproic acid level - 38 low -> sister is unsure if pt. was taking medications -> recommend repeat level in 1-2 wks -Valproic acid 10. Hypothyroidism in adult (E03.9: Hypothyroidism, unspecified) TSH - wnl -Levothyroxine 11. Dementia (F03.90: Unspecified dementia, unspecified severity, without behavioral disturbance, psychotic disturbance, mood disturbance, and anxiety) W/ depression -Baseline mentation: Alert to person, , family, year -CT head: no acute process -Sertraline, donepezil, duloxetine -Promote sleep-wake cycle -Fall precautions 12. History of CVA in adulthood (Z86.73: Personal history of transient ischemic attack (TIA), and cerebral infarction without residual deficits) 2020: MRI: Small focal area of signal intensity change within the right basal ganglia that could due to old hemorrhage. -Unclear why pt. is not on asa, awaiting sister to arrive to review med list -Atorvastatin 13. History of traumatic brain injury (Z87.820: Personal history of traumatic brain injury) -Supportive care 14. On deep vein thrombosis (DVT) prophylaxis (Z79.899: Other halfway (current) drug therapy) -Lovenox, early ambulation Orders: acetaminophen, 650 mg = 2 tab(s), Tab, Oral, q6hr PRN Pain, Routine, Start date 12/22/24 17:05:00 EDT, 12/22/24 17:05:00 EDT enoxaparin, 40 mg = 0.4 mL, Injection, SubCutaneous, Daily for 30 day(s), Stop date 01/22/25 8:59:00 EDT, Routine, Start date 12/23/24 9:00:00 EDT, 12/22/24 17:24:00 EDT Lactated Ringers Injection 1,000 mL, 1,000 mL, IV, 50 mL/hr, for 1 dose(s), Stop date 12/23/24 13:06:00 EDT, Routine, Start date 12/22/24 17:07:00 EDT, 20 hour(s), Total volume (mL): 1,000, 88.1 kg, 2.13, m2 ondansetron, 4 mg = 2 mL, Injection, IV Push, q6hr PRN Nausea, Routine, Start date 12/22/24 17:05:00 EDT, 12/22/24 17:05:00 EDT Ambulate with Assistance Basic Metabolic Panel Below the Knee Intermittent Pneumatic Compression Device Cardiac Diet Cardiac Monitoring Communication Order Physician to Nursing Communication Order Physician to Nursing eGFR Extra Lav Tube Intake and Output Magnesium Level Notify Provider Vital Signs Notify Provider Vital Signs Occupational Therapy Additional Tx Occupational Therapy Evaluate Patient, Develop a Plan of Care and Implement Plan Oxygen Protocol Pad Siderails Physical Therapy Additional Tx Physical Therapy Evaluate Patient, Develop a Plan of Care and Implement Plan Precautions Pulse Oximetry Resuscitation Status - Full UA with Cult Rflx Valproic Acid Level Vital Signs Weight -Plan discussed w/ patient, nursing staff and CRM. -Disposition: Awaiting SNF placement once medically stable. This report was transcribed using voice recognition software. Every effort was made to ensure accuracy, however, inadvertently computerized tree marker mistakes may be present. Extracted from:Title:Admission H & PAuthor:SOUZA LEANNAV[facility], ReneeDate:12/22/24 Please communicate all care needs and decisions directly w/ DPOA HC Adarsh Garber nephew: [phone] -Awaiting [facility] rec for all dx. 1. Diarrhea (R19.7: Diarrhea, unspecified) Ongoing x 1 week -Enteric panel, Cdiff - pending -Imodium if stool studies are neg -Stool count 2. Dehydration (E86.0: Dehydration) 2/2 ongoing diarrhea -IVF 2L to date - 1 additional liter overnight and re-eval in a.m. -Trend labs 3. Hypernatremia (E87.0: Hyperosmolality and hypernatremia) 2/2 GI loss -Free water deficit: 1L -IVF as above -Trend labs 4. Hyperchloremia (E87.8: Other disorders of electrolyte and fluid balance, not elsewhere classified) Tx. as above 5. Generalized weakness (R53.1: Weakness) 2/2 chronic physical conditioning, debility, diarrhea, dehydration -CXR: no acute process -UA: pending -PT/OT - pending -Fall precautions 6. Total self-care deficit (R68.89: Other general symptoms and signs) Per pt. and sister pt. is unable to care for himself and she cannot do it -CRM to follow up with pt. and DPOA-HC for possible placement 7. HTN (hypertension) (I10: Essential (primary) hypertension) 8. HLD (hyperlipidemia) (E78.5: Hyperlipidemia, unspecified) 9. Seizure disorder (G40.909: Epilepsy, unspecified, not intractable, without status epilepticus) Seizure precautions 10. Hypothyroidism in adult (E03.9: Hypothyroidism, unspecified) 11. Dementia (F03.90: Unspecified dementia, unspecified severity, without behavioral disturbance, psychotic disturbance, mood disturbance, and anxiety) Baseline mentation: Alert to person, , family, year -CT head: no acute process -Promote sleep-wake cycle -Fall precautions 12. History of CVA in adulthood (Z86.73: Personal history of transient ischemic attack (TIA), and cerebral infarction without residual deficits) 2020: MRI: Small focal area of signal intensity change within the right basal ganglia that could due to old hemorrhage. 13. History of traumatic brain injury (Z87.820: Personal history of traumatic brain injury) -Supportive care 14. On deep vein thrombosis (DVT) prophylaxis (Z79.899: Other manager intermediate (current) drug therapy) -Lovenox, early ambulation Orders: acetaminophen, 650 mg = 2 tab(s), Tab, Oral, q6hr PRN Pain, Routine, Start date 12/22/24 17:05:00 EDT, 12/22/24 17:05:00 EDT enoxaparin, 40 mg = 0.4 mL, Injection, SubCutaneous, Daily for 30 day(s), Stop date 01/22/25 8:59:00 EDT, Routine, Start date 12/23/24 9:00:00 EDT, 12/22/24 17:24:00 EDT Lactated Ringers Injection 1,000 mL, 1,000 mL, IV, 50 mL/hr, for 1 dose(s), Stop date 12/23/24 13:06:00 EDT, Routine, Start date 12/22/24 17:07:00 EDT, 20 hour(s), Total volume (mL): 1,000, 88.1 kg, 2.13, m2 ondansetron, 4 mg = 2 mL, Injection, IV Push, q6hr PRN Nausea, Routine, Start date 12/22/24 17:05:00 EDT, 12/22/24 17:05:00 EDT Ambulate with Assistance Basic Metabolic Panel Below the Knee Intermittent Pneumatic Compression Device Cardiac Diet Cardiac Monitoring Incentive Spirometry Intake and Output Magnesium Level Notify Provider Vital Signs Notify Provider Vital Signs Occupational Therapy Evaluate Patient, Develop a Plan of Care and Implement Plan Oxygen Protocol Pad Siderails Physical Therapy Evaluate Patient, Develop a Plan of Care and Implement Plan Precautions Pulse Oximetry Resuscitation Status - Full UA with Cult Rflx Vital Signs Weight -Plan discussed w/ patient, nursing staff and CRM. -Disposition: Patient will be greater than 2 midnight stays for treatment of above. This report was transcribed using voice recognition software. Every effort was made to ensure accuracy, however, inadvertently computerized tree marker mistakes may be present. Extracted from:Title:ED NoteAuthor:Rory Shen PA-C.Date:12/22/24 1. Dehydration (E86.0: Dehyd ration) 2. Diarrhea (R19.7: Diarrhea, unspecified) 3. Generalized weakness (R53.1: Weakness) 4. Hypernatremia (E87.0: Hyperosmolality and hypernatremia) 5. Hyperchloremia (E87.8: Other disorders of electrolyte and fluid balance, not elsewhere classified) Orders: Lactated Ringers Injection 1,000 mL, 1,000 mL, IV, 120 cc/hr, STAT, Start date 12/22/24 15:59:00 EDT, Total volume (mL): 1,000, 88.1 kg, 2.13, m2 ondansetron, 4 mg = 2 mL, Injection, IV Push, Once, Stop date 12/22/24 13:45:00 EDT, STAT, Start date 12/22/24 13:45:00 EDT, 12/22/24 13:45:00 EDT Sodium Chloride 0.9% intravenous solution, 1,000 mL, Soln-IV, IV, Once, Stop date 12/22/24 13:44:00EDT, STAT, Start date 12/22/24 13:44:00 EDT, Infuse over 61, minute(s) Basic Metabolic Panel CBC w/ Auto Diff Clostridium Difficile PCR Continuous Pulse Oximetry CT Head or Brain w/o Contrast ED Cardiac Monitoring ED Physician consult Hospitalist for continued care eGFR Enteric Panel by PCR Extra SST Tube Fecal WBC Lactoferrin Hepatic Function Panel Oxygen Therapy PT & PTT Routine Capillary Glucose POC Troponin 0 Hr. UA with Cult Rflx XR Chest Single View Future Appointments Appointment Date:12/30/2024 09:15:00 AM Scheduled Provider:Mhedi LYNCH MD Location:Extended Care Appointment Type:[facility] Appointment Date:01/02/2025 11:40:00 AM Scheduled Provider:Calvin Oshea DO Location:[facility] Appointment Type:[facility] 04-09-2025 Hospital Discharge instructions Patient Education 12/28/2024 11:08:29 Diarrhea, Adult Diarrhea, Adult Diarrhea is frequent loose and sometimes watery bowel movements. Diarrhea can make you feel weak and cause you to become dehydrated. Dehydration is a condition in which there is not enough water or other fluids in the body. Dehydration can make you tired and thirsty, cause you to have a dry mouth, and decrease how often you urinate. Diarrhea typically lasts 2 3 days. However, it can last longer if it is a sign of something more serious. It is important to treat your diarrhea as told by your health care provider. Follow these instructions at home: Eating and drinking Follow these recommendations as told by your health care provider: Take an oral rehydration solution (ORS). This is an [id number] medicine that helps return your body to its normal balance of nutrients and water. It is found at pharmacies and retail stores. Drink enough fluid to keep your urine pale yellow. ?Drink fluids such as water, diluted fruit juice, and low-calorie sports drinks. You can drink milkalso, if desired. Sucking on ice chips is another way to get fluids. ?Avoid drinking fluids that contain a lot of sugar or caffeine, such as soda, energy drinks, and regular sports drinks. ?Avoid alcohol. Eat bland, istg-re-bylsxw foods in small amounts as you are able. These foods include bananas, applesauce, rice, lean meats, toast, and crackers. Avoid spicy or fatty foods. Medicines Take yaaz-rpa-herohvm and prescription medicines only as told by your health care provider. If you were prescribed antibiotics, take them as told by your health care provider. Do not stop using the antibiotic even if you start to feel better. General instructions Wash your hands often using soap and water for at least 20 seconds. If soap and water are not available, use hand motor vehicle parts interpreter. Others in the household should wash their hands as well. Hands should be washed: ?After using the toilet or changing a diaper. ?Before preparing, cooking, or serving food. ?While caring for a sick person or while visiting someone in a hospital. Rest at home while you recover. Take a warm bath to relieve any burning or pain from frequent diarrhea episodes. Watch your condition for any changes. Contact a health care provider if: You have a fever. Your diarrhea gets worse. You have new symptoms. You vomit every time you eat or drink. You feel light-headed, dizzy, or have a headache. You have muscle cramps. You have signs of dehydration, such as: ?Dark urine, very little urine, or no urine. ?Cracked lips. ?Dry mouth. ?Sunken eyes. ?Sleepiness. ?Weakness. You have bloody or black stools or stools that look like tar. You have severe pain, cramping, or bloating in your abdomen. Your skin feels cold and clammy. You feel confused. Get help right away if: You have chest pain or your heart is beating very quickly. You have trouble breathing or you are breathing very quickly. You feel extremely weak or you faint. These symptoms may be an emergency. Get help right away. Call 911. Do not wait to see if the symptoms will go away. Do not drive yourself to the hospital. This information is not intended to replace advice given to you by your health care provider. Make sure you discuss any questions you have with your health care provider. Document Revised: 02/24/2023 Document Reviewed: 02/24/2023 [employer] Patient Education 2023 [facility] 12/22/2024 13:21:25 With:Calvin Link Address: [address] [place] [address]- Business (1) When: Unknown [facility] 04-08-2025 NoteProgress Note-Physician Assessment/Plan Please communicate all care needs and decisions directly w/ DPOA???HC Adarsh Garber???nephew: [phone] 1. Diarrhea (R19.7: Diarrhea, unspecified) Ongoing x 1 week=---resolved now. -Enteric panel, Cdiff -canceled as patient's had no further diarrhea since admission. -Stool count- 0 x24hr 2. Dehydration (E86.0: Dehydration) 2/2 ongoing diarrhea--now resolved. -IVF 3L to date - off at present -Trend labs 3. Hypernatremia (E87.0: Hyperosmolality and hypernatremia) 2/2 GI loss -improved since admission -Free water deficit: 1L -IVF as above -Trend labs 4. Hyperchloremia (E87.8: Other disorders of electrolyte and fluid balance, not elsewhere classified) Tx. as above 5. Generalized weakness (R53.1: Weakness) 2/2 chronic physical conditioning, debility, diarrhea, dehydration -CXR: no acute process -UA: no infectious process -PT/OT -> FWW use and SNF placement -Fall precautions 6. Total self-care deficit (R68.89: Other general symptoms and signs) Per pt. and sister pt. is unable to care for himself and she cannot do it -CRM to follow up with pt. and DPOA-HC for possible placement 7. HTN (hypertension) (I10: Essential (primary) hypertension) -Lisinopril, metoprolol 8. HLD (hyperlipidemia) (E78.5: Hyperlipidemia, unspecified) -Atorvastatin 9. Seizure disorder (G40.909: Epilepsy, unspecified, not intractable, without status epilepticus) Seizure precautions -Valproic acid level - 38 low -> sister is unsure if pt. was taking medications -> recommend repeat level in 1-2 wks -Valproic acid 10. Hypothyroidism in adult (E03.9: Hypothyroidism, unspecified) TSH - wnl -Levothyroxine 11. Dementia (F03.90: Unspecified dementia, unspecified severity, without behavioral disturbance, psychotic disturbance, mood disturbance, and anxiety) W/ depression -Baseline mentation: Alert to person, , family, year -CT head: no acute process -Sertraline, donepezil, duloxetine -Promote sleep-wake cycle -Fall precautions 12. History of CVA in adulthood (Z86.73: Personal history of transient ischemic attack (TIA), and cerebral infarction without residual deficits) 2020: MRI: Small focal area of signal intensity change within the right basal ganglia that could due to old hemorrhage. -Unclear why pt. is not on asa, awaiting sister to arrive to review med list -Atorvastatin 13. History of traumatic brain injury (Z87.820: Personal history of traumatic brain injury) -Supportive care 14. On deep vein thrombosis (DVT) prophylaxis (Z79.899: Other halfway (current) drug therapy) -Lovenox, early ambulation -Plan discussed w/ patient, nursing staff and CRM. -Disposition: Awaiting SNF placement once medically stable. This report was transcribed using voice recognition software. Every effort was made to ensure accuracy, however, inadvertently computerized tree marker mistakes may be present. Subjective Pt seen sitting up in recliner. No acute issues last night. Pt states he is feeling better. Bowel movement yesterday. No diarrhea since admission. Objective Vitals & Measurements T: 36.5 ???C(Axillary) TMIN: 36.3 ???C(Axillary) TMAX: 36.7 ???C(Axillary) HR: 80(Monitored) RR: 16BP: 122/77 SpO2: 94% Intake & Output This visit (24 hour periods starting at 07:00 EDT) 12/27/24 * 12/26/24 12/25/24 Total Summary Intake mL 237 474 474 Output mL 850 1,050 100 Fluid Balance -650 -215 574 Intake (1) Ensure mL 237 474 474 Total 237 474 474 Output (1) Urine Voided mL 850 1,050 100 Total 850 1,050 100 Counts (1) Stool Count -- 1 -- * This column has not completed the indicated time period. 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 No chest wall deformity, no chest wall tenderness Lungs: Resp regular even unlabored. Cardio: Normal rate, currently in RSR, no edema. Pulses: Normal capillary refill Abdomen: Soft, non-distended, non-tender, normal BS Musculoskeletal: No deformity or scoliosis noted. Normal ROM for age. Integumentary: Warm, dry, Extremity: No clubbing, Neurologic: Alert, oriented x self, , family, year and president- this is his baseline per sister, follows commands, Mental status: Pleasant & cooperative, approp. affect, Lab Results No qualifying data available. Problem List/Past Medical History Ongoing Absence seizure Anticoagulated Asymptomatic microscopic hematuria At risk for falls Back pain Benign essential hypertension Chronic insomnia History of CVA in adulthood History of nephrolithiasis History of traumatic brain injury Hyperli (more content not included)...[facility]:Result Comment: Electronically Signed By: Saadia ASHER\.br\Date and Time Signed: 12/27/24 12:23 EDT\.br\Electronically Co- Signed By: David Bush DO\.br\Date and Time Co-Signed: 12/27/24 22:13 EDT 12-26-2024 NoteProgress Note-Physician Assessment/Plan Please communicate all care needs and decisions directly w/ DPOA???HC Adarsh Garber???nephew: [phone] 1. Diarrhea (R19.7: Diarrhea, unspecified) Ongoing x 1 week -Enteric panel, Cdiff -canceled as patient's had no further diarrhea since admission. -Stool count- 0 x24hr 2. Dehydration (E86.0: Dehydration) 2/2 ongoing diarrhea--now resolved. -IVF 3L to date - off at present -Trend labs 3. Hypernatremia (E87.0: Hyperosmolality and hypernatremia) 2/2 GI loss -improved since admission -Free water deficit: 1L -IVF as above -Trend labs 4. Hyperchloremia (E87.8: Other disorders of electrolyte and fluid balance, not elsewhere classified) Tx. as above 5. Generalized weakness (R53.1: Weakness) 2/2 chronic physical conditioning, debility, diarrhea, dehydration -CXR: no acute process -UA: no infectious process -PT/OT -> FWW use and SNF placement -Fall precautions 6. Total self-care deficit (R68.89: Other general symptoms and signs) Per pt. and sister pt. is unable to care for himself and she cannot do it -CRM to follow up with pt. and DPOA-HC for possible placement 7. HTN (hypertension) (I10: Essential (primary) hypertension) -Lisinopril, metoprolol 8. HLD (hyperlipidemia) (E78.5: Hyperlipidemia, unspecified) -Atorvastatin 9. Seizure disorder (G40.909: Epilepsy, unspecified, not intractable, without status epilepticus) Seizure precautions -Valproic acid level - 38 low -> sister is unsure if pt. was taking medications -> recommend repeat level in 1-2 wks -Valproic acid 10. Hypothyroidism in adult (E03.9: Hypothyroidism, unspecified) TSH - wnl -Levothyroxine 11. Dementia (F03.90: Unspecified dementia, unspecified severity, without behavioral disturbance, psychotic disturbance, mood disturbance, and anxiety) W/ depression -Baseline mentation: Alert to person, , family, year -CT head: no acute process -Sertraline, donepezil, duloxetine -Promote sleep-wake cycle -Fall precautions 12. History of CVA in adulthood (Z86.73: Personal history of transient ischemic attack (TIA), and cerebral infarction without residual deficits) 2020: MRI: Small focal area of signal intensity change within the right basal ganglia that could due to old hemorrhage. -Unclear why pt. is not on asa, awaiting sister to arrive to review med list -Atorvastatin 13. History of traumatic brain injury (Z87.820: Personal history of traumatic brain injury) -Supportive care 14. On deep vein thrombosis (DVT) prophylaxis (Z79.899: Other manager intermediate (current) drug therapy) -Lovenox, early ambulation -Plan discussed w/ patient, nursing staff and CRM. -Disposition: Awaiting SNF placement once medically stable. This report was transcribed using voice recognition software. Every effort was made to ensure accuracy, however, inadvertently computerized tree marker mistakes may be present. Subjective Patient seen while sitting up in recliner. No acute issues last night. Vitals and labs are stable. No diarrhea since admission. Patient pending SNF Objective Vitals & Measurements T: 36.6 ???C(Axillary) TMIN: 36.3 ???C(Axillary) TMAX: 36.6 ???C(Axillary) HR: 73(Monitored) RR: 18BP: 111/76 SpO2: 91% WT: 88 kg Intake & Output This visit (24 hour periods starting at 07:00 EDT) 12/26/24 * 12/25/24 12/24/24 Total Summary Intake mL 237 474 474 Output mL 200 100 350 Fluid Balance 37 374 124 Intake (1) Ensure mL 237 474 474 Total 237 474 474 Output (1) Urine Voided mL 200 100 350 Total 200 100 350 Counts (0) * This column has not completed the indicated time period. 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 No chest wall deformity, no chest wall tenderness Lungs: Resp regular even unlabored. Cardio: Normal rate, currently in RSR, no edema. Pulses: Normal capillary refill Abdomen: Soft, non-distended, non-tender, normal BS Musculoskeletal: No deformity or scoliosis noted. Normal ROM for age. Integumentary: Warm, dry, Extremity: No clubbing, Neurologic: Alert, oriented x self, , family, year and president- this is his baseline per sister, follows commands, Mental status: Pleasant & cooperative, approp. affect, Lab Results Sodium Lvl: 139 mmol/L (12/26/24 06:06:00) Potassium Lvl: 3.6 mmol/L (12/26/24 06:06:00) Chloride: 104 mmol/L (12/26/24 06:06:00) CO2: 29 mmol/L (12/26/24 06:06:00) AGAP: 10 mEq/L (12/26/24 06:06:00) Problem List/Past Medical History Ongoing Absence seizure Anticoagulated Asymptomatic microscopic hematuria At risk for falls Back pain Benign essential h (more content not included)...[facility] Comment on above:Result Comment: Electronically Signed By: Saadia ASHER\.br\Date and Time Signed: 12/26/24 11:33 EDT\.br\Electronically Co- Signed By: David Bush DO\.br\Date and Time Co-Signed: 12/26/24 17:24 EDT 12-25-2024 NoteProgress Note-Physician Assessment/Plan Please communicate all care needs and decisions directly w/ DPOA???JUSTIN Garber???nephew: [phone] 1. Diarrhea (R19.7: Diarrhea, unspecified) Ongoing x 1 week -Enteric panel, Cdiff -canceled as patient's had no further diarrhea since admission. -Stool count- 0 x24hr 2. Dehydration (E86.0: Dehydration) 2/2 ongoing diarrhea--now resolved. -IVF 3L to date - off at present -Trend labs 3. Hypernatremia (E87.0: Hyperosmolality and hypernatremia) 2/2 GI loss -improved since admission -Free water deficit: 1L -IVF as above -Trend labs 4. Hyperchloremia (E87.8: Other disorders of electrolyte and fluid balance, not elsewhere classified) Tx. as above 5. Generalized weakness (R53.1: Weakness) 2/2 chronic physical conditioning, debility, diarrhea, dehydration -CXR: no acute process -UA: no infectious process -PT/OT -> FWW use and SNF placement -Fall precautions 6. Total self-care deficit (R68.89: Other general symptoms and signs) Per pt. and sister pt. is unable to care for himself and she cannot do it -CRM to follow up with pt. and DPOA-HC for possible placement 7. HTN (hypertension) (I10: Essential (primary) hypertension) -Lisinopril, metoprolol 8. HLD (hyperlipidemia) (E78.5: Hyperlipidemia, unspecified) -Atorvastatin 9. Seizure disorder (G40.909: Epilepsy, unspecified, not intractable, without status epilepticus) Seizure precautions -Valproic acid level - 38 low -> sister is unsure if pt. was taking medications -> recommend repeat level in 1-2 wks -Valproic acid 10. Hypothyroidism in adult (E03.9: Hypothyroidism, unspecified) TSH - wnl -Levothyroxine 11. Dementia (F03.90: Unspecified dementia, unspecified severity, without behavioral disturbance, psychotic disturbance, mood disturbance, and anxiety) W/ depression -Baseline mentation: Alert to person, , family, year -CT head: no acute process -Sertraline, donepezil, duloxetine -Promote sleep-wake cycle -Fall precautions 12. History of CVA in adulthood (Z86.73: Personal history of transient ischemic attack (TIA), and cerebral infarction without residual deficits) 2020: MRI: Small focal area of signal intensity change within the right basal ganglia that could due to old hemorrhage. -Unclear why pt. is not on asa, awaiting sister to arrive to review med list -Atorvastatin 13. History of traumatic brain injury (Z87.820: Personal history of traumatic brain injury) -Supportive care 14. On deep vein thrombosis (DVT) prophylaxis (Z79.899: Other manager intermediate (current) drug therapy) -Lovenox, early ambulation -Plan discussed w/ patient, nursing staff and CRM. -Disposition: Awaiting SNF placement once medically stable. This report was transcribed using voice recognition software. Every effort was made to ensure accuracy, however, inadvertently computerized tree marker mistakes may be present. Subjective Pt seen at bedside. No acute issues last night per nursing. Patient sitting up in bed able to answer questions. Patient states he is feeling a little better this morning. Has had no diarrhea since admission. Patient pending SNF--which SOFIE is agreeable to. Subjective Patient seen while sitting up in recliner this morning. No acute issues last night. No nausea, vomiting or diarrhea since admission. Patient states he still feels weak. Vitals and labs have improved since admission. Patient pending SNF.- I did call and speak to Adarsh AUGUSTE who is agreeable to SNF but no ECF. Objective Vitals & Measurements T: 36.8 ???C(Axillary) TMIN: 36.5 ???C(Axillary) TMAX: 36.8 ???C(Axillary) HR: 70(Monitored) RR: 18BP: 114/76 SpO2: 94% WT: 88.1 kg Intake & Output This visit (24 hour periods starting at 07:00 EDT) 12/25/24 * 12/24/24 12/23/24 Total Summary Intake mL 237 474 237 Output mL -- 350 775 Fluid Balance 237 124 -538 Intake (1) Ensure mL 237 474 237 Total 237 474 237 Output (1) Urine Voided mL -- 350 775 Total -- 350 775 Counts (0) * This column has not completed the indicated time period. 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 Pulses: Normal capillary refill Abdomen: Soft, non-distended, non-tender, normal BS Musculoskeletal: No deformity or scoliosis noted. Normal ROM for age. Integumentary: Warm, dry, Extremity: No clubbing, Neurologic: Alert, oriented x self, , family, year and president- this is his baseline per sister, stewart (more content not included)...[facility]:Result Comment: Electronically Signed By: Saadia ASHER\.br\Date and Time Signed: 12/25/24 11:34 EDT\.br\Electronically Co-Signed By: Jareth Prakash DO\.br\Date and Time Co-Signed:12/25/24 14:52 [id number] NoteProgress Note-Physician Assessment/Plan Please communicate all care needs and decisions directly w/ DPOA???HC Adarsh Garber???nephew: [phone] 1. Diarrhea (R19.7: Diarrhea, unspecified) Ongoing x 1 week -Enteric panel, Cdiff - pending -Imodium if stool studies are neg -Stool count Ordered: Initial Hospital Care/Day High 75 Minutes [id number] 2. Dehydration (E86.0: Dehydration) 2/2 ongoing diarrhea -IVF 3L to date - off at present -Trend labs 3. Hypernatremia (E87.0: Hyperosmolality and hypernatremia) 2/2 GI loss -Free water deficit: 1L -IVF as above -Trend labs 4. Hyperchloremia (E87.8: Other disorders of electrolyte and fluid balance, not elsewhere classified) Tx. as above 5. Generalized weakness (R53.1: Weakness) 2/2 chronic physical conditioning, debility, diarrhea, dehydration -CXR: no acute process -UA: no infectious process -PT/OT -> FWW use and SNF placement -Fall precautions 6. Total self-care deficit (R68.89: Other general symptoms and signs) Per pt. and sister pt. is unable to care for himself and she cannot do it -CRM to follow up with pt. and DPOA-HC for possible placement 7. HTN (hypertension) (I10: Essential (primary) hypertension) -Lisinopril, metoprolol 8. HLD (hyperlipidemia) (E78.5: Hyperlipidemia, unspecified) -Atorvastatin 9. Seizure disorder (G40.909: Epilepsy, unspecified, not intractable, without status epilepticus) Seizure precautions -Valproic acid level - 38 low -> sister is unsure if pt. was taking medications -> recommend repeat level in 1-2 wks -Valproic acid 10. Hypothyroidism in adult (E03.9: Hypothyroidism, unspecified) TSH - wnl -Levothyroxine 11. Dementia (F03.90: Unspecified dementia, unspecified severity, without behavioral disturbance, psychotic disturbance, mood disturbance, and anxiety) W/ depression -Baseline mentation: Alert to person, , family, year -CT head: no acute process -Sertraline, donepezil, duloxetine -Promote sleep-wake cycle -Fall precautions 12. History of CVA in adulthood (Z86.73: Personal history of transient ischemic attack (TIA), and cerebral infarction without residual deficits) 2020: MRI: Small focal area of signal intensity change within the right basal ganglia that could due to old hemorrhage. -Unclear why pt. is not on asa, awaiting sister to arrive to review med list -Atorvastatin 13. History of traumatic brain injury (Z87.820: Personal history of traumatic brain injury) -Supportive care 14. On deep vein thrombosis (DVT) prophylaxis (Z79.899: Other halfway (current) drug therapy) -Lovenox, early ambulation Orders: acetaminophen, 650 mg = 2 tab(s), Tab, Oral, q6hr PRN Pain, Routine, Start date 12/22/24 17:05:00 EDT, 12/22/24 17:05:00 EDT enoxaparin, 40 mg = 0.4 mL, Injection, SubCutaneous, Daily for 30 day(s), Stop date 01/22/25 8:59:00 EDT, Routine, Start date 12/23/24 9:00:00 EDT, 12/22/24 17:24:00 EDT Lactated Ringers Injection 1,000 mL, 1,000 mL, IV, 50 mL/hr, for 1 dose(s), Stop date 12/23/24 13:06:00 EDT, Routine, Start date 12/22/24 17:07:00 EDT, 20 hour(s), Total volume (mL): 1,000, 88.1 kg, 2.13, m2 ondansetron, 4 mg = 2 mL, Injection, IV Push, q6hr PRN Nausea, Routine, Start date 12/22/24 17:05:00 EDT, 12/22/24 17:05:00 EDT Ambulate with Assistance Basic Metabolic Panel Below the Knee Intermittent Pneumatic Compression Device Cardiac Diet Cardiac Monitoring Communication Order Physician to Nursing Communication Order Physician to Nursing eGFR Extra Lav Tube Intake and Output Magnesium Level Notify Provider Vital Signs Notify Provider Vital Signs Occupational Therapy Additional Tx Occupational Therapy Evaluate Patient, Develop a Plan of Care and Implement Plan Oxygen Protocol Pad Siderails Physical Therapy Additional Tx Physical Therapy Evaluate Patient, Develop a Plan of Care and Implement Plan Precautions Pulse Oximetry Resuscitation Status - Full UA with Cult Rflx Valproic Acid Level Vital Signs Weight -Plan discussed w/ patient, nursing staff and CRM. -Disposition: Awaiting SNF placement once medically stable. This report was transcribed using voice recognition software. Every effort was made to ensure accuracy, however, inadvertently computerized tree marker mistakes may be present. Subjective No acute events overnight. Patient denies CP, pressure, palpitations, N/V, SOB or paresthesia. Review of Systems Constitutional: + malaise, fatigue - no improvement Respiratory: Negative Cardiovascular: Negative. Gastrointestinal: Denies abd pain. Passing flatus. Last BM: 12/22 - ongoing diarrhea Musculoskeletal: + gen. weakness - no improvement Additional ROS info: Except as noted in the above Review of Systems and in the History of Present Illness all other systems have been reviewed and are negative or noncontributory Objective Vitals & Measurements T: 36.4 ???C(Axillary) TMI (more content not included)...[facility]:Result Comment: Electronically Signed By: Cassandra VASQUEZ\.br\Date and Time Signed: 12/23/24 15:55 EDT\.br\Electronically Co- Signed By: Don RUSSELL.br\Date and Time Co-Signed: 12/23/24 17:39 EDT\.br\Electronically Co-Signed By: Dave Maynard III, DO.br\Date and Time Co-Signed: 12/24/24 17:47 [id number] NoteProgress Note-Physician Assessment/Plan Please communicate all care needs and decisions directly w/ DPOA???HC Adarsh Garber???nephew: [phone] 1. Diarrhea (R19.7: Diarrhea, unspecified) Ongoing x 1 week -Enteric panel, Cdiff -canceled as patient's had no further diarrhea since admission. -Stool count- 0 x24hr 2. Dehydration (E86.0: Dehydration) 2/2 ongoing diarrhea--now resolved. -IVF 3L to date - off at present -Trend labs 3. Hypernatremia (E87.0: Hyperosmolality and hypernatremia) 2/2 GI loss -improved since admission -Free water deficit: 1L -IVF as above -Trend labs 4. Hyperchloremia (E87.8: Other disorders of electrolyte and fluid balance, not elsewhere classified) Tx. as above 5. Generalized weakness (R53.1: Weakness) 2/2 chronic physical conditioning, debility, diarrhea, dehydration -CXR: no acute process -UA: no infectious process -PT/OT -> FWW use and SNF placement -Fall precautions 6. Total self-care deficit (R68.89: Other general symptoms and signs) Per pt. and sister pt. is unable to care for himself and she cannot do it -CRM to follow up with pt. and DPOA-HC for possible placement 7. HTN (hypertension) (I10: Essential (primary) hypertension) -Lisinopril, metoprolol 8. HLD (hyperlipidemia) (E78.5: Hyperlipidemia, unspecified) -Atorvastatin 9. Seizure disorder (G40.909: Epilepsy, unspecified, not intractable, without status epilepticus) Seizure precautions -Valproic acid level - 38 low -> sister is unsure if pt. was taking medications -> recommend repeat level in 1-2 wks -Valproic acid 10. Hypothyroidism in adult (E03.9: Hypothyroidism, unspecified) TSH - wnl -Levothyroxine 11. Dementia (F03.90: Unspecified dementia, unspecified severity, without behavioral disturbance, psychotic disturbance, mood disturbance, and anxiety) W/ depression -Baseline mentation: Alert to person, , family, year -CT head: no acute process -Sertraline, donepezil, duloxetine -Promote sleep-wake cycle -Fall precautions 12. History of CVA in adulthood (Z86.73: Personal history of transient ischemic attack (TIA), and cerebral infarction without residual deficits) 2020: MRI: Small focal area of signal intensity change within the right basal ganglia that could due to old hemorrhage. -Unclear why pt. is not on asa, awaiting sister to arrive to review med list -Atorvastatin 13. History of traumatic brain injury (Z87.820: Personal history of traumatic brain injury) -Supportive care 14. On deep vein thrombosis (DVT) prophylaxis (Z79.899: Other manager intermediate (current) drug therapy) -Lovenox, early ambulation -Plan discussed w/ patient, nursing staff and CRM. -Disposition: Awaiting SNF placement once medically stable. This report was transcribed using voice recognition software. Every effort was made to ensure accuracy, however, inadvertently computerized tree marker mistakes may be present. Subjective Pt seen at bedside. No acute issues last night per nursing. Patient sitting up in bed able to answer questions. Patient states he is feeling a little better this morning. Has had no diarrhea since admission. Patient pending SNF. Objective Vitals & Measurements T: 36.8 ???C(Axillary) TMIN: 36.4 ???C(Axillary) TMAX: 36.8 ???C(Axillary) HR: 81(Monitored) RR: 18BP: 114/73 SpO2: 92% WT: 88.1 kg Intake & Output This visit (24 hour periods starting at 07:00 EDT) 12/24/24 * 12/23/24 12/22/24 Total Summary Intake mL 237 237 1,002 Output mL 150 775 200 Fluid Balance 87 -538 802 Intake (3) Ensure mL 237 237 -- Sodium Chloride 0.9% mL -- -- 1,000 ondansetron mL -- -- 2 Total 237 237 1,002 Output (1) Urine Voided mL 150 775 200 Total 150 775 200 Counts (0) * This column has not completed the indicated time period. Physical Exam General: Calm, able to communicate needs, NAD, chronically ill-appearing, pale, Head: Normocephalic/atraumatic Eyes: Pupils equal, round, Conjunctivae and sclerae normal, ecchymosis around left orbital area from recent fall HEENT: Mucous membrane moist, tongue furrowed Neck: Trachea midline, neck supple, Chest: No chest wall deformity, no chest wall tenderness Lungs: Clear but diminished throughout Cardio: Normal rate, currently in RSR, no edema. Pulses: Normal capillary refill Abdomen: Soft, non-distended, non-tender, normal BS Musculoskeletal: No deformity or scoliosis noted. Normal ROM for age. Integumentary: Warm, dry, Extremity: No clubbing, Neurologic: Alert, oriented x self, , family, year and president- this is his baseline per sister, follows commands, Mental status: Pleasant & cooperative, approp. affect, Lab Results Glucose Lvl: 107 mg/dL (12/24/24 06:01:00) BUN: 20 mg/dL (12/24/24 06:01:00) Creatinine: 0.6 mg/dL (12/24/24 06:01:00) eGFR: 102 mL/min/1.73 m2 (12/24/24 06:01:00) BUN/Creat Ratio: 33 High (12/24/24 (more content not included)...[facility]Comment on above:Result Comment: Electronically Signed By: Saadia ASHER\.br\Date and Time Signed: 12/24/24 12:55 EDT\.br\Electronically Co-Signed By: Dave Maynard III, DO\.br\Date and Time Co-Signed: 12/24/24 13:08 [id number] NoteProgress Note-Nurse Register In [place] called patients marnie George, who is patients primary caregiver, to ask about home aspirin. Register In [place] asked Doris if patient was taking aspirin and if not what was the reasoning for it getting stopped. Doris responded to no it wasn't discontinued, he doesn't take it and hasn't for a while do to me not being able to get refills. Register In [place] notified Cassandra Souza NP.[facility]04-04-[facility] NoteInterdisciplinary Note - PT PT Evaluation done this date. Pt. with on AM-PAC this date. He requires min to mod Ax1 with all activity due to weakness. Recommend use of FWW for all standing and gait for safety as well as SNF. Will continue to follow.[facility]04-04-[facility] NoteHistory and Physical Basic Information Admit Date/Time:12/22/2024 17:25 Chief Complaint Per EMS patient had a fall last week with multiple episodes of diarrhea, pt was admitted to a different hospital two days ago. Per daughter patient has experienced increased weakness. PEr daughter, family concern for C. Diff. History of Present Illness 74-year-old male with PMH of: HTN, HLD, seizure disorder, hypothyroidism, dementia, depression, remote CVA, TBI. -Patient presented to the ED due to generalized weakness and ongoing diarrhea. -Patient was just released from [facility] in addition to having 2 separate ER visits for similar complaints. -Sister is at bedside, she assist with information. -Patient has had multiple falls resulting in multiple ED visits her and at [place]. He has ongoing episodes of diarrhea since time of last discharge from [place]. He recently had a fall while at hisneurology appointment and sustained a laceration above the left eyebrow. Patient generalized weakness is becoming progressively worse with ongoing diarrhea to the point that his sister is unable to care for him. He additionally states poor po intake 2/2 waves of nausea but denies vomiting. Patient denies fever, chills, cough, sputum production, known COVID exposure, chest pain, pressure, palpitations, abd. pain or change in bowel or bladder habits. Patient was evaluated in the ED and referred to the hospitalist service for further evaluation and tx. Review of Systems Constitutional: + malaise, fatigue Respiratory: Negative Cardiovascular: Negative. Gastrointestinal: Denies abd pain. Passing flatus. Last BM: 12/22 - ongoing diarrhea Musculoskeletal: + gen. weakness Additional ROS info: Except as noted in the above Review of Systems and in the History of Present Illness all other systems have been reviewed and are negative or noncontributory Scoring Burns Fall Risk Score: 70 High (12/22/24) Physical Exam Vitals & Measurements T: 36.6 ???C(Oral) HR: 89(Monitored) RR: 19 BP: 146/102 SpO2: 96% HT: 185.42 cm WT: 88.1 kg General: Calm, able to communicate needs, NAD, chronically ill-appearing, pale, Head: Normocephalic/atraumatic Eyes: Pupils equal, round, Conjunctivae and sclerae normal, ecchymosis around left orbital area from recent fall HEENT: Mucous membrane sticky, tongue furrowed Neck: Trachea midline, neck supple, Chest: No chest wall deformity, no chest wall tenderness Lungs: Clear but diminished throughout Cardio: Normal rate, currently in RSR, no edema. Pulses: Normal capillary refill Abdomen: Soft, non-distended, non-tender, normal BS Musculoskeletal: No deformity or scoliosis noted. Normal ROM for age. Integumentary: Warm, dry, Extremity: No clubbing, Neurologic: Alert, oriented x self, , family, year - this is his baseline per sister, follows commands, Mental status: Pleasant & cooperative, approp. affect, Lab Results WBC: 10.5 E9/L (12/22/24 13:34:00) RBC: 5.2 E12/L (12/22/24 13:34:00) HGB: 17 gm/dL (12/22/24 13:34:00) Hct: 49.1 % High (12/22/24 13:34:00) MCV: 93.6 fL (12/22/24 13:34:00) MCH: 32.4 pg (12/22/24 13:34:00) MCHC: 34.6 gm/dL (12/22/24 13:34:00) RDW: 14 % (12/22/24 13:34:00) Platelet: 284 E9/L (12/22/24 13:34:00) MPV: 9.3 fL (12/22/24 13:34:00) Neutro Auto: 57.5 % (12/22/24 13:34:00) Lymph Auto: 32.9 % (12/22/24 13:34:00) [place] Auto: 8.5 % (12/22/24 13:34:00) Eos Auto: 0.3 % (12/22/24 13:34:00) Basophil Auto: 0.8 % (12/22/24 13:34:00) Neutro Absolute: 6 E9/L (12/22/24 13:34:00) Lymph Absolute: 3.4 E9/L (12/22/24 13:34:00) [place] Absolute: 0.9 E9/L (12/22/24 13:34:00) Eos Absolute: 0 E9/L (12/22/24 13:34:00) Basophil Absolute: 0.1 E9/L (12/22/24 13:34:00) PT: 11 second(s) (12/22/24 13:34:00) INR: 0.98 (12/22/24 13:34:00) PTT: 29.5 second(s) (12/22/24 13:34:00) Glucose Lvl: 94 mg/dL (12/22/24 13:34:00) BUN: 34 mg/dL High (12/22/24 13:34:00) Creatinine: 0.9 mg/dL (12/22/24 13:34:00) eGFR: 90 mL/min/1.73 m2 (12/22/24 13:34:00) BUN/Creat Ratio: 38 High (12/22/24 13:34:00) Sodium Lvl: 146 mmol/L High (12/22/24 13:34:00) Potassium Lvl: 3.7 mmol/L (12/22/24 13:34:00) Chloride: 112 mmol/L High (12/22/24 13:34:00) CO2: 22 mmol/L (12/22/24 13:34:00) AGAP: 16 mEq/L (12/22/24 13:34:00) Calcium Lvl: 9.9 mg/dL (12/22/24 13:34:00) Alk Phos: 62 Int._Unit/L (12/22/24 13:34:00) ALT: 34 Int._Unit/L (12/22/24 13:34:00) AST: 37 Int._Unit/L (12/22/24 13:34:00) Total Protein: 8.9 gm/dL High (12/22/24 13:34:00) Albumin Lvl: 4.7 gm/dL (12/22/24 13:34:00) Globulin: 4.2 gm/dL High (12/22/24 13:34:00) A/G Ratio: 1.1 (12/22/24 13:34:00) Bili Total: 1 mg/dL (12/22/24 13:34:00) Bili Direct: 0.2 mg/dL (12/22/24 13:34:00) Bili Indirect: 0.8 mg/dL (12/22/24 13:34:00) Troponin HS: 13.1 pg/mL Low (12/22/24 13:34:00) Glucose Cap: 92 mg/dL (12/22/24 14:27:00) POC Device SN: [id number] (12/22/24 14:27:00) POC User ID: [id number] (12/22/24 14:27:00) POC Usernam (more content not included)...[facility] HospitalComment on above:Result Comment: Electronically Signed By: Cassandra RUSSELL\.br\Date and Time Signed: 12/22/24 17:27 EDT\.br\Electronically Co-Signed By: Dave Maynard III, DO\.br\Date and Time Co-Signed: 12/23/24 07:29 [id number] History of Present illness Narrative* Eugenio Rivero, BRENT FACFAS - 08/01/2024 1:00 PM EST Images from the original note were not included. 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 They were painful to palpation [id number] on the right 36671 on the left. VASC: DP /PT were nonpalpable bilateral. Capillary refill time < 3 seconds Digits 1-5 bilateral NEURO: [place] Zakiya 5.07 monofilament was intact B/L. Vibratory [...] both in length and thickness 1through 10. BRENT Britt documented in this encounterKindred [id number] Hospital Discharge instructions Patient Education 12/14/2023 16:10:49 Epilepsy, Kakv-ew-Dhwa Epilepsy Epilepsy is when a person keeps [...] Follow these instructions at home: Medicines Take vaxq-bru-wzsqpyr and prescription medicines only as told by your doctor. Avoid anything that may keep your medicine from working, such as alcohol. Activity Get enough rest. Follow your doctor's advice about driving, swimming, and doing other things that would be dangerousif you had a seizure. If you live in the [place] ask your local department of motor vehicles about local driving laws for people with [...] right away. Call your local emergency services (213 int [place] Do not wait to see if the symptoms will go away. Do not drive yourself to the hospital. Get help right awayif you feel like you may hurt yourself or others, or have thoughts about taking your own life. Go to your nearest emergency room or: Call your local emergency services (440 in the [place] Call the National Suicide Prevention Lifeline at or 345 in the [place] This is open 24 hours a day. Text the Crisis Text Line at 737836. Summary Epilepsy is when a person keeps having seizures. Seizures can cause many symptoms, such as brief staring and shaking or jerky muscle movements. Treatment can control seizures. Take vueo-lum-gtrjbaj and prescription medicines only as told by your doctor. Follow your doctor's advice about driving, swimming, and doing other things that would be dangerousif you had a seizure. Teach friends and family what to do if you have a seizure. This information is not intended to replace advice given to you by your health care provider. Make sure you discuss any questions you have with your health care provider. Document Revised: 04/02/2022 Document Reviewed: 03/11/2021 [employer] Patient Education 2022 [employer]. Follow Up Care 11/09/2023 17:08:21 With:Calvin Oshea DO, FAM Address: [facility] [address] [address]- When:4 weeks Comments:4 WEEKS FOLLOWUP [facility] 03-25-2024 Hospital Discharge instructions Follow Up Care 12/14/2023 15:39:26 With:Calvin Oshea DO, FAM Address: [facility] [address] [place] [address]- When:4 weeks Comments:4 WEEKS FOLLOWUP [facility] [place] 02-14-2024 History of Present illness Narrative* Eugenio Rivero DPM FACFAS - 11/04/2023 9:50 AM EST Images from the original note were not included. patient: David Lane : 1950 PCP: Russell Trejo, SUBJECTIVE This is a 73 y.o. male [...] 5 (five) minutes ifneeded., Disp: , Rfl: Semaglutide,0.25 or 0.5MG/DOS, (Ozempic, [...] subungual debris. They were painful to palpation 69259 on the right 19363 on the left. VASC: DP /PT were nonpalpable bilateral. Capillary refill time < 3 seconds Digits 1-5 bilateral NEURO: [place] Zakiya 5.07 monofilament was intact B/L. Vibratory [...] both in length and thickness 1through 10. I educated the patient on venous stasis disease I recommended mild compression and elevation. Compression stockings 18 mmHg or higher with elevation when seated. Discussed peripheral arterial disease as well patient may require PVR testing at some point follow-up 2 months BRENT Britt documented in this encounterKindred [id number] Hospital Discharge instructions Follow Up Care 09/28/2023 16:50:36 With:Calvin Oshea DO, [facility] Address: [address] [place] [address]- When:4 weeks Comments:4 -6 WEEKS FOLLOWUP - 40 minutes - check after PT / check on sleep [facility] Evaluation + Plan note Future Appointments Appointment Date:12/14/2023 02:40:00 PM Scheduled Provider:Calvin Oshea DO Location:[facility] Appointment Type: Open Future Scheduled Tests Radiology* XR Spine Lumbosacral Minimum 4 Views 11/09/23 [facility] Evaluation + Plan note Future Appointments Appointment Date:01/18/2024 01:00:00 PM Scheduled Provider: Location:[facility] Appointment Type: Medicare Wellness Initial Appointment Date:01/18/2024 01:40:00 PM Scheduled Provider:Calvin Oshea DO Location:[facility] Appointment Type: Open Future Scheduled Tests Radiology* XR Spine Lumbosacral Minimum 4 Views 11/09/23 [facility] Evaluation + Plan note Future Appointments Appointment Date:12/27/2024 02:00:00 PM Scheduled Provider: Location:[facility] Appointment Type: Medicare Wellness Subsequent Future Scheduled Tests Radiology* XR Spine Lumbosacral Minimum 4 Views 11/09/23 [facility] Evaluation + Plan note Future Appointments Appointment Date:12/27/2024 02:00:00 PM Scheduled Provider: Location:[facility] Appointment Type: Medicare Wellness Subsequent Future Scheduled Tests Laboratory* HgbA1c 01/20/24 * PSA Screen, Total 01/20/24 * TSH With T4fr Reflex 01/20/24 * CBC w/ Auto Diff 01/20/24 * Comprehensive Metabolic Panel 01/20/24 * Lipid Panel 01/20/24 Radiology* XR Spine Lumbosacral Minimum 4 Views 11/09/23 [facility] Evaluation + Plan note Future Appointments Appointment Date:01/02/2025 11:40:00 AM Scheduled Provider:Calvin Oshea DO Location:[facility] Appointment Type:[facility] Evaluation + Plan note Future Appointments Appointment Date:06/05/2025 11:20:00 AM Scheduled Provider:Calvin Oshea DO Location:[facility] Appointment Type:[facility] Evaluation + Plan note Future Appointments Appointment Date:06/05/2026 11:00:00 AM Scheduled Provider: Location:[facility] Appointment Type:FM Medicare Wellness Video Visit [facility] Evalujushy noteNo assessment information available [facility] Work Phone: Evaluvkjse note* Diagnosis Venous (peripheral) insufficiency- Primary Unspecified venous (peripheral) insufficiency Onychomycosis Dermatophytosis of nail Pain in left toe(s) Pain in right toe(s) Peripheral arterial disease (CMS/HCC) Unspecified peripheral vascular disease [facility] Diagnosis Onychomycosis- Primary Dermatophytosis of nail Pain in left toe(s) Pain in right toe(s) [facility]* Diagnosis Onychomycosis- Primary Dermatophytosis of nail Pain in left toe(s) Pain in right toe(s) [facility]* Diagnosis Delirium- Primary Other alteration of consciousness Memory loss Seizure disorder (CMS/HCC) Unspecified epilepsy without mention of intractable epilepsy 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, unspecified laterality, sequela (CMS/HCC) Near syncope [facility]* Diagnosis Onychomycosis- Primary Dermatophytosis of nail Pain in left toe(s) Pain in right toe(s) [facility] Narrative No data available for this section [facility] Hospital Discharge instructions No data available for this section [facility] Progress note No data available for this section [facility] Reason for referral (narrative)No reason for referral information availableMccullough-[facility] Work Phone: Summary Purpose Family History Relationship Condition Age at Onset Recorded Date/T maurice father Coronary artery disease Unknown Not SpecifiedMalignant neoplasm of throatUnknownMalignant neoplasm of colon UnknownsisterHypertensionUnknownCerebrovascular accident (CVA)Unknown Relationship Condition Age at Onset Recorded Date/T maurice father Coronary artery disease Unknown motherMalignant neoplasm of throatUnknownMalignant neoplasm of colonUnknown sisterHypertensionUnknownCerebrovascular accident (CVA)Unknown Advance Directives Advance Directive Response Recorded Date/ Time Advance Directives Yes February 12 8 7:57pm Advance Directive Response Recorded Date/ Time Advance Directives Yes February 12 8:57pm Assessments No Assessments Information AvailableNo Assessments Information AvailableNo Assessments Information AvailableNo Assessments Information Available Chief Complaint and Reason for Visit Chief Complaint Dizzy Chief Complaint Admit Date Staple removal April 09, 2025 12:3 5pm Reason for Referral Referred by: Dayo ULLOA, Calvin Cotto Additional Source Comments (unrecognized sect ion and [...] section and content) DATE CREATED AUTHOR 03/12/2018 [facility] DATE CREATED AUTHOR AUTHOR'S ORGANIZ ATION 03/13/2018 [facility] DATE CREATED AUTHOR AUTHOR'S ORGANIZ ATION 01/11/2022 [facility] [employer]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 DATE CREATED AUTHOR AUTHOR'S ORGANIZ ATION 05/06/2022 [facility] DATE CREATED AUTHOR AUTHOR'S ORGANIZ ATION 12/23/2024 [facility] DATE CREATED AUTHOR AUTHOR'S ORGANIZ ATION 12/25/2024 [facility] DATE CREATED AUTHOR AUTHOR'S ORGANIZ ATION 12/26/2024 [facility] DATE CREATED AUTHOR AUTHOR'S ORGANIZ ATION 12/27/2024 [facility] DATE CREATED AUTHOR AUTHOR'S ORGANIZ ATION 01/04/2025 [facility] DATE CREATED AUTHOR AUTHOR'S ORGANIZ ATION 03/01/2025 [facility] DATE CREATED AUTHOR AUTHOR'S ORGANIZ ATION 04/26/2025 [facility] DATE CREATED AUTHOR AUTHOR'S ORGANIZ ATION 05/28/2025 [facility] DATE CREATED AUTHOR AUTHOR'S ORGANIZ ATION 06/06/2025 [facility] Care Teams (unrecognized sec tion and content) Personnel Name: Calvin Oshea DO Kirti Address: [address] Telecom: Team Status: Active Member Role Status Dates Russell Trejo DO Primary Care Provider Active Team Status: Inactive Member Role Status Dates Russell Trejo DO Primary Care Provider Active Start: April 09, 2025 End: April 09, 2025Danielle Lr ProviderActiveStart: April 09, 2025 End: April 09, 2025 Team Status: Inactive Member Role Status Dates Russell Trejo DO Primary Care Provider Active Wilfred Fitzpatrick ProviderActiveTeam MemberRelationshipSpecialtyStart DateEnd Date Russell Trejo DO [address] [facility] [address] [id number] PCP - [place] MA09/21/21 Russell Trejo, DO [address] [place] [address] [place] [address] PCP - GeneralInternal Medicine04/03/23Team MemberRelationshipSpecialtyStart Date End Date Russell Trejo, [address] [place] [place] [address] PCP - [place] MA09/21/21 Russell Trejo, DO [address] [place] [address] PCP - GeneralInternal Medicine04/03/23Team MemberRelationshipSpecialtyStart Date End Date Russell Trejo, [address] [place] [address] PCP - [place] MA09/21/21Team MemberRelationshipSpecialtyStart DateEnd Date Russell Trejo, [address] [place] [address] PCP - [place] MA09/21/21Team MemberRelationshipSpecialtyStart DateEnd Date Calvin Oshea MD [address] [place] [address] PCP - GeneralFamily Medicine01/23/25Team MemberRelationshipSpecialtyStart DateEnd Date Calvin Oshea MD [address] [place] [address] PCP - GeneralFamily Medicine01/23/25Team MemberRelationshipSpecialtyStart DateEnd Date Calvin Oshea MD [address] [place] [address] PCP - GeneralFamily Medicine01/23/25Team MemberRelationshipSpecialtyStart DateEnd Date Calvin Oshea MD [address] [place] [address] PCP - GeneralFamily Medicine01/23/25Team MemberRelationshipSpecialtyStart DateEnd Date Eva Henriquez MD [address] [place] [address] PCP - GeneralPsychiatry02/28/25Team MemberRelationshipSpecialtyStart DateEnd Date Calvin Oshea MD [address] [place] [address] PCP - GeneralFamily Medicine01/23/25Team MemberRelationshipSpecialtyStart DateEnd Date Calvin Oshea MD [address] [place] [address] PCP - GeneralFamily Medicine01/23/25 Goals (unrecognized section and content) Goals may [...] this section No data available for this sectionGoals may be documented in an alternate section No data available for this section No data available for this section No data available for this section Reason for Visit (unrecogniz ed section and content) ReasonCommentsToenail CareNon dm nail careReasonCommentsToenail CareNon DM nail care FOR RECORDS PERTAINING TO [...] BE BASED ON THE PRIMARY CLINICAL RECORDS. [facility] [employer] [facility]. provides no warranty or guarantee of the accuracy or completeness of information in this document.
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
--- OUTSIDE RECORDS SUMMARY | 2025-08-20 00:13 | XMS_ITS | Encounter Summary ---
Author Organization [facility] Address [address] [place] [address] Care Team Providers Care Rodbuster Name Role Phone Link, Calvin HERNANDEZ Primary Care Provider [phone] Encounter Details DateTypeDepartmentCare Team (Latest Contact Info)Inhgsqxkijt34/24/2025Bamboo flowsheet [facility] [address] [place] [address] Eugenio Castro, DPM FACFAS [address] [place] [address] Social History Tobacco UseTypesPacks/DayYears UsedDateSmoking Tobacco: FormerCigarettes Smokeless Tobacco: NeverAlcohol UseStandard Drinks/WeekCommentsNever0 (1 standard drink = 0.6 oz pure alcohol)caffeine: sodaAUDIT-CAnswerDate RecordedQ1: How often do you have a drink containing alcohol?Never08/31/2023Q2: How many drinks containing alcohol do you have on a typical day when you are drinking? Patient does not drink08/31/2023Q3: How often do you have six or more drinks on one occasion?Never08/31/2023HQ-2AnswerDate RecordedPatient Health Questionnaire-2 Qjvwt065Sex and Gender InformationValueDate RecordedSex Assigned at BirthNot on fileLegal RhpAmva66/ 6:41 PM EDTGender Identity Not on fileSexual OrientationNot on filedocumented as of this encounter Plan of Treatment DateTypeDepartmentCare Team (Latest Contact Info)Gyjfnkovqpi20/16/2026 3:00 PM ESTProcedure Visit [facility] [address] [place] [address] Eugenio Castro, DPM FACFAS [address] [facility] [place] [address] documented as of this encounter Visit Diagnoses Not on filedocumented in this encounter Additional Health Concerns AssessmentNoted TimePHQ-9 Depression Total Score: 6111/01/2022 1:00 PM EST documented as of this encounter Care Teams Team MemberRelationshipSpecialtyStart DateEnd Date Calvin Oshea MD [address] [place] [address] PCP - GeneralFamily Medicine01/23/25documented as of this encounter
--- OUTSIDE RECORDS SUMMARY | 2025-08-20 00:13 | XMS_ITS | Clinical Summary ---
Author Organization [facility] Address [address] [place] [address] Phone Care Team Providers Care Media Supervisor Name Role Phone Unavailable Primary Care Provider Unavailabl e Social History Tobacco UseTypesPacks/DayYears UsedDateSmoking Tobacco: Never AssessedSex and Gender InformationValueDate RecordedSex Assigned at BirthNot on fileLegal Sex Male08/16/2022 5:52 AM ESTGender IdentityNot on fileSexual OrientationNot on file Plan of Treatment Not on file
[2025-08-20 00:18] LABS: Alanine Aminotransferase 27 U/L (16-63); Albumin Globulin Ratio 0.9; Albumin Level 3.6 g/dL (3.4-5.0); Alkaline Phosphatase 66 U/L (46-116); Anion Gap 8.4; Aspartate Amino Transferase 15 U/L (15-37); Blood Urea Nitrogen 26.0 mg/dL (7.0-18.0); Calcium 9.4 mg/dL (8.5-10.1); Carbon Dioxide 30.2 mmol/L (21.0-32.0); Chloride 105 mmol/L (98-107); Estimated GFR (African America >60 (>=60 mL/min/1.73m^2); Estimated GFR (Non-African Ame >60 (>=60 mL/min/1.73m^2); Globulin 4.2 g/dL; Glucose 130 mg/dL (74-106); Potassium 4.6 mmol/L (3.5-5.1); Sodium 139 mmol/L (136-145); Total Protein 7.8 g/dL (6.4-8.2)
[2025-08-20] MEDS: LIDOCAINE 2% JELLY 20 ML UR (02:30)
[2025-08-20 02:39] LABS: Glucose Urine UA NEGATIVE (NEGATIVE)
[2025-08-20 02:48] LABS: Cast Seen? SEEN #/LPF (NONE SEEN); Crystals Seen? None Seen #/HPF (None Seen); Urine Culture Indicated NO
--- NOTE | 2025-08-20 03:09 | ED.GENADUL1 ---
HPI HPI - General Adult General Chief complaint: Altered Mental Status Stated complaint: ALTERED MENTAL STATUS Time Seen by Provider: 08/19/25 23:31 Source: family Source information: Sister Mode of arrival: ambulance History of Present Illness HPI narrative: Patient is a 75-year-old male presenting to the emergency department with his family via EMS for concerns of altered mental status. The patient has a history of chronic cognitive delays and behavioral issues secondary to a traumatic brain injury when he was 26 years old. According to the family, the patient has been refusing to take his medications over the last few days. They state that the patient has seemed more confused over the last few days. The patient himself is asymptomatic. He denies having any pain or discomfort. He denies headaches, chest pain, shortness of breath, nausea, vomiting, abdominal pain, or any other symptoms. Related Data Home Medications ?Medication ?Instructions ?Recorded ?Confirmed atorvastatin 10 mg tablet 10 mg PO DAILY 12/20/24 08/19/25 divalproex 250 mg tablet,delayed 250 mg PO .qhs 12/20/24 08/19/25 release duloxetine 60 mg capsule,delayed 60 mg PO DAILY 12/20/24 03/16/25 release levothyroxine 100 mcg tablet 100 mcg PO DAILY 12/20/24 08/19/25 metoprolol succinate 25 mg 25 mg PO DAILY 12/20/24 08/19/25 tablet,extended release 24 hr quetiapine 25 mg tablet 25 mg PO BID 02/24/25 03/16/25 sertraline 50 mg tablet 200 mg PO QPM 03/16/25 03/16/25 tramadol 50 mg tablet 100 mg PO Q8H 08/19/25 08/19/25 Allergies Allergy/AdvReac Type Severity Reaction Status Date / Time No Known Drug Allergies Allergy Verified 08/19/25 23:43 Opioid HPI Opioid Management Most Recent Opioid Data: Ur Phencyclidine Scrn, (NEGATIVE) Negative 02/24/25, 16:40 Review of Systems ROS Status of ROS 10 or more systems reviewed and unremarkable except as noted in history and below [facility] Medical History (Updated 08/20/25 @ 02:53 by Hemant Madsen, ) Stroke ?I63.9 - Cerebral infarction, unspecified (ICD-10) Social History Little interest or pleasure in doing things: not at all Feeling down, depressed, or hopeless: not at all Exam Narrative Exam Narrative: CONSTITUTIONAL: No acute distress, oriented x 3, answering questions and following commands appropriately SKIN: Was warm and dry. EYES: Sclerae white. No conjunctival pallor. EARS, NOSE, THROAT: Moist oral mucosa. RESPIRATORY: Clear to auscultation bilaterally, no wheezes, crackles, or stridor, no use of accessory muscles CARDIOVASCULAR: Normal rate and regular rhythm. There is no S3, S4, murmur, rub. GASTROINTESTINAL: Abdomen is soft, nontender, nondistended. MUSCULOSKELETAL: No peripheral edema. NEUROLOGIC: Patient is awake and alert. Facies were symmetrical. Constitutional Vital Signs, click to edit/add: Last Vital Signs Temp 97.6 F 08/19/25 23:37 Pulse 65 08/20/25 01:00 Resp 20 08/19/25 23:37 BP 125/80 08/20/25 01:00 Pulse Ox 97 08/20/25 00:22 O2 Del Method Room Air 08/19/25 23:37 Course Vital Signs Vital signs: Vital Signs Temperature 97.6 F 08/19/25 23:37 Pulse Rate 70 08/19/25 23:37 Respiratory Rate 20 08/19/25 23:37 Blood Pressure 144/81 H 08/19/25 23:37 Pulse Oximetry 99 08/19/25 23:37 Oxygen Delivery Method Room Air 08/19/25 23:37 Temperature 97.6 F 08/19/25 23:37 Pulse Rate 65 08/20/25 01:00 Respiratory Rate 20 08/19/25 23:37 Blood Pressure 125/80 08/20/25 01:00 Pulse Oximetry 97 08/20/25 00:22 Oxygen Delivery Method Room Air 08/19/25 23:37 Medical Decision Making [facility] Narrative Medical decision making narrative: Patient is a 75-year-old male, history significant for TBI at the age of 26 with chronic behavioral issues and cognitive delay, presenting to the emergency department this family via EMS for concerns of confusion/altered mental status over the last few days. His vital signs on arrival are within normal limits. He is afebrile and hemodynamically stable. Patient has an unremarkable physical examination. He is overall well-appearing and has no acute complaints. He is oriented x 3. Differential diagnosis includes underlying infection such as UTI/pneumonia, ntracranial pathologies, ACS, or other electrolyte/metabolic derangement. IV was established and laboratory studies were obtained. CT head was ordered. CT head independently reviewed/interpreted by myself demonstrated no acute intracranial pathology or hemorrhage. Chest x-ray independently reviewed/interpreted by myself demonstrated no acute cardiopulmonary process. 12 Lead EKG: Normal sinus rhythm at a rate of 72. Normal axis. No ST segment elevations. QRS, CA, and QTc interval within normal limits. Final impression: normal sinus rhythm without evidence of acute myocardial ischemia Laboratory studies were unremarkable. No significant electrolyte or metabolic derangement. No evidence of acute kidney injury. No anemia, leukocytosis, or thrombocytopenia. No transaminitis or hyperbilirubinemia. Troponin nonelevated. Urinalysis negative for acute infection. There is some blood in his urine secondary to traumatic straight cath. I do believe the patient is stable for discharge. Though the patient may be slightly more confused compared to his baseline, I cannot identify an underlying acute, emergent process to explain his symptoms that would require hospitalization. They were instructed to follow up with PCP for further care. Return precautions were given including any new or worsening symptoms. Family understands and agrees to the plan. FINAL IMPRESSION: #Acute on chronic cognitive disorder #History of traumatic brain injury DISPOSITION: Discharged home CONDITION: Good Medical Records Medical records reviewed: Yes I reviewed the patient's medical records Lab Data Lab results reviewed: Yes I reviewed the patient's lab results Labs: Lab Results 08/19/25 08/19/25 08/20/25 Range/Units 23:36 23:55 02:34 WBC 9.0 (4.0-11.0) 10^3/uL RBC 4.60 L (4.70-6.10) 10^6/uL Hgb 14.5 (14.0-18.0) g/dL Hct 43.0 (42.0-54.0) % MCV 93.5 (80.0-94.0) fL MCH 31.5 (25.9-34.0) pg MCHC 33.7 (29.9-35.2) g/dL RDW 12.7 (11.0-15.0) % Plt Count 239 (150-450) 10^3/uL MPV 10.1 (9.5-13.5) fL Neut % (Auto) 69.6 (43.0-75.0) % Lymph % (Auto) 24.8 (20.5-60.0) % [place] % (Auto) 5.1 (1.7-12.0) % Eos % (Auto) 0.1 L (0.9-7.0) % Baso % (Auto) 0.2 (0.2-2.0) % Neut # (Auto) 6.2 (1.4-6.5) 10^3/uL Lymph # (Auto) 2.2 (1.2-3.8) 10^3/uL [place] # (Auto) 0.5 (0.3-0.8) 10^3/uL Eos # (Auto) 0.0 (0.0-0.7) 10^3/uL Baso # (Auto) 0.0 (0.0-0.1) 10^3/uL Abs Immat Gran (auto) 0.02 (0.00-0.03) 10^3/uL Imm/Tot Granulo (auto) 0.2 (0.0-0.5) % Sodium 139 (136-145) mmol/L Potassium 4.6 (3.5-5.1) mmol/L Chloride 105 (98-107) mmol/L Carbon Dioxide 30.2 (21.0-32.0) mmol/L Anion Gap 8.4 BUN 26.0 H (7.0-18.0) mg/dL Creatinine 1.06 (0.70-1.30) mg/dL Est GFR ( Amer) >60 (>=60 mL/min/1.73m^2) Est GFR (Non-Af Amer) >60 (>=60 mL/min/1.73m^2) BUN/Creatinine Ratio 24.5 Glucose 130 H (74-106) mg/dL Calcium 9.4 (8.5-10.1) mg/dL Total Bilirubin 0.4 (0.2-1.0) mg/dL AST 15 (15-37) U/L ALT 27 (16-63) U/L Alkaline Phosphatase 66 (46-116) U/L Troponin I High Sens 6.0 (4.0-76.1) pg/mL Total Protein 7.8 (6.4-8.2) g/dL Albumin 3.6 (3.4-5.0) g/dL Globulin 4.2 g/dL Albumin/Globulin Ratio 0.9 Urine Color Yellow (YELLOW) Urine Clarity Slightly cloudy A (CLEAR) Urine pH 6.0 (5.0-9.0) Ur Specific [place] 1.025 (1.005-1.025) Urine Protein 30 A (NEG/TRACE) mg/dL Urine Glucose (UA) Negative (NEGATIVE) mg/dL Urine Ketones Trace A (NEGATIVE) mg/dL Urine Occult Blood Large A (NEGATIVE) Urine Nitrite Negative (NEGATIVE) Urine Bilirubin Negative (NEGATIVE) Urine Urobilinogen 0.2 (0.2-1.0) EU/dL Ur Leukocyte Esterase Negative (NEGATIVE) Urine RBC 20-50 A (0-2) #/HPF Urine WBC 0-2 A (NONE SEEN) #/HPF Ur Squamous Epith Cells None seen (NONE/RARE) #/LPF Urine Crystals None seen (None Seen) #/HPF Urine Bacteria Trace A (NONE SEEN) #/HPF Urine Casts Seen A (NONE SEEN) #/LPF Hyaline Casts Rare Urine Mucus Trace A (NONE SEEN) Ur Culture Indicated? No POC Glucose 146 H (74-106) mg/dL Imaging Data Chest x-ray: Attestation: I personally reviewed and interpreted this imaging study as follows: ECG Data Attestation: I personally reviewed and interpreted this ECG as follows: Discharge Plan Discharge Chief Complaint: Altered Mental Status Clinical Impression: TBI (traumatic brain injury) Patient Disposition: Home, Self-Care Time of Disposition Decision: 02:53 Condition: Good Mode of Transportation: EMS Prescriptions / Home Meds: No Action atorvastatin 10 mg tablet 10 mg PO DAILY divalproex 250 mg tablet,delayed release (DR/EC) 250 mg PO .qhs Rx Instructions: at bedtime duloxetine 60 mg capsule,delayed release(DR/EC) 60 mg PO DAILY levothyroxine 100 mcg tablet 100 mcg PO DAILY metoprolol succinate 25 mg tablet extended release 24 hr 25 mg PO DAILY quetiapine 25 mg tablet 25 mg PO BID sertraline 50 mg tablet 200 mg PO QPM tramadol 50 mg tablet 100 mg PO Q8H Print Language: Georgian Instructions: Cognitive Disorders after Traumatic Brain Injury (ED) Referrals: Calvin Oshea DO [Primary Care Provider] - 1 week
== END 2025-08-20 05:11 | disposition home or self-care (01) ==
PROVIDERS: Emergency Provider Student in an Organized Health Care Education/Training Program; PCP Family Medicine
DX: S06.9XAA Unspecified intracranial injury with loss of consciousness status unknown, initial encounter (principal); R41.82 Altered mental status, unspecified
CPT/HCPCS: 36415; 70450; 71045; 80053; 81001; 84484; 85025; 93005; 99285